=== PATIENT | male | born 1940 | race Caucasian/White ===

== ENCOUNTER → 2018-04-07 08:19 | Outpatient (CLI) | payer MEDICARE, SELFPAY ==
[2018-04-07 09:30] LABS: Add Manual Diff / Slide Review NO; Basophils Percent Auto 0.3 % (0-2); Eosinophils Percent Auto 1.3 % (2-4); Hemoglobin 16.1 g/dL (13.5-17.5); Lymphocytes Percent Auto 21.2 % (25-40); Mean Corpuscular HGB Conc 34.3 % (30-36); Mean Corpuscular Hemoglobin 30.5 PG (26-34); Mean Corpuscular Volume 88.9 fL (80-100); Monocytes Percent Auto 7.9 % (3-14); Neutrophils Absolute Auto 4800 /uL (3000-5900); Neutrophils Percent Auto 69.3 % (50-75); Platelet Count 178 X10^3/uL (150-400); Red Blood Cell Count 5.29 X10^6/uL (4.5-5.9); Red Cell Distribution Width 16.7 % (11.6-14.8)
[2018-04-07 09:53] LABS: Alanine Aminotransferase 38 IU/L (21-72); Albumin 4.1 g/dL (3.5-5.0); Albumin Globulin Ratio 1.6 (1.0-2.8); Alkaline Phosphatase 88 U/L (38-126); Aspartate Aminotransferase 29 IU/L (17-59); BUN Creatinine Ratio 18.3 (6-22); Bilirubin Total 1.6 mg/dL (0.2-1.3); Bilirubin Unconjugated 1.3 mg/dL (0.0-1.1); Blood Urea Nitrogen 22 mg/dL (9-20); Calcium 9.2 mg/dL (8.4-10.2); Carbon Dioxide 26 mmol/L (22-32); Chloride 103 mmol/L (98-107); Cholesterol 197 mg/dL (140-199); Estimated Glomerular Filt Rate 58.9 mL/min (>60); Globulin 2.5 g/dL (1.7-4.1); Glucose 95 mg/dL (80-110); HDL Cholesterol 46 mg/dL (40-60); HEMOLYSIS < 15 (0-50); LDL Cholesterol Calculated 135 mg/dL (<100); Potassium 4.3 mmol/L (3.4-5.1); Sodium 141 mmol/L (137-145); Total Protein 6.6 g/dL (6.3-8.2); Triglycerides 81 mg/dL (35-150)
[2018-04-07 10:15] LABS: Thyroid Stimulating Hormone 1.67 uIU/mL (0.47-4.68)
== END ==
PROVIDERS: PCP Family Medicine; Visit Provider Family Medicine
DX: E78.5 Hyperlipidemia, unspecified (principal); I48.91 Unspecified atrial fibrillation
CPT/HCPCS: 36415; 80053; 80061; 80076; 84443; 85025

== ENCOUNTER 2018-06-04 19:24 | Inpatient (IN) | payer MEDICARE, SELFPAY ==
--- NOTE | 2018-06-04 19:44 | ED_ITS ---
HPI - Abdominal Pain <GEORGIE Pace - Last Filed: 06/04/18 22:56> General Chief Complaint: Abdominal Pain Stated Complaint: SEVERE ABD PAIN,SHAKES Time Seen by Provider: 06/04/18 19:43 History of Present Illness HPI narrative: 78-year-old male here for complaint of epigastric/right upper quadrant pain that started this afternoon. He states that he ate lunch in the pain started right afterwards. He denies any fevers or chills. He denies any trauma to the abdomen. Last bowel movement was earlier today he states was soft however was not abnormal. No urinary symptoms. He he denies any other concerns or complaints. Heart rate was elevated today. He states that he has a normally have a high heart rate around low 100s which is normal for him. 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 He is currently taking Eliquis for the AFib and diltiazem MD complaint: abdominal pain Related Data Home Medications Medication Instructions Recorded Confirmed apixaban [Eliquis] 1 tab PO QPM 06/04/18 06/05/18 apixaban [Eliquis] 2 tab PO QAM 06/04/18 06/05/18 atorvastatin 1 tab PO DAILY 06/04/18 06/05/18 diltiazem HCl [Cartia XT] 1 cap PO BID 06/04/18 06/04/18 tamsulosin 1 tab PO DAILY 06/04/18 06/04/18 Allergies Allergy/AdvReac Type Severity Reaction Status Date / Time Sulfa (Sulfonamide Allergy Verified 06/04/18 19:54 Antibiotics) Review of Systems <GEORGIE Pace - Last Filed: 06/04/18 22:56> Constitutional Denies chills, Denies fever(s), Denies lethargy and Denies weakness Eyes Denies change in vision, Denies eye discharge, Denies irritation and Denies loss of vision ENT Ears, Nose, Mouth, and Throat: Denies change in voice, Denies neck pain and Denies sore throat Cardiovascular Denies chest pain, Denies irregular heart rhythm, Denies lightheadedness, Denies palpitations, Denies dyspnea, Denies dyspnea on exertion and Denies orthopnea Respiratory Denies cough, Denies dyspnea, Denies dyspnea on exertion and Denies wheezing Gastrointestinal Gastrointestinal: Reports abdominal pain Genitourinary Denies hematuria, Denies flank pain, Denies urinary incontinence and Denies urinary urgency Musculoskeletal Denies neck pain Integumentary/Breasts Denies pruritus, Denies erythema, Denies rash and Denies wounds Neurologic Denies confusion, Denies loss of vision and Denies weakness Psychiatric Denies anxiety, Denies confusion, Denies depression, Denies homicidal ideation and Denies suicidal ideation Endocrine Denies palpitations Hematologic/Lymphatic Denies easy bruising Allergic/Immunologic Denies wheezing Exam <GEORGIE Pace - Last Filed: 06/04/18 22:56> Initial Vital Signs Initial Vital Signs: Vital Signs Temperature 98.4 F 06/04/18 19:45 Pulse Rate 129 H 06/04/18 19:45 Respiratory Rate 20 06/04/18 19:45 Blood Pressure 187/115 H 06/04/18 19:45 Pulse Oximetry 97 06/04/18 19:45 Const General: cooperative and well developed Nutritional Appearance: well nourished Orientation: alert, awake, oriented x3 and not confused HENMT Mouth: oral mucosae normal and moist mucous membranes Eyes General: appearance normal, both eyes and all related structures Eyelids: eyelids normal Conjunctivae: conjunctivae normal Sclera: sclerae normal Pupils: PERRL EOM: EOM intact bilaterally Resp Effort & Inspection: normal respiratory effort, able to speak in complete sentences, no respiratory distress and no use of accessory muscles Auscultation: clear to auscultation bilaterally, no rales, no rhonchi and no wheezes Cardio Rate: regular rate Rhythm: regular rhythm Heart Sounds: no click, no gallops, no murmurs and no rubs Pulses: normal peripheral pulses GI Inspection: non-distended Palpation: soft, no hepatosplenomegaly, No guarding, No pulsatile mass and tender (Tender to epigastric and right abdomen. ) Auscultation: normal bowel sounds General: No CVA tenderness Skin General: no rashes or lesions noted, No jaundice and No petechiae Neuro General: alert, oriented x3, gait normal and no focal motor deficits Speech: speech normal Extrem General: full ROM, no clubbing, cyanosis or edema, no pedal edema and no calf tenderness <Trina Potter DO - Last Filed: 06/05/18 03:39> Initial Vital Signs Initial Vital Signs: Vital Signs Temperature 98.4 F 06/04/18 19:45 Pulse Rate 129 H 06/04/18 19:45 Respiratory Rate 20 06/04/18 19:45 Blood Pressure 187/115 H 06/04/18 19:45 Pulse Oximetry 97 06/04/18 19:45 Course <GEORGIE Pace - Last Filed: 06/04/18 22:56> Orders Ordered: ED Orders 06/04/18 19:55 EKG-12 Lead Stat 06/04/18 20:00 Complete Blood Count AUTO DIFF Stat Comprehensive Metabolic Panel Stat Lipase Stat 06/04/18 20:19 CT abdomen pelvis w con Stat 06/04/18 22:34 Consult to Physician Routine 06/05/18 07:00 Complete Blood Count AUTO DIFF DAILY Hydromorphone HCl (Dilaudid) 1 mg IV Q4H PRN PRN Reason: Pain, Severe (7-10) Last Admin: 06/05/18 01:59 Dose: 1 mg Piperacillin/Tazobactam/Dextrose (Zosyn) 3.375 gm in 50 mls @ 100 mls/hr IV Q6H [facility] Last Admin: 06/05/18 01:54 Dose: 100 mls/hr Sodium Chloride (Normal Saline 0.9%) 1,000 mls @ 125 mls/hr IV CONT [facility] Last Infusion: 06/05/18 01:06 Dose: 125 mls/hr Infusion: 06/05/18 00:56 Dose: 0 mls/hr Admin: 06/04/18 23:47 Dose: 125 mls/hr Metronidazole (Flagyl) 500 mg in 100 mls @ 100 mls/hr IV Q6H [facility] Last Infusion: 06/05/18 00:57 Dose: 0 mls/hr Admin: 06/04/18 23:47 Dose: 100 mls/hr Ondansetron HCl (Zofran) 4 mg IV Q6HR PRN PRN Reason: Nausea And Vomiting Discontinued Medications Ciprofloxacin (Cipro) 500 mg PO NOW ONE Stop: 06/04/18 22:05 Hydromorphone HCl (Dilaudid) 0.5 mg IV NOW ONE Stop: 06/04/18 20:51 Last Admin: 06/04/18 21:34 Dose: 0.5 mg Sodium Chloride (Normal Saline 0.9%) 500 mls @ 1,000 mls/hr IV BOLUS ONE Stop: 06/04/18 20:24 Last Infusion: 06/04/18 21:35 Dose: 0 mls/hr Admin: 06/04/18 20:43 Dose: 1,000 mls/hr Metronidazole (Metronidazole) 500 mg PO NOW ONE Stop: 06/04/18 22:05 Ondansetron HCl (Zofran) 4 mg IV NOW ONE Stop: 06/04/18 20:51 Last Admin: 06/04/18 22:40 Dose: Not Given Vital Signs - 8 hr 06/04/18 19:45 06/04/18 21:30 06/05/18 00:29 Temperature 98.4 F Pulse Rate 129 H 128 H 123 H Respiratory Rate 20 18 16 Blood Pressure 187/115 H 135/83 H Blood Pressure [Left Arm] 147/91 H Pulse Oximetry 97 95 98 06/05/18 01:08 Temperature 97.9 F Pulse Rate 125 H Respiratory Rate 18 Blood Pressure 143/95 H Blood Pressure [Left Arm] Pulse Oximetry 94 <Trina Potter, DO - Last Filed: 06/05/18 03:39> Orders Ordered: ED Orders 06/04/18 19:55 EKG-12 Lead Stat 06/04/18 20:00 Complete Blood Count AUTO DIFF Stat Comprehensive Metabolic Panel Stat Lipase Stat 06/04/18 20:19 CT abdomen pelvis w con Stat 06/04/18 22:34 Consult to Physician Routine 06/05/18 07:00 Complete Blood Count AUTO DIFF DAILY Hydromorphone HCl (Dilaudid) 1 mg IV Q4H PRN PRN Reason: Pain, Severe (7-10) Last Admin: 06/05/18 01:59 Dose: 1 mg Piperacillin/Tazobactam/Dextrose (Zosyn) 3.375 gm in 50 mls @ 100 mls/hr IV Q6H [facility] Last Admin: 06/05/18 01:54 Dose: 100 mls/hr Sodium Chloride (Normal Saline 0.9%) 1,000 mls @ 125 mls/hr IV CONT [facility] Last Infusion: 06/05/18 01:06 Dose: 125 mls/hr Infusion: 06/05/18 00:56 Dose: 0 mls/hr Admin: 06/04/18 23:47 Dose: 125 mls/hr Metronidazole (Flagyl) 500 mg in 100 mls @ 100 mls/hr IV Q6H [facility] Last Infusion: 06/05/18 00:57 Dose: 0 mls/hr Admin: 06/04/18 23:47 Dose: 100 mls/hr Ondansetron HCl (Zofran) 4 mg IV Q6HR PRN PRN Reason: Nausea And Vomiting Discontinued Medications Ciprofloxacin (Cipro) 500 mg PO NOW ONE Stop: 06/04/18 22:05 Hydromorphone HCl (Dilaudid) 0.5 mg IV NOW ONE Stop: 06/04/18 20:51 Last Admin: 06/04/18 21:34 Dose: 0.5 mg Sodium Chloride (Normal Saline 0.9%) 500 mls @ 1,000 mls/hr IV BOLUS ONE Stop: 06/04/18 20:24 Last Infusion: 06/04/18 21:35 Dose: 0 mls/hr Admin: 06/04/18 20:43 Dose: 1,000 mls/hr Metronidazole (Metronidazole) 500 mg PO NOW ONE Stop: 06/04/18 22:05 Ondansetron HCl (Zofran) 4 mg IV NOW ONE Stop: 06/04/18 20:51 Last Admin: 06/04/18 22:40 Dose: Not Given Vital Signs - 8 hr 06/04/18 19:45 06/04/18 21:30 06/05/18 00:29 Temperature 98.4 F Pulse Rate 129 H 128 H 123 H Respiratory Rate 20 18 16 Blood Pressure 187/115 H 135/83 H Blood Pressure [Left Arm] 147/91 H Pulse Oximetry 97 95 98 06/05/18 01:08 Temperature 97.9 F Pulse Rate 125 H Respiratory Rate 18 Blood Pressure 143/95 H Blood Pressure [Left Arm] Pulse Oximetry 94 MDM - Abdominal Pain <GEORGIE Pace - Last Filed: 06/04/18 22:56> Lab Data Result diagrams: 06/04/18 20:00 06/04/18 20:00 Lab Results 06/04/18 06/04/18 Range/Units 20:00 20:00 WBC 11.4 H (4.5-11.0) X10^3/uL RBC 5.78 (4.5-5.9) X10^6/uL Hgb 17.9 H (13.5-17.5) g/dL Hct 52.1 (41-53) % MCV 90.2 (80-100) fL MCH 31.0 (26-34) PG MCHC 34.4 (30-36) % RDW 14.3 (11.6-14.8) % Plt Count 226 (150-400) X10^3/uL Neut % (Auto) 85.6 H (50-75) % Lymph % (Auto) 11.6 L (25-40) % [place] % (Auto) 2.0 L (3-14) % Eos % (Auto) 0.3 L (2-4) % Baso % (Auto) 0.5 (0-2) % Neut # (Auto) 9700 H (1041-8407) /uL Sodium 144 (137-145) mmol/L Potassium 4.3 (3.4-5.1) mmol/L Chloride 99 (98-107) mmol/L Carbon Dioxide 31 (22-32) mmol/L BUN 39 H (9-20) mg/dL Creatinine 1.60 H (0.66-1.25) mg/dL Estimated GFR 42.1 L (>60) mL/min BUN/Creatinine Ratio 24.4 H (6-22) Glucose 106 (80-110) mg/dL Calcium 9.5 (8.4-10.2) mg/dL Total Bilirubin 0.9 (0.2-1.3) mg/dL AST 53 (17-59) IU/L ALT 58 (21-72) IU/L Alkaline Phosphatase 105 (38-126) U/L Total Protein 7.8 (6.3-8.2) g/dL Albumin 4.7 (3.5-5.0) g/dL Globulin 3.1 (1.7-4.1) g/dL Albumin/Globulin Ratio 1.5 (1.0-2.8) Lipase 150 (23-300) U/L Point of care testing: Urine Dip Bedside Urine Glucose Negative Bedside Urine Bilirubin - Negative Bedside Urine Ketone - Negative Urine Specific [place] 1.015 Bedside Urine Occult Blood - Negative Bedside Urine pH 6.5 Bedside Urine Protein +/- 15 Bedside Urine Urobilinogen - Negative Bedside Urine Nitrite - Negative Bedside Urine Leukocytes - Negative Esterase Imaging Data CT scan - abdomen: Radiologist's impression: PROCEDURE: CT ABDOMEN PELVIS W CON INDICATIONS: Right-sided abdominal pain TECHNIQUE: After the administration of intravenous contrast, 5 mm thick sections acquired from the diaphragm to the symphysis. 5 mm coronal and sagittal reformats were acquired. For radiation dose reduction, the following was used: automated exposure control, adjustment of mA and/or kV according to patient size. COMPARISON: [facility], , ABDOMEN COMPLETE, 02/07/2015, 9:15. FINDINGS: Image quality: Excellent. ABDOMEN: Lung bases: Lung bases are clear. Heart size is normal. Atherosclerotic calcifications noted in the visualized coronary vascular. Solid organs: Liver is normal in size and enhancement. Gallbladder is within normal limits. Biliary system is non dilated. Pancreas enhances normally. Spleen is normal in size and enhancement. No adrenal nodules. Kidneys demonstrate normal size and enhancement, without hydronephrosis. Peritoneum and bowel: Bowel loops demonstrate normal wall thickness and caliber. Numerous colonic diverticuli are noted. Mild inflammatory changes noted adjacent to several diverticuli in the mid sigmoid colon. There is a small locule of free air in the mesocolon adjacent to the sigmoid and colon. Small locules of free air noted anterior to the stomach in the upper omentum. The appendix is normal. Nodes and vessels: No retroperitoneal or mesenteric adenopathy by size criteria. Aorta and inferior vena cava are normal in size. Scattered atherosclerotic calcifications are noted in the abdominal and pelvic vasculature. Miscellaneous: No ventral hernias. PELVIS: Genitourinary: Bladder wall thickness is normal. Prostate is enlarged. Miscellaneous: No inguinal hernias or adenopathy. Bones: No suspicious bony lesions. No vertebral body compression fractures. Spine degenerative disease and facet arthropathy noted. IMPRESSION: 1. Sigmoid colon diverticulitis. 2. Small free air locules adjacent to the sigmoid colon within the region of inflammatory changes, in the omentum and anterior to the stomach possibly related to ruptured sigmoid colon diverticulum. 3. The appendix is normal. 4. Atherosclerosis including the visualized coronary vasculature. Dictated by: Rochelle Almazan MD, PhD on 06/04/2018 at 21:11 Approved by: Rochelle Almazan MD, PhD on 06/04/2018 at 21:18 MDM Narrative Medical decision making narrative: CBC shows slightly elevated white count at 11.4. Chem panel was unremarkable. Urinalysis was negative for urinary tract infection. CT of the abdomen shows sigmoid diverticulitis with possible small areas of air adjacent to the sigmoid colon indicating possible rupture. Discussed case with Dr. Cordova who recommends admitting patient for with Zosyn and Flagyl IV antibiotics. Discussed case with Dr. Llamas hospitalist who accepted patient. Patient is admitted for further evaluation and treatment. Patient took his p.o. medications tonight for diltiazem. Patient's heart rate remained elevated during his stay in the emergency room however patient states that this is normal for him. Patient admitted for inpatient services <Trina Potter, DO - Last Filed: 06/05/18 03:39> Lab Data Lab Results 06/04/18 06/04/18 Range/Units 20:00 20:00 WBC 11.4 H (4.5-11.0) X10^3/uL RBC 5.78 (4.5-5.9) X10^6/uL Hgb 17.9 H (13.5-17.5) g/dL Hct 52.1 (41-53) % MCV 90.2 (80-100) fL MCH 31.0 (26-34) PG MCHC 34.4 (30-36) % RDW 14.3 (11.6-14.8) % Plt Count 226 (150-400) X10^3/uL Neut % (Auto) 85.6 H (50-75) % Lymph % (Auto) 11.6 L (25-40) % [place] % (Auto) 2.0 L (3-14) % Eos % (Auto) 0.3 L (2-4) % Baso % (Auto) 0.5 (0-2) % Neut # (Auto) 9700 H (4880-2642) /uL Sodium 144 (137-145) mmol/L Potassium 4.3 (3.4-5.1) mmol/L Chloride 99 (98-107) mmol/L Carbon Dioxide 31 (22-32) mmol/L BUN 39 H (9-20) mg/dL Creatinine 1.60 H (0.66-1.25) mg/dL Estimated GFR 42.1 L (>60) mL/min BUN/Creatinine Ratio 24.4 H (6-22) Glucose 106 (80-110) mg/dL Calcium 9.5 (8.4-10.2) mg/dL Total Bilirubin 0.9 (0.2-1.3) mg/dL AST 53 (17-59) IU/L ALT 58 (21-72) IU/L Alkaline Phosphatase 105 (38-126) U/L Total Protein 7.8 (6.3-8.2) g/dL Albumin 4.7 (3.5-5.0) g/dL Globulin 3.1 (1.7-4.1) g/dL Albumin/Globulin Ratio 1.5 (1.0-2.8) Lipase 150 (23-300) U/L Point of care testing: Urine Dip Bedside Urine Glucose Negative Bedside Urine Bilirubin - Negative Bedside Urine Ketone - Negative Urine Specific [place] 1.015 Bedside Urine Occult Blood - Negative Bedside Urine pH 6.5 Bedside Urine Protein +/- 15 Bedside Urine Urobilinogen - Negative Bedside Urine Nitrite - Negative Bedside Urine Leukocytes - Negative Esterase Discharge Plan Departure Patient Disposition: Admitted As Inpatient Clinical Impression: Diverticulitis Discharge Date/Time: 06/05/18 00:30 Interventions: ED Discharge Assessment Last Done: 06/05/18 00:29 Admit Date/Time: 06/05/18 00:16 Admit Provider: Ignacio Llamas <Trina Potter DO - Last Filed: 06/05/18 03:39> Cosign ED Attending Jam Attestation: I was immediately available in the department for consultation. Documentation has been reviewed. I agree with assessment and plan.
[2018-06-04 19:45] VITALS: BP 187/115; PULSE 129; RESP 20; TEMP 36.9; O2SAT 97; BMI 25.7
[2018-06-04 20:10] LABS: Add Manual Diff / Slide Review NO; Basophils Percent Auto 0.5 % (0-2); Eosinophils Percent Auto 0.3 % (2-4); Hematocrit 52.1 % (41-53); Hemoglobin 17.9 g/dL (13.5-17.5); Lymphocytes Percent Auto 11.6 % (25-40); Mean Corpuscular HGB Conc 34.4 % (30-36); Mean Corpuscular Volume 90.2 fL (80-100); Neutrophils Absolute Auto 9700 /uL (3000-5900); Neutrophils Percent Auto 85.6 % (50-75); Platelet Count 226 X10^3/uL (150-400); Red Blood Cell Count 5.78 X10^6/uL (4.5-5.9); Red Cell Distribution Width 14.3 % (11.6-14.8); White Blood Cell Count 11.4 X10^3/uL (4.5-11.0)
--- NOTE | 2018-06-04 20:19 | DI.CT.S_ITS ---
PROCEDURE: CT ABDOMEN PELVIS W CON INDICATIONS: Right-sided abdominal pain TECHNIQUE: After the administration of intravenous contrast, 5 mm thick sections acquired from the diaphragm to the symphysis. 5 mm coronal and sagittal reformats were acquired. For radiation dose reduction, the following was used: automated exposure control, adjustment of mA and/or kV according to patient size. COMPARISON: [facility], , ABDOMEN COMPLETE, 02/07/2015, 9:15. FINDINGS: Image quality: Excellent. ABDOMEN: Lung bases: Lung bases are clear. Heart size is normal. Atherosclerotic calcifications noted in the visualized coronary vascular. Solid organs: Liver is normal in size and enhancement. Gallbladder is within normal limits. Biliary system is non dilated. Pancreas enhances normally. Spleen is normal in size and enhancement. No adrenal nodules. Kidneys demonstrate normal size and enhancement, without hydronephrosis. Peritoneum and bowel: Bowel loops demonstrate normal wall thickness and caliber. Numerous colonic diverticuli are noted. Mild inflammatory changes noted adjacent to several diverticuli in the mid sigmoid colon. There is a small locule of free air in the mesocolon adjacent to the sigmoid and colon. Small locules of free air noted anterior to the stomach in the upper omentum. The appendix is normal. Nodes and vessels: No retroperitoneal or mesenteric adenopathy by size criteria. Aorta and inferior vena cava are normal in size. Scattered atherosclerotic calcifications are noted in the abdominal and pelvic vasculature. Miscellaneous: No ventral hernias. PELVIS: Genitourinary: Bladder wall thickness is normal. Prostate is enlarged. Miscellaneous: No inguinal hernias or adenopathy. Bones: No suspicious bony lesions. No vertebral body compression fractures. Spine degenerative disease and facet arthropathy noted. IMPRESSION: 1. Sigmoid colon diverticulitis. 2. Small free air locules adjacent to the sigmoid colon within the region of inflammatory changes, in the omentum and anterior to the stomach possibly related to ruptured sigmoid colon diverticulum. 3. The appendix is normal. 4. Atherosclerosis including the visualized coronary vasculature. Dictated by: Rochelle Almazan MD, PhD on 06/04/2018 at 21:11 Approved by: Rochelle Almazan MD, PhD on 06/04/2018 at 21:18
[2018-06-04 20:22] LABS: Alanine Aminotransferase 58 IU/L (21-72); Albumin 4.7 g/dL (3.5-5.0); Albumin Globulin Ratio 1.5 (1.0-2.8); Alkaline Phosphatase 105 U/L (38-126); Aspartate Aminotransferase 53 IU/L (17-59); BUN Creatinine Ratio 24.4 (6-22); Bilirubin Total 0.9 mg/dL (0.2-1.3); Blood Urea Nitrogen 39 mg/dL (9-20); Calcium 9.5 mg/dL (8.4-10.2); Carbon Dioxide 31 mmol/L (22-32); Chloride 99 mmol/L (98-107); Estimated Glomerular Filt Rate 42.1 mL/min (>60); Globulin 3.1 g/dL (1.7-4.1); Glucose 106 mg/dL (80-110); HEMOLYSIS 48 (0-50); Lipase 150 U/L (23-300); Potassium 4.3 mmol/L (3.4-5.1); Sodium 144 mmol/L (137-145); Total Protein 7.8 g/dL (6.3-8.2)
[2018-06-04] MEDS: SODIUM CHLORIDE 0.9% 500 ML 1000 ML IV (20:43)
[2018-06-04 21:30] VITALS: BP 147/91; PULSE 128; RESP 18; O2SAT 95
[2018-06-04] MEDS: HYDROMORPHONE 1 MG INJ 0.5 MG IV (21:34)
[2018-06-04] MEDS: metroNIDAZOLE 500 MG/100 ML PIGGYBACK 100 MG IV (23:47)
[2018-06-04] MEDS: SODIUM CHLORIDE 0.9% 1,000 ML 125 ML IV (23:47)
[2018-06-05] VITALS (10 sets, daily range): BP systolic 114–143; BP diastolic 64–95; PULSE 80–125; RESP 16–18; TEMP 36.2–36.8; O2SAT 92–98; BMI 25.7
[2018-06-05] MEDS: PIPERACILLIN-TAZO 3.375 GM/50 ML FROZ.PIGGY IV ×4 (01:54→20:20)
[2018-06-05] MEDS: HYDROMORPHONE 0.5 MG INJ 1 MG IV ×2 (01:59→20:18)
[2018-06-05] MEDS: metroNIDAZOLE 500 MG/100 ML PIGGYBACK 100 MG IV ×4 (04:30→21:47)
[2018-06-05 08:43] LABS: Add Manual Diff / Slide Review NO; Basophils Percent Auto 0.2 % (0-2); Hematocrit 45.8 % (41-53); Hemoglobin 15.5 g/dL (13.5-17.5); Lymphocytes Percent Auto 6.3 % (25-40); Mean Corpuscular HGB Conc 33.9 % (30-36); Mean Corpuscular Hemoglobin 30.8 PG (26-34); Mean Corpuscular Volume 90.8 fL (80-100); Monocytes Percent Auto 4.5 % (3-14); Neutrophils Absolute Auto 18400 /uL (3000-5900); Platelet Count 200 X10^3/uL (150-400); Red Blood Cell Count 5.04 X10^6/uL (4.5-5.9); Red Cell Distribution Width 14.6 % (11.6-14.8); White Blood Cell Count 20.7 X10^3/uL (4.5-11.0)
[2018-06-05 09:36] LABS: BUN Creatinine Ratio 23.1 (6-22); Blood Urea Nitrogen 30 mg/dL (9-20); Calcium 8.6 mg/dL (8.4-10.2); Carbon Dioxide 29 mmol/L (22-32); Chloride 104 mmol/L (98-107); Estimated Glomerular Filt Rate 53.5 mL/min (>60); Glucose 104 mg/dL (80-110); HEMOLYSIS < 15 (0-50); Potassium 4.3 mmol/L (3.4-5.1); Sodium 140 mmol/L (137-145)
--- NOTE | 2018-06-05 09:40 | PM.HP.1 ---
History of Present Illness Date Patient Seen: 06/05/18 Time Patient Seen: 09:41 Chief complaint: SEVERE ABD PAIN,SHAKES Narrative: Patient is a 78-year-old male well known to me who presents with abdominal pain. Patient apparently was his usual state of health until yesterday at 12 o'clock. After lunch she began having some mild upper abdominal pain. Had a bowel movement which was pretty large but loose and no blood. [place] like maybe that would help but did not. Progressively increasing pain. He describes the pain as quite severe sometimes 8/10 mostly burning or aching pain no radiation. Nothing seemed to make it better nothing seemed to make it work. Had no appetite but no vomiting. No fevers or chills. No other changes. Was brought to the emergency room. Heart rate is normally elevated into the 1 40s to 150s. Has been stable over the last few hours. No chest pain. No other changes. Patient has a history of diverticulitis. Last treated in October of last year. No other changes. We have been in the process of trying to adjust his medicines because he did not feel well on previous beta emy. Hypertension. Past surgical history. Not significant. Social history. Patient occasional drinker. No smoker. Lives with . Retired. Good support system. Family history. Noncontributory to current medical condition. Review of systems. Otherwise negative for 12 systems. Nothing definitive.. Patient History Medical History A-fib (Acute) Blepharophimosis unspecified eye, unspecified lid (Acute) Family & Social History Family History: Reviewed 06/05/18 by Ignacio Llamas MD Social History: household members spouse Safety & Behavioral: Feels Safe in Current No Environment Been Physically Hurt or No Threatened By a Person Suicidal Ideation Description None Suicide Plan Description No Plan Tobacco & Substance use: Smoking Status Never smoker Substance Use Type does not use Meds Home Medications Medication Instructions Recorded Confirmed Type apixaban [Eliquis] 1 tab PO QPM 06/04/18 06/05/18 History apixaban [Eliquis] 2 tab PO QAM 06/04/18 06/05/18 History atorvastatin 1 tab PO DAILY 06/04/18 06/05/18 History diltiazem HCl [Cartia XT] 1 cap PO BID 06/04/18 06/04/18 History tamsulosin 1 tab PO DAILY 06/04/18 06/04/18 History Allergies Allergy/AdvReac Type Severity Reaction Status Date / Time Sulfa (Sulfonamide Allergy Verified 06/04/18 19:54 Antibiotics) Review of Systems Review of Systems All systems reviewed & are unremarkable except as noted in HPI and below Exam Vital Signs (past 8 hours): - 06/05/18 05:42 Temperature 97.1 F L Pulse Rate 80 Respiratory Rate 16 Blood Pressure 127/64 H Pulse Oximetry 95 Oxygen Delivery Method Room Air Narrative Exam Narrative: Alert elderly male lying in bed in mild distress. Eyes are normal. Mucous membranes moist. Neck is supple without adenopathy JVD or bruits. No adenopathy. No supraclavicular adenopathy. Lungs are clear. Heart irregular rhythm with rate around 100. Abdomen is soft decreased bowel sounds. Moderate tenderness with guarding on the left side up to left upper worse than lower left lower. No rebound. Negative heel strike. Extremities without cyanosis clubbing edema. Neurologic exam is completely unremarkable. Normal reflexes normal motor. Alert and oriented x3. Skin is with no rash. Psychologically is mildly tired but otherwise appropriate Objective Labs Result Diagrams: 06/05/18 08:20 06/05/18 08:20 Labs: Laboratory Results - last 24 hr 06/04/18 06/04/18 06/05/18 20:00 20:00 08:20 WBC 11.4 H 20.7 H D RBC 5.78 5.04 Hgb 17.9 H 15.5 Hct 52.1 45.8 MCV 90.2 90.8 MCH 31.0 30.8 MCHC 34.4 33.9 RDW 14.3 14.6 Plt Count 226 200 Neut % (Auto) 85.6 H 89.0 H Lymph % (Auto) 11.6 L 6.3 L [place] % (Auto) 2.0 L 4.5 Eos % (Auto) 0.3 L 0.0 L Baso % (Auto) 0.5 0.2 Neut # (Auto) 9700 H 06398 H Sodium 144 Potassium 4.3 Chloride 99 Carbon Dioxide 31 BUN 39 H Creatinine 1.60 H Estimated GFR 42.1 L BUN/Creatinine Ratio 24.4 H Glucose 106 Calcium 9.5 Total Bilirubin 0.9 AST 53 ALT 58 Alkaline Phosphatase 105 Total Protein 7.8 Albumin 4.7 Globulin 3.1 Albumin/Globulin Ratio 1.5 Lipase 150 06/05/18 08:20 WBC RBC Hgb Hct MCV MCH MCHC RDW Plt Count Neut % (Auto) Lymph % (Auto) [place] % (Auto) Eos % (Auto) Baso % (Auto) Neut # (Auto) Sodium 140 Potassium 4.3 Chloride 104 Carbon Dioxide 29 BUN 30 H Creatinine 1.30 H Estimated GFR 53.5 L BUN/Creatinine Ratio 23.1 H Glucose 104 Calcium 8.6 Total Bilirubin AST ALT Alkaline Phosphatase Total Protein Albumin Globulin Albumin/Globulin Ratio Lipase Assessment & Plan Plan: Assessment/Plan Narrative: Abdominal pain. Diverticulitis. White count actually is increased today. Exam is pretty significantly tender but not surgical at this time. Will need to see how he responds to antibiotics. On good coverage. Surgeon has been consulted. Hopefully will see today. I will continue NPO for now. Medicines only biceps. Follow from there. Atrial fibrillation. Poorly controlled at this time. Will add Coreg since he did not tolerate metoprolol in the past. Continue Cardizem. Will hold his Eliquis for now with the possibility the may potentially need surgery and re-evaluate a.m.. Hypertension. We will follow numbers. Continue his Cardizem and possible Coreg will help. DVT prophylaxis. Lovenox. GI prophylaxis. Will place on pantoprazole. Disposition. Clearly will be here more than 2 days. Awaiting surgical consult. Time Spent With Patient Time with patient: Greater than 35 minutes Quality VTE Deep Vein Thrombosis/Pulmonary Embolism Present on Admission: Yes
[2018-06-05] MEDS: dilTIAZem CD 120 MG CAP PO ×2 (10:36→21:48)
[2018-06-05] MEDS: TAMSULOSIN 0.4 MG CAPSULE PO (10:36)
[2018-06-05] MEDS: CARVEDILOL 6.25 MG TABLET PO ×2 (10:36→21:47)
[2018-06-05] MEDS: SODIUM CHLORIDE 0.9% 1,000 ML 125 ML IV ×3 (10:37→21:51)
--- NOTE | 2018-06-05 14:33 | PC.NURSE ---
pt alert and oriented, verbalizes that abdominal pain is of annoyance but not requesting PRN analgesics at this time, vss with exception of stable a fib with rvr. Pt asymptomatic, denies cardiac distress. Pt ok to take sips with meds and ice chip sparingly. Also educated on need for ambulation. Continue course, if any sudden changes (increased pain, fever) probable surgery at that point.
--- NOTE | 2018-06-05 16:15 | CM.DANOTE ---
UR Initial: Needs assessment. Per chart admit w/ Diverticulitis and a-fib. Clearly will be here more than 2 days. Awaiting surgical consult. Kyle Rueda RN
[2018-06-05 20:09] LABS: Add Manual Diff / Slide Review NO; Basophils Percent Auto 0.3 % (0-2); Eosinophils Percent Auto 0.3 % (2-4); Hematocrit 45.1 % (41-53); Hemoglobin 15.2 g/dL (13.5-17.5); Lymphocytes Percent Auto 9.7 % (25-40); Mean Corpuscular HGB Conc 33.7 % (30-36); Mean Corpuscular Hemoglobin 30.8 PG (26-34); Mean Corpuscular Volume 91.1 fL (80-100); Monocytes Percent Auto 3.2 % (3-14); Neutrophils Absolute Auto 14100 /uL (3000-5900); Neutrophils Percent Auto 86.5 % (50-75); Platelet Count 188 X10^3/uL (150-400); Red Blood Cell Count 4.95 X10^6/uL (4.5-5.9); Red Cell Distribution Width 14.4 % (11.6-14.8); White Blood Cell Count 16.3 X10^3/uL (4.5-11.0)
[2018-06-05 20:20] LABS: BUN Creatinine Ratio 20.7 (6-22); Blood Urea Nitrogen 29 mg/dL (9-20); Calcium 8.7 mg/dL (8.4-10.2); Carbon Dioxide 28 mmol/L (22-32); Chloride 105 mmol/L (98-107); Estimated Glomerular Filt Rate 49.1 mL/min (>60); Glucose 92 mg/dL (80-110); HEMOLYSIS < 15 (0-50); Potassium 4.1 mmol/L (3.4-5.1); Sodium 141 mmol/L (137-145)
--- NOTE | 2018-06-05 22:07 | PC.NURSE ---
SHIFT NOTE A&Ox3, pleasant and cooperative with care. [place]. bowel sounds hypoactive, pt reports + flatus. SBA with ambulation. pt ambulated in hallway x1 this shift. states abdominal pain with activity or palpation rated 5-7/10. denies any nausea or vomiting. PRN dilaudid administered with good effects. call light within reach.
[2018-06-06] VITALS (8 sets, daily range): BP systolic 127–159; BP diastolic 74–87; PULSE 79–106; RESP 16–18; TEMP 36.1–38.2; O2SAT 93–98
[2018-06-06] MEDS: PIPERACILLIN-TAZO 3.375 GM/50 ML FROZ.PIGGY IV ×4 (02:53→20:05)
[2018-06-06] MEDS: metroNIDAZOLE 500 MG/100 ML PIGGYBACK 100 MG IV ×4 (04:38→22:04)
[2018-06-06] MEDS: HYDROMORPHONE 0.5 MG INJ 1 MG IV (05:02)
[2018-06-06 08:58] LABS: Add Manual Diff / Slide Review NO; Basophils Percent Auto 0.6 % (0-2); Eosinophils Percent Auto 0.5 % (2-4); Hematocrit 43.8 % (41-53); Hemoglobin 14.9 g/dL (13.5-17.5); Lymphocytes Percent Auto 8.9 % (25-40); Mean Corpuscular HGB Conc 34.1 % (30-36); Mean Corpuscular Hemoglobin 31.2 PG (26-34); Mean Corpuscular Volume 91.4 fL (80-100); Monocytes Percent Auto 4.4 % (3-14); Neutrophils Absolute Auto 12500 /uL (3000-5900); Neutrophils Percent Auto 85.6 % (50-75); Platelet Count 184 X10^3/uL (150-400); Red Blood Cell Count 4.79 X10^6/uL (4.5-5.9); Red Cell Distribution Width 14.4 % (11.6-14.8); White Blood Cell Count 14.6 X10^3/uL (4.5-11.0)
--- NOTE | 2018-06-06 09:05 | PN_ITS ---
DATE OF SERVICE: 06/06/2018 SUBJECTIVE: The patient was admitted yesterday with acute diverticulitis with micro-perforation in the sigmoid colon with some air in the mesocolon and a scant amount of free air in the omentum, a few bubbles. I have examined the CT scan. There is no abscess. Today, subjectively, he feels much better than yesterday. Less abdominal pain. No nausea or vomiting. No shaking chills or fever. OBJECTIVE: On exam, he is afebrile. Temperature is 97.6. Abdomen is much less tender than it was yesterday. There is no sign of right-sided tenderness. There is really only localized left lower quadrant tenderness at this time. The patient's vital signs are stable. He does have atrial fibrillation. He is on Eliquis, which I am still holding because of the possibility, although that has diminished, that he may need a laparotomy. He has SCDs for DVT prophylaxis, and I am withholding anticoagulant therapy at this time because of the potential for needing open abdominal surgery. He is protected against DVT; however, we are holding the Eliquis. He does have atrial fibrillation. LABORATORY DATA: His white count dropped last evening from 20,000 to 16,000. The lab did not draw his blood this morning, so we're ordering a stat CBC to see what the white count is doing. The patient appears to be improving on conservative, nonsurgical therapy at this time. We will continue IV Zosyn and Flagyl. We will continue his monitor his abdominal exam, white count, etc. Dustin Mendez - /wilner/ga doc#: [id number]/job#: [id number] dd: 06/06/2018 08:27:00 dt: 06/06/2018 08:55:00 DICTATING MD/COPIES TO: Justin Cordova MD COPIES MNE: LEVON
[2018-06-06] MEDS: PANTOPRAZOLE 40 MG VIAL 20 MG IV (09:07)
[2018-06-06] MEDS: TAMSULOSIN 0.4 MG CAPSULE PO (09:07)
[2018-06-06] MEDS: dilTIAZem CD 120 MG CAP PO ×2 (09:07→20:07)
[2018-06-06] MEDS: CARVEDILOL 6.25 MG TABLET PO ×2 (09:07→20:07)
[2018-06-06 09:10] LABS: BUN Creatinine Ratio 17.7 (6-22); Blood Urea Nitrogen 23 mg/dL (9-20); Calcium 8.5 mg/dL (8.4-10.2); Carbon Dioxide 25 mmol/L (22-32); Chloride 107 mmol/L (98-107); Estimated Glomerular Filt Rate 53.5 mL/min (>60); Glucose 87 mg/dL (80-110); HEMOLYSIS < 15 (0-50); Potassium 4.1 mmol/L (3.4-5.1); Sodium 142 mmol/L (137-145)
--- NOTE | 2018-06-06 09:14 | CM.DANOTE ---
DCP: Case received, EMR reviewed and met with patient. Introduced self and role. DCP template completed with information currently available. Patient is a 78 year old male who admitted yesterday in the early am to the care of the hospitalist team. PCP: Dr. Llamas. Payer: confirmed [facility]. Patient came in with severe abdominal pain and tremors. Carries diagnosis of Diverticulitis. Lives independently at home with . P: To return home, but DCP will continue to plan and assess. Radha Fairbanks RN/Banking Assistant
[2018-06-06] MEDS: SODIUM CHLORIDE 0.9% 1,000 ML 125 ML IV ×2 (10:31→20:07)
--- NOTE | 2018-06-06 10:37 | P.PN_ITS ---
Subjective Date Patient Seen: 06/06/18 Time Patient Seen: 10:34 Interval history: Patient overall feeling better. Less pain. No fevers. No other changes. No chest pain. Feels like heart rate is better. Blood pressure is controlled. No other changes. Exam Vital Signs (past 8 hours): - 06/06/18 05:24 06/06/18 08:21 Temperature 97.3 F L 97.0 F L Pulse Rate 105 H 87 Respiratory Rate 16 18 Blood Pressure 131/80 H 137/87 H Pulse Oximetry 95 96 Oxygen Delivery Method Room Air Narrative Exam Narrative: Alert elderly male smiling in no acute distress. Lungs are clear. Heart irregular rate and rhythm but well controlled in the 80s. Abdomen is decreased bowel sounds but still with left lower quadrant tenderness moderate guarding but no rebound. No masses. Extremities are normal. Skin is unremarkable. Objective Labs Result Diagrams: 06/06/18 08:35 06/06/18 08:35 Labs: Laboratory Results - last 24 hr 06/05/18 06/05/18 06/06/18 20:00 20:00 08:35 WBC 16.3 H RBC 4.95 Hgb 15.2 Hct 45.1 MCV 91.1 MCH 30.8 MCHC 33.7 RDW 14.4 Plt Count 188 Neut % (Auto) 86.5 H Lymph % (Auto) 9.7 L [place] % (Auto) 3.2 Eos % (Auto) 0.3 L Baso % (Auto) 0.3 Neut # (Auto) 55001 H Sodium 141 142 Potassium 4.1 4.1 Chloride 105 107 Carbon Dioxide 28 25 BUN 29 H 23 H Creatinine 1.40 H 1.30 H Estimated GFR 49.1 L 53.5 L BUN/Creatinine Ratio 20.7 17.7 Glucose 92 87 Calcium 8.7 8.5 06/06/18 08:35 WBC 14.6 H RBC 4.79 Hgb 14.9 Hct 43.8 MCV 91.4 MCH 31.2 MCHC 34.1 RDW 14.4 Plt Count 184 Neut % (Auto) 85.6 H Lymph % (Auto) 8.9 L [place] % (Auto) 4.4 Eos % (Auto) 0.5 L Baso % (Auto) 0.6 Neut # (Auto) 76987 H Sodium Potassium Chloride Carbon Dioxide BUN Creatinine Estimated GFR BUN/Creatinine Ratio Glucose Calcium Assessment & Plan Plan: Assessment/Plan Narrative: Abdominal pain diverticulitis. White count actually is improved down to 14. Pain is improved. Fever curve is good. Increasing diet today. Continue antibiotics today. If doing well may be able to switch to p.o. tomorrow. We will see what surgeons recommend. Atrial fibrillation. Actually much improved with Coreg. Will continue. Probably go home on that. Hypertension stable numbers look better. Will follow. DVT prophylaxis on Lovenox. GI prophylaxis on pantoprazole. Disposition. Clearly Thursday will be that release to gets to go home. We will see how tomorrow goes. Otherwise seems to be doing well. Quality VTE Deep Vein Thrombosis/Pulmonary Embolism Present on Admission: Yes
--- NOTE | 2018-06-06 12:31 | CM.DPC ---
DCP Cont: Patient will continue with hospitalization secondary to his diagnosis, as well as a-fib. May go home Thursday if stable, but will be re-evaluated tomorrow. P: Reassess tomorrow, Thursday. Plan is for patient to go home. Radha Fairbanks RN/Supervisor Shop
--- NOTE | 2018-06-06 14:46 | PC.NURSE ---
1445 Pt up ad maryjane in the room, denies pain, cont w/IVF & anti bx, diamond well. Started on a clear liq diet, denies nausea or any complication. Pleasant & cooperative w/care needs.
[2018-06-07] VITALS (9 sets, daily range): BP systolic 140–154; BP diastolic 84–95; PULSE 82–97; RESP 16–20; TEMP 36.3–37.2; O2SAT 95–100
[2018-06-07] MEDS: PIPERACILLIN-TAZO 3.375 GM/50 ML FROZ.PIGGY IV ×4 (02:40→20:40)
[2018-06-07] MEDS: metroNIDAZOLE 500 MG/100 ML PIGGYBACK 100 MG IV ×4 (03:58→22:41)
--- NOTE | 2018-06-07 08:23 | P.PN_ITS ---
Subjective Date Patient Seen: 06/07/18 Time Patient Seen: 08:20 Interval history: Patient overall feeling better today. Pain down to 2/10.. Had a bowel movement yesterday. No nausea or vomiting. Tolerating clear liquids. No chest pain. No shortness of breath no other change. Exam Vital Signs (past 8 hours): - 06/07/18 00:55 06/07/18 05:18 Temperature 99 F 98.2 F Pulse Rate 91 H Respiratory Rate 16 Blood Pressure 147/92 H Pulse Oximetry 95 Oxygen Delivery Method Room Air Oxygen Flow Rate 0 Narrative Exam Narrative: Alert male elderly lying in bed no acute distress. HEENT exam mucous membranes moist. Neck is supple without adenopathy. Lungs are clear. Heart's irregular rhythm and controlled rate. No other changes. Abdomen is soft positive bowel sounds still with moderate left lower quadrant pain no guarding today. No rebound. Objective Labs Result Diagrams: 06/06/18 08:35 06/06/18 08:35 Labs: Laboratory Results - last 24 hr 06/06/18 06/06/18 08:35 08:35 WBC 14.6 H RBC 4.79 Hgb 14.9 Hct 43.8 MCV 91.4 MCH 31.2 MCHC 34.1 RDW 14.4 Plt Count 184 Neut % (Auto) 85.6 H Lymph % (Auto) 8.9 L [place] % (Auto) 4.4 Eos % (Auto) 0.5 L Baso % (Auto) 0.6 Neut # (Auto) 96910 H Sodium 142 Potassium 4.1 Chloride 107 Carbon Dioxide 25 BUN 23 H Creatinine 1.30 H Estimated GFR 53.5 L BUN/Creatinine Ratio 17.7 Glucose 87 Calcium 8.5 Assessment & Plan Plan: Assessment/Plan Narrative: Abdominal pain. Diverticulitis. With microperforations. Seems to be improved. White count pending. No other changes. Continue antibiotics IV. Still not really out of the schwarz yet. Increase diet. Re-evaluate in a.m.. Follow up white count. Hypertension. Numbers overall look good. Feeling well. Will continue current Cardizem and Coreg. AFib. Control is better than on admission.. Not sure if we will be able to not have to increase his Coreg a little bit. But he seems to be tolerating it well. Did not feel well on metoprolol in the past. Will continue at this time. Will see maybe odor restart Eliquis tomorrow. DVT prophylaxis. On SCDs. Will hold anticoagulants until we know we are not going to need surgery. Disposition. I suspect he will be here at least 48 more hours will see how things go. Maybe switch to orals tomorrow. Quality VTE Deep Vein Thrombosis/Pulmonary Embolism Present on Admission: Yes
[2018-06-07] MEDS: TAMSULOSIN 0.4 MG CAPSULE PO (08:54)
[2018-06-07] MEDS: dilTIAZem CD 120 MG CAP PO ×2 (08:54→20:41)
[2018-06-07] MEDS: CARVEDILOL 6.25 MG TABLET PO ×2 (08:55→20:41)
[2018-06-07] MEDS: PANTOPRAZOLE 40 MG VIAL 20 MG IV (08:57)
--- NOTE | 2018-06-07 11:01 | CM.DPC ---
DCP Cont: Per MD, pt is making improvements and still on IV-Abx with possible switch to oral meds tomorrow () and likely still here another couple days. Plan: SW to follow closely for likely d/c home in a couple days if medically stable. SW to follow for any further identified discharge planning needs. MAYCOL Donis
[2018-06-07 11:40] LABS: Add Manual Diff / Slide Review NO; Basophils Percent Auto 0.6 % (0-2); Eosinophils Percent Auto 0.8 % (2-4); Hematocrit 43.1 % (41-53); Mean Corpuscular HGB Conc 34.8 % (30-36); Mean Corpuscular Hemoglobin 31.3 PG (26-34); Mean Corpuscular Volume 89.8 fL (80-100); Monocytes Percent Auto 6.1 % (3-14); Neutrophils Absolute Auto 8500 /uL (3000-5900); Neutrophils Percent Auto 82.5 % (50-75); Platelet Count 183 X10^3/uL (150-400); Red Cell Distribution Width 14.5 % (11.6-14.8); White Blood Cell Count 10.3 X10^3/uL (4.5-11.0)
[2018-06-07 11:55] LABS: Blood Urea Nitrogen 13 mg/dL (9-20); Calcium 8.4 mg/dL (8.4-10.2); Carbon Dioxide 23 mmol/L (22-32); Chloride 108 mmol/L (98-107); Estimated Glomerular Filt Rate > 60.0 mL/min (>60); Glucose 99 mg/dL (80-110); HEMOLYSIS < 15 (0-50); Potassium 3.3 mmol/L (3.4-5.1); Sodium 140 mmol/L (137-145)
[2018-06-07] MEDS: POTASSIUM CHLORIDE 20 MEQ TAB 40 MEQ PO (13:08)
--- NOTE | 2018-06-07 16:06 | P.PN_ITS ---
Subjective Date Patient Seen: 06/07/18 Time Patient Seen: 12:04 Interval history: Dustin is feeling better today. He says his pain is down to a 1 or 2. He is definitely passing flatus. He is looking forward to going home and he would like to know when that might occur. Exam Vital Signs (past 8 hours): - 06/07/18 08:20 06/07/18 11:51 06/07/18 15:52 Temperature 97.3 F L 97.7 F 97.5 F L Pulse Rate 97 H 83 82 Respiratory Rate 18 18 20 Blood Pressure 151/95 H 140/84 H 141/86 H Pulse Oximetry 95 96 97 Oxygen Delivery Method Room Air Oxygen Flow Rate 0 Narrative Exam Narrative: Abdomen is soft with very very minimal tenderness to palpation. No rebound or voluntary guarding. No heel tap or Rovsing sign. Objective Labs Result Diagrams: 06/07/18 11:30 06/07/18 11:30 Labs: Laboratory Results - last 24 hr 06/07/18 06/07/18 11:30 11:30 WBC 10.3 RBC 4.80 Hgb 15.0 Hct 43.1 MCV 89.8 MCH 31.3 MCHC 34.8 RDW 14.5 Plt Count 183 Neut % (Auto) 82.5 H Lymph % (Auto) 10.0 L [place] % (Auto) 6.1 Eos % (Auto) 0.8 L Baso % (Auto) 0.6 Neut # (Auto) 8500 H Sodium 140 Potassium 3.3 L Chloride 108 H Carbon Dioxide 23 BUN 13 Creatinine 1.00 Estimated GFR > 60.0 BUN/Creatinine Ratio 13.0 Glucose 99 Calcium 8.4 Assessment & Plan Plan: Assessment/Plan Narrative: White count is back to normal today. I agree with Dr. Llamas that the patient will benefit from another 24 hr of IV antibiotic therapy. We can consider switching to orals tomorrow if he continues to do well. Quality VTE Deep Vein Thrombosis/Pulmonary Embolism Present on Admission: Yes
--- NOTE | 2018-06-07 17:41 | PC.NURSE ---
PATIENT IS AMBULATING IN HALLS INDEP WITH .VERY STEADY ON FEET.
[2018-06-08] VITALS (7 sets, daily range): BP systolic 117–157; BP diastolic 59–100; PULSE 88–110; RESP 15–18; TEMP 36.3–37.2; O2SAT 95–100
[2018-06-08] MEDS: PIPERACILLIN-TAZO 3.375 GM/50 ML FROZ.PIGGY IV (01:54)
[2018-06-08] MEDS: metroNIDAZOLE 500 MG/100 ML PIGGYBACK 100 MG IV (03:40)
--- NOTE | 2018-06-08 08:11 | PM.PN.1 ---
Subjective Date Patient Seen: 06/08/18 Time Patient Seen: 08:11 Interval history: Overall patient feeling better. Still having some pain. No nausea or vomiting. No blood per rectum. Did have a bowel movement. Passing gas. Exam Vital Signs (past 8 hours): - 06/08/18 00:46 06/08/18 03:35 Temperature 99.0 F Pulse Rate 88 Respiratory Rate 18 Blood Pressure 157/87 H Pulse Oximetry 100 95 Oxygen Delivery Method Room Air Oxygen Flow Rate 0 Narrative Exam Narrative: Alert male lying in bed smiling in no acute distress. Lungs are clear. Heart's irregular but controlled rate. Abdomen positive bowel sounds. Still with left lower quadrant pain. Much improved. No rebound guarding. No masses. Extremities without cyanosis clubbing edema. Skin is without rash. Psychologically smiling interactive appropriate. Objective Labs Result Diagrams: 06/07/18 11:30 06/07/18 11:30 Labs: Laboratory Results - last 24 hr 06/07/18 06/07/18 11:30 11:30 WBC 10.3 RBC 4.80 Hgb 15.0 Hct 43.1 MCV 89.8 MCH 31.3 MCHC 34.8 RDW 14.5 Plt Count 183 Neut % (Auto) 82.5 H Lymph % (Auto) 10.0 L [place] % (Auto) 6.1 Eos % (Auto) 0.8 L Baso % (Auto) 0.6 Neut # (Auto) 8500 H Sodium 140 Potassium 3.3 L Chloride 108 H Carbon Dioxide 23 BUN 13 Creatinine 1.00 Estimated GFR > 60.0 BUN/Creatinine Ratio 13.0 Glucose 99 Calcium 8.4 Assessment & Plan Plan: Assessment/Plan Narrative: Abdominal pain. Diverticulitis with micro perforations. Much improved. I really would like to watch him 24 hr on orals to make sure stable. He still got moderate pain but certainly improved. Waiting white count. Will switch to oral. Increase diet to soft. See how he does. Hope to discharge tomorrow if were doing really well this afternoon might discharge then. Hypokalemia. Recheck today. Started on oral medicines yesterday. Atrial fibrillation. Seems to be doing better. Numbers look good. Will go home on Coreg. May increase that a little bit of time goes but will follow from there. DVT prophylaxis. Stable. Disposition. May discharge this afternoon but probably tomorrow morning. Quality VTE Deep Vein Thrombosis/Pulmonary Embolism Present on Admission: Yes
[2018-06-08] MEDS: dilTIAZem CD 120 MG CAP PO (08:42)
[2018-06-08] MEDS: CARVEDILOL 6.25 MG TABLET PO (08:42)
[2018-06-08] MEDS: PANTOPRAZOLE 40 MG VIAL 20 MG IV (08:42)
[2018-06-08] MEDS: POTASSIUM CHLORIDE 20 MEQ TAB 40 MEQ PO (08:42)
[2018-06-08] MEDS: TAMSULOSIN 0.4 MG CAPSULE PO (08:43)
[2018-06-08] MEDS: metroNIDAZOLE 500 MG TABLET PO ×3 (08:50→18:36)
[2018-06-08] MEDS: CIPROFLOXACIN 250 MG TABLET 750 MG PO ×2 (08:52→18:36)
[2018-06-08] MEDS: SODIUM CHLORIDE 0.9% FLUSH 10 ML IV (08:53)
[2018-06-08 08:56] LABS: Add Manual Diff / Slide Review NO; Basophils Percent Auto 0.5 % (0-2); Eosinophils Percent Auto 1.8 % (2-4); Hematocrit 47.6 % (41-53); Hemoglobin 16.7 g/dL (13.5-17.5); Lymphocytes Percent Auto 14.5 % (25-40); Mean Corpuscular HGB Conc 35.1 % (30-36); Mean Corpuscular Hemoglobin 31.5 PG (26-34); Mean Corpuscular Volume 89.7 fL (80-100); Monocytes Percent Auto 8.5 % (3-14); Neutrophils Absolute Auto 7600 /uL (3000-5900); Neutrophils Percent Auto 74.7 % (50-75); Platelet Count 229 X10^3/uL (150-400); Red Blood Cell Count 5.31 X10^6/uL (4.5-5.9); Red Cell Distribution Width 14.1 % (11.6-14.8); White Blood Cell Count 10.2 X10^3/uL (4.5-11.0)
[2018-06-08 10:18] LABS: Blood Urea Nitrogen 11 mg/dL (9-20); Calcium 9.2 mg/dL (8.4-10.2); Carbon Dioxide 25 mmol/L (22-32); Chloride 105 mmol/L (98-107); Estimated Glomerular Filt Rate > 60.0 mL/min (>60); Glucose 86 mg/dL (80-110); HEMOLYSIS < 15 (0-50); Potassium 3.4 mmol/L (3.4-5.1); Sodium 140 mmol/L (137-145)
--- NOTE | 2018-06-08 11:03 | PM.PN.1 ---
Subjective Date Patient Seen: 06/08/18 Time Patient Seen: 08:03 Interval history: Good spirits today. Reports he did not have any pain until Dr. Llamas pushed on his stomach and now he realizes he still sort of sore. Passing flatus and tolerating his low residue diet. Anxious for discharge. Exam Vital Signs (past 8 hours): - 06/08/18 03:35 06/08/18 09:09 Temperature 99.0 F 97.9 F Pulse Rate 88 110 H Respiratory Rate 18 15 Blood Pressure 157/87 H 151/100 H Pulse Oximetry 95 95 Oxygen Delivery Method Room Air Oxygen Flow Rate 0 Narrative Exam Narrative: Abdomen is soft and mildly tender to palpation in the left lower quadrant. He does have some voluntary guarding. Bowel sounds are active. Objective Labs Result Diagrams: 06/08/18 08:25 06/08/18 08:18 Labs: Laboratory Results - last 24 hr 06/07/18 06/07/18 06/08/18 11:30 11:30 08:18 WBC 10.3 RBC 4.80 Hgb 15.0 Hct 43.1 MCV 89.8 MCH 31.3 MCHC 34.8 RDW 14.5 Plt Count 183 Neut % (Auto) 82.5 H Lymph % (Auto) 10.[address] [place] % (Auto) 6.1 Eos % (Auto) 0.8 L Baso % (Auto) 0.6 Neut # (Auto) 8500 H Sodium 140 140 Potassium 3.3 L 3.4 Chloride 108 H 105 Carbon Dioxide 23 25 BUN 13 11 Creatinine 1.00 1.10 Estimated GFR > 60.0 > 60.0 BUN/Creatinine Ratio 13.0 10.0 Glucose 99 86 Calcium 8.4 9.2 06/08/18 08:25 WBC 10.2 RBC 5.31 Hgb 16.7 Hct 47.6 MCV 89.7 MCH 31.5 MCHC 35.1 RDW 14.1 Plt Count 229 Neut % (Auto) 74.7 Lymph % (Auto) 14.[address] [place] % (Auto) 8.5 Eos % (Auto) 1.8 L Baso % (Auto) 0.5 Neut # (Auto) 7600 H Sodium Potassium Chloride Carbon Dioxide BUN Creatinine Estimated GFR BUN/Creatinine Ratio Glucose Calcium Assessment & Plan Plan: Assessment/Plan Narrative: Responding well to antibiotics. Switch to oral antibiotics and discharge plans all at Dr. Llamas discretion. I would like to see Mr. Nieves in 2 weeks in order to schedule a colonoscopy approximately 8 weeks from now. He can follow up either with myself or with Dr. Mandujano who has done his endoscopy previously. Quality VTE Deep Vein Thrombosis/Pulmonary Embolism Present on Admission: Yes
--- NOTE | 2018-06-08 12:36 | PC.NURSE ---
Dr. Bolden notifed patient's afib low 100's at rest, up to 128 w/ ambulation. He states he will adjust patient's meds.
[2018-06-08] MEDS: CARVEDILOL 12.5 MG TABLET PO (13:53)
--- NOTE | 2018-06-08 14:54 | PC.NURSE ---
patient taken to OR by bed w/ OR staff.
--- NOTE | 2018-06-08 18:13 | P.DS_ITS ---
History of Present Illness Date Patient Seen: 06/08/18 Time Patient Seen: 18:08 Chief complaint: SEVERE ABD PAIN,SHAKES Narrative: Patient is a 78-year-old male well known to me who presents with abdominal pain. Patient apparently was his usual state of health until yesterday at 12 o'clock. After lunch she began having some mild upper abdominal pain. Had a bowel movement which was pretty large but loose and no blood. [place] like maybe that would help but did not. Progressively increasing pain. He describes the pain as quite severe sometimes 8/10 mostly burning or aching pain no radiation. Nothing seemed to make it better nothing seemed to make it work. Had no appetite but no vomiting. No fevers or chills. No other changes. Was brought to the emergency room. Heart rate is normally elevated into the 1 40s to 150s. Has been stable over the last few hours. No chest pain. No other changes. Patient has a history of diverticulitis. Last treated in October of last year. No other changes. We have been in the process of trying to adjust his medicines because he did not feel well on previous beta emy. Hypertension. Past surgical history. Not significant. Social history. Patient occasional drinker. No smoker. Lives with . Retired. Good support system. Family history. Noncontributory to current medical condition. Review of systems. Otherwise negative for 12 systems. Nothing definitive.. Discharge Providers Date of admission: 06/05/18 00:16 Primary care physician: Ignacio Llamas MD Consults: 06/05/18 09:39 Consult to Physician Routine Comment: Consulting Provider: Justin Cordova Reason for consultation: diverticulitis Has provider been notified: Yes Discharge provider: Ignacio Llamas MD Summary Discharge Diagnosis: Diverticulitis with microperforation Atrial fibrillation with poor rate control Hypertension Hypokalemia. Hospital Course: Diverticulitis with microperforation. Patient was admitted to the hospital. Placed on IV antibiotics broad spectrum. Consult with surgeon. Patient was made NPO. NG tube was not placed. White count initially nemo to 20 but gradually improved over the next 48 hr. His pain slowly improved to the point where he was feeling quite well. His diet was advanced prior to him getting off his antibiotics. His white count was stable. He is feeling well. He was switched to p.o. antibiotics and watch for 12 hr. He was doing quite well. Will be discharged home. Atrial fibrillation with poor rate control. Patient has been in the process of coming off a beta-emy and has been with poor rate control for some time. He had been put recently on an increased dose of Cardizem. Clearly this was not adequate during his admission. Coreg was added. He started at 6.25. B.i.d.. He was followed. On day of discharge he was increased to 12.5 b.i.d.. Slightly better control. Will need to be followed as outpatient. Hypokalemia. Patient was noted on date 2 to be mildly hypokalemic. Oral replacement was ordered and he had done well. Will be followed as an outpatient. Patient will follow up with Dr. tejeda in 2 weeks and me on Thursday or Thursday of next week. He will watch for increasing pain or other changes. He will be on a soft diet until I see him back. Status at Discharge Cognitive/behavioral status at discharge: Stable Functional status at discharge: independent ambulation Overall status at discharge: patient is progressing back to baseline Time Spent with Patient Greater than 30 minutes Exam Vital Signs (past 8 hours): - 06/08/18 12:53 06/08/18 16:00 06/08/18 16:30 Temperature 98.8 F 97.4 F L Pulse Rate 99 H 95 H Respiratory Rate 15 18 Blood Pressure 120/59 L 117/69 Pulse Oximetry 96 98 97 Oxygen Delivery Method Room Air Oxygen Flow Rate 0 Objective Labs Result Diagrams: 06/08/18 08:25 06/08/18 08:18 Labs: Laboratory Results - last 24 hr 06/08/18 06/08/18 08:18 08:25 WBC 10.2 RBC 5.31 Hgb 16.7 Hct 47.6 MCV 89.7 MCH 31.5 MCHC 35.1 RDW 14.1 Plt Count 229 Neut % (Auto) 74.7 Lymph % (Auto) 14.5 L [place] % (Auto) 8.5 Eos % (Auto) 1.8 L Baso % (Auto) 0.5 Neut # (Auto) 7600 H Sodium 140 Potassium 3.4 Chloride 105 Carbon Dioxide 25 BUN 11 Creatinine 1.10 Estimated GFR > 60.0 BUN/Creatinine Ratio 10.0 Glucose 86 Calcium 9.2 Discharge Plan Discharge Plan Patient Disposition: Home, Self-Care Discharge comment: please give patient antibiotics before discharge Provider Discharge Instructions Diet: Diet as Tolerated Diet comment: Stay with soft diet Activity: As tolerated Wound Care Report to your healthcare provider any signs of infection, such as:: chills, fever and increased pain Discharge Data Primary Care Provider: Ignacio Llamas Attending Provider: Ignacio Llamas Admit Date/Time: 06/05/18 00:16 Quality VTE Deep Vein Thrombosis/Pulmonary Embolism Present on Admission: Yes
== END 2018-06-08 18:40 | disposition home or self-care (01) | DRG 392 ==
LOC: ED 22:42 → AC 06-05 00:16
PROVIDERS: Surgery; Admitting Provider Family Medicine; Emergency Provider Nurse Practitioner Family; PCP Family Medicine; Visit Provider Family Medicine
DX: K57.32 Diverticulitis of large intestine without perforation or abscess without bleeding (principal); I48.91 Unspecified atrial fibrillation; Z79.01 Long term (current) use of anticoagulants; I10 Essential (primary) hypertension; E87.6 Hypokalemia
CPT/HCPCS: 36415; 36591; 74177; 80048; 80053; 81003; 83690; 85025; 93005; 94762; 96361; 96374; 99283; 99285; C9113; J1170; J2405; J2543; Q9967

== ENCOUNTER → 2018-07-26 07:58 | Outpatient (CLI) | payer MEDICARE, SELFPAY ==
[2018-06-05 01:13] VITALS: BMI 25.7
[2018-07-26 09:19] LABS: Alanine Aminotransferase 31 IU/L (21-72); Albumin 4.5 g/dL (3.5-5.0); Albumin Globulin Ratio 1.7 (1.0-2.8); Alkaline Phosphatase 91 U/L (38-126); Aspartate Aminotransferase 27 IU/L (17-59); BUN Creatinine Ratio 17.9 (6-22); Bilirubin Total 1.1 mg/dL (0.2-1.3); Blood Urea Nitrogen 25 mg/dL (9-20); Calcium 9.3 mg/dL (8.4-10.2); Carbon Dioxide 31 mmol/L (22-32); Chloride 105 mmol/L (98-107); Estimated Glomerular Filt Rate 49.1 mL/min (>60); Globulin 2.6 g/dL (1.7-4.1); Glucose 106 mg/dL (80-110); HEMOLYSIS < 15 (0-50); Magnesium 2.2 mg/dL (1.6-2.3); Potassium 4.4 mmol/L (3.4-5.1); Sodium 146 mmol/L (137-145); Total Protein 7.1 g/dL (6.3-8.2)
[2018-08-02 09:27] LABS: Lipoprofile NMR SEE SEPERATE REPORT
== END ==
PROVIDERS: PCP Family Medicine; Visit Provider Specialist
DX: E78.2 Mixed hyperlipidemia (principal); I48.1 Persistent atrial fibrillation; I10 Essential (primary) hypertension
CPT/HCPCS: 36415; 80053; 83704; 83735

== ENCOUNTER 2018-08-26 06:47 | Day surgery (SDC) | payer MEDICARE, SELFPAY ==
[2018-06-05 01:13] VITALS: BMI 25.7
[2018-08-26 07:11] VITALS: BMI 25.7
[2018-08-26 07:29] VITALS: BP 143/97; PULSE 125; RESP 16; TEMP 36.2; O2SAT 99
[2018-08-26] MEDS: SODIUM CHLORIDE 0.9% 1,000 ML 200 ML IV (07:30)
[2018-08-26 08:55] VITALS: BP 138/98; PULSE 102; RESP 12; TEMP 36.4; O2SAT 95
[2018-08-26 09:00] VITALS: BP 138/91; PULSE 116; RESP 11; TEMP 36.9; O2SAT 96
[2018-08-26 09:04] VITALS: BP 127/89; PULSE 115; RESP 13; TEMP 36.9; O2SAT 94
--- NOTE | 2018-08-26 09:24 | PM.HP.1 ---
History of Present Illness Date Patient Seen: 08/26/18 Time Patient Seen: 09:24 Chief complaint: colonoscopy [id number] Narrative: Very pleasant gentleman well known to me from prior visits. He was recently admitted with diverticulitis. He presents today to undergo a colonoscopy. He has not had any more pain or bleeding or fever since I saw him last approximately 5 weeks ago. Generally, he has felt well. Patient History Medical History A-fib (Acute) Blepharophimosis unspecified eye, unspecified lid (Acute) Family & Social History Family History: Reviewed 08/26/18 by Valarie Thibodeaux MD Social History: household members spouse Tobacco & Substance use: Smoking Status Never smoker Substance Use Type does not use Meds Home Medications Medication Instructions Recorded Confirmed Type atorvastatin 1 tab PO DAILY 06/04/18 08/26/18 History diltiazem HCl See Label Instructions .ROUTE 06/04/18 08/26/18 History .COMPLEX tamsulosin 1 tab PO DAILY 06/04/18 08/26/18 History carvedilol [Coreg] 12.5 mg PO BID #60 tab 06/08/18 08/26/18 Rx indomethacin 25 mg capsule 25 mg PO TID PRN 06/21/18 08/26/18 History apixaban [Eliquis] 5 mg PO BID 08/26/18 08/26/18 History fluticasone 1 spray INTRANASAL DAILY 08/26/18 08/26/18 History Allergies Allergy/AdvReac Type Severity Reaction Status Date / Time Sulfa (Sulfonamide Allergy Unknown red spots Verified 08/26/18 07:03 Antibiotics) Review of Systems Review of Systems All systems reviewed & are unremarkable except as noted in HPI and below Exam Vital Signs (past 8 hours): - 08/26/18 07:29 08/26/18 08:55 08/26/18 09:00 Temperature 97.1 F L 97.5 F L 98.4 F Pulse Rate 125 H 102 H 116 H Respiratory Rate 16 12 11 L Blood Pressure 143/97 H 138/98 H 138/91 H Pulse Oximetry 99 95 96 08/26/18 09:04 Temperature 98.4 F Pulse Rate 115 H Respiratory Rate 13 Blood Pressure 127/89 Pulse Oximetry 94 Oxygen Delivery Method Room Air Narrative Exam Narrative: Well-nourished well-developed gentleman in no distress HEENT: Normocephalic and atraumatic, pupils round reactive to light accommodation with anicteric sclera Lungs: Clear to auscultation bilaterally Heart: Irregularly irregular heart rate with mild tachycardia. No audible murmur. Abdomen: Soft, nontender, active bowel sounds Extremities: Warm and well perfused and without edema Assessment & Plan Plan: Assessment/Plan Narrative: Very pleasant gentleman with a recent episode of acute diverticulitis. We discussed the risks and benefits of the procedure. His last colonoscopy was about 5 years ago and was done with Dr. Mandujano. He has no personal history of polyps.
[2018-08-26] MEDS: MIDAZOLAM 5 MG/5 ML VIAL IV (09:31)
[2018-08-26] MEDS: fentaNYL 250 MCG/5 ML INJ IV (09:31)
--- NOTE | 2018-08-26 10:28 | PM.OP.1 ---
Operative Date/Time/Diagnoses Date of procedure: 08/26/18 Time of procedure: 10:28 Pre-op diagnosis: Diverticulosis and diverticulitis Post-op diagnosis: same Procedure & Clinicians Procedure: Colonoscopy to the cecum Same procedure as scheduled: Yes Indications: Recent episode of diverticulitis requiring admission and IV antibiotics Surgeon: Valarie Thibodeaux Click Yes if Unassisted: Yes Anesthesia Type: Sedation (Versed 3 mg; fentanyl 100 mcg) Operative Notes Findings: 1. Excellent prep 2. No polyps or mass lesions 3. No AV malformations 4. Significant diverticulosis from the rectosigmoid junction to approximately 60 cm from the anal verge. Multiple large and small polyps and false passages. No evidence of current inflammation or hemorrhage. 5. Otherwise normal mucosa throughout 6. Grade 1 internal hemorrhoids Closure Type: not applicable Specimen(s): none sent Estimated Blood Loss (mL): 0 Procedure in detail: After obtaining informed consent, the patient was brought to the GI suite and placed in the left lateral decubitus position on the examination table. After placement of appropriate monitors, the patient was given incremental doses of Versed and Fentanyl until an appropriate level of sedation was achieved. A time out was held per SCOAP protocol. A digital rectal examination was performed and did not reveal any masses or obstructing lesions. The colonoscope was gently passed into the patient's anus and the entire colon navigated to the level of the cecum with minimal difficulty. Once in the cecum, the scope was withdrawn being sure to go before and beyond all mucosal folds and prominences and get an excellent examination. The findings are noted above. At the level of the rectal vault, the scope was retroflexed and the internal anal canal was examined. The scope was straightened and air aspirated from the colon. The instrument was removed from the patient's body and the procedure was concluded. The patient was allowed to awaken from sedation without difficulty and taken to the post-anesthesia care unit in good condition. Total sedation time was 16 min Total withdrawal time was 9 min Complications: none Condition: stable Disposition: PACU Plan for aftercare: 1. Discharge to home 2. I do not recommend additional screening studies. A review of the history of polyps in 2011 reveals that it was only a hyperplastic polyp with no malignant potential.
== END 2018-08-26 09:20 | disposition home or self-care (01) ==
PROVIDERS: PCP Family Medicine; Visit Provider Surgery
PROC: 0DJD8ZZ Inspection of Lower Intestinal Tract, Via Natural or Artificial Opening Endoscopic (ICD-10-PCS; CPT 45378; principal; 2018-08-26 07:45)
DX: K57.30 Diverticulosis of large intestine without perforation or abscess without bleeding (principal); I48.91 Unspecified atrial fibrillation; K64.0 First degree hemorrhoids
CPT/HCPCS: 45378; 99152; J2250; J3010

== ENCOUNTER → 2019-04-19 08:23 | Outpatient (CLI) | payer MEDICARE, SELFPAY ==
[2018-06-05 01:13] VITALS: BMI 25.7
[2019-04-19 09:06] LABS: Add Manual Diff / Slide Review NO; Basophils Absolute Auto 100 /uL (0-100); Basophils Percent Auto 0.8 % (0-2); Eosinophils Absolute Auto 200 /uL (0-450); Eosinophils Percent Auto 2.8 % (2-4); Hematocrit 47.1 % (41-53); Hemoglobin 16.3 g/dL (13.5-17.5); Lymphocytes Absolute Auto 2000 /uL (1100-4500); Lymphocytes Percent Auto 27.7 % (25-40); Mean Corpuscular HGB Conc 34.5 % (30-36); Mean Corpuscular Hemoglobin 30.9 PG (26-34); Mean Corpuscular Volume 89.4 fL (80-100); Monocytes Absolute Auto 700 /uL (0-900); Monocytes Percent Auto 9.1 % (3-14); Neutrophils Absolute Auto 4300 /uL (1500-7000); Neutrophils Percent Auto 59.6 % (50-75); Platelet Count 285 X10^3/uL (150-400); Red Blood Cell Count 5.27 X10^6/uL (4.5-5.9); Red Cell Distribution Width 13.6 % (11.6-14.8); White Blood Cell Count 7.3 X10^3/uL (4.5-11.0)
[2019-04-19 09:21] LABS: Alanine Aminotransferase 43 IU/L (21-72); Albumin 4.1 g/dL (3.5-5.0); Albumin Globulin Ratio 1.4 (1.0-2.8); Alkaline Phosphatase 112 U/L (38-126); Aspartate Aminotransferase 32 IU/L (17-59); BUN Creatinine Ratio 19.2 (6-22); Bilirubin Total 1.1 mg/dL (0.2-1.3); Blood Urea Nitrogen 23 mg/dL (9-20); Calcium 9.1 mg/dL (8.4-10.2); Carbon Dioxide 29 mmol/L (22-32); Chloride 103 mmol/L (98-107); Cholesterol 127 mg/dL (140-199); Estimated Glomerular Filt Rate 58.7 mL/min (>60); Globulin 2.9 g/dL (1.7-4.1); Glucose 101 mg/dL (80-110); HDL Cholesterol 37 mg/dL (40-60); HEMOLYSIS < 15 (0-50); LDL Cholesterol Calculated 70 mg/dL (<100); Potassium 3.9 mmol/L (3.4-5.1); Sodium 140 mmol/L (137-145); Triglycerides 102 mg/dL (35-150)
[2019-04-19 10:25] LABS: Thyroid Stimulating Hormone 1.55 uIU/mL (0.47-4.68)
== END ==
PROVIDERS: PCP Family Medicine; Visit Provider Family Medicine
DX: I10 Essential (primary) hypertension (principal); Z00.00 Encounter for general adult medical examination without abnormal findings; E78.5 Hyperlipidemia, unspecified
CPT/HCPCS: 36415; 80053; 80061; 84443; 85025

== ENCOUNTER → 2019-05-30 10:55 | Outpatient (CLI) | payer MEDICARE, SELFPAY ==
[2018-06-05 01:13] VITALS: BMI 25.7
[2019-05-17 10:51] VITALS: BMI 25.7
--- NOTE | 2019-05-30 | DI.MRI.S_ITS ---
PROCEDURE: MR STROKE Pre- and post-contrast brain MRI, non-contrast brain MR angiogram, pre- and postcontrast neck MR angiogram INDICATIONS: Syncope and collapse TECHNIQUE: Brain: Noncontrast axial T1 spin echo, axial T2 fast spin echo, sagittal and axial FLAIR, coronal T2 fast spin echo, axial gradient echo, axial diffusion and ADC through the brain. After the administration of contrast, axial 3D VIBE of the cranial vasculature and brain. Brain MRA: Non-contrast 3-D time of flight MR angiogram, with multiple itogmvu-xabxviyfo-avafitqoxc (MIP) reformats performed. Neck MRA: Axial and sagittal TruFISP through the neck. Coronal dynamic MR angiogram during administration of contrast in the arterial and venous phases, with 3-dimenstional acfpqon-phoqpelbl-lcwkvpmihd (MIP) reformats constructed from subtraction images. COMPARISON: None. FINDINGS: Image quality: Excellent. BRAIN: CSF spaces: Ventricles are normal in size and shape. Basal cisterns are patent. No extra-axial fluid collections. Brain: No intracranial bleeds or mass effects. Bell-white matter interface is normal. Diffusion weighted images show no acute ischemic insults. Brainstem appears normal. Normal intravascular flow voids are present. No abnormal intracranial enhancement. There is moderate microvascular atherosclerotic change in the deep white matter of each hemisphere Skull and face: Calvarial marrow signal is normal. Orbits appear normal. Sinuses: Sinuses and mastoids are clear. BRAIN MR ANGIOGRAM: Anterior circulation: Intracranial internal carotid arteries are normal in size and enhancement. The flow within the paired anterior cerebral arteries is normal and symmetric. The flow within the middle cerebral arteries is normal and symmetric. The anterior communicating artery is seen. No stenoses, occlusions, or aneurysms. Posterior circulation: The visualized portions of the vertebral arteries demonstrate normal caliber, and join to form a normal appearing basilar artery. The flow within the posterior cerebral arteries is normal and symmetric. No stenoses, occlusions, or aneurysms. NECK MR ANGIOGRAM: Carotids: Great vessels demonstrate a conventional anatomy as they arise from the aortic arch. The origins of the common carotid arteries appear patent. The calibers and courses of both common carotid arteries are normal. The bifurcation regions appear normal bilaterally. The internal carotid arteries demonstrate normal course and caliber. Posterior circulation: The origins of the vertebral arteries appear patent. More superior portions of both vertebral arteries demonstrate normal course and caliber, and join to form a normal appearing basilar artery. Miscellaneous: Subclavian arteries appear patent. Pre-contrast images through the neck show no soft tissue abnormalities. IMPRESSION: BRAIN MRI: Moderate microvascular atherosclerotic change in the deep white matter of each hemisphere, but no acute or subacute stroke or evidence of prior infarction is found. BRAIN MR ANGIOGRAM: Normal intracranial MR angiogram. NECK MR ANGIOGRAM: Normal cervical MR angiogram. Dictated by: Moustapha Gallardo M.D. on 05/30/2019 at 12:53 Approved by: Moustapha Gallardo M.D. on 05/30/2019 at 13:01
== END ==
PROVIDERS: PCP Family Medicine; Visit Provider Family Medicine
DX: R55 Syncope and collapse (principal); I67.2 Cerebral atherosclerosis
CPT/HCPCS: 70548; 70553

== ENCOUNTER 2019-06-14 06:33 | Day surgery (SDC) | payer MEDICARE, SELFPAY ==
[2019-05-17 10:51] VITALS: BMI 25.7
[2019-06-14] VITALS (8 sets, daily range): BP systolic 109–153; BP diastolic 74–86; PULSE 73–88; RESP 8–15; TEMP 36–36.4; O2SAT 93–98; BMI 27.1
--- NOTE | 2019-06-14 | PATH_ITS ---
[facility] Accession Number: [id number] . 01 Material submitted: . colon - SIGMOID AND RECTAL BIOPSY . 01 Clinical history: . CONSIDER C. DIFFICILE . 02 Diagnosis: Sigmoid Colon, Rectum, Biopsies: Moderately active colitis. Please see comment. Negative for granulomas, dysplasia or malignancy. [facility]/06/15/2019 . 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 No obvious viral cytopathic effects or parasitic organisms are identified. The overall architecture is preserved with straight, well oriented crypts without branching. The characteristic ulcerations of C. difficile colitis are not identified in the sections examined. The differential diagnosis includes infection, medication-related mucosal injury, diverticular disease-associated colitis, and idiopathic inflammatory bowel disease. . 02 Electronically signed: . Farida Ortez MD, Pathologist NPI- [id number] . 01 Gross description: . SIGMOID AND RECTAL BIOPSY: Received in formalin are multiple fragment(s) of seymour, soft tissue measuring 0.1 x 0.1 x 0.1 cm to 0.4 x 0.3 x 0.2 cm which is entirely submitted and submitted entirely in 1 cassette(s) /DMC /DMC . 02 Pathologist provided ICD-10: R10.9 . 02 CPT . 170518 Performed at: 01 [facility] [address] [facility], [place], [place] [id number] MD Jono Bullock MD Phone: [phone] Performed at: [address] [facility] [address] [place], [place] [id number] MD Farida Ortez MD Phone: [phone]
[2019-06-14] MEDS: SODIUM CHLORIDE 0.9% 1,000 ML 200 ML IV (07:05)
--- NOTE | 2019-06-14 07:53 | PM.PREOP ---
Pre-operative Note Interval Note History & Physical reviewed/Exam performed by Physician: Yes Changes to H&P: No ASA Class (for procedural sedation): II
[2019-06-14] MEDS: MIDAZOLAM 5 MG/5 ML VIAL IV (08:09)
[2019-06-14] MEDS: fentaNYL 250 MCG/5 ML INJ IV (08:09)
--- NOTE | 2019-06-14 08:14 | PM.OP.ENDO ---
Operative Date/Time/Diagnoses Date of procedure: 06/14/19 Time of procedure: 08:14 Pre-op diagnosis: Rectal bleeding Post-op diagnosis: same (Colitis) Procedure & Clinicians Study performed: Flexible sigmoidoscopy with biopsy Same procedure as scheduled: Yes Indications: Rectal bleeding. Recent colonoscopy failed to show significant lesion. Known diverticulosis. Surgeon: Alexandr Mandujano Procedure Notes SCOAP/Timeout: Performed Procedure in detail: The patient was placed in left lateral decubitus position underwent IV sedation directed by the surgeon consisting of fentanyl and Versed. Digital exam was unremarkable. I could not feel is prostate. The scope was inserted advanced through the rectum where I encountered bloody mucoid material adherent to the wall is rectum. Continued on an about 20 cm that material cleared and there were then patch is of what appeared to be hemosiderin laden material in the wall of the colon along with red patches. I stopped at about 40 cm from the anal verge. I Biopsied some of these red lesions and then brought the scope out. I continued biopsying as I slowly brought the scope out and the also included rectal biopsies with the material. In the rectum it almost seemed that there were pseudomembranes. The rectum was clearly the most affected area and inflammation decreased as I went. Due to the amount of inflammation the rectum I chose not to stress the colon by continuing any further then I went. The scope was slowly removed through the anus. There was no evidence of ulcerated or bleeding hemorrhoids. Scope withdrawal time: Not applicable Sedation minutes: 11 Findings: colitis (Proctitis) Specimen(s): other (Biopsies of the sigmoid and rectum) Complications: none Recommendations: Other recommendation (Await biopsy results) Follow up: weeks (1) Disposition: PACU
--- NOTE | 2019-06-14 08:35 | SUR.PHASEI ---
Weaning off O2, resp even and regular, snoring.
--- NOTE | 2019-06-14 09:04 | SUR.PHASEI ---
0850 awake, drowsy, asking appropriate questions. HOB elevated, water given. Report given.
== END 2019-06-14 09:10 | disposition home or self-care (01) ==
PROVIDERS: PCP Family Medicine; Visit Provider Specialist
PROC: 0DJD8ZZ Inspection of Lower Intestinal Tract, Via Natural or Artificial Opening Endoscopic (ICD-10-PCS; CPT 45378; principal; 2019-06-14 07:45)
DX: K52.9 Noninfective gastroenteritis and colitis, unspecified (principal); I48.91 Unspecified atrial fibrillation
CPT/HCPCS: 45331; 99152; J2250; J3010

== ENCOUNTER → 2019-06-30 09:31 | Outpatient (CLI) | payer MEDICARE, SELFPAY ==
[2019-05-17 10:51] VITALS: BMI 25.7
[2019-06-30 11:54] LABS: Clostridium Difficile Tox PCR Negative for C. diff
== END ==
PROVIDERS: PCP Family Medicine; Visit Provider Specialist
DX: R19.7 Diarrhea, unspecified (principal)
CPT/HCPCS: 87045; 87177; 87493; 87899

== ENCOUNTER 2019-08-20 19:38 | Inpatient (IN) | payer MEDICARE, SELFPAY ==
[2019-05-17 10:51] VITALS: BMI 25.7
[2019-08-20] VITALS (10 sets, daily range): BP systolic 108–148; BP diastolic 65–104; PULSE 112–145; RESP 10–30; TEMP 36.9–39.4; O2SAT 92–98; BMI 28.5
--- NOTE | 2019-08-20 20:01 | ED.FEVER ---
HPI - Fever General Chief Complaint: Fever Stated Complaint: shivering,couldnt get out bed,weakness Time Seen by Provider: 08/20/19 19:50 Source: patient and family Mode of arrival: Ambulatory Limitations: no limitations History of Present Illness HPI Narrative: Patient is a 79-year-old male with history of atrial fibrillation who presents with shivering and weakness. He got his flu vaccine few days ago he was feeling quite well the day before that but felt okay the day of. The following day he was doing okay and then today this afternoon he started just feeling weak and could not get warm. He has been shivering cold he does have a slight nonproductive cough. He is noted to be in atrial fibrillation with RVR. He denies any chest pain or heart fluttering. He has been having issues of diverticulitis off and on since April. He was taken off his anticoagulation due to some GI bleeding. He denies any bloody stool or abdominal pain MD complaint: fever, malaise and weakness Exacerbating factors: nothing Related Data Home Medications Medication Instructions Recorded Confirmed atorvastatin 1 tab PO DAILY 06/04/18 07/13/19 diltiazem HCl See Rx Instructions .ROUTE .COMPLEX 06/04/18 07/13/19 tamsulosin 1 tab PO DAILY 06/04/18 07/13/19 indomethacin 25 mg capsule 25 mg PO TID PRN 06/21/18 07/13/19 apixaban [Eliquis] 5 mg PO BID 08/26/18 07/13/19 fluticasone propionate 1 spray INTRANASAL DAILY 08/26/18 07/13/19 Previous Rx's Medication Instructions Recorded carvedilol [Coreg] 12.5 mg PO BID #60 tab 06/08/18 hydrocortisone 100 mg MO DAILY #420 ml 06/25/19 prednisone 10 mg tablet 40 mg PO DAILY #200 tab 07/13/19 Allergies Allergy/AdvReac Type Severity Reaction Status Date / Time Sulfa (Sulfonamide Allergy Unknown red spots Verified 08/20/19 20:03 Antibiotics) Review of Systems Review of Systems ROS Unobtainable: All systems reviewed & are unremarkable except as noted in HPI and below Constitutional Constitutional: Reports body ache(s), Reports chills and Reports malaise Eyes Eyes: Denies change in vision, Denies eye discharge, Denies irritation and Denies loss of vision ENT Ears, Nose, Mouth, and Throat: Denies change in voice, Denies neck pain and Denies sore throat Cardiovascular Cardiovascular: Reports as per HPI, Reports irregular heart rhythm, Denies dyspnea and Denies dyspnea on exertion Respiratory Respiratory: Denies cough, Denies dyspnea, Denies dyspnea on exertion and Denies wheezing Gastrointestinal Gastrointestinal: Denies abdominal pain, Denies change in bowel habits, Denies diarrhea, Denies nausea and Denies vomiting Genitourinary Genitourinary: Denies hematuria, Denies flank pain, Denies urinary incontinence and Denies urinary urgency Musculoskeletal Musculoskeletal: Denies neck pain Integumentary/Breasts Skin/Breast: Denies pruritus, Denies erythema, Denies rash and Denies wounds Neurologic Neurologic: Denies loss of vision Allergic/Immunologic Allergic/Immunologic: Denies wheezing Patient History Medical/Surgical History Medical History A-fib (Acute) Blepharophimosis unspecified eye, unspecified lid (Acute) Social History household members: spouse Smoking Status: Former smoker Family/Social History Social History household members: spouse Smoking Status: Former smoker alcohol intake: current Substance Use Type: does not use Exam Initial Vital Signs Initial Vital Signs: Vital Signs Temperature 99.9 F H 08/20/19 19:40 Pulse Rate 145 H 08/20/19 19:40 Respiratory Rate 30 H 08/20/19 19:40 Blood Pressure 138/81 08/20/19 19:40 Pulse Oximetry 98 08/20/19 19:40 GENERAL: Alert pleasant elderly male HEENT: Head atraumatic,EOMI, pupils reactive, face symmetric, CARDIOVASCULAR: A tachycardic irregularly irregular no murmur RESPIRATORY: Breath sounds equal bilaterally, no wheezes rales or rhonchi. ABDOMEN: Soft, mild left lower quadrant tenderness no guarding or rebound. EXTREMITIES: Normal range of motion, no clubbing or edema. Neurovascularly intact NEUROLOGICAL: Alert and oriented x4.Normal gait and speech. Cranial nerves II through XII grossly intact. SKIN: Warm, dry, no laceration, no petechiae, no rashes or lesions. Course Orders Ordered: ED Orders 08/20/19 20:03 XR chest 1V Stat 08/20/19 20:16 B Type Natriuretic Peptide Stat Complete Blood Count AUTO DIFF Stat Comprehensive Metabolic Panel Stat Influenza A and B by PCR Rapid Stat Lactate (Lactic Acid) Stat Partial Thromboplastin Time Stat Procalcitonin Stat Prothrombin Time INR Stat Troponin & CK Cardiac Panel Stat 08/20/19 20:40 Blood Culture Stat 08/20/19 20:50 Urinalysis and Microscopic Stat 08/20/19 21:08 CT abdomen pelvis w con Stat 08/20/19 22:43 Respiratory Panel (Film Array) Stat 08/21/19 04:00 Basic Metabolic Panel Stat Troponin I Stat 08/21/19 04:23 Complete Blood Count AUTO DIFF Stat Acetaminophen (Tylenol) 650 mg PO Q6HR PRN PRN Reason: As Needed for Fever/Mild Pain DILTIAZEM (Diltiazem 125 Mg/125 [id number]) 125 mg in 125 mls @ 5 mls/hr IV TITRATE JASMINA; Protocol Last Titration: 08/21/19 01:32 Dose: 10 mg/hr, 10 mls/hr Documented by: Titration: 08/21/19 00:26 Dose: 5 mg/hr, 5 mls/hr Documented by: Admin: 08/20/19 22:32 Dose: 5 mg/hr, 5 mls/hr Documented by: DORA Metronidazole (Flagyl) 250 mg in 50 mls @ 100 mls/hr IV Q8H JASMINA Levofloxacin (Levaquin) 750 mg in 150 mls @ 100 mls/hr IV Q24H JASMINA Sodium Chloride (Normal Saline 0.9%) 1,000 mls @ 150 mls/hr IV CONT JASMINA Ondansetron HCl (Zofran) 4 mg IV Q4HR PRN PRN Reason: Nausea And Vomiting Discontinued Medications Acetaminophen (Tylenol) 975 mg PO NOW ONE Stop: 08/20/19 20:44 Last Admin: 08/20/19 20:54 Dose: 975 mg Documented by: MACI Aspirin (Aspirin Chew) 324 mg PO NOW ONE Stop: 08/20/19 21:24 Last Admin: 08/20/19 22:32 Dose: 324 mg Documented by: DORA Diltiazem HCl (Cardizem) 10 mg IV NOW ONE Stop: 08/20/19 20:44 Last Admin: 08/20/19 20:54 Dose: 10 mg Documented by: MACI Sodium Chloride (Normal Saline 0.9%) 1,000 mls @ 1,000 mls/hr IV CONT JASMINA Last Infusion: 08/20/19 20:50 Dose: 0 mls/hr Documented by: Admin: 08/20/19 20:09 Dose: 1,000 mls/hr Documented by: MACI Sodium Chloride (Normal Saline 0.9%) 1,000 mls @ 1,000 mls/hr IV BOLUS ONE Stop: 08/20/19 21:43 Last Infusion: 08/21/19 00:26 Dose: 200 mls/hr Documented by: Infusion: 08/20/19 21:17 Dose: 200 mls/hr Documented by: Admin: 08/20/19 20:50 Dose: 1,000 mls/hr Documented by: MACI Levofloxacin (Levaquin) 750 mg in 150 mls @ 100 mls/hr IV NOW ONE Stop: 08/20/19 23:24 Last Infusion: 08/21/19 00:26 Dose: 100 mls/hr Documented by: Admin: 08/20/19 23:55 Dose: 100 mls/hr Documented by: DORA Metronidazole (Flagyl) 500 mg in 100 mls @ 100 mls/hr IV NOW ONE Stop: 08/20/19 22:54 Last Infusion: 08/20/19 23:52 Dose: 0 mls/hr Documented by: Admin: 08/20/19 22:33 Dose: 100 mls/hr Documented by: DORA Consultations Consultation #1: Dr. Fontanez updated on patient's symptoms and test results. Agrees with ICU admission diltiazem drip. For troponin at this time likely secondary. Will recheck labs. Time: 22:27 Vital Signs Vital signs: Vital Signs - 8 hr 08/20/19 19:40 08/20/19 20:03 08/20/19 20:44 Temperature 99.9 F H 102.0 F H Pulse Rate 145 H 124 H Respiratory Rate 30 H 28 H Blood Pressure 138/81 Blood Pressure [Left Arm] 142/104 H Pulse Oximetry 98 98 08/20/19 20:53 08/20/19 20:54 08/20/19 22:02 Temperature 103.0 F H Pulse Rate 132 H 132 H 129 H Respiratory Rate 26 H 25 H Blood Pressure 148/80 H Blood Pressure [Left Arm] 148/80 H 116/74 Pulse Oximetry 98 94 08/20/19 22:44 Temperature 100.8 F H Pulse Rate 112 H Respiratory Rate 17 Blood Pressure Blood Pressure [Left Arm] 117/72 Pulse Oximetry 92 MDM - Fever Lab Data Attestation: I reviewed the patient's lab results. Result diagrams: 08/20/19 20:16 08/20/19 20:16 Labs: Lab Results 08/20/19 08/20/19 08/20/19 Range/Units 20:16 20:16 20:16 WBC 9.0 (4.5-11.0) X10^3/uL RBC 5.04 (4.5-5.9) X10^6/uL Hgb 16.2 (13.5-17.5) g/dL Hct 46.6 (41-53) % MCV 92.6 (80-100) fL MCH 32.1 (26-34) PG MCHC 34.7 (30-36) % RDW 14.8 (11.6-14.8) % Plt Count 130 L (150-400) X10^3/uL Neut % (Auto) 91.4 H (50-75) % Lymph % (Auto) 3.6 L (25-40) % [facility] % (Auto) 4.4 (3-14) % Eos % (Auto) 0.2 L (2-4) % Baso % (Auto) 0.4 (0-2) % Neut # (Auto) 8200 H (6762-4716) /uL Lymph # (Auto) 300 L (0456-8725) /uL [facility] # (Auto) 400 (0-900) /uL Eos # (Auto) 0 (0-450) /uL Baso # (Auto) 0 (0-100) /uL PT 12.9 H (10.1-12.7) SECONDS INR 1.1 (0.9-1.3) APTT 26 L (26.4-36.2) SECONDS Sodium 135 L (137-145) mmol/L Potassium 4.0 (3.4-5.1) mmol/L Chloride 100 (98-107) mmol/L Carbon Dioxide 23 (22-32) mmol/L BUN 31 H (9-20) mg/dL Creatinine 1.20 (0.66-1.25) mg/dL Estimated GFR 58.6 L (>60) mL/min BUN/Creatinine Ratio 25.8 H (6-22) Glucose 137 H (80-110) mg/dL Lactate (0.7-2.1) mmol/L Calcium 9.0 (8.4-10.2) mg/dL Total Bilirubin 1.2 (0.2-1.3) mg/dL AST 38 (17-59) IU/L ALT 39 (21-72) IU/L Alkaline Phosphatase 81 (38-126) U/L Total Creatine Kinase 61 (55-170) U/L CK-MB (CK-2) TNP CK-MB (CK-2) Rel Index TNP Troponin I 0.152 H* (0.01-0.034) ng/mL B-Natriuretic Peptide 418 H (<100) Total Protein 6.5 (6.3-8.2) g/dL Albumin 3.7 (3.5-5.0) g/dL Globulin 2.8 (1.7-4.1) g/dL Albumin/Globulin Ratio 1.3 (1.0-2.8) Procalcitonin (<0.5) ng/mL Urine Color Urine Appearance Urine pH (4.5-8.0) Ur Specific [place] (1.000-1.035) Urine Protein (Negative) Urine Glucose (UA) (Negative) g/dL Urine Ketones (NEGATIVE) Urine Occult Blood (Negative) Urine Nitrate (Negative) Urine Bilirubin (NEGATIVE) Urine Urobilinogen (0.2) E.U./dL Ur Leukocyte Esterase (NEGATIVE) Urine RBC (0-5/HPF) Urine WBC (0-5/HPF) Urine Bacteria (None) Hyaline Casts (None) Ur Culture Indicated? Chlamy pneumoniae PCR (Not Detect) Adenovirus (PCR) (Not Detect) B.parapertussis DNA PCR (Not Detect) Coronavirus OC43 (PCR) (Not Detect) Coronavirus HKU1 (PCR) (Not Detect) Coronavirus 229E (PCR) (Not Detect) Coronavirus NL63 (PCR) (Not Detect) Human Metapneumovir PCR (Not Detect) Influenza Type A (PCR) (Not Detect) Influenza Type B (PCR) (Not Detect) Influenza A & B (PCR) (Negative) M. pneumoniae (PCR) (Not Detect) Parainfluenza 1 (PCR) (Not Detect) Parainfluenza 2 (PCR) (Not Detect) Parainfluenza 3 (PCR) (Not Detect) Parainfluenza 4 (PCR) (Not Detect) RSV (PCR) (Not Detect) Entero/Rhino (PCR) (Not Detect) 08/20/19 08/20/19 08/20/19 Range/Units 20:16 20:16 20:16 WBC (4.5-11.0) X10^3/uL RBC (4.5-5.9) X10^6/uL Hgb (13.5-17.5) g/dL Hct (41-53) % MCV (80-100) fL MCH (26-34) PG MCHC (30-36) % RDW (11.6-14.8) % Plt Count (150-400) X10^3/uL Neut % (Auto) (50-75) % Lymph % (Auto) (25-40) % [facility] % (Auto) (3-14) % Eos % (Auto) (2-4) % Baso % (Auto) (0-2) % Neut # (Auto) (3224-5994) /uL Lymph # (Auto) (8877-0417) /uL [facility] # (Auto) (0-900) /uL Eos # (Auto) (0-450) /uL Baso # (Auto) (0-100) /uL PT (10.1-12.7) SECONDS INR (0.9-1.3) APTT (26.4-36.2) SECONDS Sodium (137-145) mmol/L Potassium (3.4-5.1) mmol/L Chloride (98-107) mmol/L Carbon Dioxide (22-32) mmol/L BUN (9-20) mg/dL Creatinine (0.66-1.25) mg/dL Estimated GFR (>60) mL/min BUN/Creatinine Ratio (6-22) Glucose (80-110) mg/dL Lactate 3.0 H (0.7-2.1) mmol/L Calcium (8.4-10.2) mg/dL Total Bilirubin (0.2-1.3) mg/dL AST (17-59) IU/L ALT (21-72) IU/L Alkaline Phosphatase (38-126) U/L Total Creatine Kinase (55-170) U/L CK-MB (CK-2) CK-MB (CK-2) Rel Index Troponin I (0.01-0.034) ng/mL B-Natriuretic Peptide (<100) Total Protein (6.3-8.2) g/dL Albumin (3.5-5.0) g/dL Globulin (1.7-4.1) g/dL Albumin/Globulin Ratio (1.0-2.8) Procalcitonin 0.05 (<0.5) ng/mL Urine Color Urine Appearance Urine pH (4.5-8.0) Ur Specific Mary [place] (1.000-1.035) Urine Protein (Negative) Urine Glucose (UA) (Negative) g/dL Urine Ketones (NEGATIVE) Urine Occult Blood (Negative) Urine Nitrate (Negative) Urine Bilirubin (NEGATIVE) Urine Urobilinogen (0.2) E.U./dL Ur Leukocyte Esterase (NEGATIVE) Urine RBC (0-5/HPF) Urine WBC (0-5/HPF) Urine Bacteria (None) Hyaline Casts (None) Ur Culture Indicated? Chlamy pneumoniae PCR (Not Detect) Adenovirus (PCR) (Not Detect) B.parapertussis DNA PCR (Not Detect) Coronavirus OC43 (PCR) (Not Detect) Coronavirus HKU1 (PCR) (Not Detect) Coronavirus 229E (PCR) (Not Detect) Coronavirus NL63 (PCR) (Not Detect) Human Metapneumovir PCR (Not Detect) Influenza Type A (PCR) (Not Detect) Influenza Type B (PCR) (Not Detect) Influenza A & B (PCR) Negative (Negative) M. pneumoniae (PCR) (Not Detect) Parainfluenza 1 (PCR) (Not Detect) Parainfluenza 2 (PCR) (Not Detect) Parainfluenza 3 (PCR) (Not Detect) Parainfluenza 4 (PCR) (Not Detect) RSV (PCR) (Not Detect) Entero/Rhino (PCR) (Not Detect) 08/20/19 08/20/19 08/20/19 Range/Units 20:50 22:25 22:43 WBC (4.5-11.0) X10^3/uL RBC (4.5-5.9) X10^6/uL Hgb (13.5-17.5) g/dL Hct (41-53) % MCV (80-100) fL MCH (26-34) PG MCHC (30-36) % RDW (11.6-14.8) % Plt Count (150-400) X10^3/uL Neut % (Auto) (50-75) % Lymph % (Auto) (25-40) % [facility] % (Auto) (3-14) % Eos % (Auto) (2-4) % Baso % (Auto) (0-2) % Neut # (Auto) (9360-0154) /uL Lymph # (Auto) (9982-9160) /uL [facility] # (Auto) (0-900) /uL Eos # (Auto) (0-450) /uL Baso # (Auto) (0-100) /uL PT (10.1-12.7) SECONDS INR (0.9-1.3) APTT (26.4-36.2) SECONDS Sodium (137-145) mmol/L Potassium (3.4-5.1) mmol/L Chloride (98-107) mmol/L Carbon Dioxide (22-32) mmol/L BUN (9-20) mg/dL Creatinine (0.66-1.25) mg/dL Estimated GFR (>60) mL/min BUN/Creatinine Ratio (6-22) Glucose (80-110) mg/dL Lactate 0.9 (0.7-2.1) mmol/L Calcium (8.4-10.2) mg/dL Total Bilirubin (0.2-1.3) mg/dL AST (17-59) IU/L ALT (21-72) IU/L Alkaline Phosphatase (38-126) U/L Total Creatine Kinase (55-170) U/L CK-MB (CK-2) CK-MB (CK-2) Rel Index Troponin I (0.01-0.034) ng/mL B-Natriuretic Peptide (<100) Total Protein (6.3-8.2) g/dL Albumin (3.5-5.0) g/dL Globulin (1.7-4.1) g/dL Albumin/Globulin Ratio (1.0-2.8) Procalcitonin (<0.5) ng/mL Urine Color Yellow Urine Appearance Clear Urine pH 5.5 (4.5-8.0) Ur Specific [facility] [place] 1.015 (1.000-1.035) Urine Protein 1+ H (Negative) Urine Glucose (UA) Trace H (Negative) g/dL Urine Ketones Negative (NEGATIVE) Urine Occult Blood Negative (Negative) Urine Nitrate Negative (Negative) Urine Bilirubin Negative (NEGATIVE) Urine Urobilinogen 0.2 (0.2) E.U./dL Ur Leukocyte Esterase Negative (NEGATIVE) Urine RBC None seen (0-5/HPF) Urine WBC 0-1/hpf (0-5/HPF) Urine Bacteria None seen (None) Hyaline Casts 0-1/lpf (None) Ur Culture Indicated? Cult not indicated Chlamy pneumoniae PCR Not detected (Not Detect) Adenovirus (PCR) Not detected (Not Detect) B.parapertussis DNA PCR Not detected (Not Detect) Coronavirus OC43 (PCR) Not detected (Not Detect) Coronavirus HKU1 (PCR) Not detected (Not Detect) Coronavirus 229E (PCR) Not detected (Not Detect) Coronavirus NL63 (PCR) Not detected (Not Detect) Human Metapneumovir PCR Not detected (Not Detect) Influenza Type A (PCR) Not detected (Not Detect) Influenza Type B (PCR) Not detected (Not Detect) Influenza A & B (PCR) (Negative) M. pneumoniae (PCR) Not detected (Not Detect) Parainfluenza 1 (PCR) Not detected (Not Detect) Parainfluenza 2 (PCR) Not detected (Not Detect) Parainfluenza 3 (PCR) Not detected (Not Detect) Parainfluenza 4 (PCR) Not detected (Not Detect) RSV (PCR) Not detected (Not Detect) Entero/Rhino (PCR) Not detected (Not Detect) Imaging Data CT scan - abdomen: Radiologist's impression: PROCEDURE: CT ABDOMEN PELVIS W CON INDICATIONS: llq pain hx diverticulitis TECHNIQUE: After the administration of intravenous contrast, 5 mm thick sections acquired from the diaphragm to the symphysis. 5 mm coronal and sagittal reformats were acquired. For radiation dose reduction, the following was used: automated exposure control, adjustment of mA and/or kV according to patient size. COMPARISON: [facility], CT, CT ABDOMEN PELVIS W CON, 06/04/2018, 20:46. FINDINGS: Image quality: Excellent. ABDOMEN: Lung bases: Lung bases are clear. Heart size is normal. Solid organs: Liver is mildly enlarged for steatosis. Gallbladder is unremarkable. Biliary system is non dilated. Pancreas enhances normally. Spleen is normal in size and enhancement. No adrenal nodules. Kidneys demonstrate normal size and enhancement, without hydronephrosis. Peritoneum and bowel: Bowel loops are nonobstructive. No free fluid or air. Colonic diverticula are present. There is a very minimal appearance of thickening with trace pericolonic stranding in the sigmoid colon. Nodes and vessels: No retroperitoneal or mesenteric adenopathy by size criteria. Aorta and inferior vena cava are normal in size. Miscellaneous: No ventral hernias. PELVIS: Genitourinary: Bladder is incompletely distended with a diffusely thickened wall. Prostate gland is enlarged. Miscellaneous: No inguinal hernias or adenopathy. Bones: No suspicious bony lesions. No vertebral body compression fractures. IMPRESSION: 1. Scattered diverticula with focal loop of thickened sigmoid colon and minimal surrounding inflammatory change. Overall appearance is suggestive of colitis secondary to diverticulitis. Recommend interval followup as clinically indicated to document resolution and exclude presence of underlying mass lesion. 2. Diffusely thickened bladder wall. This could be secondary to incomplete distention. However, other etiologies such as cystitis should be considered if appropriate. Dictated by: Yesika Banda M.D. on 08/20/2019 at 21:4 Chest x-ray: Radiologist's impression: PROCEDURE: XR CHEST 1V INDICATIONS: cough sob TECHNIQUE: One view of the chest was acquired. COMPARISON: None. FINDINGS: Surgical changes and devices: None. Lungs and pleura: Mild increased pulmonary vascularity is present. Mediastinum: Mediastinal contours appear normal. Heart size is normal. Bones and chest wall: No suspicious bony lesions. Overlying soft tissues appear unremarkable. IMPRESSION: Mild increased vascularity suggestive of edema. Dictated by: Yesika Banda M.D. on 08/20/2019 at 20:24 ECG Data Attestation: I personally reviewed and interpreted this ECG as follows: Prior ECG tracings: available for review Interpretation: Atrial fibrillation with RVR rate [address] changes MDM Narrative Medical decision making narrative: Patient did spike a fever of 103 while in the emergency department. He is noticed to be in atrial fibrillation with RVR. Minimally tenderness left lower quadrant with history of diverticulitis. Which may be possible source of infection. His urine and chest x-ray do not show any acute infection. Procalcitonin is negative however lactic acid is 3.0. He is given 1 L fluid. BNP slightly elevated at and chest x-ray does show increased vascularity. Possible beginnings of CHF with AFib with RVR. Will hydrate cautiously. He started on broad-spectrum antibiotics Levaquin and Flagyl to help with CT findings of colitis. Troponin is also noted to be positive this is likely secondary from infection an AFib with RVR. I he is given aspirin discussed further treatment with admitting physician madelaine Regalado for anticoagulation at this time. The patient's heart rate is improving on Cardizem drip and IV fluids. He will be going to ICU. No signs of septic shock at this time Discharge Plan Departure Patient Disposition: Admitted As Inpatient Clinical Impression: Atrial fibrillation with RVR, Non-ST elevation (NSTEMI) myocardial infarction Sepsis Qualifiers: Sepsis type: sepsis due to unspecified organism Sepsis acute organ dysfunction status: without acute organ dysfunction Qualified Code(s): A41.9 - Sepsis, unspecified organism Discharge Date/Time: 08/21/19 00:28 Admit Date/Time: 08/20/19 22:47 Admit Provider: Lauro Fontanez
[2019-08-20] MEDS: SODIUM CHLORIDE 0.9% 1,000 ML 1000 ML IV ×2 (20:09→20:50)
[2019-08-20 20:21] LABS: Add Manual Diff / Slide Review NO; Basophils Absolute Auto 0 /uL (0-100); Basophils Percent Auto 0.4 % (0-2); Eosinophils Absolute Auto 0 /uL (0-450); Eosinophils Percent Auto 0.2 % (2-4); Hematocrit 46.6 % (41-53); Hemoglobin 16.2 g/dL (13.5-17.5); Lymphocytes Absolute Auto 300 /uL (1100-4500); Lymphocytes Percent Auto 3.6 % (25-40); Mean Corpuscular HGB Conc 34.7 % (30-36); Mean Corpuscular Hemoglobin 32.1 PG (26-34); Mean Corpuscular Volume 92.6 fL (80-100); Monocytes Absolute Auto 400 /uL (0-900); Monocytes Percent Auto 4.4 % (3-14); Neutrophils Absolute Auto 8200 /uL (1500-7000); Neutrophils Percent Auto 91.4 % (50-75); Platelet Count 130 X10^3/uL (150-400); Red Blood Cell Count 5.04 X10^6/uL (4.5-5.9); Red Cell Distribution Width 14.8 % (11.6-14.8)
[2019-08-20 20:22] LABS: INR 1.1 (0.9-1.3); Prothrombin Time 12.9 SECONDS (10.1-12.7)
[2019-08-20 20:24] LABS: PTT Partial Thromboplastin Tim 26 SECONDS (26.4-36.2)
[2019-08-20 20:34] LABS: Alanine Aminotransferase 39 IU/L (21-72); Albumin 3.7 g/dL (3.5-5.0); Albumin Globulin Ratio 1.3 (1.0-2.8); Alkaline Phosphatase 81 U/L (38-126); Aspartate Aminotransferase 38 IU/L (17-59); BUN Creatinine Ratio 25.8 (6-22); Bilirubin Total 1.2 mg/dL (0.2-1.3); Blood Urea Nitrogen 31 mg/dL (9-20); Carbon Dioxide 23 mmol/L (22-32); Chloride 100 mmol/L (98-107); Creatine Kinase 61 U/L (55-170); Estimated Glomerular Filt Rate 58.6 mL/min (>60); Globulin 2.8 g/dL (1.7-4.1); Glucose 137 mg/dL (80-110); HEMOLYSIS 47 (0-50); Sodium 135 mmol/L (137-145); Total Protein 6.5 g/dL (6.3-8.2)
[2019-08-20 20:38] LABS: Influenza A and B by PCR Rapid Negative (Negative)
[2019-08-20] MEDS: dilTIAZem 5 MG/ML SDV 10 MG IV (20:54)
[2019-08-20] MEDS: ACETAMINOPHEN 325 MG TABLET 975 MG PO (20:54)
[2019-08-20 20:55] LABS: Bacteria Urine None Seen; RBC Urine None Seen (0-5/HPF)
[2019-08-20 20:56] LABS: Appearance Urine UA CLEAR; Bilirubin Urine UA NEGATIVE (NEGATIVE); Color Urine UA YELLOW; Glucose Urine UA TRACE g/dL (Negative); Ketones Urine UA NEGATIVE (NEGATIVE); Leukocyte Esterase Urine UA NEGATIVE (NEGATIVE); Nitrite Urine UA NEGATIVE (Negative); Occult Blood Urine UA NEGATIVE (Negative); Protein Urine UA 1+ (Negative); Specific Gravity Urine UA 1.015 (1.000-1.035); Urobilinogen Urine UA 0.2 E.U./dL (0.2); pH Urine UA 5.5 (4.5-8.0)
[2019-08-20 20:59] LABS: B Type Natriuretic Peptide 418 (<100)
[2019-08-20 21:03] LABS: Procalcitonin 0.05 ng/mL (<0.5)
[2019-08-20 21:08] LABS: Culture Indicated Urine Cult Not Indicated; Hyaline Casts Urine 0-1/LPF; WBC Urine 0-1/HPF (0-5/HPF)
--- NOTE | 2019-08-20 21:08 | DI.CT.S_ITS ---
PROCEDURE: CT ABDOMEN PELVIS W CON INDICATIONS: llq pain hx diverticulitis TECHNIQUE: After the administration of intravenous contrast, 5 mm thick sections acquired from the diaphragm to the symphysis. 5 mm coronal and sagittal reformats were acquired. For radiation dose reduction, the following was used: automated exposure control, adjustment of mA and/or kV according to patient size. COMPARISON: Located [facility], CT, CT ABDOMEN PELVIS W CON, 06/04/2018, 20:46. FINDINGS: Image quality: Excellent. ABDOMEN: Lung bases: Lung bases are clear. Heart size is normal. Solid organs: Liver is mildly enlarged for steatosis. Gallbladder is unremarkable. Biliary system is non dilated. Pancreas enhances normally. Spleen is normal in size and enhancement. No adrenal nodules. Kidneys demonstrate normal size and enhancement, without hydronephrosis. Peritoneum and bowel: Bowel loops are nonobstructive. No free fluid or air. Colonic diverticula are present. There is a very minimal appearance of thickening with trace pericolonic stranding in the sigmoid colon. Nodes and vessels: No retroperitoneal or mesenteric adenopathy by size criteria. Aorta and inferior vena cava are normal in size. Miscellaneous: No ventral hernias. PELVIS: Genitourinary: Bladder is incompletely distended with a diffusely thickened wall. Prostate gland is enlarged. Miscellaneous: No inguinal hernias or adenopathy. Bones: No suspicious bony lesions. No vertebral body compression fractures. IMPRESSION: 1. Scattered diverticula with focal loop of thickened sigmoid colon and minimal surrounding inflammatory change. Overall appearance is suggestive of colitis secondary to diverticulitis. Recommend interval followup as clinically indicated to document resolution and exclude presence of underlying mass lesion. 2. Diffusely thickened bladder wall. This could be secondary to incomplete distention. However, other etiologies such as cystitis should be considered if appropriate. Dictated by: Yesika Banda M.D. on 08/20/2019 at 21:43 Approved by: Yesika Banda M.D. on 08/20/2019 at 21:46
[2019-08-20 21:17] LABS: Troponin I 0.152 ng/mL (0.01-0.034)
[2019-08-20 22:16] LABS: Reflexed Lactate in 2 Hours Y
[2019-08-20] MEDS: DILTIAZEM 125 MG/125 ML PIGGYBACK IV (22:32)
[2019-08-20] MEDS: ASPIRIN 81 MG CHEW TAB 324 MG PO (22:32)
[2019-08-20] MEDS: metroNIDAZOLE 500 MG/100 ML PIGGYBACK 100 MG IV (22:33)
[2019-08-20 22:42] LABS: Lactate 2HR (Lactic Acid Rflx) 0.9 mmol/L (0.7-2.1)
[2019-08-20] MEDS: levoFLOXacin 750 MG/150 ML PIGGYBACK 100 MG IV (23:55)
[2019-08-21] VITALS (19 sets, daily range): BP systolic 101–143; BP diastolic 56–82; PULSE 85–124; RESP 8–27; TEMP 36.6–37.2; O2SAT 88–95; BMI 27.7
[2019-08-21 00:02] LABS: Adenovirus Not Detected (Not Detect); Bordetella pertussis Not Detected (Not Detect); Chlamydophila pneumoniae Not Detected (Not Detect); Coronavirus 229E Not Detected (Not Detect); Coronavirus HKU1 Not Detected (Not Detect); Coronavirus NL 63 Not Detected (Not Detect); Coronavirus OC43 Not Detected (Not Detect); Human Metapneumovirus Not Detected (Not Detect); Human Rhinovirus/Enterovirus Not Detected (Not Detect); Influenza A Not Detected (Not Detect); Influenza B Not Detected (Not Detect); Mycoplasma pneumoniae Not Detected (Not Detect); Parainfluenza Virus 1 Not Detected (Not Detect); Parainfluenza Virus 2 Not Detected (Not Detect); Parainfluenza Virus 3 Not Detected (Not Detect); Parainfluenza Virus 4 Not Detected (Not Detect); Respiratory Syncytial Virus Not Detected (Not Detect)
[2019-08-21] MEDS: SODIUM CHLORIDE 0.9% 1,000 ML 150 ML IV (03:00)
[2019-08-21 04:28] LABS: Add Manual Diff / Slide Review NO; Basophils Absolute Auto 0 /uL (0-100); Basophils Percent Auto 0.1 % (0-2); Eosinophils Absolute Auto 0 /uL (0-450); Eosinophils Percent Auto 0.5 % (2-4); Hematocrit 42.5 % (41-53); Hemoglobin 14.8 g/dL (13.5-17.5); Lymphocytes Absolute Auto 500 /uL (1100-4500); Lymphocytes Percent Auto 6.1 % (25-40); Mean Corpuscular HGB Conc 34.9 % (30-36); Mean Corpuscular Volume 91.8 fL (80-100); Monocytes Absolute Auto 200 /uL (0-900); Monocytes Percent Auto 2.8 % (3-14); Neutrophils Absolute Auto 7800 /uL (1500-7000); Neutrophils Percent Auto 90.5 % (50-75); Platelet Count 101 X10^3/uL (150-400); Red Blood Cell Count 4.63 X10^6/uL (4.5-5.9); Red Cell Distribution Width 14.8 % (11.6-14.8); White Blood Cell Count 8.6 X10^3/uL (4.5-11.0)
[2019-08-21 04:36] LABS: Blood Urea Nitrogen 24 mg/dL (9-20); Calcium 7.9 mg/dL (8.4-10.2); Carbon Dioxide 22 mmol/L (22-32); Chloride 106 mmol/L (98-107); Estimated Glomerular Filt Rate > 60.0 mL/min (>60); Glucose 108 mg/dL (80-110); HEMOLYSIS 19 (0-50); Potassium 3.2 mmol/L (3.4-5.1); Sodium 134 mmol/L (137-145)
[2019-08-21 04:59] LABS: Troponin I 0.265 ng/mL (0.01-0.034)
--- NOTE | 2019-08-21 05:10 | PC.NURSE ---
Recieved critical labs results, phoned results to Dr. Fontanez, troponin went up to 0.265. Dr Fontanez stated that he will be in this morning to see the patient.
--- NOTE | 2019-08-21 05:25 | PC.NURSE ---
Addendum entered by Bella Robertson R.N. 08/21/19 05:31: 0530 Increased Troponin value notified to Dr. Fontanez per Martha Escalante RN while primary RN on break. NonSTEMI diagnosis was not communicated by RN from ED during report or at bedside report. MD notes not signed off until [address] Fontanez aware of diagnosis when called. No orders received. Pt remains stable, denies pain, discomfort. Diltiazem gtt continues 10mg/hr. VSS. Original Note: NOC Admit Note: Pt admitted from ED w/fever, chills, Afib RVR and nonSTEMI per ED MD notes. Pt AOx3, denies pain, SOB. Says he just hasn't been feeling well. Per over the phone with med list states pt hasn't been taking his Diltiazem off and on and needs constant reminding to take med. When asked pt states he doesn't know. VSS, Afib RVR on tele, HR 120's. Stable sats on room air. Diltiazem gtt at 5mg/hr from ED, increased to 10mg/hr. Continue to monitor. IVF's for possible sepsis. Afebrile. ICU admit.
[2019-08-21] MEDS: metroNIDAZOLE 250 MG/50 ML PIGGYBACK 100 MG IV ×3 (08:14→21:25)
--- NOTE | 2019-08-21 08:50 | CM.DANOTE ---
DCP: Case received, EMR reviewed and met with patient. Introduced self and role. Was able to speak to patient and retrieve some information regarding baseline activity and health. DCP assessment/template completed with information currently available. Patient is a 79 year old male who admitted yesterday evening to the care of the hospitalist team. PCP: Dr. Llamas. Payer: confirmed: [facility]. Patient came to the hospital via private vehicle secondary to weakness and a fever. He was noted to be in a-fib with RVR, and is currently in the ICU since he is on a Diltiazem drip. He is also noted to have colitis secondary to diverticulitis, as well as CHF. Met with patient in his room. Alert and oriented, sitting up in his chair at bedside having breakfast. Patient resides here in [place] with his , Sharyn. He is independent, drives. P: DCP will continue to follow, and be available for any resources. Anticipate that patient will be here for a few days. Radha Fairbanks RN/[place] [facility]
[2019-08-21] MEDS: DILTIAZEM 125 MG/125 ML PIGGYBACK 15 MG IV (09:26)
--- NOTE | 2019-08-21 10:14 | P.HP_ITS ---
History of Present Illness History of Present Illness Date Patient Seen: 08/21/19 Time Patient Seen: 09:31 Chief complaint: shivering,couldnt get out bed,weakness Narrative: Patient is a 71-year-old male presenting through the emergency room with acute weakness , shivering and increased heart rate. Patient received flu shot a few days earlier his influenza evaluation in the emergency room was negative broad-spectrum infection screening also negative. Cultures pending patient patient had low level elevation of troponin and serially followed in the night a higher elevation but denied any chest pain or increasing shortness of breath as result of that. EKG showed no changes and CK was negative. Wonder about this just being reflection of his severe weakness and perhaps acute infectious issue. Patient has history of ulcerative colitis and diverticulitis and has some discomfort in that left lower quadrant. CT scan showed inflammation weakening of got in that area. Patient has history of BPH Patient with history of chronic atrial fibrillation not on anticoagulation because of recent GI bleeding Patient has history of ASCVD with elevated lipids and medications and heart rate control for his atrial fibrillation. By the time I see him the next day he is feels slight increased shortness of breath with and 2nd increased troponin will have a 3rd and CKs monitored and in short order. Will give him some low-dose furosemide and stop IV fluids at this point. On AFib with rapid ventricular rate is in good control ranging around 100 on some IV diltiazem. Will restart oral medications for rate control. Patient History Medical History A-fib (Acute) Blepharophimosis unspecified eye, unspecified lid (Acute) Social History household members: spouse Smoking Status: Former smoker Family & Social History Social History: household members spouse Prior Living Arrangements House Safety & Behavioral: Feels Safe in Current Yes Environment Been Physically Hurt or No Threatened By a Person Suicidal Ideation Description None Tobacco & Substance use: Smoking Status Former smoker alcohol intake current alcohol intake frequency 0-2 drinks per day Substance Use Type does not use Meds Home Medications and Allergies Home Medications Medication Instructions Recorded Confirmed Type atorvastatin 1 tab PO QAM 06/04/18 08/21/19 History diltiazem HCl 120 mg PO BID 06/04/18 08/21/19 History tamsulosin 1 tab PO DAILY 06/04/18 08/21/19 History carvedilol [Coreg] 12.5 mg PO BID #60 tab 06/08/18 08/21/19 Rx Allergies Allergy/AdvReac Type Severity Reaction Status Date / Time Sulfa (Sulfonamide Allergy Unknown red spots Verified 08/20/19 20:03 Antibiotics) Review of Systems Review of Systems Narrative: Patient sitting comfortably speaking clearly and answering questions very appropriately in bed. Reported that he was very weak unable to sit up or walk with some shaking. Slight cough but no real productive of purulent phlegm. Slight shortness of breath as of this morning following some fluids. Heart rate is irregularly irregular rapid running around 1 100 sometimes down into the 90 sometimes into the 110s no significant worsening of edema and absolutely no chest pain. Abdomen with left lower quadrant discomfort not rigidity no nausea or vomiting has had some rectal bleeding but this been going on since about April without any focal changes Skin without any significant lesions or rashes. Exam Vital Signs (past 8 hours): - 08/21/19 03:00 08/21/19 04:00 08/21/19 05:00 Temperature 98.5 F Pulse Rate 113 H 112 H 113 H Respiratory Rate 21 18 22 Blood Pressure 117/65 117/66 117/79 Pulse Oximetry 92 91 93 08/21/19 05:33 08/21/19 06:00 08/21/19 06:33 Temperature Pulse Rate 114 H Respiratory Rate 18 Blood Pressure 124/75 Pulse Oximetry 88 L 92 93 08/21/19 07:00 08/21/19 08:37 08/21/19 09:01 Temperature 98.9 F Pulse Rate 109 H 109 H 94 H Respiratory Rate 24 14 16 Blood Pressure 133/82 133/82 118/70 Pulse Oximetry 94 94 94 08/21/19 10:00 Temperature Pulse Rate 102 H Respiratory Rate 16 Blood Pressure Pulse Oximetry Oxygen Delivery Method Room Air Oxygen Flow Rate 0 Narrative Exam Narrative: Alert oriented speaking clearly sitting come comfortably in bedside chair slight shortness of breath PERRLA EOMs intact speech clear Neck without mass or significant lesions Lungs slight crackles at bases. Bilateral Heart rate irregularly irregular no murmur no dependent edema Abdomen nontender except in left lower quadrant no rebound or guarding bowel sounds are present Neuro is intact symmetrical and nonfocal to sensory and motor speech is clear cognition is intact Back without any significant lesions or tenderness to percussion Appears to be in good mood cognitively functioning well not disoriented. Objective Labs Result Diagrams: 08/21/19 04:10 08/21/19 04:10 Labs: Laboratory Results - last 24 hr 08/20/19 08/20/19 08/20/19 20:16 20:16 20:16 WBC 9.0 RBC 5.04 Hgb 16.2 Hct 46.6 MCV 92.6 MCH 32.1 MCHC 34.7 RDW 14.8 Plt Count 130 L Neut % (Auto) 91.4 H Lymph % (Auto) 3.6 L [place] % (Auto) 4.4 Eos % (Auto) 0.2 L Baso % (Auto) 0.4 Neut # (Auto) 8200 H Lymph # (Auto) 300 L [place] # (Auto) 400 Eos # (Auto) 0 Baso # (Auto) 0 PT 12.9 H INR 1.1 APTT 26 L Sodium 135 L Potassium 4.0 Chloride 100 Carbon Dioxide 23 BUN 31 H Creatinine 1.20 Estimated GFR 58.6 L BUN/Creatinine Ratio 25.8 H Glucose 137 H Lactate Calcium 9.0 Total Bilirubin 1.2 AST 38 ALT 39 Alkaline Phosphatase 81 Total Creatine Kinase 61 CK-MB (CK-2) TNP CK-MB (CK-2) Rel Index TNP Troponin I 0.152 H* B-Natriuretic Peptide 418 H Total Protein 6.5 Albumin 3.7 Globulin 2.8 Albumin/Globulin Ratio 1.3 Procalcitonin Urine Color Urine Appearance Urine pH Ur Specific [place] Urine Protein Urine Glucose (UA) Urine Ketones Urine Occult Blood Urine Nitrate Urine Bilirubin Urine Urobilinogen Ur Leukocyte Esterase Urine RBC Urine WBC Urine Bacteria Hyaline Casts Ur Culture Indicated? Nasal Screen MRSA (PCR) Chlamy pneumoniae PCR Adenovirus (PCR) B.parapertussis DNA PCR Coronavirus OC43 (PCR) Coronavirus HKU1 (PCR) Coronavirus 229E (PCR) Coronavirus NL63 (PCR) Human Metapneumovir PCR Influenza Type A (PCR) Influenza Type B (PCR) Influenza A & B (PCR) M. pneumoniae (PCR) Parainfluenza 1 (PCR) Parainfluenza 2 (PCR) Parainfluenza 3 (PCR) Parainfluenza 4 (PCR) RSV (PCR) Entero/Rhino (PCR) 08/20/19 08/20/19 08/20/19 20:16 20:16 20:16 WBC RBC Hgb Hct MCV MCH MCHC RDW Plt Count Neut % (Auto) Lymph % (Auto) [place] % (Auto) Eos % (Auto) Baso % (Auto) Neut # (Auto) Lymph # (Auto) [place] # (Auto) Eos # (Auto) Baso # (Auto) PT INR APTT Sodium Potassium Chloride Carbon Dioxide BUN Creatinine Estimated GFR BUN/Creatinine Ratio Glucose Lactate 3.0 H Calcium Total Bilirubin AST ALT Alkaline Phosphatase Total Creatine Kinase CK-MB (CK-2) CK-MB (CK-2) Rel Index Troponin I B-Natriuretic Peptide Total Protein Albumin Globulin Albumin/Globulin Ratio Procalcitonin 0.05 Urine Color Urine Appearance Urine pH Ur Specific [place] Urine Protein Urine Glucose (UA) Urine Ketones Urine Occult Blood Urine Nitrate Urine Bilirubin Urine Urobilinogen Ur Leukocyte Esterase Urine RBC Urine WBC Urine Bacteria Hyaline Casts Ur Culture Indicated? Nasal Screen MRSA (PCR) Chlamy pneumoniae PCR Adenovirus (PCR) B.parapertussis DNA PCR Coronavirus OC43 (PCR) Coronavirus HKU1 (PCR) Coronavirus 229E (PCR) Coronavirus NL63 (PCR) Human Metapneumovir PCR Influenza Type A (PCR) Influenza Type B (PCR) Influenza A & B (PCR) Negative M. pneumoniae (PCR) Parainfluenza 1 (PCR) Parainfluenza 2 (PCR) Parainfluenza 3 (PCR) Parainfluenza 4 (PCR) RSV (PCR) Entero/Rhino (PCR) 08/20/19 08/20/19 08/20/19 20:50 22:25 22:43 WBC RBC Hgb Hct MCV MCH MCHC RDW Plt Count Neut % (Auto) Lymph % (Auto) [place] % (Auto) Eos % (Auto) Baso % (Auto) Neut # (Auto) Lymph # (Auto) [place] # (Auto) Eos # (Auto) Baso # (Auto) PT INR APTT Sodium Potassium Chloride Carbon Dioxide BUN Creatinine Estimated GFR BUN/Creatinine Ratio Glucose Lactate 0.9 Calcium Total Bilirubin AST ALT Alkaline Phosphatase Total Creatine Kinase CK-MB (CK-2) CK-MB (CK-2) Rel Index Troponin I B-Natriuretic Peptide Total Protein Albumin Globulin Albumin/Globulin Ratio Procalcitonin Urine Color Yellow Urine Appearance Clear Urine pH 5.5 Ur Specific [place] 1.015 Urine Protein 1+ H Urine Glucose (UA) Trace H Urine Ketones Negative Urine Occult Blood Negative Urine Nitrate Negative Urine Bilirubin Negative Urine Urobilinogen 0.2 Ur Leukocyte Esterase Negative Urine RBC None seen Urine WBC 0-1/hpf Urine Bacteria None seen Hyaline Casts 0-1/lpf Ur Culture Indicated? Cult not indicated Nasal Screen MRSA (PCR) Chlamy pneumoniae PCR Not detected Adenovirus (PCR) Not detected B.parapertussis DNA PCR Not detected Coronavirus OC43 (PCR) Not detected Coronavirus HKU1 (PCR) Not detected Coronavirus 229E (PCR) Not detected Coronavirus NL63 (PCR) Not detected Human Metapneumovir PCR Not detected Influenza Type A (PCR) Not detected Influenza Type B (PCR) Not detected Influenza A & B (PCR) M. pneumoniae (PCR) Not detected Parainfluenza 1 (PCR) Not detected Parainfluenza 2 (PCR) Not detected Parainfluenza 3 (PCR) Not detected Parainfluenza 4 (PCR) Not detected RSV (PCR) Not detected Entero/Rhino (PCR) Not detected 08/21/19 08/21/19 08/21/19 00:45 04:10 04:10 WBC 8.6 RBC 4.63 Hgb 14.8 Hct 42.5 MCV 91.8 MCH 32.0 MCHC 34.9 RDW 14.8 Plt Count 101 L Neut % (Auto) 90.5 H Lymph % (Auto) 6.1 L [place] % (Auto) 2.8 L Eos % (Auto) 0.5 L Baso % (Auto) 0.1 Neut # (Auto) 7800 H Lymph # (Auto) 500 L [place] # (Auto) 200 Eos # (Auto) 0 Baso # (Auto) 0 PT INR APTT Sodium 134 L Potassium 3.2 L Chloride 106 Carbon Dioxide 22 BUN 24 H Creatinine 1.00 Estimated GFR > 60.0 BUN/Creatinine Ratio 24.0 H Glucose 108 Lactate Calcium 7.9 L Total Bilirubin AST ALT Alkaline Phosphatase Total Creatine Kinase CK-MB (CK-2) CK-MB (CK-2) Rel Index Troponin I 0.265 H* B-Natriuretic Peptide Total Protein Albumin Globulin Albumin/Globulin Ratio Procalcitonin Urine Color Urine Appearance Urine pH Ur Specific [place] Urine Protein Urine Glucose (UA) Urine Ketones Urine Occult Blood Urine Nitrate Urine Bilirubin Urine Urobilinogen Ur Leukocyte Esterase Urine RBC Urine WBC Urine Bacteria Hyaline Casts Ur Culture Indicated? Nasal Screen MRSA (PCR) Negative for mrsa Chlamy pneumoniae PCR Adenovirus (PCR) B.parapertussis DNA PCR Coronavirus OC43 (PCR) Coronavirus HKU1 (PCR) Coronavirus 229E (PCR) Coronavirus NL63 (PCR) Human Metapneumovir PCR Influenza Type A (PCR) Influenza Type B (PCR) Influenza A & B (PCR) M. pneumoniae (PCR) Parainfluenza 1 (PCR) Parainfluenza 2 (PCR) Parainfluenza 3 (PCR) Parainfluenza 4 (PCR) RSV (PCR) Entero/Rhino (PCR) Assessment & Plan Assessment & Plan narrative: Assessment 1. Severe weakness. [place] to perhaps be multifactorial patient has increased heart rate from his atrial fibrillation which she is as symptoms with. Denies any significant chest pain pressure or at the time this began any shortness of breath. Has complained during this timeframe of left lower quadrant abdominal pain way with recent diagnosis of colitis and diverticulitis and rectal bleeding. His been in workup for that and currently on some medications to treat underlying colitis but that has not flared dramatically during this time frame. Patient also had a influenza shot couple of days before this started but influenza testing was negative as was broad-spectrum immunologic testing for infection. Patient could also have a component of coronary ischemia of the type 2 nature he. He has not had any pain at all but does feel slightly short of breath and does have a positive troponin my sense is that this is just demand secondary to his presenting low blood pressure increased heart rate weakness. Will check sequentially and restart beta-blockers. Will not put patient on anticoagulation but will try to address electrolyte abnormalities. Assessment 2 chronic atrial fibrillation heart rate running around 200 in on Cardizem drip will continue that to patient stabilizes. Will restart his oral medications try and manage that back to his baseline Assessment 3. Diverticulitis/colitis apparently has both and has had some bleeding. ER CT scan did not show obstruction of free fluid or other changes than the diverticulitis and thickening of the bowel will continue on antibiotics appropriate for that with Levaquin and metronidazole Assessment 4. Hypokalemia will give patient some oral potassium at this point recheck morning labs. Assessment 5 history of coronary artery disease on atorvastatin beta-blockers we and will continue those at this point along with meds for heart rate control. If he has no other increase in his troponin will get Cardiology consult. Assessment 6 shortness of breath this morning following fluid administration may be wonder if he has got small amount of systolic congestive failure superimposed. Did have a BNP in the 400 range. Will hold fluid supplement at this point given his phone okay blood pressure and give him 1 dose of Lasix to see if that helps his sense of breathing. Time Spent With Patient Time with patient: Greater than 35 minutes
[2019-08-21] MEDS: FUROSEMIDE 20 MG/2 ML VIAL IV (10:43)
[2019-08-21] MEDS: BUDESONIDE 3 MG CAP 9 MG PO (10:43)
[2019-08-21] MEDS: dilTIAZem CD 120 MG CAP PO ×2 (12:22→19:43)
[2019-08-21] MEDS: POTASSIUM CHLORIDE 10 MEQ TAB PO ×2 (12:22→16:33)
[2019-08-21] MEDS: TAMSULOSIN 0.4 MG CAPSULE PO (12:22)
[2019-08-21] MEDS: CARVEDILOL 12.5 MG TABLET PO ×2 (12:22→19:43)
[2019-08-21 12:23] LABS: Creatine Kinase 69 U/L (55-170)
[2019-08-21 12:47] LABS: Troponin I 0.515 ng/mL (0.01-0.034)
[2019-08-21] MEDS: SODIUM CHLORIDE 0.9% 250 ML 21 ML IV (13:51)
--- NOTE | 2019-08-21 14:16 | PC.NURSE ---
pt reports no chest pain or n/v asociated with elevated troponin levels- will repeat in am per md orders as well as ekg completed. he reports breathing a bit easier this am following asministration of iv lasix and brisk diuresis- afib continues at rates in 80-90's and is presently infusing at 10mg/h - also initiated this am was his po rx-
[2019-08-21] MEDS: ATORVASTATIN 20 MG TABLET PO (19:42)
[2019-08-21] MEDS: levoFLOXacin 750 MG/150 ML PIGGYBACK 100 MG IV (22:03)
[2019-08-22] VITALS (11 sets, daily range): BP systolic 116–154; BP diastolic 47–84; PULSE 82–102; RESP 18–24; TEMP 36.3–38.7; O2SAT 91–95
[2019-08-22] MEDS: ACETAMINOPHEN 325 MG TABLET 650 MG PO (03:38)
[2019-08-22] MEDS: SODIUM CHLORIDE 0.9% 250 ML 21 ML IV (04:46)
[2019-08-22 05:04] LABS: Add Manual Diff / Slide Review NO; Basophils Absolute Auto 0 /uL (0-100); Basophils Percent Auto 0.2 % (0-2); Eosinophils Absolute Auto 0 /uL (0-450); Eosinophils Percent Auto 0.5 % (2-4); Hematocrit 39.5 % (41-53); Hemoglobin 13.9 g/dL (13.5-17.5); Lymphocytes Absolute Auto 800 /uL (1100-4500); Lymphocytes Percent Auto 10.7 % (25-40); Mean Corpuscular HGB Conc 35.1 % (30-36); Mean Corpuscular Hemoglobin 32.3 PG (26-34); Mean Corpuscular Volume 92.1 fL (80-100); Monocytes Absolute Auto 300 /uL (0-900); Monocytes Percent Auto 3.6 % (3-14); Neutrophils Absolute Auto 6300 /uL (1500-7000); Platelet Count 115 X10^3/uL (150-400); Red Blood Cell Count 4.29 X10^6/uL (4.5-5.9); Red Cell Distribution Width 14.8 % (11.6-14.8); White Blood Cell Count 7.4 X10^3/uL (4.5-11.0)
[2019-08-22 05:17] LABS: Alanine Aminotransferase 35 IU/L (21-72); Albumin 2.8 g/dL (3.5-5.0); Albumin Globulin Ratio 1.1 (1.0-2.8); Alkaline Phosphatase 53 U/L (38-126); Aspartate Aminotransferase 27 IU/L (17-59); BUN Creatinine Ratio 18.3 (6-22); Bilirubin Total 1.4 mg/dL (0.2-1.3); Blood Urea Nitrogen 22 mg/dL (9-20); Calcium 8.2 mg/dL (8.4-10.2); Carbon Dioxide 22 mmol/L (22-32); Chloride 104 mmol/L (98-107); Estimated Glomerular Filt Rate 58.6 mL/min (>60); Globulin 2.6 g/dL (1.7-4.1); Glucose 143 mg/dL (80-110); HEMOLYSIS 16 (0-50); Potassium 3.5 mmol/L (3.4-5.1); Sodium 136 mmol/L (137-145); Total Protein 5.4 g/dL (6.3-8.2)
[2019-08-22 05:31] LABS: Troponin I 0.243 ng/mL (0.01-0.034)
[2019-08-22 05:35] LABS: B Type Natriuretic Peptide 225 (<100)
[2019-08-22] MEDS: metroNIDAZOLE 250 MG/50 ML PIGGYBACK 100 MG IV (05:56)
[2019-08-22] MEDS: PANTOPRAZOLE 20 MG TABLET PO (05:56)
[2019-08-22 06:12] LABS: Thyroid Stimulating Hormone 0.73 uIU/mL (0.47-4.68)
--- NOTE | 2019-08-22 06:49 | PC.NURSE ---
NOC shift: Pt states feeling better tonight. VSS, Afib CVR on tele. Intermittent RVR w/activity. Diltiazem gtt off on eves shift, restarted on po medication. Continues to have intermittent coughing, BS clear sats low 90's on room air. Pt denies SOB and chest pain throughout shift. Low grade temp around O400 w/generalized aches, headache Tylenol given. Troponin this AM elevated with downward trend expected by MD per note. Remains ICU care possible discharge home today.
--- NOTE | 2019-08-22 07:49 | P.PN_ITS ---
Subjective Subjective Date Patient Seen: 08/22/19 Time Patient Seen: 07:49 Interval history: Patient overall feeling better. Strength is better. No other changes. No chest pain. No shortness of breath. Abdominal pain is improved but not completely resolved. Still having blood per rectum. Has been for some time. Exam Vital Signs (past 8 hours): - 08/22/19 00:00 08/22/19 03:33 08/22/19 03:38 Temperature 98.9 F 98.9 F Pulse Rate 90 Respiratory Rate 20 Blood Pressure 124/79 Pulse Oximetry 93 93 Oxygen Delivery Method Room Air Oxygen Flow Rate 0 Narrative Exam Narrative: Alert smiling fatigued male in no acute distress. Skin is without rash. Normal turgor. HEENT exam mucous membranes are moist. Neck is supple without adenopathy. Heart is irregular rhythm rate around 100 this morning. Lungs are clear. Abdomen is soft positive bowel sounds nontend er. Extremities without cyanosis clubbing edema. Neurologic exam is normal. Psychologically stable. Objective Labs Result Diagrams: 08/22/19 04:30 08/22/19 04:30 Labs: Laboratory Results - last 24 hr 08/21/19 08/22/19 08/22/19 12:07 04:30 04:30 WBC 7.4 RBC 4.29 L Hgb 13.9 Hct 39.5 L MCV 92.1 MCH 32.3 MCHC 35.1 RDW 14.8 Plt Count 115 L Neut % (Auto) 85.0 H Lymph % (Auto) 10.7 L [place] % (Auto) 3.6 Eos % (Auto) 0.5 L Baso % (Auto) 0.2 Neut # (Auto) 6300 Lymph # (Auto) 800 L [place] # (Auto) 300 Eos # (Auto) 0 Baso # (Auto) 0 Sodium 136 L Potassium 3.5 Chloride 104 Carbon Dioxide 22 BUN 22 H Creatinine 1.20 Estimated GFR 58.6 L BUN/Creatinine Ratio 18.3 Glucose 143 H Calcium 8.2 L Total Bilirubin 1.4 H AST 27 ALT 35 Alkaline Phosphatase 53 Total Creatine Kinase 69 CK-MB (CK-2) TNP CK-MB (CK-2) Rel Index TNP Troponin I 0.515 H* B-Natriuretic Peptide 225 H Total Protein 5.4 L Albumin 2.8 L Globulin 2.6 Albumin/Globulin Ratio 1.1 TSH 08/22/19 08/22/19 04:30 04:30 WBC RBC Hgb Hct MCV MCH MCHC RDW Plt Count Neut % (Auto) Lymph % (Auto) [place] % (Auto) Eos % (Auto) Baso % (Auto) Neut # (Auto) Lymph # (Auto) [place] # (Auto) Eos # (Auto) Baso # (Auto) Sodium Potassium Chloride Carbon Dioxide BUN Creatinine Estimated GFR BUN/Creatinine Ratio Glucose Calcium Total Bilirubin AST ALT Alkaline Phosphatase Total Creatine Kinase CK-MB (CK-2) CK-MB (CK-2) Rel Index Troponin I 0.243 H* B-Natriuretic Peptide Total Protein Albumin Globulin Albumin/Globulin Ratio TSH 0.73 Assessment & Plan Assessment & Plan narrative: Sepsis. Seems to be resolving. Patient had increased heart rate and elevated lab work although white count stable. Seems to be doing well on oral antibiotics. CT scan showed swelling in the left colon which is been something that has been we have been dealing with for some time. At this point will switch to oral antibiotics consider discharge in the next 24 hours. Elevated troponin. Possible category to demand ischemia. Due to history. Will consult cake batter mixer. May need further evaluations been at least 2 years since he has had last treadmill. We will see what they recommend. Atrial fibrillation. Controlled rate at this time. Will switch to 360 of Cardizem. Have been on this in the past which has caused problems with his rate control. In blood pressure. But at this point will need to consider increased medication until he gets stable and then can go down to his usual dose and see how he does. Patient otherwise stable. Will check magnesium today. Not on Coumadin secondary to GI bleeding and ulcerative colitis. Gastrointestinal consult recommends not being on until bleeding stops. Hypokalemia. Appears to be resolved.. No other change. Ulcerative colitis. Patient is not sure what medications he is on. Will review chart and figure out what he is on restart usual medicine. DVT prophylaxis. Patient should be at low risk will change to floor care and ambulate today. Will follow. Disposition. Unsure whether we can possibly lung go tomorrow I would think that would be probably best patient is wanting to go will see what cake batter mixer thinks and re-evaluate.
[2019-08-22] MEDS: metroNIDAZOLE 500 MG TABLET PO ×3 (08:25→22:03)
[2019-08-22] MEDS: dilTIAZem CD 180 MG CAP 360 MG PO (08:26)
[2019-08-22] MEDS: TAMSULOSIN 0.4 MG CAPSULE PO (08:26)
[2019-08-22] MEDS: POTASSIUM CHLORIDE 10 MEQ TAB PO ×2 (08:26→16:57)
[2019-08-22] MEDS: levoFLOXacin 250 MG TABLET 750 MG PO (08:27)
[2019-08-22] MEDS: CARVEDILOL 12.5 MG TABLET PO ×2 (08:31→22:01)
[2019-08-22 08:36] LABS: Magnesium 1.8 mg/dL (1.6-2.3)
[2019-08-22] MEDS: FUROSEMIDE 20 MG/2 ML VIAL 10 MG IV (13:33)
[2019-08-22] MEDS: SODIUM CHLORIDE 0.9% FLUSH 10 ML IV ×2 (13:33→22:03)
--- NOTE | 2019-08-22 13:41 | PC.NURSE ---
Addendum entered by Maggy Rogers R.N. 08/22/19 14:50: pt noted to have RR in the 30's and spo2 88% while lying in bed on right side- placed 2l nc with increased spo2 92% resp rate NOW IN THE 20'S ANXIOUS AT BEDSIDE Original Note: pt doing well this am with increased dose of po diltiazem - felt somewhat tires and reports not sleeping well last pm- later in shift he c/o no appetite and unable to catch my breath- lungs dim with few fine crackles bilat bases- spo2 95% on room air and pt able to lie flat in bed- update to dr dangelo and orders received for 10mg iv lasix which has been administered
--- NOTE | 2019-08-22 14:23 | CM.DPC ---
DCP: continued: case received, EMR reviewed and see that pt's PCP Dr. Llamas did see him today. Cardiology consult is planned. Dr. Llamas notes pt's eagerness for a d/c and his note indicates this is likely tomorrow if pt is medically stable for same. Will check in and follow prn. See that pt is functionally independent in community at baseline. PT is not ordered and would not appear indicated at this time. Discussed case in Team Rounds.
--- NOTE | 2019-08-22 17:37 | DI.RAD.S_ITS ---
PROCEDURE: XR CHEST 2V INDICATIONS: dyspnea TECHNIQUE: 2 views of the chest were acquired. COMPARISON: [facility], CT, CT ABDOMEN PELVIS W CON, 08/20/2019, 21:23. [facility], CR, XR CHEST 1V, 08/20/2019, 20:16. FINDINGS: Surgical changes and devices: None. Lungs and pleura: Lungs are clear. No pleural effusions or pneumothorax. The lungs are hyperexpanded, with flattening of the hemidiaphragms seen. Mediastinum: The cardiac contours are within normal limits. The aorta demonstrates calcification and tortuosity. Bones and chest wall: Age-appropriate bony degenerative changes are seen. No suspicious bony abnormalities. Soft tissues appear unremarkable. IMPRESSION: Hyperexpanded lungs, without an acute cardiopulmonary process identified. Dictated by: Shane Long M.D. on 08/22/2019 at 17:05 Approved by: Shane Long M.D. on 08/22/2019 at 17:06
--- NOTE | 2019-08-22 17:45 | P.PN_ITS ---
Subjective Subjective Date Patient Seen: 08/22/19 Time Patient Seen: 17:45 Interval history: Patient feeling worse this afternoon. Had some shortness of breath. Patient has had trouble with this in the past when he got on medication such as Cardizem. No other changes. Otherwise has had no chest pain. No other changes. Exam Vital Signs (past 8 hours): - 08/22/19 12:41 08/22/19 14:59 08/22/19 15:24 Temperature 100.5 F H 101.6 F H 101.4 F H Pulse Rate 92 H 82 Respiratory Rate 20 19 Blood Pressure 144/82 H 132/64 Pulse Oximetry 95 Oxygen Delivery Method Room Air Oxygen Flow Rate 0 Narrative Exam Narrative: Alert male in no acute distress fatigued in appearance. Lungs are clear this today with occasional wheeze on the right side. Heart irregular with rate control 1. 0s. No other changes. Abdomen is nontender. Positive bowel sounds. Objective Labs Result Diagrams: 08/22/19 04:30 08/22/19 04:30 Labs: Laboratory Results - last 24 hr 08/22/19 08/22/19 08/22/19 04:30 04:30 04:30 WBC 7.4 RBC 4.29 L Hgb 13.9 Hct 39.5 L MCV 92.1 MCH 32.3 MCHC 35.1 RDW 14.8 Plt Count 115 L Neut % (Auto) 85.0 H Lymph % (Auto) 10.7 L [place] % (Auto) 3.6 Eos % (Auto) 0.5 L Baso % (Auto) 0.2 Neut # (Auto) 6300 Lymph # (Auto) 800 L [place] # (Auto) 300 Eos # (Auto) 0 Baso # (Auto) 0 Sodium 136 L Potassium 3.5 Chloride 104 Carbon Dioxide 22 BUN 22 H Creatinine 1.20 Estimated GFR 58.6 L BUN/Creatinine Ratio 18.3 Glucose 143 H Calcium 8.2 L Magnesium Total Bilirubin 1.4 H AST 27 ALT 35 Alkaline Phosphatase 53 Troponin I B-Natriuretic Peptide 225 H Total Protein 5.4 L Albumin 2.8 L Globulin 2.6 Albumin/Globulin Ratio 1.1 TSH 0.73 08/22/19 08/22/19 04:30 04:30 WBC RBC Hgb Hct MCV MCH MCHC RDW Plt Count Neut % (Auto) Lymph % (Auto) [place] % (Auto) Eos % (Auto) Baso % (Auto) Neut # (Auto) Lymph # (Auto) [place] # (Auto) Eos # (Auto) Baso # (Auto) Sodium Potassium Chloride Carbon Dioxide BUN Creatinine Estimated GFR BUN/Creatinine Ratio Glucose Calcium Magnesium 1.8 Total Bilirubin AST ALT Alkaline Phosphatase Troponin I 0.243 H* B-Natriuretic Peptide Total Protein Albumin Globulin Albumin/Globulin Ratio TSH Assessment & Plan Assessment & Plan narrative: Sepsis. Appears to be resolved although he is not feeling well and he continues to have fevers. White count has been stable. I am going to continue oral antibiotics will see what his fever does. Recheck white count in the morning. Will check chest x-ray Atrial fibrillation. May need to consider digoxin. He is not tolerating other medicines going to discontinue his Cardizem put back on 11/28 b.i.d. will increase his beta-emy and re-evaluate. May be reason he is feeling better although I still think is possibly his infection. Blood pressures been stable. Elevated troponins. Discussed with cargo vessel stewardess. Feels like it is a class 2 mi. Does not feel as if further workup needs to be done acutely but as outpatient. Unless he has other what symptoms or changes. [place] to be resolving. Patient having no chest pain or other changes. Ulcerative colitis. Will restart his mesalamine DVT prophylaxis patient is not a mobilized as much as I thought. Will add low- dose Lovenox despite the fact that his bleeding is going on. He understands because of change
[2019-08-22] MEDS: ATORVASTATIN 20 MG TABLET PO (22:01)
[2019-08-22] MEDS: MESALAMINE 400 MG CAP.DRTAB. 1200 MG PO (22:03)
[2019-08-23] VITALS: O2SAT 93
[2019-08-23 04:40] VITALS: BP 136/90; PULSE 93; RESP 14; TEMP 36.7; O2SAT 95
[2019-08-23 04:54] LABS: Add Manual Diff / Slide Review NO; Basophils Absolute Auto 200 /uL (0-100); Eosinophils Absolute Auto 100 /uL (0-450); Eosinophils Percent Auto 0.8 % (2-4); Hematocrit 39.3 % (41-53); Hemoglobin 13.8 g/dL (13.5-17.5); Lymphocytes Absolute Auto 600 /uL (1100-4500); Lymphocytes Percent Auto 7.3 % (25-40); Mean Corpuscular HGB Conc 35.1 % (30-36); Mean Corpuscular Hemoglobin 32.2 PG (26-34); Mean Corpuscular Volume 91.6 fL (80-100); Monocytes Absolute Auto 300 /uL (0-900); Monocytes Percent Auto 3.8 % (3-14); Neutrophils Absolute Auto 6800 /uL (1500-7000); Neutrophils Percent Auto 85.1 % (50-75); Platelet Count 127 X10^3/uL (150-400); Red Blood Cell Count 4.29 X10^6/uL (4.5-5.9); Red Cell Distribution Width 14.7 % (11.6-14.8)
[2019-08-23 04:59] LABS: BUN Creatinine Ratio 19.1 (6-22); Blood Urea Nitrogen 21 mg/dL (9-20); Calcium 8.2 mg/dL (8.4-10.2); Carbon Dioxide 24 mmol/L (22-32); Chloride 106 mmol/L (98-107); Estimated Glomerular Filt Rate > 60.0 mL/min (>60); Glucose 90 mg/dL (80-110); HEMOLYSIS < 15 (0-50); Potassium 3.4 mmol/L (3.4-5.1); Sodium 136 mmol/L (137-145)
[2019-08-23] MEDS: PANTOPRAZOLE 20 MG TABLET PO (06:20)
--- NOTE | 2019-08-23 06:25 | PC.NURSE ---
Patient remains in A-fib CVR rate 80s-90s, VSS, afebrile, SpO2 90-95% on 2L NC, mild shortness of breath with exertion, crackles bibasilar. Denies pain. Smear brown stool, passing much flatus.
[2019-08-23 07:25] VITALS: BP 148/103; PULSE 94; RESP 18; TEMP 36.6; O2SAT 97
[2019-08-23 08:02] VITALS: O2SAT 94
[2019-08-23] MEDS: ENOXAPARIN 30 MG/0.3 ML SYRINGE SUBCUT (08:40)
[2019-08-23] MEDS: dilTIAZem CD 120 MG CAP PO (08:40)
[2019-08-23] MEDS: POTASSIUM CHLORIDE 10 MEQ TAB PO (08:40)
[2019-08-23] MEDS: CARVEDILOL 25 MG TABLET PO (08:40)
[2019-08-23] MEDS: levoFLOXacin 250 MG TABLET 750 MG PO (08:41)
[2019-08-23] MEDS: metroNIDAZOLE 500 MG TABLET PO ×2 (08:42→14:05)
[2019-08-23] MEDS: TAMSULOSIN 0.4 MG CAPSULE PO (08:42)
[2019-08-23] MEDS: MESALAMINE 400 MG CAP.DRTAB. 1200 MG PO (08:42)
[2019-08-23] MEDS: SODIUM CHLORIDE 0.9% FLUSH 10 ML IV (08:42)
[2019-08-23 11:00] VITALS: BP 128/77; PULSE 93; RESP 18; TEMP 36.4; O2SAT 94
--- NOTE | 2019-08-23 17:32 | P.DS_ITS ---
History of Present Illness History of Present Illness Date Patient Seen: 08/23/19 Time Patient Seen: 17:32 Chief complaint: shivering,couldnt get out bed,weakness Narrative: See history and physical dictated by Dr. Fontanez Discharge Providers Provider Date of admission: 08/20/19 22:47 Discharge Date: 08/23/19 Primary care physician: Ignacio Llamas MD Discharge provider: Ignacio Llamas MD Summary Hospital Course Discharge Diagnosis: Diverticulitis Atrial fibrillation Elevated troponins category 2 mi Ulcerative colitis Hospital Course: Diverticulitis with early sepsis. Patient was admitted after having been basically unable to get out of bed with shaking chills. Was found to have an elevated heart rate. But not hypotensive. No evidence of white count. But findings on CT scan. He was started on Levaquin and metronidazole and slowly improved. By day 2 he was still having low-grade fevers he was switched to oral antibiotics. White count continued to stay normal. No other significant symptoms abdominal pain continued to improve appetite slowly improved. Last 24 hours he was without fever and was discharged home. To continue on antibiotics until seen on Thursday of next week. Atrial fibrillation. Patient was found to be in atrial fibrillation with rapid ventricular rate. He was started on Cardizem. By day with 1 he was switched to oral Cardizem. He continued to have some increase in heart rate and Cardizem was started at 360 mg which made him feel quite uncomfortable. He has had history of problems with Cardizem so it was moved back to his usual dose and his beta-emy was then increased 25 in a.m. and 12.5 mg at night. This was Coreg. He had pretty good control was feeling significantly better and was discharged home on these medications. Category 2 myocardial infarction Patient had elevated troponins but was completely asymptomatic. He did not have any definitive findings on his EKG. CPKs remained normal but had no other symptoms. It had returned and peaked at 0.5 and then went down to 0.2 and seemed to be passed its peak. He was continui ng to have no symptoms. He had echo 1 month ago which showed normal function. It was discussed with Cardiology who felt this was secondary to demand ischemia. Did not feel as if he needed continued or acute workup for ischemia but did feel like it would be needed as an outpatient. We will set that up on Thursday. Patient had ulcerative colitis longstanding. He has been in the process of having that workup. Due to that he has been off his anticoagulant for his atrial fibrillation. That was not restarted today. He did not have anticoagulation for his DVT secondary to the bleeding that he had. At least not medication. Patient has otherwise been doing well he was restarted on his usual med as a mesalamine and will be followed. Status at Discharge Cognitive/behavioral status at discharge: oriented and at baseline, oriented Functional status at discharge: independent ambulation Overall status at discharge: patient is progressing back to baseline Time Spent with Patient Time spent: Greater than 30 minutes Exam Vital Signs (past 8 hours): - 08/23/19 11:00 Temperature 97.6 F Pulse Rate 93 H Respiratory Rate 18 Blood Pressure 128/77 Pulse Oximetry 94 Oxygen Delivery Method Room Air Oxygen Flow Rate 0 Objective Labs Result Diagrams: 08/23/19 04:30 08/23/19 04:30 Labs: Laboratory Results - last 24 hr 08/23/19 08/23/19 04:30 04:30 WBC 8.0 RBC 4.29 L Hgb 13.8 Hct 39.3 L MCV 91.6 MCH 32.2 MCHC 35.1 RDW 14.7 Plt Count 127 L Neut % (Auto) 85.1 H Lymph % (Auto) 7.3 L [place] % (Auto) 3.8 Eos % (Auto) 0.8 L Baso % (Auto) 3.0 H Neut # (Auto) 6800 Lymph # (Auto) 600 L [place] # (Auto) 300 Eos # (Auto) 100 Baso # (Auto) 200 H Sodium 136 L Potassium 3.4 Chloride 106 Carbon Dioxide 24 BUN 21 H Creatinine 1.10 Estimated GFR > 60.0 BUN/Creatinine Ratio 19.1 Glucose 90 Calcium 8.2 L Discharge Plan Discharge Plan Patient Disposition: Home Discharge Med Rec/Prescriptions Prescriptions: New carvedilol [Coreg] 12.5 mg Tablet 12.5 mg PO BEDTIME Qty: 90 RF: 1 carvedilol [Coreg] 25 mg Tablet 25 mg PO DAILY Qty: 90 RF: 1 levofloxacin 250 mg Tablet 750 mg PO DAILY Qty: 30 RF: 0 mesalamine [Delzicol] 400 mg Capsule (With Del Rel Tablets) 1,200 mg PO BID Qty: 30 RF: 0 metronidazole 500 mg Tablet 500 mg PO TID Qty: 30 RF: 0 Continued atorvastatin 20 mg tablet 1 tab PO QAM RF: 0 tamsulosin 0.4 mg capsule,extended release 24hr 1 tab PO DAILY RF: 0 diltiazem HCl 120 mg capsule,extended release 24hr 120 mg PO BID RF: 0 Discontinued carvedilol [Coreg] 12.5 mg Tablet 12.5 mg PO BID Qty: 60 RF: 1 Follow up/Referrals: Ignacio Llamas MD [Primary Care Provider] - 08/29/19 (please call for appointment) Provider Discharge Instructions Diet: Diet as Tolerated and Low-cholesterol Activity: as tolerated. slow increase in activity Skin/Wound/Dressing Care Report to your healthcare provider any signs of infection, such as:: chills, fever, night sweats and increased pain Visit Report/Discharge Packet Instructions: DI for Atrial Fibrillation, Diltiazem, Levofloxacin, Carvedilol, DI for Colitis Discharge Data Primary Care Provider: Ignacio Llamas Discharges patient from system. Discharge Date/Time: 08/23/19 14:49
== END 2019-08-23 14:49 | disposition home or self-care (01) | DRG 871 ==
LOC: ED 22:27 → AC 22:47 → ICU 08-21 08:11
PROVIDERS: Admitting Provider Family Medicine; Emergency Provider Emergency Medicine; PCP Family Medicine; Visit Provider Family Medicine
DX: A41.9 Sepsis, unspecified organism (principal); I21.A1 Myocardial infarction type 2; I50.21 Acute systolic (congestive) heart failure; I48.20 Chronic atrial fibrillation, unspecified; K51.90 Ulcerative colitis, unspecified, without complications; K57.32 Diverticulitis of large intestine without perforation or abscess without bleeding; R65.20 Severe sepsis without septic shock; E87.6 Hypokalemia; I25.10 Atherosclerotic heart disease of native coronary artery without angina pectoris
CPT/HCPCS: 36415; 71045; 71046; 74177; 80048; 80053; 81001; 82550; 83605; 83735; 83880; 84145; 84443; 84484; 85025; 85610; 85730; 87040; 87400; 87502; 87633; 87797; 93005; 96365; 96366; 96376; 99285; J1650; J1940; J1956; Q9967

== ENCOUNTER 2019-09-18 10:41 | Emergency (ER) | payer MEDICARE, SELFPAY ==
[2019-08-21 00:44] VITALS: BMI 27.7
--- NOTE | 2019-09-18 10:49 | ED_ITS ---
HPI - Syncope General Chief Complaint: Syncope Stated Complaint: Near syncope, hypotension, afib Time Seen by Provider: 09/18/19 10:49 Source: patient and EMS Mode of arrival: EMS Limitations: no limitations History of Present Illness HPI narrative: Patient is 79-year-old male who with history of atrial fibrillation, colitis, with recent admission to the hospital for AFib with RVR and sepsis in August. Presents today with near syncopal episode while in adventism. Who states he was standing felt very dizzy lightheaded he needed to sit down he did not pass out. He has no chest pain or heart palpitations no shor tness of breath mode overall feeling much better. His is a unwitnessed event. She is convinced that he has not been in atrial fibrillation for some time. He is currently not taking any anticoagulation due to recent GI bleed MD complaint: felt faint and almost passed out Related Data Home Medications Medication Instructions Recorded Confirmed atorvastatin 1 tab PO QAM 06/04/18 08/21/19 diltiazem HCl 120 mg PO BID 06/04/18 08/21/19 tamsulosin 1 tab PO DAILY 06/04/18 08/21/19 Previous Rx's Medication Instructions Recorded carvedilol [Coreg] 12.5 mg PO BEDTIME #90 tab 08/23/19 carvedilol [Coreg] 25 mg PO DAILY #90 tab 08/23/19 levofloxacin 750 mg PO DAILY #30 tab 08/23/19 mesalamine [Delzicol] 1,200 mg PO BID #30 ea 08/23/19 metronidazole 500 mg PO TID #30 tab 08/23/19 Allergies Allergy/AdvReac Type Severity Reaction Status Date / Time Sulfa (Sulfonamide Allergy Unknown red spots Verified 08/20/19 20:03 Antibiotics) Review of Systems Review of Systems ROS Unobtainable: All systems reviewed & are unremarkable except as noted in HPI and below Constitutional Constitutional: Denies chills, Denies fever(s), Denies lethargy and Denies weakness Eyes Eyes: Denies change in vision, Denies eye discharge, Denies irritation and Denies loss of vision ENT Ears, Nose, Mouth, and Throat: Denies change in voice, Denies neck pain and Denies sore throat Cardiovascular Cardiovascular: Denies chest pain, Reports irregular heart rhythm, Reports lightheadedness, Denies dyspnea, Denies dyspnea on exertion and Denies orthopnea Respiratory Respiratory: Denies cough, Denies dyspnea, Denies dyspnea on exertion and Denies wheezing Gastrointestinal Gastrointestinal: Denies abdominal pain, Denies change in bowel habits, Denies diarrhea, Denies nausea and Denies vomiting Musculoskeletal Musculoskeletal: Denies neck pain Integumentary/Breasts Skin/Breast: Denies pruritus, Denies erythema, Denies rash and Denies wounds Neurologic Neurologic: Denies loss of vision and Denies weakness Allergic/Immunologic Allergic/Immunologic: Denies wheezing Patient History Medical History A-fib (Acute) Blepharophimosis unspecified eye, unspecified lid (Acute) Colitis (Acute) Social History household members: spouse Smoking Status: Former smoker alcohol intake: current alcohol intake frequency: 0-2 drinks per day Substance Use Type: does not use Exam Initial Vital Signs Initial Vital Signs: Vital Signs Temperature 97.4 F L 09/18/19 10:51 Pulse Rate 79 09/18/19 10:51 Respiratory Rate 16 09/18/19 10:51 Blood Pressure 115/66 09/18/19 10:51 Pulse Oximetry 98 09/18/19 10:51 GENERAL: Alert well-appearing male no acute distress HEENT: Head atraumatic,EOMI, pupils reactive, face symmetric, moist mucous membranes CARDIOVASCULAR: Irregularly irregular RESPIRATORY: Breath sounds equal bilaterally, no wheezes rales or rhonchi. ABDOMEN: Soft, nontender. Normoactive bowel sounds all 4 quadrants. No guarding or rebound. EXTREMITIES: Normal range of motion, no clubbing or edema. Neurovascularly intact NEUROLOGICAL: Alert and oriented x4.Normal gait and speech. Cranial nerves II through XII grossly intact. SKIN: Warm, dry, no laceration, no petechiae, no rashes or lesions. Course Orders Ordered: ED Orders 09/18/19 10:55 XR chest 1V Stat 09/18/19 11:32 B Type Natriuretic Peptide Stat Complete Blood Count AUTO DIFF Stat Comprehensive Metabolic Panel Stat Magnesium Stat Prothrombin Time INR Stat Troponin & CK Cardiac Panel Stat 09/18/19 13:38 Troponin I Stat Discontinued Medications Sodium Chloride (Normal Saline 0.9%) 1,000 mls @ 150 mls/hr IV CONT JASMINA Last Admin: 09/18/19 13:46 Dose: Not Given Documented by: XIMENA Vital Signs Vital signs: Vital Signs - 8 hr 09/18/19 10:51 09/18/19 11:56 09/18/19 13:40 Temperature 97.4 F L Pulse Rate 79 67 Pulse Rate [Orthostatic Lying] 68 Pulse Rate [Orthostatic Sitting] 72 Pulse Rate [Orthostatic Standing] 85 Respiratory Rate 16 19 Blood Pressure 115/66 Blood Pressure [Left Arm] 120/75 Blood Pressure [Orthostatic Lying] 108/66 Blood Pressure [Orthostatic Sitting] 115/62 Blood Pressure [Orthostatic Standing] 99/55 L Pulse Oximetry 98 98 09/18/19 14:32 Temperature Pulse Rate 70 Pulse Rate [Orthostatic Lying] Pulse Rate [Orthostatic Sitting] Pulse Rate [Orthostatic Standing] Respiratory Rate Blood Pressure Blood Pressure [Left Arm] 114/66 Blood Pressure [Orthostatic Lying] Blood Pressure [Orthostatic Sitting] Blood Pressure [Orthostatic Standing] Pulse Oximetry 98 MDM - Syncope Lab Data Attestation: I reviewed the patient's lab results. Result diagrams: 09/18/19 11:32 09/18/19 11:32 Labs: Lab Results 09/18/19 09/18/19 09/18/19 Range/Units 11:32 11:32 11:32 WBC (4.5-11.0) X10^3/uL RBC (4.5-5.9) X10^6/uL Hgb (13.5-17.5) g/dL Hct (41-53) % MCV (80-100) fL MCH (26-34) PG MCHC (30-36) % RDW (11.6-14.8) % Plt Count (150-400) X10^3/uL Neut % (Auto) (50-75) % Lymph % (Auto) (25-40) % [place] % (Auto) (3-14) % Eos % (Auto) (2-4) % Baso % (Auto) (0-2) % Neut # (Auto) (3346-6307) /uL Lymph # (Auto) (2851-8979) /uL [place] # (Auto) (0-900) /uL Eos # (Auto) (0-450) /uL Baso # (Auto) (0-100) /uL PT 13.7 H (10.1-12.7) SECONDS INR 1.2 (0.9-1.3) Sodium (137-145) mmol/L Potassium (3.4-5.1) mmol/L Chloride (98-107) mmol/L Carbon Dioxide (22-32) mmol/L BUN (9-20) mg/dL Creatinine (0.66-1.25) mg/dL Estimated GFR (>60) mL/min BUN/Creatinine Ratio (6-22) Glucose (80-110) mg/dL Calcium (8.4-10.2) mg/dL Magnesium 2.0 (1.6-2.3) mg/dL Total Bilirubin (0.2-1.3) mg/dL AST (17-59) IU/L ALT (<50) IU/L Alkaline Phosphatase (38-126) U/L Total Creatine Kinase (55-170) U/L CK-MB (CK-2) CK-MB (CK-2) Rel Index Troponin I (0.01-0.034) ng/mL B-Natriuretic Peptide 182 H (<100) Total Protein (6.3-8.2) g/dL Albumin (3.5-5.0) g/dL Globulin (1.7-4.1) g/dL Albumin/Globulin Ratio (1.0-2.8) 09/18/19 09/18/19 09/18/19 Range/Units 11:32 11:32 13:38 WBC 9.4 (4.5-11.0) X10^3/uL RBC 4.15 L (4.5-5.9) X10^6/uL Hgb 12.8 L (13.5-17.5) g/dL Hct 38.1 L (41-53) % MCV 91.7 (80-100) fL MCH 30.9 (26-34) PG MCHC 33.7 (30-36) % RDW 14.2 (11.6-14.8) % Plt Count 271 (150-400) X10^3/uL Neut % (Auto) 79.0 H (50-75) % Lymph % (Auto) 12.4 L (25-40) % [place] % (Auto) 7.7 (3-14) % Eos % (Auto) 0.4 L (2-4) % Baso % (Auto) 0.5 (0-2) % Neut # (Auto) 7400 H (0809-6643) /uL Lymph # (Auto) 1200 (7319-6054) /uL [place] # (Auto) 700 (0-900) /uL Eos # (Auto) 0 (0-450) /uL Baso # (Auto) 100 (0-100) /uL PT (10.1-12.7) SECONDS INR (0.9-1.3) Sodium 140 (137-145) mmol/L Potassium 4.2 (3.4-5.1) mmol/L Chloride 108 H (98-107) mmol/L Carbon Dioxide 27 (22-32) mmol/L BUN 21 H (9-20) mg/dL Creatinine 1.30 H (0.66-1.25) mg/dL Estimated GFR 53.4 L (>60) mL/min BUN/Creatinine Ratio 16.2 (6-22) Glucose 117 H (80-110) mg/dL Calcium 8.6 (8.4-10.2) mg/dL Magnesium (1.6-2.3) mg/dL Total Bilirubin 0.7 (0.2-1.3) mg/dL AST 25 (17-59) IU/L ALT 30 (<50) IU/L Alkaline Phosphatase 103 (38-126) U/L Total Creatine Kinase 36 L (55-170) U/L CK-MB (CK-2) TNP CK-MB (CK-2) Rel Index TNP Troponin I 0.028 0.028 (0.01-0.034) ng/mL B-Natriuretic Peptide (<100) Total Protein 5.9 L (6.3-8.2) g/dL Albumin 3.2 L (3.5-5.0) g/dL Globulin 2.7 (1.7-4.1) g/dL Albumin/Globulin Ratio 1.2 (1.0-2.8) Point of Care Testing Glucose POC 132 Urine Dip Bedside Urine Glucose Negative Bedside Urine Bilirubin - Negative Bedside Urine Ketone - Negative Urine Specific [place] 1.015 Bedside Urine Occult Blood - Negative Bedside Urine pH 6.0 Bedside Urine Protein +/- 15 Bedside Urine Urobilinogen - Negative Bedside Urine Nitrite - Negative Bedside Urine Leukocytes - Negative Esterase Imaging Data Chest x-ray: Radiologist's impression: PROCEDURE: XR CHEST 1V INDICATIONS: syncope TECHNIQUE: One view of the chest was acquired. COMPARISON: [facility], CR, XR CHEST 2V, 08/22/2019, 17:38. FINDINGS: Surgical changes and devices: None. Lungs and pleura: Redemonstration of hyperaeration and flattening of the hemidiaphragms. Lungs remain clear. No pleural effusions or pneumothorax. Mediastinum: Mediastinal contours appear normal. Heart size is normal. Bones and chest wall: No suspicious bony lesions. Overlying soft tissues appear unremarkable. IMPRESSION: Stable examination of the chest without acute cardiopulmonary abnormalities or focal airspace disease. Dictated by: Troy Tyler M.D. on 09/18/2019 at 11:09 Approved by: Troy Tyler M.D. on 09/18/2019 at 11:10 ECG Data Attestation: I personally reviewed and interpreted this ECG as follows: Prior ECG tracings: available for review Interpretation: Atrial fibrillation rate [address] changes no T-wave inversions MDM Narrative Medical decision making narrative: The patient is monitored in the ED the heart rate remains stable and rate controlled. Creatinine 1.3 slightly elevated from previous of 1.1 possible dehydration. The patient overall is feeling better he has been monitored in the ED without any difficulties ambulatory without any symptoms. At the time 2-troponins rate controlled AFib can be discharged home. Discharge Plan Departure Patient Disposition: Home Clinical Impression: Near syncope Atrial fibrillation Qualifiers: Atrial fibrillation type: longstanding persistent Qualified Code(s): I48.11 - Longstanding persistent atrial fibrillation Discharge Date/Time: 09/18/19 15:01 Activity Restrictions/Additional Instructions: *You have been diagnosed with near syncope, atrial fibrillation *What to do: Likely you are slightly dehydrated today which contributed to some of her problems. You are in atrial fibrillation. Your rate is controlled at this time *Continue to take medications as directed *Follow up with your primary care provider in 2-3 days *Return to ER if you should have dizziness lightheadedness heart palpitations chest pain shortness of or any new, worsening or concerning symptoms Prescriptions: No Action atorvastatin 20 mg tablet 1 tab PO QAM RF: 0 tamsulosin 0.4 mg capsule,extended release 24hr 1 tab PO DAILY RF: 0 diltiazem HCl 120 mg capsule,extended release 24hr 120 mg PO BID RF: 0 carvedilol [Coreg] 12.5 mg Tablet 12.5 mg PO BEDTIME Qty: 90 RF: 1 carvedilol [Coreg] 25 mg Tablet 25 mg PO DAILY Qty: 90 RF: 1 levofloxacin 250 mg Tablet 750 mg PO DAILY Qty: 30 RF: 0 mesalamine [Delzicol] 400 mg Capsule (With Del Rel Tablets) 1,200 mg PO BID Qty: 30 RF: 0 metronidazole 500 mg Tablet 500 mg PO TID Qty: 30 RF: 0 Referrals: Ignacio Llamas MD [Primary Care Provider] -
[2019-09-18 10:51] VITALS: BP 115/66; PULSE 79; RESP 16; TEMP 36.3; O2SAT 98; BMI 27.1
--- NOTE | 2019-09-18 10:55 | DI.RAD.S_ITS ---
PROCEDURE: XR CHEST 1V INDICATIONS: syncope TECHNIQUE: One view of the chest was acquired. COMPARISON: [facility], CR, XR CHEST 2V, 08/22/2019, 17:38. FINDINGS: Surgical changes and devices: None. Lungs and pleura: Redemonstration of hyperaeration and flattening of the hemidiaphragms. Lungs remain clear. No pleural effusions or pneumothorax. Mediastinum: Mediastinal contours appear normal. Heart size is normal. Bones and chest wall: No suspicious bony lesions. Overlying soft tissues appear unremarkable. IMPRESSION: Stable examination of the chest without acute cardiopulmonary abnormalities or focal airspace disease. Dictated by: Troy Tyler M.D. on 09/18/2019 at 11:09 Approved by: Troy Tyler M.D. on 09/18/2019 at 11:10
[2019-09-18 11:46] LABS: Add Manual Diff / Slide Review NO; Basophils Absolute Auto 100 /uL (0-100); Basophils Percent Auto 0.5 % (0-2); Eosinophils Absolute Auto 0 /uL (0-450); Eosinophils Percent Auto 0.4 % (2-4); Hematocrit 38.1 % (41-53); Hemoglobin 12.8 g/dL (13.5-17.5); Lymphocytes Absolute Auto 1200 /uL (1100-4500); Lymphocytes Percent Auto 12.4 % (25-40); Mean Corpuscular HGB Conc 33.7 % (30-36); Mean Corpuscular Hemoglobin 30.9 PG (26-34); Mean Corpuscular Volume 91.7 fL (80-100); Monocytes Absolute Auto 700 /uL (0-900); Monocytes Percent Auto 7.7 % (3-14); Neutrophils Absolute Auto 7400 /uL (1500-7000); Platelet Count 271 X10^3/uL (150-400); Red Blood Cell Count 4.15 X10^6/uL (4.5-5.9); Red Cell Distribution Width 14.2 % (11.6-14.8); White Blood Cell Count 9.4 X10^3/uL (4.5-11.0)
[2019-09-18 11:50] LABS: INR 1.2 (0.9-1.3); Prothrombin Time 13.7 SECONDS (10.1-12.7)
[2019-09-18 11:56] VITALS: BP 108/66; BP 115/62; BP 99/55; PULSE 68; PULSE 72; PULSE 85
[2019-09-18 11:57] LABS: Alanine Aminotransferase 30 IU/L (<50); Albumin 3.2 g/dL (3.5-5.0); Albumin Globulin Ratio 1.2 (1.0-2.8); Alkaline Phosphatase 103 U/L (38-126); Aspartate Aminotransferase 25 IU/L (17-59); BUN Creatinine Ratio 16.2 (6-22); Bilirubin Total 0.7 mg/dL (0.2-1.3); Blood Urea Nitrogen 21 mg/dL (9-20); Calcium 8.6 mg/dL (8.4-10.2); Carbon Dioxide 27 mmol/L (22-32); Chloride 108 mmol/L (98-107); Creatine Kinase 36 U/L (55-170); Estimated Glomerular Filt Rate 53.4 mL/min (>60); Globulin 2.7 g/dL (1.7-4.1); Glucose 117 mg/dL (80-110); HEMOLYSIS < 15 (0-50); Potassium 4.2 mmol/L (3.4-5.1); Sodium 140 mmol/L (137-145); Total Protein 5.9 g/dL (6.3-8.2)
[2019-09-18 12:01] LABS: B Type Natriuretic Peptide 182 (<100)
[2019-09-18 12:08] LABS: Troponin I 0.028 ng/mL (0.01-0.034)
[2019-09-18 13:40] VITALS: BP 120/75; PULSE 67; RESP 19; O2SAT 98
[2019-09-18 14:09] LABS: Troponin I 0.028 ng/mL (0.01-0.034)
[2019-09-18 14:32] VITALS: BP 114/66; PULSE 70; O2SAT 98
== END 2019-09-18 15:01 | disposition home or self-care (01) ==
PROVIDERS: Emergency Provider Emergency Medicine; PCP Family Medicine
DX: R55 Syncope and collapse (principal); I48.11 Longstanding persistent atrial fibrillation; R79.89 Other specified abnormal findings of blood chemistry
CPT/HCPCS: 36415; 71045; 80053; 81003; 82550; 82962; 83735; 83880; 84484; 85025; 85610; 93005; 99283; 99285

== ENCOUNTER → 2020-04-19 15:38 | Outpatient (CLI) | payer MEDICARE, SELFPAY ==
[2020-04-05 11:41] VITALS: BMI 27.7
[2020-04-20 09:17] LABS: COVID19 Sendout NOT DETECTED (Not Detect)
== END ==
PROVIDERS: PCP Family Medicine; Visit Provider Registered Nurse
DX: Z01.818 Encounter for other preprocedural examination (principal)
CPT/HCPCS: 87635

== ENCOUNTER → 2020-08-20 09:56 | Outpatient (CLI) | payer MEDICARE, SELFPAY ==
[2020-04-05 11:41] VITALS: BMI 27.7
[2020-08-20 10:37] LABS: Add Manual Diff / Slide Review NO; Basophils Absolute Auto 0 /uL (0-100); Basophils Percent Auto 0.5 % (0-2); Eosinophils Absolute Auto 100 /uL (0-450); Eosinophils Percent Auto 1.9 % (2-4); Hematocrit 50.9 % (41-53); Hemoglobin 17.5 g/dL (13.5-17.5); Lymphocytes Absolute Auto 1700 /uL (1100-4500); Lymphocytes Percent Auto 22.3 % (25-40); Mean Corpuscular HGB Conc 34.4 % (30-36); Mean Corpuscular Hemoglobin 32.4 PG (26-34); Mean Corpuscular Volume 94.2 fL (80-100); Monocytes Absolute Auto 600 /uL (0-900); Neutrophils Absolute Auto 5200 /uL (1500-7000); Neutrophils Percent Auto 67.3 % (50-75); Platelet Count 212 X10^3/uL (150-400); Red Blood Cell Count 5.41 X10^6/uL (4.5-5.9); White Blood Cell Count 7.7 X10^3/uL (4.5-11.0)
[2020-08-20 10:58] LABS: Alanine Aminotransferase 33 IU/L (<50); Albumin 4.5 g/dL (3.5-5.0); Albumin Globulin Ratio 1.3 (1.0-2.8); Alkaline Phosphatase 102 U/L (38-126); Aspartate Aminotransferase 32 IU/L (17-59); BUN Creatinine Ratio 15.4 (6-22); Bilirubin Total 1.1 mg/dL (0.2-1.3); Blood Urea Nitrogen 18 mg/dL (9-20); Calcium 9.6 mg/dL (8.4-10.2); Carbon Dioxide 32 mmol/L (22-32); Chloride 102 mmol/L (98-107); Cholesterol 234 mg/dL (140-199); Estimated Glomerular Filt Rate > 60.0 mL/min (>60); Globulin 3.5 g/dL (1.7-4.1); Glucose 105 mg/dL (80-110); HDL Cholesterol 46 mg/dL (40-60); HEMOLYSIS < 15 (0-50); LDL Cholesterol Calculated 155 mg/dL (<100); Potassium 4.5 mmol/L (3.4-5.1); Sodium 141 mmol/L (137-145); Triglycerides 164 mg/dL (35-150)
[2020-08-20 11:57] LABS: Thyroid Stimulating Hormone 2.27 uIU/mL (0.47-4.68)
== END ==
PROVIDERS: PCP Family Medicine; Referring Provider Family Medicine; Visit Provider Family Medicine
DX: I10 Essential (primary) hypertension (principal); E78.5 Hyperlipidemia, unspecified
CPT/HCPCS: 36415; 80053; 80061; 84443; 85025

== ENCOUNTER → 2020-12-07 13:21 | Outpatient (CLI) | payer MEDICARE, SELFPAY ==
[2020-04-05 11:41] VITALS: BMI 27.7
[2020-12-07] MEDS: COVID-19 VACC #1, MRNA(MOD) 100 MCG/0.5 ML VIAL IM (13:32)
== END ==
PROVIDERS: PCP Family Medicine; Visit Provider Internal Medicine
DX: Z23 Encounter for immunization (principal)
CPT/HCPCS: 0011A; 91301

== ENCOUNTER → 2021-01-04 15:37 | Outpatient (CLI) | payer MEDICARE, SELFPAY ==
[2020-04-05 11:41] VITALS: BMI 27.7
[2021-01-04] MEDS: COVID-19 VACC #2, MRNA(MOD) 100 MCG/0.5 ML VIAL IM (15:42)
== END ==
PROVIDERS: PCP Family Medicine; Visit Provider Internal Medicine
DX: Z23 Encounter for immunization (principal)
CPT/HCPCS: 0012A; 91301

== ENCOUNTER → 2021-04-12 08:32 | Outpatient (CLI) | payer MEDICARE, SELFPAY ==
[2020-04-05 11:41] VITALS: BMI 27.7
--- NOTE | 2021-04-12 | DI.RAD.S_ITS ---
PROCEDURE: FL UPPER GI SERIES INDICATIONS: Early satiety COMPARISON: [facility], , UPPER GI AIR CONTRAST WITH KUB, 02/07/2015, 8:54. FINDINGS: KUB: Preprocedural skein tier film demonstrates a normal bowel gas pattern. No suspicious abdominal calcifications. Visualized solid organ contours appear normal. Bony structures appear unremarkable. Esophagus: Esophageal mucosa is normal on air-contrast views. On single-contrast views, there is normal esophageal peristalsis. There is a small sliding hiatal hernia with a benign-appearing stricture at the GE junction, preventing free passage of a barium tablet into the stomach. There are no extrinsic mass effects, or diverticula. No hiatal hernia or elicited gastroesophageal reflux. Stomach: The stomach is normally distensible, with normal rugal fold thickness. No mucosal masses or ulcers. Pylorus and duodenal bulb appear normal in morphology. Duodenal folds are normal in thickness as well. IMPRESSION: 1. Small, sliding hiatal hernia. 2. 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 3. No reflux elicited during the study. Comment: Unfortunately, due to technical difficulties, no images were successfully save during this examination. At the time of the study, no abnormality was identified other than the small sliding hiatal hernia and the mild stricture prevented passage of a barium tablet. Comment: Findings were discussed with the referring provider. If documentation with imaging is desired, the patient can return at a later date for a charge additional study. However, based on discussion with the referring provider, due to the presence of a stricture, the patient may undergo endoscopic evaluation instead. Dictated by: Paddy Strange M.D. on 04/12/2021 at 12:20 Approved by: Paddy Strange M.D. on 04/12/2021 at 12:24
== END ==
PROVIDERS: PCP Family Medicine; Referring Provider Family Medicine; Visit Provider Family Medicine
DX: R68.81 Early satiety (principal)
CPT/HCPCS: 74240

== ENCOUNTER → 2021-06-18 14:01 | Outpatient (CLI) | payer MEDICARE, SELFPAY ==
[2020-04-05 11:41] VITALS: BMI 27.7
[2021-06-19 16:28] LABS: Calprotectin, Stool 146 ug/g (0-120)
== END ==
PROVIDERS: PCP Family Medicine; Referring Provider Physician Assistant; Visit Provider Physician Assistant
DX: R19.7 Diarrhea, unspecified (principal)
CPT/HCPCS: 83993; 87493

== ENCOUNTER → 2021-08-19 14:01 | Outpatient (CLI) | payer MEDICARE, SELFPAY ==
[2020-04-05 11:41] VITALS: BMI 27.7
[2021-08-19 16:55] LABS: COVID19 -Nasal RAPID Negative (Negative)
== END ==
PROVIDERS: PCP Family Medicine; Visit Provider Nurse Practitioner Family
DX: Z20.822 Contact with and (suspected) exposure to COVID-19 (principal); Z01.812 Encounter for preprocedural laboratory examination
CPT/HCPCS: 87635; C9803

== ENCOUNTER 2021-08-21 08:26 | Day surgery (SDC) | payer MEDICARE, SELFPAY ==
[2020-04-05 11:41] VITALS: BMI 27.7
--- NOTE | 2021-08-20 18:38 | PM.PREOP ---
Pre-operative Note COVID-19 COVID-19 status: Negative Interval Note History & Physical reviewed/Exam performed by Physician: Yes Changes to H&P: No
--- NOTE | 2021-08-20 18:39 | P.OP_ITS ---
Operative Date/Time/Diagnoses Date of procedure: 08/21/21 Time of procedure: 09:45 Procedure & Clinicians Procedure: Preoperative diagnoses: 1. Left complex surgery with use of capsular dye. 2. Mature or advanced nuclear sclerotic and cortical cataract with poor v isibility of the anterior capsule increasing surgical risks of complications. 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 4. Heart disease 5. Hypertension Postoperative diagnoses: 1. Left complex surgery with use of capsular dye, 2. Placement of a posterior chamber intraocular lens implant. Surgeon: Lala Packer MD Complications: none Specimen: None Implant: [id number]+18.0 Blood loss: None Anesthesia: Retrobulbar with monitored standby. Description of procedure: Dictated by: Lala Packer MD Copy to: [facility] Post operative diagnoses: 1. Left complex cataract removed with use of capsular dye with placement of a posterior chamber intraocular lens. Procedure: Left complex Phacoemulsification with posterior chamber intraocular lens implant Surgeon: Lala Packer MD Blood loss: None Anesthesia: Retrobulbar with monitored standby Description of procedure: Patient has presented with decreased vision due to cataract which is affecting activities of daily living for driving The patient wants surgery to improve vision. He has risk of floppy iris syndrome use due to use of prostate medications and will need capsular dye. He understands the extra risk of surgery during the COVID-19 epidemic and wishes to proceed. He has tested negative for active virus within 72 hours of the procedure. The patient was taken to the operating room and given IV sedation. A retrobulbar block consisting of 6 cc of 2% xylocaine without epinephrine mixed half and half with 0.5% Marcaine with 1 cc of hyaluronidase added is placed between the medial and lateral 1/3 of the inferior orbital rim. The eye is manually massaged for 30 sec, prepped using Betadine solution, and draped in the usual sterile fashion. Temporal approach was made, a 1 mm side-port incision was performed 90 degrees from the planned corneal wound. Phenylephrine 1.5% mixed with 1% xylocaine 0.2 cc was placed into the anterior chamber. An air bubble was placed and Vision bluedye was placed to improve visibility of the anterior capsule. The dye was irrigated out to reduce bubbles. Endocoat followed by Healon was then placed. A 2.6 mm clear incision with a 2.6 mm blade was placed. A 360 degree capsulorrhexis style capsulotomy was then performed with a [facility] The zonules were slightly loose and the capsulorrhexis extended slightl y at the 10 o'clock position so it was completed with Utrata forceps. It did not extend into the zonules. Hydrodelineation and hydrodissection were performed. The phacoemulsification unit is introduced, and sculpting used to groove the central lens. It is then removed in chopping mode. Epi nucleus is removed with epinuclear mode and irrigation aspiration was used to remove the peripheral cortex. The posterior capsule is polished. The intraocular lens is selected, inspected, power confirmed, and placed in the posterior chamber. The pupil was constricted with Miostat. The wound was stromally hydrated and tested for leaks, there was none and was left sutureless. Vigamox 0.1 cc was placed into the anterior chamber. Kenalog 0.2 cc was placed in the superior subconjunctival space. A drop of antibiotic and was placed and the eye was patched and shielded. The patient was stable and returned to the recovery room in excellent condition. Dictated by: Lala Packer MD Copy to: [facility] Same procedure as scheduled: Yes
[2021-08-21] MEDS: PROPARACAINE 0.5% OPHTH SOL 2 DROPS EYE-OP (08:50)
[2021-08-21] MEDS: CATARACT EYE COMPOUND (10 DROPS/SYRINGE) 3 DROPS EYE-OP (08:57)
[2021-08-21 08:59] VITALS: BMI 27.8
[2021-08-21 09:17] VITALS: BP 141/76; PULSE 78; RESP 18; TEMP 36.1; O2SAT 98
--- NOTE | 2021-08-21 09:26 | SUR.OPER ---
Supine on eye stretcher, head on extension cradle secured with tape. Arms tucked at sides with blanket. Pillow under knees.
--- NOTE | 2021-08-21 10:23 | SUR.OPER ---
LEFT EAR HEARING AID REMOVED IN PREOP TO LABELED CONTAINER.
[2021-08-21] MEDS: TRIAMCINOLONE 50 MG/5 ML VIAL INJ (10:42)
[2021-08-21] MEDS: BALANCED SALT IRRIG SOLN NO.2 500 ML, EPINEPHrine 1 MG IRR (10:42)
[2021-08-21] MEDS: ERYTHROMYCIN OPHTH 1 GM OINT 1 APPLIC EYE-LEFT (10:42)
[2021-08-21] MEDS: MOXIFLOXACIN INJ 4 MG/0.8 ML VIAL 0.5 MG EYE-OP (10:43)
[2021-08-21] MEDS: PHENYLEPHRINE/LIDOCAINE VIAL (OR) 0.2 ML EYE-OP (10:43)
[2021-08-21] MEDS: LIDOCAINE 2% 4 ML, BUPIVACAINE 0.5% (PF) 4 ML, HYALURONIDASE 150 UNIT INJ (10:44)
[2021-08-21] MEDS: HYALURONATE SODIUM 30 MG-10 MG/ML SYRINGES 1 BOX INTRAOCULA (10:44)
[2021-08-21] MEDS: TRYPAN BLUE 0.5 ML SYRINGE INJ (10:45)
[2021-08-21] MEDS: CARBACHOL 1.5 ML VIAL INJ (11:07)
[2021-08-21 11:25] VITALS: BP 146/91; PULSE 77; RESP 16; TEMP 36.6; O2SAT 96
== END 2021-08-21 11:39 | disposition home or self-care (01) ==
LOC: OR 08:29
PROVIDERS: PCP Family Medicine; Referring Provider Ophthalmology; Visit Provider Ophthalmology
PROC: (CPT 66984; principal; 2021-08-21 09:45)
DX: H25.812 Combined forms of age-related cataract, left eye (principal); H21.81 Floppy iris syndrome; I11.0 Hypertensive heart disease with heart failure
CPT/HCPCS: 66984; J0171; J2704; J3301; J3470

== ENCOUNTER → 2021-09-02 08:40 | Outpatient (CLI) | payer MEDICARE, SELFPAY ==
[2020-04-05 11:41] VITALS: BMI 27.7
[2021-09-02 10:35] LABS: BUN Creatinine Ratio 15.6 (6-22); Blood Urea Nitrogen 17 mg/dL (9-20); Calcium 9.6 mg/dL (8.4-10.2); Carbon Dioxide 30 mmol/L (22-32); Chloride 103 mmol/L (98-107); Estimated Glomerular Filt Rate > 60.0 mL/min (>60); Glucose 97 mg/dL (80-110); HEMOLYSIS < 15 (0-50); Potassium 4.3 mmol/L (3.4-5.1); Sodium 141 mmol/L (137-145)
[2021-09-02 13:50] LABS: COVID19 -Nasal RAPID Negative (Negative)
== END ==
PROVIDERS: Nurse Practitioner Family; PCP Family Medicine; Referring Provider Physician Assistant; Visit Provider Physician Assistant
DX: K51.90 Ulcerative colitis, unspecified, without complications (principal); Z01.812 Encounter for preprocedural laboratory examination; Z20.822 Contact with and (suspected) exposure to COVID-19
CPT/HCPCS: 36415; 80048; 87635

== ENCOUNTER 2021-09-04 07:11 | Day surgery (SDC) | payer MEDICARE, SELFPAY ==
[2020-04-05 11:41] VITALS: BMI 27.7
--- NOTE | 2021-09-04 07:20 | PM.PREOP ---
Pre-operative Note COVID-19 COVID-19 status: Negative Interval Note History & Physical reviewed/Exam performed by Physician: Yes Changes to H&P: No
--- NOTE | 2021-09-04 07:21 | PM.OP.1 ---
Operative Date/Time/Diagnoses Date of procedure: 08/28/21 Time of procedure: 08:45 Procedure & Clinicians Procedure: Preoperative diagnoses: 1. Right complex surgery with use of capsular dye. 2. Mature or advanced nuclear sclerotic and cortical cataract with poor visibility of the anterior capsule increasing surgical risks of complications. 3. 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 4. Hypertension 5. History of prostatic hypertrophy. 6. Sleep apnea 7. Restless leg 8. Status post ptosis repair Postoperative diagnoses: 1. Right complex surgery with use of capsular dye, 2. Placement of a posterior chamber intraocular lens implant. Surgeon: Lala Packer MD Complications: none Specimen: None Implant: [id number]+18.5 Blood loss: None Anesthesia: Retrobulbar with monitored standby. Description of procedure: Dictated by: Lala Packer MD Copy to: [facility] Post operative diagnoses: 1. Left complex cataract removed with use of capsular dye with placement of a posterior chamber intraocular lens. Procedure: Phacoemulsification with posterior chamber intraocular lens implant Surgeon: Lala Packer MD Blood loss: None Anesthesia: Retrobulbar with monitored standby Description of procedure: Patient has presented with decreased vision due to cataract which is affecting activities of daily living. He has decreased driving and reading vision. 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 He also has poor red reflex. The patient wants surgery to improve vision. He understands the extra risk of surgery during the COVID-19 epidemic and wishes to proceed. He is tested active COVID 19 virus negative within 72 hours of the procedure. The patient was taken to the operating room and given IV sedation. A retrobulbar block consisting of 6 cc of 2% xylocaine without epinephrine mixed half and half with 0.5% Marcaine with 1 cc of hyaluronidase added is placed between the medial and lateral 1/3 of the inferior orbital rim. The eye is manually massaged for 30 sec, prepped using Betadine solution, and draped in the usual sterile fashion. Temporal approach was made, a 1 mm side-port incision was performed 90 degrees from the planned corneal wound. Phenylephrine 1.5% mixed with 1% xylocaine 0.2 cc was placed into the anterior chamber. [An air bubble was placed and vision blue dye was placed to improve visibility of the anterior capsule. The dye was irrigated out to reduce bubbles.] Endocoat followed by [place] was then placed. A 2.6 mm clear incision with a 2.6 mm blade was placed. A 360 degree capsulorrhexis style capsulotomy was then performed with a cystitome needle on a [place]alon. Hydrodelineation and hydrodissection were performed. The phacoemulsification unit is introduced, and sculpting used to groove the central lens. It is then removed in chopping mode. Epi nucleus is removed with epinuclear mode and irrigation aspiration was used to remove the peripheral cortex. The posterior capsule is polished. The intraocular lens is selected, inspected, power confirmed, and placed in the posterior chamber. The pupil was constricted with Miostat. The wound was stromally hydrated and tested for leaks, there was none and was left sutureless. Vigamox 0.1 cc was placed into the anterior chamber. Kenalog 0.2 cc was placed in the superior subconjunctival space. A drop of antibiotic and was placed and the eye was patched and shielded. The patient was stable and returned to the recovery room in excellent condition. Dictated by: Lala Packer MD Copy to: [facility] Same procedure as scheduled: Yes
[2021-09-04] MEDS: PROPARACAINE 0.5% OPHTH SOL 2 DROPS EYE-OP (08:08)
[2021-09-04] MEDS: CATARACT EYE COMPOUND (10 DROPS/SYRINGE) 3 DROPS EYE-OP (08:15)
[2021-09-04] MEDS: LIDOCAINE 2% 4 ML, BUPIVACAINE 0.5% (PF) 4 ML, HYALURONIDASE 150 UNIT INJ (09:02)
--- NOTE | 2021-09-04 09:14 | SUR.OPER ---
Addendum entered by Brandi Callahan R.N. 09/04/21 09:37: Patient left his Left hearing aid in his ear, his right hearing aid was placed in his belongings bag by Tanika Carvajal Rn. Original Note: Supine on eye stretcher, head on extension cradle and foam donut then secured with tape. Arms tucked at sides with blanket. Pillow under knees.
[2021-09-04] MEDS: HYALURONATE SODIUM 30 MG-10 MG/ML SYRINGES 1 BOX INTRAOCULA (09:16)
[2021-09-04] MEDS: TRYPAN BLUE 0.5 ML SYRINGE INJ (09:16)
[2021-09-04] MEDS: ERYTHROMYCIN OPHTH 1 GM OINT 1 APPLIC EYE-RIGHT (09:16)
[2021-09-04] MEDS: BALANCED SALT IRRIG SOLN NO.2 500 ML, EPINEPHrine 1 MG IRR (09:17)
[2021-09-04] MEDS: MOXIFLOXACIN INJ 4 MG/0.8 ML VIAL 0.5 MG EYE-OP (09:17)
[2021-09-04] MEDS: PHENYLEPHRINE/LIDOCAINE VIAL (OR) 0.2 ML EYE-OP (09:17)
[2021-09-04] MEDS: TRIAMCINOLONE 50 MG/5 ML VIAL INJ (09:17)
[2021-09-04 09:50] VITALS: BP 148/86; PULSE 88; RESP 16; TEMP 36.7; O2SAT 97
--- NOTE | 2021-09-04 10:15 | SUR.PHASEII ---
Pt ready to go, called at 1000, at 's appt, awaiting her return call. Pt eating cookies and drinking coffee.
--- NOTE | 2021-09-04 10:19 | SUR.PHASEII ---
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
== END 2021-09-04 10:15 | disposition home or self-care (01) ==
PROVIDERS: PCP Family Medicine; Referring Provider Ophthalmology; Visit Provider Ophthalmology
PROC: (CPT 66984; principal; 2021-09-04 08:45)
DX: H25.811 Combined forms of age-related cataract, right eye (principal); I10 Essential (primary) hypertension; G47.30 Sleep apnea, unspecified; G25.81 Restless legs syndrome
CPT/HCPCS: 66984; 36415; J0171; J2704; J3301; J3470

== ENCOUNTER → 2021-10-21 09:36 | Outpatient (CLI) | payer MEDICARE, SELFPAY ==
[2020-04-05 11:41] VITALS: BMI 27.7
[2021-10-21 14:19] LABS: Add Manual Diff / Slide Review NO; Basophils Absolute Auto 0 /uL (0-100); Basophils Percent Auto 0.4 % (0-2); Eosinophils Absolute Auto 200 /uL (0-450); Eosinophils Percent Auto 2.2 % (2-4); Hematocrit 46.5 % (41-53); Hemoglobin 15.8 g/dL (13.5-17.5); Lymphocytes Absolute Auto 1500 /uL (1100-4500); Lymphocytes Percent Auto 20.6 % (25-40); Mean Corpuscular Hemoglobin 31.5 PG (26-34); Mean Corpuscular Volume 92.7 fL (80-100); Monocytes Absolute Auto 900 /uL (0-900); Monocytes Percent Auto 11.9 % (3-14); Neutrophils Absolute Auto 4900 /uL (1500-7000); Neutrophils Percent Auto 64.9 % (50-75); Platelet Count 215 X10^3/uL (150-400); Red Blood Cell Count 5.02 X10^6/uL (4.5-5.9); Red Cell Distribution Width 15.1 % (11.6-14.8); White Blood Cell Count 7.5 X10^3/uL (4.5-11.0)
[2021-10-21 14:35] LABS: Thyroid Stimulating Hormone 1.46 uIU/mL (0.47-4.68)
[2021-10-21 14:57] LABS: Alanine Aminotransferase 28 IU/L (<50); Albumin 4.3 g/dL (3.5-5.0); Albumin Globulin Ratio 1.5 (1.0-2.8); Alkaline Phosphatase 100 U/L (38-126); Aspartate Aminotransferase 29 IU/L (17-59); BUN Creatinine Ratio 16.1 (6-22); Bilirubin Total 0.9 mg/dL (0.2-1.3); Blood Urea Nitrogen 22 mg/dL (9-20); Calcium 9.8 mg/dL (8.4-10.2); Carbon Dioxide 29 mmol/L (22-32); Chloride 105 mmol/L (98-107); Cholesterol 177 mg/dL (140-199); Globulin 2.8 g/dL (1.7-4.1); Glucose 93 mg/dL (80-110); HDL Cholesterol 46 mg/dL (40-60); HEMOLYSIS < 15 (0-50); LDL Cholesterol Calculated 104 mg/dL (<100); Potassium 5.2 mmol/L (3.4-5.1); Sodium 141 mmol/L (137-145); Total Protein 7.1 g/dL (6.3-8.2); Triglycerides 136 mg/dL (35-150)
== END ==
PROVIDERS: PCP Family Medicine; Referring Provider Family Medicine; Visit Provider Family Medicine
DX: Z00.00 Encounter for general adult medical examination without abnormal findings (principal)
CPT/HCPCS: 36415; 80053; 80061; 84443; 85025

== ENCOUNTER 2024-04-18 10:17 | Emergency (ER) | payer MEDICARE, SELFPAY ==
[2020-04-05 11:41] VITALS: BMI 27.7
[2024-04-18 10:33] VITALS: BP 154/72; PULSE 88; RESP 16; TEMP 36.8; O2SAT 97; BMI 28.2
[2024-04-18 11:41] LABS: Add Manual Diff / Slide Review NO; Basophils Absolute Auto 100 /uL (0-100); Basophils Percent Auto 0.9 % (0-2); Eosinophils Absolute Auto 200 /uL (0-450); Hematocrit 41.9 % (41-53); Hemoglobin 14.4 g/dL (13.5-17.5); Lymphocytes Absolute Auto 1500 /uL (1100-4500); Mean Corpuscular HGB Conc 34.4 % (30-36); Mean Corpuscular Hemoglobin 32.4 PG (26-34); Mean Corpuscular Volume 94.2 fL (80-100); Monocytes Absolute Auto 1000 /uL (0-900); Monocytes Percent Auto 10.4 % (3-14); Neutrophils Absolute Auto 6600 /uL (1500-7000); Neutrophils Percent Auto 70.7 % (50-75); Platelet Count 280 X10^3/uL (150-400); Red Blood Cell Count 4.45 X10^6/uL (4.5-5.9); White Blood Cell Count 9.3 X10^3/uL (4.5-11.0)
[2024-04-18 11:45] LABS: Alanine Aminotransferase 34 IU/L (<50); Albumin 4.1 g/dL (3.5-5.0); Albumin Globulin Ratio 1.2 (1.0-2.8); Alkaline Phosphatase 72 U/L (38-126); Aspartate Aminotransferase 49 IU/L (17-59); BUN Creatinine Ratio 18.6 (6-22); Bilirubin Total 1.2 mg/dL (0.2-1.3); Blood Urea Nitrogen 26 mg/dL (9-20); Calcium 8.7 mg/dL (8.4-10.2); Carbon Dioxide 24 mmol/L (22-32); Chloride 108 mmol/L (98-107); Estimated Glomerular Filt Rate 50 mL/min (>60); Globulin 3.3 g/dL (1.7-4.1); Glucose 100 mg/dL (80-110); Lipase 163 U/L (23-300); Potassium 4.8 mmol/L (3.4-5.1); Sodium 137 mmol/L (137-145); Total Protein 7.4 g/dL (6.3-8.2)
[2024-04-18 11:46] LABS: HEMOLYSIS 158 (0-50)
--- NOTE | 2024-04-18 12:28 | ED_ITS ---
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 He states it is worse when he coughs or moves. If he is lying flat or in a chair feels fine. If he has a bowel movement or urinates he feels fine. Denies any fevers or chills, no nausea or vomiting. Denies any back or flank pain. States he has had normal stools no black or bloody stools no difficulty with bowel movements or constipation. Denies diarrhea. Denies any dysuria urgency or frequency. Did have a gout flare recently has been taking uric acid for that. Patient does have a history of colitis is on mesalamine went from 2 tablets to 3 tablets lately. He is also on carvedilol, diltiazem, indomethacin and uric acid for the short term for his gout flare. Denies any prior surgeries. Does note that he had a perforation with colonoscopy about 4 years ago did not require surgical intervention. Has allergy to sulfa and develops rash. No tobacco, occasional alcohol, no recreational drugs. Dr. Lawson is his primary care physician. Related Data Home Medications Medication Instructions Recorded Confirmed carvedilol 12.5 mg tablet (Coreg) 12.5 mg PO DAILY 08/21/21 02/29/24 carvedilol 25 mg tablet (Coreg) 25 mg PO BEDTIME 08/21/21 02/29/24 Aspir-Low 81 mg PO DAILY 09/04/21 02/29/24 diltiazem HCl 180 mg capsule,24 180 mg PO BID 11/19/23 02/29/24 hr,extended release Previous Rx's Medication Instructions Recorded mesalamine 400 mg capsule (with 1,200 mg (3 x 400 mg) PO BID #30 ea 08/23/19 delayed release tablets inside) (Delzicol) amoxicillin 875 mg-potassium 1 tab PO BID #20 tabs 04/18/24 clavulanate 125 mg tablet indomethacin 25 mg capsule 25 mg PO TID #10 caps 04/18/24 Allergies Allergy/AdvReac Type Severity Reaction Status Date / Time Sulfa (Sulfonamide Allergy Intermediate red spots Verified 02/29/24 10:51 Antibiotics) Review of Systems Review of Systems ROS Unobtainable: All systems reviewed & are unremarkable except as noted in HPI and below Patient History Medical History BPH (benign prostatic hyperplasia) Gout Snoring Periodic limb movement disorder (PLMD) Obstructive sleep apnea, adult (~04/22/20) 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) 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 medical condition Excessive daytime sleepiness (~2019) Hyperlipidemia Essential hypertension (Unknown) Sepsis Colitis (~2018) Blepharophimosis unspecified eye, unspecified lid A-fib Family History Father Loud snoring Hypertension Mother Hypertension Social History marital status: (to Sharyn) details: lives in [place] household members: spouse lives independently: Yes caregiver/support person: No housing: house Smoking Status: Former smoker alcohol intake: current Smoking Status: Former smoker alcohol intake frequency: 0-2 drinks per day Substance Use Type: does not use Exam Narrative Exam Narrative: GENERAL: Alert and oriented x three, elderly male in mild distress. HEENT: Head normocephalic, atraumatic, EOMI, pupils reactive, face symmetric, moist mucous membranes NECK: Supple, full range of motion CARDIOVASCULAR: Regular rate and rhythm without murmurs, rubs or gallops. RESPIRATORY: Breath sounds equal bilaterally, no wheezes rales or rhonchi. ABDOMEN: Soft, very mild suprapubic tenderness, patient has some mild tenderness over the left inguinal region. I am unable to palpate any obvious mass or hernia even with cough. Normoactive bowel sounds all 4 quadrants. No guarding or rebound, rigidity, no mass : No CVA tenderness EXTREMITIES: Normal range of motion, no clubbing or edema. Neurovascularly intact NEUROLOGICAL: Cranial nerves II through XII grossly intact. Moving all extremities SKIN: Warm, dry, no petechiae, no rashes or lesions. Initial Vital Signs Initial Vital Signs: Vital Signs Temperature 98.2 F 04/18/24 10:33 Pulse Rate 88 04/18/24 10:33 Respiratory Rate 16 04/18/24 10:33 Blood Pressure 154/72 H 04/18/24 10:33 Pulse Oximetry 97 04/18/24 10:33 Oxygen Delivery Method Room Air 04/18/24 10:33 Course Orders Ordered: Discontinued Medications Ondansetron HCl (Ondansetron 4 Mg/2 Ml Inj) 4 mg IV NOW PRN PRN Reason: Nausea And Vomiting Ondansetron HCl (Ondansetron 4 Mg Odt) 4 mg PO NOW PRN PRN Reason: Nausea And Vomiting Vital Signs Vital signs: Vital Signs - 8 hr 04/18/24 10:33 04/18/24 13:30 Temperature 98.2 F Pulse Rate 88 90 Respiratory Rate 16 20 Blood Pressure 154/72 H 170/87 H Pulse Oximetry 97 98 Oxygen Delivery Method Room Air Room Air MDM - Abdominal Pain Lab Data 04/18/24 11:37 04/18/24 11:37 Labs: Lab Results 04/18/24 Range/Units 11:37 WBC 9.3 (4.5-11.0) X10^3/uL RBC 4.45 L (4.5-5.9) X10^6/uL Hgb 14.4 (13.5-17.5) g/dL Hct 41.9 (41-53) % MCV 94.2 (80-100) fL MCH 32.4 (26-34) PG MCHC 34.4 (30-36) % RDW 14.0 (11.6-14.8) % Plt Count 280 (150-400) X10^3/uL Neut % (Auto) 70.7 (50-75) % Lymph % (Auto) 16.0 L (25-40) % [place] % (Auto) 10.4 (3-14) % Eos % (Auto) 2.0 (2-4) % Baso % (Auto) 0.9 (0-2) % Neut # (Auto) 6600 (6111-0255) /uL Lymph # (Auto) 1500 (3121-4098) /uL [place] # (Auto) 1000 H (0-900) /uL Eos # (Auto) 200 (0-450) /uL Baso # (Auto) 100 (0-100) /uL Sodium 137 (137-145) mmol/L Potassium 4.8 (3.4-5.1) mmol/L Chloride 108 H (98-107) mmol/L Carbon Dioxide 24 (22-32) mmol/L BUN 26 H (9-20) mg/dL Creatinine 1.40 H (0.66-1.25) mg/dL Estimated GFR 50 L (>60) mL/min BUN/Creatinine Ratio 18.6 (6-22) Glucose 100 (80-110) mg/dL Calcium 8.7 (8.4-10.2) mg/dL Total Bilirubin 1.2 (0.2-1.3) mg/dL AST 49 (17-59) IU/L ALT 34 (<50) IU/L Alkaline Phosphatase 72 (38-126) U/L Total Protein 7.4 (6.3-8.2) g/dL Albumin 4.1 (3.5-5.0) g/dL Globulin 3.3 (1.7-4.1) g/dL Albumin/Globulin Ratio 1.2 (1.0-2.8) Lipase 163 (23-300) U/L Point of care testing: Urine Dip Bedside Urine Glucose Negative Bedside Urine Bilirubin - Negative Bedside Urine Ketone - Negative Urine Specific [place] 1.015 Bedside Urine Occult Blood - Negative Bedside Urine pH 6.0 Bedside Urine Protein - Negative Bedside Urine Urobilinogen - Negative Bedside Urine Nitrite - Negative Bedside Urine Leukocytes - Negative Esterase ECG Data Attestation: I personally reviewed and interpreted this ECG as follows: Prior ECG tracings: available for review Interpretation: AFib rate 82, QRS of 122 [address]TC 481. No acute ST changes appreciated right bundle- branch block. Patient has a prior from 09/18/2019 which showed AFib with a slow response and left axis deviation. MDM Narrative Medical decision making narrative: Labs show white count of 9.3 hemoglobin of 14 platelets of 280.? Sodium is 137 potassium 4.8 chloride 108, CO2 is 24 with a creatinine 1.4, appears consistent with prior from October of 2021 which was 1.37.? BUN 26 today.? LFTs are negative, lipase is normal 163. Point of care urine is negative. CT abdomen pelvis was obtained to evaluate for sigmoid colitis versus inguinal hernia.? Imaging shows diverticulitis. Moderate to severe prostatomegaly mild fat containing left inguinal hernia. Patient is started on oral antibiotics. Discussed return precautions. All questions answered. Discharge Plan Departure Patient Disposition: Home Clinical Impression: Diverticulitis Instructions: DI for Diverticulitis Activity Restrictions/Additional Instructions: Follow up with your physician for recheck in the next week if you are not significantly better. Your imaging shows diverticulitis of the descending colon and sigmoid colon. Does show some moderate to severe prostatomegaly and a mild fat containing left inguinal hernia. Take oral antibiotics until completed. Prescription sent to [facility] in [place]. Please return for fevers, new or worsening abdominal back or flank pain, persistent vomiting, black or bloody stools or other new or concerning changes. Prescriptions: New amoxicillin-pot clavulanate 875-125 mg tablet 1 tab PO BID Qty: 20 0RF indomethacin 25 mg capsule 25 mg PO TID Qty: 10 0RF Rx Instructions: administer with food or milk No Action diltiazem HCl 180 mg capsule,extended release 24 hr 180 mg PO BID carvedilol [Coreg] 25 mg tablet 25 mg PO BEDTIME carvedilol [Coreg] 12.5 mg tablet 12.5 mg PO DAILY Aspir-Low 81 mg PO DAILY mesalamine [Delzicol] 400 mg Capsule (With Del Rel Tablets) 1,200 mg PO BID Qty: 30 0RF Referrals: Elda Lawson DO [Primary Care Provider] - Stand Alone Forms: Patient Portal/API
[2024-04-18 13:30] VITALS: BP 170/87; PULSE 90; RESP 20; O2SAT 98
--- NOTE | 2024-04-18 13:34 | DI.CT.S_ITS ---
PROCEDURE: CT ABDOMEN PELVIS W CON INDICATIONS: abd pain, suprapubic, L inguinal. Hernia vs colitis/diverti TECHNIQUE: After the administration of intravenous contrast, axial sections acquired from the lung bases to the pubic symphysis. Coronal and sagittal reformats were performed. For radiation dose reduction, the following was used: automated exposure control, adjustment of mA and/or kV according to patient size. COMPARISON: [facility], CT, CT ABDOMEN PELVIS W CON, 08/20/2019, 21:23. FINDINGS: Image quality: Diagnostic. Lower Chest: No significant findings. ABDOMEN: Liver: No solid mass. Gallbladder: No radiopaque gallstones or wall thickening. Biliary ducts: No biliary dilation. Pancreas: No ductal dilation. Spleen: Size is within normal limits. Adrenal Glands: No adrenal nodules. Kidneys and Ureters: No hydronephrosis. No solid mass. No complex renal cystic lesion which requires follow up. Stomach and Bowel: Diffuse colonic diverticulosis. Acute non complicated diverticulitis at the level of the junction between the descending colon and proximal sigmoid colon. Inflammatory change in the adjacent fat. No free air or abscess cavity. Peritoneum: No abnormal intraperitoneal fluid. No free air. Ventral Wall: No significant ventral hernia. Abdominal Nodes: No retroperitoneal or mesenteric adenopathy by size criteria. Vessels: Aorta and inferior vena cava are normal in size. PELVIS: Pelvic Organs: Moderate to severe prostatomegaly.. Bladder: No bladder wall thickening, accounting for underdistention. Pelvic Nodes: No enlarged lymph nodes. Miscellaneous: Mild fat containing left inguinal hernia. Bones: No aggressive osseous abnormality. IMPRESSION: 1. Acute uncomplicated diverticulitis at the junction between the descending colon and the sigmoid. 2. Moderate to severe prostatomegaly. 3. Mild fat containing left inguinal hernia. Dictated by: Paddy Strange M.D. on 04/18/2024 at 14:55 Approved by: Paddy Strange M.D. on 04/18/2024 at 14:57
[2024-04-18 15:23] VITALS: BP 163/76; PULSE 89; RESP 18; O2SAT 99
== END 2024-04-18 15:23 | disposition home or self-care (01) ==
PROVIDERS: Emergency Provider Emergency Medicine; PCP Family Medicine
DX: K57.32 Diverticulitis of large intestine without perforation or abscess without bleeding (principal)
CPT/HCPCS: 36415; 74177; 80053; 81003; 83690; 85025; 93005; 93010; 99284; Q9967

== ENCOUNTER 2024-07-08 08:46 | Inpatient (IN) | payer MEDICARE, SELFPAY ==
[2024-07-07 12:11] VITALS: BMI 27.7
[2024-07-08] VITALS (34 sets, daily range): BP systolic 102–168; BP diastolic 60–85; PULSE 48–113; RESP 15–33; TEMP 36.6–36.7; O2SAT 82–97; BMI 28.0
--- NOTE | 2024-07-08 09:02 | ED_ITS ---
HPI - Abdominal Pain General Chief Complaint: Abdominal Pain Stated Complaint: diverticulitis Time Seen by Provider: 07/08/24 08:59 Source: patient and family Mode of arrival: Ambulatory History of Present Illness HPI narrative: Patient here with . Sees Dr. Lawson primary Care, treated for diverticulitis about 10 days ago with monotherapy Augmentin. Was not improving. Yesterday was given Cipro and Flagyl. Pain has never improved. No fever chills. No black or bloody stools. Has had colonoscopy in the past 5 years. Has been treated for diverticulitis in the past. Prescription was provided over the phone. No office visit. Patient in no distress. Related Data Home Medications Medication Instructions Recorded Confirmed carvedilol 12.5 mg tablet (Coreg) 12.5 mg PO DAILY 08/21/21 07/08/24 carvedilol 25 mg tablet (Coreg) 25 mg PO BEDTIME 08/21/21 07/08/24 Aspir-Low 81 mg PO DAILY 09/04/21 07/08/24 mesalamine 1.2 gram tablet,delayed 3.6 g PO DAILY 07/08/24 07/08/24 release ciprofloxacin HCl 500 mg tablet 500 mg PO BID 07/11/24 07/11/24 metronidazole 500 mg tablet 500 mg PO 3XD 07/11/24 07/11/24 Previous Rx's Medication Instructions Recorded indomethacin 25 mg capsule 25 mg PO TID #10 caps 04/18/24 diltiazem HCl 180 mg capsule,24 180 mg PO BID #180 caps 06/10/24 hr,extended release prednisone 20 mg tablet 60 mg (3 x 20 mg) PO DAILY 14 days 07/11/24 #42 tabs Allergies Allergy/AdvReac Type Severity Reaction Status Date / Time Sulfa (Sulfonamide Allergy Intermediate red spots Verified 07/08/24 09:01 Antibiotics) Review of Systems Review of Systems Narrative: GENERAL: negative chills, fatigue, malaise, fever, sweats. 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) 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 medical condition Excessive daytime sleepiness (~2019) Hyperlipidemia Essential hypertension (Unknown) Sepsis Colitis (~2018) Blepharophimosis unspecified eye, unspecified lid A-fib Family History Father Loud snoring Hypertension Mother Hypertension Social History marital status: details: lives in [place] household members: spouse lives independently: Yes caregiver/support person: No housing: house Smoking Status: Former smoker alcohol intake: current Smoking Status: Former smoker alcohol intake frequency: 0-2 drinks per day Substance Use Type: does not use Exam Narrative Exam Narrative: GENERAL: in no distress, not toxic not dyspneic HEAD: Normocephalic. EYES: Pupils equal round ENT: Mucous membranes moist. NECK: Trachea midline. CARDIOVASCULAR: Regular rate and rhythm RESPIRATORY: Clear to auscultation. Breath sounds equal bilaterally. No wheezes, rales, or rhonchi. GASTROINTESTINAL: Abdomen soft, bilateral lower abdominal tenderness. No peritoneal signs no guarding no rebound no pain out of portion exam. Bowel sounds are present. EXTREMITIES: No gross deformities. BACK: No flank tenderness. NEURO: AOx4. SKIN: Warm and dry PSYCH: Not anxious, is cooperative Initial Vital Signs Initial Vital Signs: Vital Signs Pulse Rate 111 H 07/08/24 08:55 Blood Pressure 168/81 H 07/08/24 08:55 Pulse Oximetry 97 07/08/24 08:55 Course Orders Ordered: Discontinued Medications Acetaminophen (Acetaminophen 325 Mg Tablet) 650 mg PO Q6H PRN PRN Reason: Fever/Mild Pain (1-3) Carvedilol (Carvedilol 12.5 Mg Tablet) 12.5 mg PO NOW ONE Stop: 07/08/24 09:50 Last Admin: 07/08/24 10:15 Dose: 12.5 mg Documented By: RB Carvedilol (Carvedilol 12.5 Mg Tablet) 25 mg PO BEDTIME JASMINA Last Admin: 07/09/24 20:43 Dose: 25 mg Documented By: Admin: 07/08/24 15:10 Dose: Not Given Documented By: Carvedilol (Carvedilol 12.5 Mg Tablet) 12.5 mg PO DAILY [facility] Last Admin: 07/09/24 09:14 Dose: 12.5 mg Documented By: MAYI Carvedilol (Carvedilol 12.5 Mg Tablet) 25 mg PO BID [facility] Last Admin: 07/11/24 09:26 Dose: 25 mg Documented By: Admin: 07/10/24 20:10 Dose: 25 mg Documented By: MS(2) Admin: 07/10/24 08:18 Dose: 25 mg Documented By: COLLEEN Carvedilol (Carvedilol 12.5 Mg Tablet) 12.5 mg PO NOW ONE Stop: 07/10/24 01:04 Last Admin: 07/10/24 01:42 Dose: 12.5 mg Documented By: SEBASTIAN Carvedilol (Carvedilol 3.125 Mg Tablet) 6.25 mg PO BID [facility] Last Admin: 07/11/24 09:45 Dose: Not Given Documented By: Admin: 07/10/24 20:11 Dose: Not Given Documented By: MS(2) Ciprofloxacin (Ciprofloxacin 250 Mg Tablet) 500 mg PO 1100,2300 [facility] Diltiazem HCl (Diltiazem 30 Mg Tablet) 180 mg PO NOW ONE Stop: 07/08/24 09:50 Last Admin: 07/08/24 10:15 Dose: 180 mg Documented By: HEIDI Diltiazem HCl (Diltiazem Cd 180 Mg Cap) 180 mg PO BID [facility] Last Admin: 07/11/24 09:26 Dose: 180 mg Documented By: Admin: 07/10/24 20:11 Dose: 180 mg Documented By: MS(2) Enoxaparin Sodium (Enoxaparin 40 Mg/0.4 Ml Syringe) 40 mg SUBCUT DAILY [facility] Last Admin: 07/11/24 09:27 Dose: Not Given Documented By: Admin: 07/10/24 08:18 Dose: 40 mg Documented By: Admin: 07/09/24 09:14 Dose: 40 mg Documented By: MAYI Hydralazine HCl (Hydralazine 20 Mg/Ml Vial) 5 mg IV Q6HR PRN PRN Reason: SBP>180 Hydromorphone HCl (Hydromorphone 0.5 Mg Inj) 0.5 mg IV Q2H PRN PRN Reason: Pain, Severe (7-10) Metronidazole (Flagyl) 500 mg in 100 mls @ 100 mls/hr IV NOW ONE Stop: 07/08/24 10:19 Last Infusion: 07/08/24 10:57 Dose: Infused Documented By: Infusion: 07/08/24 09:56 Dose: 100 mls/hr Documented By: Infusion: 07/08/24 09:35 Dose: 0 mls/hr Documented By: Admin: 07/08/24 09:34 Dose: 100 mls/hr Documented By: RB Ciprofloxacin (Cipro) 400 mg in 200 mls @ 200 mls/hr IV NOW ONE Stop: 07/08/24 10:19 Last Infusion: 07/08/24 12:20 Dose: Infused Documented By: Admin: 07/08/24 11:00 Dose: 200 mls/hr Documented By: RB Sodium Chloride (Normal Saline 0.9%) 1,000 mls @ 1,000 mls/hr IV BOLUS ONE Stop: 07/08/24 13:37 Last Infusion: 07/08/24 19:00 Dose: Infused Documented By: Admin: 07/08/24 12:43 Dose: 1,000 mls/hr Documented By: RB Sodium Chloride (Normal Saline 0.9%) 1,000 mls @ 100 mls/hr IV CONT JASMINA Last Admin: 07/10/24 16:49 Dose: 100 mls/hr Documented By: Infusion: 07/10/24 08:12 Dose: Infused Documented By: Admin: 07/09/24 22:12 Dose: 100 mls/hr Documented By: Infusion: 07/09/24 20:46 Dose: Infused Documented By: Admin: 07/09/24 10:46 Dose: 100 mls/hr Documented By: Infusion: 07/09/24 10:28 Dose: Infused Documented By: Admin: 07/09/24 00:28 Dose: 100 mls/hr Documented By: Infusion: 07/09/24 00:28 Dose: Infused Documented By: Admin: 07/08/24 14:30 Dose: 100 mls/hr Documented By: MS Ciprofloxacin (Cipro) 400 mg in 200 mls @ 200 mls/hr IV Q12H [facility] Last Admin: 07/10/24 22:14 Dose: 200 mls/hr Documented By: MS(2) Infusion: 07/10/24 17:53 Dose: Infused Documented By: Admin: 07/10/24 13:08 Dose: 200 mls/hr Documented By: Infusion: 07/10/24 00:10 Dose: Infused Documented By: Admin: 07/09/24 23:06 Dose: 200 mls/hr Documented By: Infusion: 07/09/24 11:46 Dose: Infused Documented By: Admin: 07/09/24 10:46 Dose: 200 mls/hr Documented By: Infusion: 07/09/24 00:28 Dose: Infused Documented By: Admin: 07/08/24 23:15 Dose: 200 mls/hr Documented By: FM Metronidazole (Flagyl) 500 mg in 100 mls @ 100 mls/hr IV Q8H [facility] Last Admin: 07/11/24 09:26 Dose: 100 mls/hr Documented By: Infusion: 07/11/24 01:57 Dose: Infused Documented By: Admin: 07/11/24 00:57 Dose: 100 mls/hr Documented By: MS(2) Infusion: 07/10/24 19:22 Dose: Infused Documented By: Admin: 07/10/24 17:50 Dose: 100 mls/hr Documented By: Infusion: 07/10/24 13:09 Dose: Infused Documented By: Admin: 07/10/24 08:33 Dose: 100 mls/hr Documented By: Infusion: 07/10/24 02:45 Dose: Infused Documented By: Admin: 07/10/24 01:45 Dose: 100 mls/hr Documented By: Infusion: 07/09/24 18:16 Dose: Infused Documented By: Admin: 07/09/24 17:16 Dose: 100 mls/hr Documented By: Infusion: 07/09/24 10:46 Dose: Infused Documented By: Admin: 07/09/24 09:13 Dose: 100 mls/hr Documented By: Admin: 07/09/24 09:13 Dose: Not Given Documented By: Infusion: 07/08/24 18:53 Dose: Infused Documented By: Admin: 07/08/24 17:53 Dose: 100 mls/hr Documented By: Morphine Sulfate (Morphine 4 Mg/Ml Inj) 4 mg IV NOW ONE Stop: 07/08/24 09:00 Last Admin: 07/08/24 09:35 Dose: 4 mg Documented By: RB Naloxone HCl (Naloxone 0.4 Mg/Ml Vial) 0.2 mg IV Q2MIN PRN PRN Reason: Opiate Reversal Mesalamine 1.2 Gram (Tablet) 3 each PO DAILY [facility] Last Admin: 07/11/24 09:26 Dose: Not Given Documented By: Admin: 07/10/24 08:17 Dose: 3 each Documented By: Admin: 07/09/24 09:14 Dose: 3 each Documented By: Admin: 07/08/24 10:19 Dose: 3 each Documented By: HEIDI Ondansetron HCl (Ondansetron 4 Mg/2 Ml Inj) 4 mg IV NOW ONE Stop: 07/08/24 09:00 Last Admin: 07/08/24 09:34 Dose: 4 mg Documented By: RB Ondansetron HCl (Ondansetron 4 Mg/2 Ml Inj) 4 mg IV Q4HR PRN PRN Reason: nausea and vomiting Oxycodone HCl (Oxycodone Ir 5 Mg Tablet) 5 mg PO Q3H PRN PRN Reason: Pain, Moderate (4-6) Prednisone (Prednisone 20 Mg Tablet) 60 mg PO DAILY [facility] Last Admin: 07/11/24 09:26 Dose: 60 mg Documented By: Admin: 07/10/24 08:18 Dose: 60 mg Documented By: Admin: 07/09/24 09:14 Dose: 60 mg Documented By: Admin: 07/08/24 14:58 Dose: 60 mg Documented By: Sodium Chloride (Sodium Chloride 0.9% Flush) 10 ml IV BID [facility] Last Admin: 07/11/24 09:26 Dose: 10 ml Documented By: Admin: 07/10/24 20:13 Dose: Not Given Documented By: (2) Admin: 07/10/24 08:18 Dose: 10 ml Documented By: Admin: 07/09/24 20:43 Dose: Not Given Documented By: Admin: 07/09/24 09:15 Dose: 10 ml Documented By: Admin: 07/08/24 21:28 Dose: 10 ml Documented By: DIEGO Vital Signs Vital signs: Vital Signs - 8 hr 07/08/24 08:55 07/08/24 08:55 07/08/24 08:58 Temperature 98.1 F Pulse Rate 111 H 113 H Respiratory Rate 18 Blood Pressure 168/81 H 168/81 H Pulse Oximetry 97 97 Oxygen Delivery Method Room Air 07/08/24 09:00 07/08/24 09:00 07/08/24 09:30 Temperature Pulse Rate 106 H 94 H Respiratory Rate 15 Blood Pressure 162/78 H Pulse Oximetry 97 97 Oxygen Delivery Method 07/08/24 09:51 07/08/24 09:51 07/08/24 10:00 Temperature Pulse Rate 101 H Respiratory Rate 20 Blood Pressure 162/85 H 154/72 H Pulse Oximetry 97 Oxygen Delivery Method 07/08/24 10:00 07/08/24 10:15 07/08/24 10:15 Temperature Pulse Rate 94 H 93 H 93 H Respiratory Rate 18 Blood Pressure 154/72 H 154/72 H Pulse Oximetry 95 Oxygen Delivery Method 07/08/24 10:30 07/08/24 10:30 07/08/24 11:00 Temperature Pulse Rate 96 H 92 H Respiratory Rate 17 16 Blood Pressure 154/78 H Pulse Oximetry 95 95 Oxygen Delivery Method 07/08/24 11:00 07/08/24 11:30 07/08/24 11:30 Temperature Pulse Rate 83 Respiratory Rate 21 Blood Pressure 139/69 165/74 H Pulse Oximetry 96 Oxygen Delivery Method 07/08/24 12:00 07/08/24 12:01 07/08/24 12:01 Temperature Pulse Rate 72 77 Respiratory Rate 21 23 Blood Pressure 124/62 Pulse Oximetry 96 97 Oxygen Delivery Method MDM - Abdominal Pain Lab Data 07/11/24 04:10 07/11/24 04:10 Labs: Lab Results 07/08/24 07/08/24 Range/Units 09:05 11:20 WBC 14.2 H (4.5-11.0) X10^3/uL RBC 4.85 (4.5-5.9) X10^6/uL Hgb 15.5 (13.5-17.5) g/dL Hct 45.6 (41-53) % MCV 94.1 (80-100) fL MCH 31.9 (26-34) PG MCHC 34.0 (30-36) % RDW 14.5 (11.6-14.8) % Plt Count 311 (150-400) X10^3/uL Neut % (Auto) 79.1 H (50-75) % Lymph % (Auto) 9.7 L (25-40) % [place] % (Auto) 9.9 (3-14) % Eos % (Auto) 0.6 L (2-4) % Baso % (Auto) 0.7 (0-2) % Neut # (Auto) 06502 H (8361-3835) /uL Lymph # (Auto) 1400 (2848-6157) /uL [place] # (Auto) 1400 H (0-900) /uL Eos # (Auto) 100 (0-450) /uL Baso # (Auto) 100 (0-100) /uL Sodium 138 (137-145) mmol/L Potassium 3.6 (3.4-5.1) mmol/L Chloride 104 (98-107) mmol/L Carbon Dioxide 25 (22-32) mmol/L BUN 25 H (9-20) mg/dL Creatinine 1.33 H (0.66-1.25) mg/dL Estimated GFR 53 L (>60) mL/min BUN/Creatinine Ratio 18.8 (6-22) Glucose 113 H (80-110) mg/dL Calcium 8.9 (8.4-10.2) mg/dL Total Bilirubin 1.7 H (0.2-1.3) mg/dL AST 24 (17-59) IU/L ALT 28 (<50) IU/L Alkaline Phosphatase 91 (38-126) U/L Total Protein 7.2 (6.3-8.2) g/dL Albumin 4.1 (3.5-5.0) g/dL Globulin 3.1 (1.7-4.1) g/dL Albumin/Globulin Ratio 1.3 (1.0-2.8) Urine Color Yellow Urine Appearance Clear Urine pH 6.5 (4.5-8.0) Ur Specific [place] <=1.005 (1.000-1.035) Urine Protein Negative (Negative) Urine Glucose (UA) Negative (Negative) g/dL Urine Ketones Negative (NEGATIVE) Urine Occult Blood Negative (Negative) Urine Nitrate Negative (Negative) Urine Bilirubin Negative (NEGATIVE) Urine Urobilinogen 0.2 (0.2) E.U./dL Ur Leukocyte Esterase Negative (NEGATIVE) Urine RBC None seen (0-5/HPF) Urine WBC None seen (0-5/HPF) Ur Squamous Epith Cells None seen (0-5/HPF) Urine Bacteria None seen (None) Ur Culture Indicated? Cult not indicated Vol Urine Centrifuged 10ml (spun) Imaging Data CT scan - abdomen/pelvis: Radiologist's Impression: [address] [address] [address] Scan Report Signed Patient: Dustin Mendez MR#: [id number] : 1940 Acct:[id number] Age/Sex: 84 / M Date of Service: 07/08/24 Loc: ED Accession Number: [id number] Procedure: CT abdomen pelvis w con Ordering Provider: Cristian Sherman MD PROCEDURE: CT ABDOMEN PELVIS W CON INDICATIONS: IV contrast only/lower abdominal pain/diverticulitis TECHNIQUE: After the administration of intravenous contrast, axial sections acquired from the lung bases to the pubic symphysis. Coronal and sagittal reformats were performed. For radiation dose reduction, the following was used: automated exposure control, adjustment of mA and/or kV according to patient size. COMPARISON: [facility], CT, CT ABDOMEN PELVIS W CON, 04/18/2024, 14:02. FINDINGS: Image quality: Diagnostic. Lower Chest: No significant findings. ABDOMEN: Liver: No solid mass. Gallbladder: No radiopaque gallstones or wall thickening. Biliary ducts: No biliary dilation. Pancreas: No ductal dilation. Spleen: Size is within normal limits. Adrenal Glands: No adrenal nodules. Kidneys and Ureters: No hydronephrosis. No solid mass. No complex renal cystic lesion which requires follow up. Stomach and Bowel: Moderately advanced sigmoid diverticulosis with acute diverticulitis present. Findings include inflammatory change in the adjacent fat and diffuse wall edema. There is a suggestion of a very small abdominal wall abscess measuring approximately 10 mm in maximum diameter on image 68/2. Peritoneum: No abnormal intraperitoneal fluid. No free air. No other abscess cavity. Ventral Wall: No significant ventral hernia. Abdominal Nodes: No retroperitoneal or mesenteric adenopathy by size criteria. Vessels: Aorta and inferior vena cava are normal in size. PELVIS: Pelvic Organs: Prostatomegaly Bladder: Mild diffuse bladder wall thickening and mild inflammatory change in the adjacent fat. Pelvic Nodes: No enlarged lymph nodes. Miscellaneous: No inguinal hernias are seen. Bones: No aggressive osseous abnormality. Lumbar degenerative change with severe canal stenosis at L4-L5. IMPRESSION: 1. Moderately advanced sigmoid diverticulosis with acute diverticulitis. Findings include a possible small abdominal wall abscess. There is no free air or free fluid. 2. Prostatomegaly. 3. Mild bladder wall thickening with mild inflammatory change in the adjacent fat since, suggesting cystitis of uncertain chronicity. Recommend correlation with urine studies. 4. Lumbar degenerative change with severe canal stenosis at L4-L5. Dictated by: Paddy Strange M.D. on 07/08/2024 at 10:27 Approved by: Paddy Strange M.D. on 07/08/2024 at 10:[address] [facility] Narrative Medical decision making narrative: Patient here with . Sees Dr. Lawson primary Care, treated for diverticulitis about 10 days ago with monotherapy Augmentin. Was not improving. Yesterday was given Cipro and Flagyl. Pain has never improved. No fever chills. No black or bloody stools. Has had colonoscopy in the past 5 years. Has been treated for diverticulitis in the past. Prescription was provided over the phone. Patient seen by primary care yesterday. Prescription for change.. Patient in no distress. After history and exam CBC CMP CT abdomen pelvis morphine Zofran normal saline [facility] Medical records reviewed: Office visit yesterday Differential considered: Includes but not limited to diverticulitis abscess colitis Lab Test results independently reviewed as above. Pertinent findings: WBC 14 Imaging studies independently reviewed: CT abdomen pelvis shows diverticulitis with possible abdominal wall abscess Consultations: 11:[address] Malhotra, general surgery, she will follow in consult 12:[address] Mary, he saw patient and will admit Treatments: Cipro Flagyl morphine Zofran normal saline Re-evaluations: 11:15 a.m.. Updated patient. Pain is controlled. Does agree for admission and understands needs for admission Discussion: Appropriate for admission for failed outpatient therapy diverticulitis. General surgery will follow in consult. Primary care will admit. Diagnosis: Diverticulitis Patient had brief likely vagal episode when nurse got patient for bed into chair to transfer upstairs for admission. I did speak with Dr. Mary, would like normal saline 1 L before going upstairs, he states patient has history slow atrial fibrillation. EKG was ordered. Likely vagal episode. EKG atrial fibrillation with slow ventricular response. Rate 57 Discharge Plan Departure Patient Disposition: Admitted As Inpatient Clinical Impression: Diverticulitis Admit Date/Time: 07/08/24 12:18 Admit Provider: Gwyn Mary
[2024-07-08 09:16] LABS: Add Manual Diff / Slide Review NO; Basophils Absolute Auto 100 /uL (0-100); Basophils Percent Auto 0.7 % (0-2); Eosinophils Absolute Auto 100 /uL (0-450); Eosinophils Percent Auto 0.6 % (2-4); Hematocrit 45.6 % (41-53); Hemoglobin 15.5 g/dL (13.5-17.5); Lymphocytes Absolute Auto 1400 /uL (1100-4500); Lymphocytes Percent Auto 9.7 % (25-40); Mean Corpuscular Hemoglobin 31.9 PG (26-34); Mean Corpuscular Volume 94.1 fL (80-100); Monocytes Absolute Auto 1400 /uL (0-900); Monocytes Percent Auto 9.9 % (3-14); Neutrophils Absolute Auto 11300 /uL (1500-7000); Neutrophils Percent Auto 79.1 % (50-75); Platelet Count 311 X10^3/uL (150-400); Red Blood Cell Count 4.85 X10^6/uL (4.5-5.9); Red Cell Distribution Width 14.5 % (11.6-14.8); White Blood Cell Count 14.2 X10^3/uL (4.5-11.0)
[2024-07-08 09:28] LABS: Alanine Aminotransferase 28 IU/L (<50); Albumin 4.1 g/dL (3.5-5.0); Albumin Globulin Ratio 1.3 (1.0-2.8); Alkaline Phosphatase 91 U/L (38-126); Aspartate Aminotransferase 24 IU/L (17-59); BUN Creatinine Ratio 18.8 (6-22); Bilirubin Total 1.7 mg/dL (0.2-1.3); Blood Urea Nitrogen 25 mg/dL (9-20); Calcium 8.9 mg/dL (8.4-10.2); Carbon Dioxide 25 mmol/L (22-32); Chloride 104 mmol/L (98-107); Estimated Glomerular Filt Rate 53 mL/min (>60); Globulin 3.1 g/dL (1.7-4.1); Glucose 113 mg/dL (80-110); HEMOLYSIS < 15 (0-50); Potassium 3.6 mmol/L (3.4-5.1); Sodium 138 mmol/L (137-145); Total Protein 7.2 g/dL (6.3-8.2)
[2024-07-08] MEDS: metroNIDAZOLE 500 MG/100 ML PIGGYBACK 100 MG IV ×2 (09:34→17:53)
[2024-07-08] MEDS: ONDANSETRON 4 MG/2 ML INJ IV (09:34)
[2024-07-08] MEDS: MORPHINE 4 MG/ML INJ IV (09:35)
--- NOTE | 2024-07-08 09:40 | PC.NURSE ---
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
[2024-07-08] MEDS: carvediloL 12.5 MG TABLET PO (10:15)
[2024-07-08] MEDS: dilTIAZem 30 MG TABLET 180 MG PO (10:15)
[2024-07-08] MEDS: CIPROFLOXACIN 400 MG/200 ML PIGGYBACK 200 MG IV ×2 (11:00→23:15)
[2024-07-08 11:30] LABS: Appearance Urine UA CLEAR; Bilirubin Urine UA NEGATIVE (NEGATIVE); Color Urine UA YELLOW; Glucose Urine UA NEGATIVE (Negative); Ketones Urine UA NEGATIVE (NEGATIVE); Leukocyte Esterase Urine UA NEGATIVE (NEGATIVE); Nitrite Urine UA NEGATIVE (Negative); Occult Blood Urine UA NEGATIVE (Negative); Protein Urine UA NEGATIVE (Negative); Specific Gravity Urine UA <=1.005 (1.000-1.035); Urobilinogen Urine UA 0.2 E.U./dL (0.2); pH Urine UA 6.5 (4.5-8.0)
[2024-07-08 11:43] LABS: Urine Volume 10mL (spun)
[2024-07-08 11:44] LABS: Bacteria Urine None Seen; Culture Indicated Urine Cult Not Indicated; RBC Urine None Seen (0-5/HPF); Squamous Epithelial Cell Urine None Seen (0-5/HPF); WBC Urine None Seen (0-5/HPF)
--- NOTE | 2024-07-08 12:38 | PC.NURSE ---
Patient has been able to get up and transfer to wheelchair throughout patient stay. This RN assisted patient into sitting position and patient became suddenly diaphoretic and stated I feel like I'm going to faint. Patient buttock still on bed and torso began falling backwards. This RN caught patient behind left shoulder and was holding him up and yelled for help. Another RN came to the room and assisted this RN to lay this patient back into bed. This other RN went and found ED provider who ordered 1L of normal saline and get an EKG. This RN called respiratory therapy who performed the EKG. ED provider talked to hospitalist. This RN called hospitalist and he confirmed that this RN can bring this patient up when EKG complete on Normal Saline.
--- NOTE | 2024-07-08 12:39 | EKG_ITS ---
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
--- NOTE | 2024-07-08 12:39 | P.HP_ITS ---
History of Present Illness History of Present Illness Date Patient Seen: 07/08/24 Time Patient Seen: 12:10 Chief complaint: diverticulitis Narrative: 84 M with PMH of paroxysmal afib, BPH, SAY, HTN, HLD, ulcerative colitis on chronic mesalamine and diverticulitis in the past. He has had a recurrence of lower abdominal pain for the past two days but has had symptoms on and off for months. Recently finished antibiotics by PCP, he was subsequently given 1 day of cipro/flagyl but had continued pain and last night he was dizzy and falling. He has been trying to stay on a liquid diet per the recommendation of his provider care team recently. Denied diarrhea, BRBPR or melena. No fever, chills, cough, dyspnea, LE edema, rash. Denies weight loss. In the ER, patient was being moved upstairs and had a syncopal episode with moving to the bed. EKG unremarkable and received 1L bolus. WBC elevated at 14.2. CT showing evidence of progressive diverticulitis with small abscess. Cr elevated at 1.33, along with bilirubin at 1.7. SOFA score 2. Admitted for further management and evaluation. 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) 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 medical condition Excessive daytime sleepiness (~2019) Hyperlipidemia Essential hypertension (Unknown) Sepsis Colitis (~2018) Blepharophimosis unspecified eye, unspecified lid A-fib Family History Father Loud snoring Hypertension Mother Hypertension Social History marital status: details: lives in [place] household members: spouse lives independently: Yes caregiver/support person: No housing: house Smoking Status: Former smoker alcohol intake: current Meds Home Medications and Allergies Home Medications Medication Instructions Recorded Confirmed Type carvedilol 12.5 mg tablet (Coreg) 12.5 mg PO DAILY 08/21/21 07/08/24 History carvedilol 25 mg tablet (Coreg) 25 mg PO BEDTIME 08/21/21 07/08/24 History Aspir-Low 81 mg PO DAILY 09/04/21 07/08/24 History indomethacin 25 mg capsule 25 mg PO TID #10 caps 04/18/24 07/08/24 Rx diltiazem HCl 180 mg capsule,24 180 mg PO BID #180 caps 06/10/24 07/08/24 Rx hr,extended release mesalamine 1.2 gram tablet,delayed 3.6 g PO DAILY 07/08/24 07/08/24 History release Allergies Allergy/AdvReac Type Severity Reaction Status Date / Time Sulfa (Sulfonamide Allergy Intermediate red spots Verified 07/08/24 09:01 Antibiotics) Review of Systems Review of Systems Narrative: All other systems reviewed with the patient and are negative unless otherwise stated. Exam Vital Signs (past 8 hours): - 07/08/24 08:55 07/08/24 08:55 07/08/24 08:58 Temperature 98.1 F Pulse Rate 111 H 113 H Respiratory Rate 18 Blood Pressure 168/81 H 168/81 H Pulse Oximetry 97 97 Oxygen Delivery Method Room Air 07/08/24 09:00 07/08/24 09:00 07/08/24 09:30 Temperature Pulse Rate 106 H 94 H Respiratory Rate 15 Blood Pressure 162/78 H Pulse Oximetry 97 97 Oxygen Delivery Method 07/08/24 09:51 07/08/24 09:51 07/08/24 10:00 Temperature Pulse Rate 101 H Respiratory Rate 20 Blood Pressure 162/85 H 154/72 H Pulse Oximetry 97 Oxygen Delivery Method 07/08/24 10:00 07/08/24 10:15 07/08/24 10:15 Temperature Pulse Rate 94 H 93 H 93 H Respiratory Rate 18 Blood Pressure 154/72 H 154/72 H Pulse Oximetry 95 Oxygen Delivery Method 07/08/24 10:30 07/08/24 10:30 07/08/24 11:00 Temperature Pulse Rate 96 H 92 H Respiratory Rate 17 16 Blood Pressure 154/78 H Pulse Oximetry 95 95 Oxygen Delivery Method 07/08/24 11:00 07/08/24 11:30 07/08/24 11:30 Temperature Pulse Rate 83 Respiratory Rate 21 Blood Pressure 139/69 165/74 H Pulse Oximetry 96 Oxygen Delivery Method 07/08/24 12:00 07/08/24 12:01 07/08/24 12:01 Temperature Pulse Rate 72 77 Respiratory Rate 21 23 Blood Pressure 124/62 Pulse Oximetry 96 97 Oxygen Delivery Method Oxygen Delivery Method Room Air Narrative Exam Narrative: General:? Patient is well developed and well nourished, in no distress at this time. HEENT:? Normocephalic, atraumatic, extraocular muscles intact, oral pharynx is clear and mucous membranes are moist. Neck: supple and symmetric, trachea is midline, no cervical adenopathy. Negative for JVD Chest:? Normal AP diameter and contour without kyphoscoliosis, no tachypnea, equal chest rise bilaterally. Lungs:? CTA b/l no wheezing rhonchi or rales. Cardio:?RRR no m/r/g. Abdomen: soft, non-distended, tender in the suprapubic region with guarding. Musculoskeletal:? Muscle strength and tone are equal within normal limits, no deformity. Extremities: No edema or joint effusions. No cyanosis or clubbing. Skin:? Pale,? Warm to touch,dry and intact without rashes, ulcerations or petechiae.? Neuro:? Alert and orientated x3,? sensation to touch intact in all extremities, no gross deficits noted of cranial nerves. Psych:? Patient has a well-kept appearance, appropriate affect, mental status attitude thought context and judgment are appropriate for age. Objective Labs 07/08/24 09:05 07/08/24 09:05 Labs: Laboratory Results - last 24 hr 07/08/24 07/08/24 09:05 11:20 WBC 14.2 H RBC 4.85 Hgb 15.5 Hct 45.6 MCV 94.1 MCH 31.9 MCHC 34.0 RDW 14.5 Plt Count 311 Neut % (Auto) 79.1 H Lymph % (Auto) 9.7 L [place] % (Auto) 9.9 Eos % (Auto) 0.6 L Baso % (Auto) 0.7 Neut # (Auto) 51197 H Lymph # (Auto) 1400 [place] # (Auto) 1400 H Eos # (Auto) 100 Baso # (Auto) 100 Sodium 138 Potassium 3.6 Chloride 104 Carbon Dioxide 25 BUN 25 H Creatinine 1.33 H Estimated GFR 53 L BUN/Creatinine Ratio 18.8 Glucose 113 H Calcium 8.9 Total Bilirubin 1.7 H AST 24 ALT 28 Alkaline Phosphatase 91 Total Protein 7.2 Albumin 4.1 Globulin 3.1 Albumin/Globulin Ratio 1.3 Urine Color Yellow Urine Appearance Clear Urine pH 6.5 Ur Specific [place] <=1.005 Urine Protein Negative Urine Glucose (UA) Negative Urine Ketones Negative Urine Occult Blood Negative Urine Nitrate Negative Urine Bilirubin Negative Urine Urobilinogen 0.2 Ur Leukocyte Esterase Negative Urine RBC None seen Urine WBC None seen Ur Squamous Epith Cells None seen Urine Bacteria None seen Ur Culture Indicated? Cult not indicated Vol Urine Centrifuged 10ml (spun) Assessment & Plan Assessment & Plan narrative: 1. Sepsis with Elevated bilirubin, elevated creatinine secondary to Acute colitis, possible diverticulitis and/or flare of ulcerative colitis - unclear if this is diverticulitis not responding to multiple rounds of oral antibiotics as an outpatient, or possible flare of ulcerative colitis. WBC 14 which may be reactive. - continue cipro/flagyl given CT findings with possible small abscess, no surgical interventions after discussion with front office help surgeon today by me. - start steroids with prednisone 60 mg daily for possible UC flare. Followed previously by GI provider at [facility] though patient reports no longer going there. - recommend colonoscopy as outpatient if improved, and patient re-follow up with GI - if diarrhea check C. diff - continue IV fluids for now - continue home mesalamine. - SOFA score of 2 indicating sepsis. Continue IV fluids and antibiotics. Will check a lactate, not done on admit labs. - UA negative for infection, no respiratory symptoms. 2. paroxysmal atrial fibrillation with slow ventricular response - continue IV fluids. - bradycardic to 30s on the telemetry thus far, with syncope will hold home diltiazem and coreg. - unclear why not on chronic anticoagulation, takes asa daily. Readdress as outpatient with current admission for colitis due to bleeding possibility. 3. Orthostatic hypotension / syncope - 1L IV fluid bolus given, check orthostatics qshift - likely due to #1 above, continue above treatments to correct underlying cause. - no indication for further evaluation at this time - bradycardic on monitor initially as well, will hold coreg and diltiazem - continue telemetry. 4. Elevated creatinine - unknown baseline creatinine at this time, cr 1.33 today will continue to monitor and continue IV fluids. Code: DNR, surrogate is patient's spouse DVT: Lovenox daily I have utilized all available immediate resources to obtain, update, or review the patient's current medications. Dispo: patient admitted under inpatient status. Likely discharge home vs SNF, consider PT/OT evaluations depending on mobility and continued orthostasis after above treatments. Additional history obtained via discussions with the ER provider and surgeon as noted above. These discussions contributed to the creation of the above assessment and plan. I have reviewed patient's presenting documentation, labs, and imaging personally. Time-Based Coding :: [TOTAL MINUTES] spent with patient and on the chart (including review of chart, obtaining history, exam, reviewing outside data, placing orders, documenting exam and treatment plan, and counseling patient) on [DATE].
[2024-07-08] MEDS: SODIUM CHLORIDE 0.9% 1,000 ML 1000 ML IV (12:43)
--- NOTE | 2024-07-08 13:01 | PC.NURSE ---
This RN gave verbal report to Cally Han RN. This RN transported patient in [facility] on clinical research monitor to the floor.
[2024-07-08] MEDS: SODIUM CHLORIDE 0.9% 1,000 ML 100 ML IV (14:30)
[2024-07-08] MEDS: predniSONE 20 MG TABLET 60 MG PO (14:58)
[2024-07-08 16:18] LABS: MRSA (Nasal) PCR NOT DETECTED (Not Detect)
--- NOTE | 2024-07-08 18:02 | PC.NURSE ---
Pt arrived via gurney to room 228, able to move from gurney to bed with assistance from this nurse and Gerardo RN. Pt assisted into gown and connected to all monitoring equipment, VSS, 96% on RA, Tele shows A-Fib CVR with BBB, pt has no c/o pain until LUQ is palpated, then pain is sharp, 7/10. Denies pain otherwise. Oriented to room and call light system, is at bedside. IV infusing as ordered, no further needs at this time, bed alarm engaged, will continue to monitor.
[2024-07-08 18:20] LABS: Lactate (Lactic Acid) 1.2 mmol/L (0.7-2.1)
[2024-07-08] MEDS: SODIUM CHLORIDE 0.9% FLUSH 10 ML IV (21:28)
[2024-07-09] VITALS (23 sets, daily range): BP systolic 132–180; BP diastolic 69–107; PULSE 94–122; RESP 16–31; TEMP 36.8–37; O2SAT 92–96
[2024-07-09] MEDS: SODIUM CHLORIDE 0.9% 1,000 ML 100 ML IV ×3 (00:28→22:12)
--- NOTE | 2024-07-09 08:07 | PM.PN.1 ---
Subjective Subjective Interval history: The heart rate is 105 with a blood pressure of 147/81. He says that his abdominal pain is better today. The white blood count is 14.2 The creatinine is 133 with a total bilirubin of 7 and otherwise normal liver function tests. He tells me that he was getting colonoscopies early and does not seem to know why. When I point out that he has diagnosis of ulcerative colitis he doesn't seem to be aware of that diagnosis. He blames his last colonoscopy for provoking the diverticulitis since his 1st episode occurred about a week after the colonoscopy. He has mild left lower quadrant tenderness and is in atrial fibrillation on heart exam. He talks extensively about his recent abdominal history but it is hard to follow the timeline. Exam Vital Signs (past 8 hours): - 07/09/24 01:00 07/09/24 01:00 07/09/24 05:00 Temperature 98.2 F Pulse Rate 98 H 105 H Respiratory Rate 18 16 Blood Pressure 132/69 147/81 H Pulse Oximetry 92 92 94 Oxygen Delivery Method Room Air Oxygen Flow Rate 0 0 Oxygen Delivery Method Room Air Oxygen Flow Rate 0 Narrative Exam Narrative: Alert and oriented x3. Heart is tachycardic with no murmur. Lungs are clear to auscultation bilaterally there is no ankle edema Abdomen is soft, bowel sounds are active, he has mild left lower quadrant tenderness. Objective Labs 07/09/24 09:00 07/09/24 09:00 Labs: Laboratory Results - last 24 hr 07/08/24 07/08/24 07/08/24 09:05 11:20 14:54 WBC 14.2 H RBC 4.85 Hgb 15.5 Hct 45.6 MCV 94.1 MCH 31.9 MCHC 34.0 RDW 14.5 Plt Count 311 Neut % (Auto) 79.1 H Lymph % (Auto) 9.7 L [place] % (Auto) 9.9 Eos % (Auto) 0.6 L Baso % (Auto) 0.7 Neut # (Auto) 06465 H Lymph # (Auto) 1400 [place] # (Auto) 1400 H Eos # (Auto) 100 Baso # (Auto) 100 Sodium 138 Potassium 3.6 Chloride 104 Carbon Dioxide 25 BUN 25 H Creatinine 1.33 H Estimated GFR 53 L BUN/Creatinine Ratio 18.8 Glucose 113 H Lactate Calcium 8.9 Total Bilirubin 1.7 H AST 24 ALT 28 Alkaline Phosphatase 91 Total Protein 7.2 Albumin 4.1 Globulin 3.1 Albumin/Globulin Ratio 1.3 Urine Color Yellow Urine Appearance Clear Urine pH 6.5 Ur Specific [place] <=1.005 Urine Protein Negative Urine Glucose (UA) Negative Urine Ketones Negative Urine Occult Blood Negative Urine Nitrate Negative Urine Bilirubin Negative Urine Urobilinogen 0.2 Ur Leukocyte Esterase Negative Urine RBC None seen Urine WBC None seen Ur Squamous Epith Cells None seen Urine Bacteria None seen Ur Culture Indicated? Cult not indicated Vol Urine Centrifuged 10ml (spun) Nasal Screen MRSA (PCR) Not detected 07/08/24 18:01 WBC RBC Hgb Hct MCV MCH MCHC RDW Plt Count Neut % (Auto) Lymph % (Auto) [place] % (Auto) Eos % (Auto) Baso % (Auto) Neut # (Auto) Lymph # (Auto) [place] # (Auto) Eos # (Auto) Baso # (Auto) Sodium Potassium Chloride Carbon Dioxide BUN Creatinine Estimated GFR BUN/Creatinine Ratio Glucose Lactate 1.2 Calcium Total Bilirubin AST ALT Alkaline Phosphatase Total Protein Albumin Globulin Albumin/Globulin Ratio Urine Color Urine Appearance Urine pH Ur Specific [place] Urine Protein Urine Glucose (UA) Urine Ketones Urine Occult Blood Urine Nitrate Urine Bilirubin Urine Urobilinogen Ur Leukocyte Esterase Urine RBC Urine WBC Ur Squamous Epith Cells Urine Bacteria Ur Culture Indicated? 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 Sepsis with Elevated bilirubin, elevated creatinine secondary to Acute colitis, possible diverticulitis and/or flare of ulcerative colitis - unclear if this is diverticulitis not responding to multiple rounds of oral antibiotics as an outpatient, or possible flare of ulcerative colitis. WBC 14 which may be reactive. - continue cipro/flagyl given CT findings with possible small abscess, no surgical interventions after discussion with production tester surgeon on day of admission. - prednisone 60 mg daily for possible UC flare. Followed previously by GI provider at [facility] though patient reports no longer going there. - recommend colonoscopy as outpatient if improved, and patient re-follow up with GI - if diarrhea check C. diff - continue IV fluids for now - continue home mesalamine. - SOFA score of 2 indicating sepsis. Continue IV fluids and antibiotics. - UA negative for infection, no respiratory symptoms. 2. paroxysmal atrial fibrillation with slow ventricular response - continue IV fluids. - bradycardic to 30s on the telemetry thus far, with syncope now holding home diltiazem and coreg. - unclear why not on chronic anticoagulation, takes asa daily. Readdress as outpatient with current admission for colitis due to bleeding possibility. 3. Orthostatic hypotension / syncope - 1L IV fluid bolus given, check orthostatics qshift - likely due to #1 above, continue above treatments to correct underlying cause. - no indication for further evaluation at this time - bradycardic on monitor initially as well, holding coreg and diltiazem - continue telemetry. 4. Elevated creatinine - unknown baseline creatinine at this time, cr 1.33 today will continue to monitor and continue IV fluids. Code: DNR, surrogate is patient's spouse DVT: Lovenox daily Time-Based Coding :: [TOTAL MINUTES] spent with patient and on the chart (including review of chart, obtaining history, exam, reviewing outside data, placing orders, documenting exam and treatment plan, and counseling patient) on [DATE]. Quality VTE Deep Vein Thrombosis/Pulmonary Embolism Present on Admission: No
[2024-07-09] MEDS: metroNIDAZOLE 500 MG/100 ML PIGGYBACK 100 MG IV ×2 (09:13→17:16)
[2024-07-09] MEDS: ENOXAPARIN 40 MG/0.4 ML SYRINGE SUBCUT (09:14)
[2024-07-09] MEDS: predniSONE 20 MG TABLET 60 MG PO (09:14)
[2024-07-09] MEDS: carvediloL 12.5 MG TABLET PO (09:14)
[2024-07-09] MEDS: SODIUM CHLORIDE 0.9% FLUSH 10 ML IV (09:15)
[2024-07-09 09:16] LABS: Add Manual Diff / Slide Review NO; Basophils Absolute Auto 0 /uL (0-100); Basophils Percent Auto 0.2 % (0-2); Eosinophils Absolute Auto 0 /uL (0-450); Eosinophils Percent Auto 0.1 % (2-4); Hematocrit 43.2 % (41-53); Hemoglobin 14.9 g/dL (13.5-17.5); Lymphocytes Absolute Auto 900 /uL (1100-4500); Lymphocytes Percent Auto 5.6 % (25-40); Mean Corpuscular HGB Conc 34.4 % (30-36); Mean Corpuscular Volume 93.2 fL (80-100); Monocytes Absolute Auto 500 /uL (0-900); Monocytes Percent Auto 2.8 % (3-14); Neutrophils Absolute Auto 14900 /uL (1500-7000); Neutrophils Percent Auto 91.3 % (50-75); Platelet Count 284 X10^3/uL (150-400); Red Blood Cell Count 4.64 X10^6/uL (4.5-5.9); Red Cell Distribution Width 14.5 % (11.6-14.8); White Blood Cell Count 16.3 X10^3/uL (4.5-11.0)
[2024-07-09 09:46] LABS: BUN Creatinine Ratio 18.3 (6-22); Blood Urea Nitrogen 20 mg/dL (9-20); Calcium 8.8 mg/dL (8.4-10.2); Carbon Dioxide 21 mmol/L (22-32); Chloride 108 mmol/L (98-107); Erythrocyte Sedimentation Rate 18 MM/HR (0-15); Estimated Glomerular Filt Rate > 60 mL/min (>60); Glucose 171 mg/dL (80-110); HEMOLYSIS < 15 (0-50); Magnesium 2.3 mg/dL (1.6-2.3); Potassium 3.6 mmol/L (3.4-5.1); Sodium 138 mmol/L (137-145)
[2024-07-09] MEDS: CIPROFLOXACIN 400 MG/200 ML PIGGYBACK 200 MG IV ×2 (10:46→23:06)
--- NOTE | 2024-07-09 14:07 | CM.DANOTE ---
Patient is an 84 yo male who was admitted on 07/08/24 for Diverticulitis. Pt has [facility] for insurance and his PCP is Elda Lawson at [facility]. EMR was reviewed. Per MD, pt with dx of ulcerative colitis at baseline with recent colonoscopy and admitted for sepsis and diverticulitis and not yet medically stable to discharge. SW met bedside with pt and spouse and explained role and they confirm they live in [place] and both have been quite active and independent at baseline. Pt does not use DME to ambulate but spouse states that pt has balance issues and weakness in his legs and requesting PT eval and HH PT. Pt still drives and denies any hx of HH or SNF. SW explained HH services and frequency and pt agreeable to HH PT but confirms that he tends to like to do things on his own but spouse feels strongly for the need for home assessment and PT training at discharge and to determine if pt needs the cane they have at home for balance vs strength training. SW provided the HH Choice list and preference is [facility] and they are contracted with pt's insurance. SW discussed likely would be a couple days to hear from [place] for first home visit as this is a holiday weekend and therefore likely Tues 07/12. PT ordered and pending. SW made initial [facility] referral via secure email and awaiting review and F2F completed but not sent yet. Plan: SW to follow for plan of likely discharge home tomorrow Sun via spouse POV and new [facility] referral made and to follow for PT eval later today. MAYCOL Donis Discharge Planning/Care Management CM Discharge Assessment Start: 07/09/24 14:01 Freq: Status: Active Protocol: Document 07/09/24 14:04 BF (Rec: 07/09/24 14:07 [id number]) Discharge Planning Assessment Assigned Agronomy Advisor MAYCOL Mesa DPOA/Assigned Designee Name spouse Sharyn Contact Information [phone] Advance Directives? Yes Advance Directives on File No: Sharyn will bring it in History Provided By Patient,Family Member,Medical Record Has Patient been admitted in last 30 No days? Prior Living Arrangements House Household Members spouse Type of transporation used prior to Drives own vehicle admit Independent with ADL's Yes Is patient alert and oriented? Yes Caregiver for Another No Patient/Family Preference Home with Home Health Barriers to Discharge No Discharge Plan Home with Home Health Community Services Physical Therapy Transportation Arrangement Spouse Referrals Initiated Home Health If patient plan is home with home health Yes : Has signed face to face form been completed? Medicare Choice List Provided Yes Medicare choice list reviewed on patient,family electronic tablet with SNF/HH Preference [facility] Whiteboard Updated in Patient Room with Yes name and ext. # of Agronomy Advisor Review Status In Process Please Provide Date Initial DC 07/09/24 Assessment Was Performed Next Review Type Continued Stay Review
--- NOTE | 2024-07-09 15:45 | PT.IIE ---
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) Obstructive sleep apnea, adult (~04/22/20) Periodic limb movement disorder (PLMD) Sepsis Snoring Ulcerative colitis Physical Therapy Inpatient Evaluation/Re-Eval M1 PT/OT-IP Prior Functional Status Start: 07/09/24 16:51 Freq: NEEDED Status: Active Protocol: Document 07/09/24 15:45 AB (Rec: 07/09/24 17:10 [id number]) Medical Review Prior Functional Status Medical History Reviewed Yes Communication able to make needs known; [place]- uses hearing aids Mobility and Gait pt stated that he was independent with all mobilities and ambulation without AD; per spouse: pt getting weak; pt stated that he had balance issues for ~ 1 year since he had his cataract sx Social History Household Members spouse Living Arrangements House Number of Floors (Floors) One Floor Number of Stairs To Enter/Railing? no steps to enter Home Environment Standard Height Toilet,Walk in Shower,Built-In Shower Seat Home Equipment Straight Cane,Hand Held Shower ,Grab Bars Near Toilet,Grab Bars In Shower M2 PT-IP Current Condition Start: 07/09/24 16:51 Freq: NEEDED Status: Active Protocol: Document 07/09/24 15:45 AB (Rec: 07/09/24 17:10 [id number]) Physical Therapy Current Condition Current Condition Evaluation Date 07/09/24 Treatment Diagnosis diverticulitis; difficulty in walking Onset Date 07/08/24 M3 PT-IP Subjective Start: 07/09/24 16:51 Freq: NEEDED Status: Active Protocol: Document 07/09/24 15:45 AB (Rec: 07/09/24 17:10 [id number]) Subjective Physical Therapy Visit Type Type Initial Evaluation Visit Start Time 15:45 Visit Stop Time 16:50 Number of SOUND RECORDIST Visits 0 Physical Therapy Visit Comments Patient Comments agreeable to do PT Therapy Pain Assessment Pain When Pain Assessed At Rest Location Left Lower Abdomen Scale Used pain scale not stated Pain Management Techniques Distraction,Modification of Treatment M4 PT-IP Mobility and Gait Start: 07/09/24 16:51 Freq: NEEDED Status: Active Protocol: Document 07/09/24 15:45 AB (Rec: 07/09/24 17:10 AB [id number]) PT-Bed Mobility Assessment Supine to Sit Supine to Sit Standby Assistance PT-Transfer Assessment Sit to and From Stand Sit to and from Stand Standby Assistance,1 Person Assistance,Use of Upper Extremities Equipment Transfer Assistive Device None,Gait Belt Orthotic/Prosthetic Devices or Brace: No Transfers Transfer Destination Chair Transfer Technique ambulated Transfer Ability Level of Assist Contact Guard Assistance,1 Person Assistance,Use of Upper Extremities Comments Mobility Comments pt supine in bed and agreeable to do PT. spouse in room with pt. obtained PLOF and home set up. spouse stated that pt has been getting weak and has balance issues. BP in supine: 161/91. A-fib: 104-111 1pt completed supine to sit SBA. able to sit on EOb SBA. pt can be impulsive. cued for safety. no c/o dizziness. BP: 171/90. pt stated that he did not have BP meds today. nurse aware. pt completed sit to stand SBA. ambulated ~ 125 ft without AD CGA. presents with unsteady gait with increase lateral trunk lean to the R. cued to slow down. pt tends to reach for counter/bed for support. (+) LOB x 2. pt sat on chair. informed regarding balance and safety. agreed to use SPC . pt requested to use the toilet. completed sit to stand from chair SBA. ambulated to the toilet using SPC CGA and cues to slow down. pt was able to use the toilet SBA. ambulated towards the sink SBA to CGA using SPC. pt was able to mantain standing SBA while completing handwashing. pt agreed to ambulate more. ambulated ~ 200 ft using SPC in the hallway SBA to occasional CGA during turning. cued to slow down. pt back to his room and sat on the chair. pt agreed to stay up on the chair. positioned with call light and table next to pt. informed pt and spouse regarding use of SPC at this time and agreed. also aware of outpt PT for strengthening, balance and gait training. spouse initially wanting HHPT. explained to spouse regarding HHPT vs outpt PT. pt and spouse agreed to do outpt PT. Gait Assessment Gait Gait Assistance Required: Standby Assistance,Contact Guard Assist Distance (Feet) 200 Able to Maintain Weight Bearing Status Yes During Gait Assistive Devices Assistive Device None,Gait Belt,Straight Cane Orthotic/Prosthetic Devices or Brace: No Gait Deviations General Gait Pattern Antalgic,Decreased Stride Length,Decreased Feet Clearance,Lateral Trunk Lean, Wide Based Gait Factors Limiting Gait Function Factors Limiting Gait Function Decreased Activity Tolerance, Decreased Strength,Limited Range of Motion,Pain,Poor Balance,Poor Safety Awareness PT-Balance Assessment Sitting Balance and Reactions Static Sitting Balance Ability Normal Dynamic Sitting Balance Ability Good Standing Balance and Reactions Static Standing Balance Ability Good Dynamic Standing Balance Ability Fair Device Used SPC M5 PT-IP Objective Assessments Start: 07/09/24 16:51 Freq: NEEDED Status: Active Protocol: Document 07/09/24 15:45 AB (Rec: 07/09/24 17:10 AB [id number]) Orientation Orientation/Cognition Level of Alertness Alert Orientation Name,Place,Situation Language Function Ability Hard of Hearing Safety Awareness Decreased Safety Awareness Memory Description No Deficits Noted Gross Range of Motion Lower Extremity ROM Assessment Within Functional Limits Strength Lower Extremity Strength Assessment Within Functional Limits Sensation Assessment Sensation Sensation Description Numbness Comments Sensation Comments numbness on B feet Muscle Tone Muscle Tone WNL Yes M6 PT-IP Treatment Start: 07/09/24 16:51 Freq: NEEDED Status: Active Protocol: Document 07/09/24 15:45 AB (Rec: 07/09/24 17:10 AB [id number]) Physical Therapy Treatment Education Education Provided Safety M7 PT-IP Assessment and Plan Start: 07/09/24 16:51 Freq: NEEDED Status: Active Protocol: Document 07/09/24 15:45 AB (Rec: 07/09/24 17:10 AB [id number]) PT Summary Assessment and Plan Potential Rehabilitation Potential Fair Status of Condition at Evaluation Stable Summary Impairments Pain,Strength,Balance, Coordination,Sensation,Bed Mobility,Transfers,Gait, Activity Tolerance Assessment Summary pt is an 84 y/o M who is admitted for diverticulitis. pt s/p fall with low BP. pt's BP now stable. pt requiring CGA with ambulation without AD but with unsteady gait and with (+) LOB. Assessed ambulation using SPC and pt completed with SBA to occasional CGA. pt agreed to use SPC at this time for ambulation. Pt will benefit from outpt PT for overall strengthening, increasing activity tolerance, balance and gait training. will continue to assess. Goals Bed Mobility Goal Independent Transfer Goal Independent,Cane Gait Goal Independent,Cane Gait Distance 250 Other Goals improve ambulation without AD ~ 250 ft mod I Days to Meet Goals 10 Frequency of Treatment Frequency Of Treatment Once a Day Treatment Plan Physical Therapy Treatment Plan Bed Mobility Training,Transfer Training,Gait Training, Therapeutic Exercise,Balance Retraining,Discharge Planning, Hot or Cold Pack,Neuromuscular Re-ed,Coordination Retraining ,Manual Therapy Precautions Other Precautions falls Recommendations To Nursing Amount of Assist Needed 1 Person Assist Discharge Recommendations PT Discharge Recommendations Home with Assistance, Outpatient PT Transportation Needs at Discharge Private Vehicle
[2024-07-09] MEDS: carvediloL 12.5 MG TABLET 25 MG PO (20:43)
[2024-07-10] VITALS (69 sets, daily range): BP systolic 158–188; BP diastolic 72–101; PULSE 91–117; RESP 11–33; TEMP 36.5–36.8; O2SAT 94–97
[2024-07-10] MEDS: carvediloL 12.5 MG TABLET PO (01:42)
[2024-07-10] MEDS: metroNIDAZOLE 500 MG/100 ML PIGGYBACK 100 MG IV ×3 (01:45→17:50)
[2024-07-10 04:51] LABS: Add Manual Diff / Slide Review NO; Basophils Absolute Auto 100 /uL (0-100); Basophils Percent Auto 0.7 % (0-2); Eosinophils Absolute Auto 0 /uL (0-450); Eosinophils Percent Auto 0.1 % (2-4); Hematocrit 41.5 % (41-53); Hemoglobin 14.1 g/dL (13.5-17.5); Lymphocytes Absolute Auto 1200 /uL (1100-4500); Lymphocytes Percent Auto 6.2 % (25-40); Mean Corpuscular HGB Conc 33.9 % (30-36); Mean Corpuscular Hemoglobin 31.8 PG (26-34); Mean Corpuscular Volume 93.6 fL (80-100); Monocytes Absolute Auto 1100 /uL (0-900); Monocytes Percent Auto 5.8 % (3-14); Neutrophils Absolute Auto 16300 /uL (1500-7000); Neutrophils Percent Auto 87.2 % (50-75); Platelet Count 268 X10^3/uL (150-400); Red Blood Cell Count 4.43 X10^6/uL (4.5-5.9); Red Cell Distribution Width 14.7 % (11.6-14.8); White Blood Cell Count 18.7 X10^3/uL (4.5-11.0)
[2024-07-10 05:01] LABS: BUN Creatinine Ratio 21.9 (6-22); Blood Urea Nitrogen 23 mg/dL (9-20); Calcium 8.6 mg/dL (8.4-10.2); Carbon Dioxide 19 mmol/L (22-32); Chloride 110 mmol/L (98-107); Estimated Glomerular Filt Rate > 60 mL/min (>60); Glucose 121 mg/dL (80-110); HEMOLYSIS < 15 (0-50); Magnesium 2.2 mg/dL (1.6-2.3); Potassium 3.6 mmol/L (3.4-5.1); Sodium 138 mmol/L (137-145)
[2024-07-10] MEDS: ENOXAPARIN 40 MG/0.4 ML SYRINGE SUBCUT (08:18)
[2024-07-10] MEDS: predniSONE 20 MG TABLET 60 MG PO (08:18)
[2024-07-10] MEDS: SODIUM CHLORIDE 0.9% FLUSH 10 ML IV (08:18)
[2024-07-10] MEDS: carvediloL 12.5 MG TABLET 25 MG PO ×2 (08:18→20:10)
--- NOTE | 2024-07-10 08:21 | PM.PN.1 ---
Subjective Subjective Date Patient Seen: 07/10/24 Interval history: His left lower quadrant pain has improved but his white blood count has risen to 18.7. The blood pressure is 161/96 and the heart rate is 105. His BMP is normal. He says that he feels a lot better. I reviewed his CT scan which did not look concerning. There was some concern on radiology report about a potential abdominal wall abscess. He will be staying 1 more day due to the rising white blood count. Exam Vital Signs (past 8 hours): - 07/10/24 01:42 07/10/24 04:00 07/10/24 04:03 Temperature 98.2 F Pulse Rate 95 H 99 H Respiratory Rate 20 Blood Pressure 177/94 H 166/78 H Pulse Oximetry 94 94 Oxygen Delivery Method Room Air Oxygen Flow Rate 0 07/10/24 07:40 07/10/24 08:18 Temperature 97.7 F Pulse Rate 96 H 105 H Respiratory Rate 16 Blood Pressure 161/96 H 161/96 H Pulse Oximetry Oxygen Delivery Method Oxygen Flow Rate Oxygen Delivery Method Room Air Oxygen Flow Rate 0 Narrative Exam Narrative: Energetic, alert, oriented x3. No apparent distress Heart is regular rate and rhythm without murmur Lungs are clear to auscultation bilaterally Abdomen is soft, bowel sounds positive, no organomegaly, very mild left lower abdominal tenderness. Extremities have no ankle edema Objective Labs 07/10/24 03:55 07/10/24 03:55 Labs: Laboratory Results - last 24 hr 07/09/24 07/10/24 09:00 03:55 WBC 16.3 H 18.7 H RBC 4.64 4.43 L Hgb 14.9 14.1 Hct 43.2 41.5 MCV 93.2 93.6 MCH 32.0 31.8 MCHC 34.4 33.9 RDW 14.5 14.7 Plt Count 284 268 Neut % (Auto) 91.3 H 87.2 H Lymph % (Auto) 5.6 L 6.2 L [place] % (Auto) 2.8 L 5.8 Eos % (Auto) 0.1 L 0.1 L Baso % (Auto) 0.2 0.7 Neut # (Auto) 23949 H 99837 H Lymph # (Auto) 900 L 1200 [place] # (Auto) 500 1100 H Eos # (Auto) 0 0 Baso # (Auto) 0 100 ESR 18 H Sodium 138 138 Potassium 3.6 3.6 Chloride 108 H 110 H Carbon Dioxide 21 L 19 L BUN 20 23 H Creatinine 1.09 1.05 Estimated GFR > 60 > 60 BUN/Creatinine Ratio 18.3 21.9 Glucose 171 H 121 H Calcium 8.8 8.6 Magnesium 2.3 2.2 C-Reactive Protein 12.0 H PFSH Medical History (Updated 07/08/24 @ 17:11 by Gwyn Mary DO) Ulcerative colitis BPH (benign prostatic hyperplasia) Gout Snoring Periodic limb movement disorder (PLMD) Obstructive sleep apnea, adult (~04/22/20) 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 Sepsis with Elevated bilirubin, elevated creatinine secondary to Acute colitis, possible diverticulitis and/or flare of ulcerative colitis - unclear if this is diverticulitis not responding to multiple rounds of oral antibiotics as an outpatient, or possible flare of ulcerative colitis. - continue cipro/flagyl given CT findings with possible small abscess, no surgical interventions after discussion with front office medical assistant surgeon on day of admission. - prednisone 60 mg daily for possible UC flare. Followed previously by GI provider at [facility] though patient reports no longer going there. - recommend colonoscopy as outpatient if improved, and patient re-follow up with GI - if diarrhea check C. diff - continue IV fluids for now - continue home mesalamine. - SOFA score of 2 indicating sepsis. Continue IV fluids and antibiotics. - UA negative for infection, no respiratory symptoms. - 07/10/2024 noted white blood count rising slightly. Clinically improved. Recheck WBC on 07/11 and plan discharge on oral antibiotics if white blood count trend direction reverses. 2. paroxysmal atrial fibrillation with slow ventricular response - continue IV fluids. - Resume home diltiazem and coreg. - unclear why not on chronic anticoagulation, takes asa daily. Readdress as outpatient with current admission for colitis due to bleeding possibility. 3. Orthostatic hypotension / syncope - resolving 4. Elevated creatinine - resolved Code: DNR, surrogate is patient's spouse DVT: Lovenox daily Time-Based Coding :: [TOTAL MINUTES] spent with patient and on the chart (including review of chart, obtaining history, exam, reviewing outside data, placing orders, documenting exam and treatment plan, and counseling patient) on [DATE]. Quality VTE Deep Vein Thrombosis/Pulmonary Embolism Present on Admission: No
--- NOTE | 2024-07-10 11:51 | PT.IPTN ---
Current Diagnoses Sepsis, unspecified organism (07/08/24) Physical Therapy Treatment Note M2 PT-IP Current Condition Start: 07/09/24 16:51 Freq: NEEDED Status: Active Protocol: Document 07/09/24 15:45 AB (Rec: 07/09/24 17:10 AB [id number]) Physical Therapy Current Condition Current Condition Evaluation Date 07/09/24 Treatment Diagnosis diverticulitis; difficulty in walking Onset Date 07/08/24 M3 PT-IP Subjective Start: 07/09/24 16:51 Freq: NEEDED Status: Active Protocol: Document 07/10/24 11:33 MB (Rec: 07/10/24 11:51 MB [id number]) Subjective Physical Therapy Visit Type Type Treatment Note Visit Start Time 11:33 Visit Stop Time 11:47 Number of MANAGER STRATEGY & ACCOUNT Visits 0 Physical Therapy Visit Comments Patient Comments Pt is agreeable to PT. Therapy Pain Assessment Pain When Pain Assessed At Rest Pain Present Pain Present Denied Pain M4 PT-IP Mobility and Gait Start: 07/09/24 16:51 Freq: NEEDED Status: Active Protocol: Document 07/10/24 11:33 MB (Rec: 07/10/24 11:51 MB [id number]) PT-Bed Mobility Assessment Supine to Sit Supine to Sit Standby Assistance,Head of Bed Elevated,Bedrails Scooting Scooting to Edge of Bed Standby Assistance PT-Transfer Assessment Sit to and From Stand Sit to and from Stand Standby Assistance,1 Person Assistance,Use of Upper Extremities Equipment Transfer Assistive Device Gait Belt,Straight Cane,Front Wheeled Walker Orthotic/Prosthetic Devices or Brace: No Transfers Transfer Destination Chair Transfer Technique Ambulation Transfer Ability Level of Assist Contact Guard Assistance,1 Person Assistance,Use of Upper Extremities Gait Assessment Gait Gait Assistance Required: Standby Assistance,Contact Guard Assist,1 Person Assist Distance (Feet) 100 Able to Maintain Weight Bearing Status Yes During Gait Assistive Devices Assistive Device Gait Belt,Straight Cane,Front Wheeled Walker Gait Deviations General Gait Pattern Flexed Trunk,Wide Based Gait Factors Limiting Gait Function Factors Limiting Gait Function Poor Balance,Poor Safety Awareness Comments Gait Comments Gait with RW 100' and then gait with SPC in right hand 100'. Cues for advancing SPC in right hand with opposite left foot with gait and pt has some challenges with this and does make improvements PT-Balance Assessment Sitting Balance and Reactions Static Sitting Balance Ability Good Dynamic Sitting Balance Ability Good Standing Balance and Reactions Static Standing Balance Ability Good Dynamic Standing Balance Ability Fair Device Used SPC, RW, none M5 PT-IP Objective Assessments Start: 07/09/24 16:51 Freq: NEEDED Status: Active Protocol: Document 07/09/24 15:45 AB (Rec: 07/09/24 17:10 AB [id number]) Orientation Orientation/Cognition Level of Alertness Alert Orientation Name,Place,Situation Language Function Ability Hard of Hearing Safety Awareness Decreased Safety Awareness Memory Description No Deficits Noted Gross Range of Motion Lower Extremity ROM Assessment Within Functional Limits Strength Lower Extremity Strength Assessment Within Functional Limits Sensation Assessment Sensation Sensation Description Numbness Comments Sensation Comments numbness on B feet Muscle Tone Muscle Tone WNL Yes M6 PT-IP Treatment Start: 07/09/24 16:51 Freq: NEEDED Status: Active Protocol: Document 07/10/24 11:33 MB (Rec: 07/10/24 11:51 MB [id number]) Physical Therapy Treatment Education Education Provided Safety M7 PT-IP Assessment and Plan Start: 07/09/24 16:51 Freq: NEEDED Status: Active Protocol: Document 07/10/24 11:33 MB (Rec: 07/10/24 11:51 MB [id number]) PT Summary Assessment and Plan Potential Rehabilitation Potential Fair Status of Condition at Evaluation Stable Summary Impairments Pain,Strength,Balance, Coordination,Sensation,Bed Mobility,Transfers,Gait, Activity Tolerance Progress Towards Goals Progressing Toward Goals Assessment Summary Pt is progressing with gait with cane today. He will d/c home with likely tomorrow and is agreeable to use his SPC at home if needed. Recommend with nsg superv. Goals Bed Mobility Goal Independent Transfer Goal Independent,Cane Gait Goal Independent,Cane Gait Distance 250 Other Goals improve ambulation without AD ~ 250 ft mod I Days to Meet Goals 10 Frequency of Treatment Frequency Of Treatment Once a Day Treatment Plan Physical Therapy Treatment Plan Bed Mobility Training,Transfer Training,Gait Training, Therapeutic Exercise,Balance Retraining,Discharge Planning, Hot or Cold Pack,Neuromuscular Re-ed,Coordination Retraining ,Manual Therapy Precautions Other Precautions falls Recommendations To Nursing Amount of Assist Needed 1 Person Assist Discharge Recommendations PT Discharge Recommendations Home with Assistance, Outpatient PT Transportation Needs at Discharge Private Vehicle
[2024-07-10] MEDS: CIPROFLOXACIN 400 MG/200 ML PIGGYBACK 200 MG IV ×2 (13:08→22:14)
--- NOTE | 2024-07-10 13:41 | CM.DPNOTE ---
DCP Cont Therapies recommending home w/assist with outpatient PT. Met w/patient to review discharge plan and discuss HH vs outpatient PT. Patient plans to follow up with the outpatient PT clinic down the street and feels he will not be homebound. Updated [facility] at [facility] , no need for HH at this time. SERGIO
[2024-07-10] MEDS: SODIUM CHLORIDE 0.9% 1,000 ML 100 ML IV (16:49)
[2024-07-10] MEDS: dilTIAZem CD 180 MG CAP PO (20:11)
[2024-07-11] VITALS (22 sets, daily range): BP systolic 161–179; BP diastolic 90–96; PULSE 83–105; RESP 10–31; TEMP 36.3–36.8; O2SAT 87–98
[2024-07-11] MEDS: metroNIDAZOLE 500 MG/100 ML PIGGYBACK 100 MG IV ×2 (00:57→09:26)
[2024-07-11 05:40] LABS: Add Manual Diff / Slide Review NO; Basophils Absolute Auto 100 /uL (0-100); Basophils Percent Auto 0.6 % (0-2); Eosinophils Absolute Auto 0 /uL (0-450); Eosinophils Percent Auto 0.1 % (2-4); Hematocrit 42.4 % (41-53); Hemoglobin 14.3 g/dL (13.5-17.5); Lymphocytes Absolute Auto 1500 /uL (1100-4500); Lymphocytes Percent Auto 8.5 % (25-40); Mean Corpuscular HGB Conc 33.8 % (30-36); Mean Corpuscular Hemoglobin 31.8 PG (26-34); Mean Corpuscular Volume 93.9 fL (80-100); Monocytes Absolute Auto 1200 /uL (0-900); Monocytes Percent Auto 6.9 % (3-14); Neutrophils Absolute Auto 15100 /uL (1500-7000); Neutrophils Percent Auto 83.9 % (50-75); Platelet Count 292 X10^3/uL (150-400); Red Blood Cell Count 4.51 X10^6/uL (4.5-5.9); Red Cell Distribution Width 14.9 % (11.6-14.8)
[2024-07-11 05:50] LABS: BUN Creatinine Ratio 21.9 (6-22); Blood Urea Nitrogen 23 mg/dL (9-20); Calcium 8.4 mg/dL (8.4-10.2); Carbon Dioxide 21 mmol/L (22-32); Chloride 110 mmol/L (98-107); Estimated Glomerular Filt Rate > 60 mL/min (>60); Glucose 100 mg/dL (80-110); HEMOLYSIS < 15 (0-50); Magnesium 2.1 mg/dL (1.6-2.3); Potassium 3.4 mmol/L (3.4-5.1); Sodium 138 mmol/L (137-145)
[2024-07-11] MEDS: predniSONE 20 MG TABLET 60 MG PO (09:26)
[2024-07-11] MEDS: SODIUM CHLORIDE 0.9% FLUSH 10 ML IV (09:26)
[2024-07-11] MEDS: dilTIAZem CD 180 MG CAP PO (09:26)
[2024-07-11] MEDS: carvediloL 12.5 MG TABLET 25 MG PO (09:26)
--- NOTE | 2024-07-11 09:34 | P.DS_ITS ---
History of Present Illness History of Present Illness Date Patient Seen: 07/11/24 Time Patient Seen: 09:34 Chief complaint: diverticulitis Narrative: 84 M with PMH of paroxysmal afib, BPH, SAY, HTN, HLD, ulcerative colitis on chronic mesalamine and diverticulitis in the past. He has had a recurrence of lower abdominal pain for the past two days but has had symptoms on and off for months. Recently finished antibiotics by PCP, he was subsequently given 1 day of cipro/flagyl but had continued pain and last night he was dizzy and falling. He has been trying to stay on a liquid diet per the recommendation of his provider care team recently. Denied diarrhea, BRBPR or melena. No fever, chills, cough, dyspnea, LE edema, rash. Denies weight loss. In the ER, patient was being moved upstairs and had a syncopal episode with moving to the bed. EKG unremarkable and received 1L bolus. WBC elevated at 14.2. CT showing evidence of progressive diverticulitis with small abscess. Cr elevated at 1.33, along with bilirubin at 1.7. SOFA score 2. Admitted for further management and evaluation. Discharge Providers Provider Date of admission: 07/08/24 12:18 Discharge Date: 07/11/24 Primary care physician: Elda Lawson DO Consults: 07/09/24 14:00 Consult to Physical Therapy Evaluate & Treat Comment: balance issues at baseline Physician Instructions: Evaluate and Treat 07/09/24 14:23 Consult to Home Health Routine Comment: Balance issues, sepsis, diverticulitis Reason For Exam: Set up PT for d/c to home when stable. Discharge provider: Gwyn Mary DO Summary Hospital Course Discharge Diagnosis: 1. Sepsis with Elevated bilirubin, elevated creatinine secondary to Acute colitis, possible diverticulitis and/or flare of ulcerative colitis 2. paroxysmal atrial fibrillation with slow ventricular response 3. Orthostatic hypotension / syncope 4. Elevated creatinine Hospital Course: This is an 84 year old male with PMH of ulcerative colitis, paroxysmal atrial fibrilliation who presented with recurrent lower abdominal pain. In the ER just prior to admission to the floor he had orthostatic hypotension and syncope. He was started on fluids with improvement in orthostatics. He had been recently on multiple rounds of IV antibiotics with progressive symptoms. CT scan showed a possible small abscess, with colitis. He had evidence of sepsis with elevated bilirubin and creatinine on admission. He was started on antibiotics, fluids, but also 60 mg of prednisone for possible UC flare given his history and failure of antibiotic therapy despite no diarrhea, or hematochezia or melena. Within a couple of days his abdominal pain had markedly improved. His WBC did increase initially but this was likely due to steroids as he clinically improved quickly. He was discharged on 2 weeks of oral prednisone for possible UC flare, as well as antibiotics given the possible abscess on CT. Initially his HR was a bit slow, his home dilt and beta emy were held but restarted prior to discharge. He is not on anticoagulation, recommend re-evaluation as an outpatient with primary care provider. I recommend he re-establish with GI provider as well as PCP in the next few weeks to discuss steroid taper after these 2 weeks assuming no ongoing symptoms as well as consideration for colonoscopy after resolution of this acute inflammation. Time Spent with Patient Time spent: Greater than 30 minutes Exam Vital Signs (past 8 hours): - 07/11/24 02:00 07/11/24 02:30 07/11/24 03:00 Temperature Pulse Rate 83 88 91 H Respiratory Rate 15 19 16 Blood Pressure Pulse Oximetry Oxygen Flow Rate 07/11/24 03:30 07/11/24 04:00 07/11/24 04:00 Temperature 97.3 F L Pulse Rate 86 98 H 93 H Respiratory Rate 18 18 19 Blood Pressure 170/96 H Pulse Oximetry 96 Oxygen Flow Rate 0 07/11/24 04:14 07/11/24 04:14 07/11/24 04:30 Temperature Pulse Rate 94 H 87 Respiratory Rate 27 H 18 Blood Pressure 170/96 H Pulse Oximetry 96 Oxygen Flow Rate 07/11/24 05:00 07/11/24 05:30 07/11/24 06:00 Temperature Pulse Rate 91 H 95 H 97 H Respiratory Rate 14 17 16 Blood Pressure Pulse Oximetry Oxygen Flow Rate 07/11/24 06:30 07/11/24 07:00 07/11/24 07:30 Temperature Pulse Rate 93 H 93 H 96 H Respiratory Rate 16 19 21 Blood Pressure Pulse Oximetry Oxygen Flow Rate 07/11/24 08:00 07/11/24 08:05 07/11/24 08:05 Temperature Pulse Rate 95 H 92 H Respiratory Rate 25 H 29 H Blood Pressure 178/95 H Pulse Oximetry 87 L Oxygen Flow Rate 07/11/24 08:30 07/11/24 09:00 07/11/24 09:26 Temperature Pulse Rate 96 H 105 H 95 H Respiratory Rate 16 22 Blood Pressure 179/95 H Pulse Oximetry Oxygen Flow Rate Oxygen Delivery Method Room Air Oxygen Flow Rate 0 Narrative Exam Narrative: Energetic, alert, oriented x3. No apparent distress Heart is regular rate and rhythm without murmur Lungs are clear to auscultation bilaterally Abdomen is soft, bowel sounds positive, no organomegaly, very mild left lower abdominal tenderness. Extremities have no ankle edema Objective Labs 07/11/24 04:10 07/11/24 04:10 Labs: Laboratory Results - last 24 hr 07/11/24 04:10 WBC 18.0 H RBC 4.51 Hgb 14.3 Hct 42.4 MCV 93.9 MCH 31.8 MCHC 33.8 RDW 14.9 H Plt Count 292 Neut % (Auto) 83.9 H Lymph % (Auto) 8.5 L [place] % (Auto) 6.9 Eos % (Auto) 0.1 L Baso % (Auto) 0.6 Neut # (Auto) 77074 H Lymph # (Auto) 1500 [place] # (Auto) 1200 H Eos # (Auto) 0 Baso # (Auto) 100 Sodium 138 Potassium 3.4 Chloride 110 H Carbon Dioxide 21 L BUN 23 H Creatinine 1.05 Estimated GFR > 60 BUN/Creatinine Ratio 21.9 Glucose 100 Calcium 8.4 Magnesium 2.1 PFSH Medical History (Updated 07/08/24 @ 17:11 by Gwyn Mary DO) Ulcerative colitis BPH (benign prostatic hyperplasia) Gout Snoring Periodic limb movement disorder (PLMD) Obstructive sleep apnea, adult (~04/22/20) 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) 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 medical condition Excessive daytime sleepiness (~2019) Hyperlipidemia Essential hypertension (Unknown) Sepsis Colitis (~2018) Blepharophimosis unspecified eye, unspecified lid A-fib Family History Father Loud snoring Hypertension Mother Hypertension Social History marital status: details: lives in [place] household members: spouse lives independently: Yes caregiver/support person: No housing: house Smoking Status: Former smoker alcohol intake: current Discharge Plan Discharge Plan Patient Disposition: Home Provider Discharge Comment: You were admitted to the hospital with either worsening diverticulitis or UC flare. Please finish the antibiotics already prescribed at home. Continue prednisone at this dose for another 2 weeks. You will need to see either PCP or GI provider for continued taper prior to the completion of the steroids (in 2 weeks). Discharge orders & Medications Prescriptions: New prednisone 20 mg tablet 60 mg PO DAILY 14 Days Qty: 42 0RF Continued diltiazem HCl 180 mg capsule,extended release 24 hr 180 mg PO BID Qty: 180 1RF carvedilol [Coreg] 25 mg tablet 25 mg PO BEDTIME carvedilol [Coreg] 12.5 mg tablet 12.5 mg PO DAILY Aspir-Low 81 mg PO DAILY indomethacin 25 mg capsule 25 mg PO TID Qty: 10 0RF Rx Instructions: administer with food or milk mesalamine 1.2 gram tablet,delayed release (DR/EC) 3.6 g PO DAILY metronidazole 500 mg tablet 500 mg PO 3XD ciprofloxacin HCl 500 mg tablet 500 mg PO BID Follow up/Referrals: Elda Lawson DO [Primary Care Provider] - Diet/Activity/Treatments Diet: Diet as Tolerated and Regular Activity: As tolerated, no restrictions. Visit Report/Discharge Packet Instructions: DI for Ulcerative Colitis Stand Alone Forms: Patient Portal/API, Stroke Signs & Symptoms Discharge Data Primary Care Provider: Elda Lawson Quality VTE Deep Vein Thrombosis/Pulmonary Embolism Present on Admission: No
--- NOTE | 2024-07-11 13:53 | CM.DPC ---
DCP Discharge Home Per MD, pt's symptoms seem to have resolved and likely due to a flare of his ulcerative colitis and medically stable to d/c home with no identified barriers to discharge. Per PT, continue to recommending d/c home with spouse and outpt PT, no HH needed at this time. Per RN, discharge instructions provided and spouse bedside to provide transport home and no concerns noted. Plan: Patient to discharge home today via spouse POV and outpt f/u for PT and PCP. No further SW needs at this time. MAYCOL Donis
== END 2024-07-11 12:07 | disposition home or self-care (01) | DRG 872 ==
LOC: ED 12:18 → AC 12:19 → ICU 12:24
PROVIDERS: Admitting Provider Internal Medicine; Emergency Provider Emergency Medicine; PCP Family Medicine; Referring Provider Emergency Medicine; Visit Provider Internal Medicine
DX: A41.9 Sepsis, unspecified organism (principal); K57.32 Diverticulitis of large intestine without perforation or abscess without bleeding; K51.90 Ulcerative colitis, unspecified, without complications; K52.9 Noninfective gastroenteritis and colitis, unspecified; E80.6 Other disorders of bilirubin metabolism; I48.0 Paroxysmal atrial fibrillation; I10 Essential (primary) hypertension; I95.9 Hypotension, unspecified; Z66 Do not resuscitate; Z87.891 Personal history of nicotine dependence
CPT/HCPCS: 36415; 74177; 80048; 80053; 81001; 83605; 83735; 85025; 85651; 86140; 87797; 93005; 96365; 96367; 96375; 97116; 97161; 97530; 99284; 99285; J0744; J1650; J2270; J2405; Q9967

== ENCOUNTER 2024-08-19 12:34 | Observation (INO) | payer MEDICARE, SELFPAY ==
[2024-07-12 11:53] VITALS: BMI 28.0
[2024-08-19] VITALS (81 sets, daily range): BP systolic 88–171; BP diastolic 50–115; PULSE 94–163; RESP 7–31; TEMP 36.7; O2SAT 88–98; BMI 26.4; BMI 26.9
--- NOTE | 2024-08-19 12:43 | EKG_ITS ---
[facility] [id number] [place] [address] Test Date: 2024-08-19 Pat Name: Dustin Mendez Department: [facility] Room: Gender: Male Routeman: KASEY : 1940 Requested By: Order Number: [id number] Reading MD: Mian Giordano MD Measurements Intervals [place] Rate: 117 P: AL: QRS: -24 QRSD: 120 T: 14 QT: 376 QTc: 524 Interpretive Statements Atrial fibrillation with rapid ventricular response Right bundle branch block NO SIGNIFICANT CHANGE FROM PRIOR TRACING Electronically Signed On 08-20-2024 17:36:21 PDT by Mian Giordano MD
--- NOTE | 2024-08-19 12:43 | DI.RAD.S_ITS ---
PROCEDURE: XR CHEST 1V INDICATIONS: chest pain TECHNIQUE: One view of the chest was acquired. COMPARISON: [facility], CR, XR CHEST 1V, 09/18/2019, 10:59. FINDINGS: Surgical changes and devices: None. Lungs and pleura: Lungs are clear. No pleural effusions or pneumothorax. Mediastinum: Mediastinal contours appear normal. Heart size is normal. Bones and chest wall: No suspicious bony lesions. Overlying soft tissues appear unremarkable. IMPRESSION: No acute pulmonary process. Dictated by: Yesika Banda M.D. on 08/19/2024 at 13:42 Approved by: Yesika Banda M.D. on 08/19/2024 at 13:42
--- NOTE | 2024-08-19 12:59 | ED_ITS ---
HPI - Arrhythmia/Palpitations General Chief Complaint: Arrhythmia/Palpitations Stated Complaint: Afib w/RVR Time Seen by Provider: 08/19/24 12:42 History of Present Illness HPI narrative: 84-year-old male with history of recurrent diverticulitis problems, was scheduled today for elective hemicolectomy surgery, at pre area here noted to have atrial fibrillation with rapid ventricular response, he has not seem to be symptomatic, was not aware that he was having fast heart rate, no sensation of palpitations, no shortness a breath or chest pain, no dizziness or syncope or presyncope symptoms. He had not been on a chronic blood thinner medications, not taking any morning medications including his 25 mg carvedilol dose. No fevers or chills. No recent diarrhea. No recent black or red stools. He has not had any abdominal discomfort. Related Data Home Medications Medication Instructions Recorded Confirmed carvedilol 12.5 mg tablet (Coreg) 12.5 mg PO DAILY 08/21/21 08/19/24 carvedilol 25 mg tablet (Coreg) 25 mg PO BEDTIME 08/21/21 08/19/24 mesalamine 1.2 gram tablet,delayed 3.6 g PO DAILY 07/08/24 08/19/24 release aspirin 81 mg capsule 81 mg PO DAILY 08/12/24 08/19/24 doxycycline monohydrate 100 mg 100 mg PO BID 08/12/24 08/19/24 tablet metronidazole 500 mg tablet 500 mg PO TID 08/19/24 08/19/24 Previous Rx's Medication Instructions Recorded diltiazem HCl 180 mg capsule,24 180 mg PO BID #180 caps 06/10/24 hr,extended release neomycin 500 mg tablet 1 g (2 x 500 mg) PO TID 3 doses #6 08/05/24 tabs ciprofloxacin HCl 500 mg tablet 500 mg PO BID #14 tabs 08/09/24 indomethacin 50 mg capsule 50 mg PO TID #30 caps 08/18/24 Allergies Allergy/AdvReac Type Severity Reaction Status Date / Time Sulfa (Sulfonamide Allergy Intermediate red spots Verified 08/12/24 14:01 Antibiotics) Review of Systems Review of Systems Narrative: see HPI Patient History Medical History BPH (benign prostatic hyperplasia) Gout Snoring Periodic limb movement disorder (PLMD) Obstructive sleep apnea, adult (~04/22/20) 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) 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 medical condition Excessive daytime sleepiness (~2019) Hyperlipidemia Essential hypertension (Unknown) Sepsis Colitis (~2018) Blepharophimosis unspecified eye, unspecified lid A-fib Surgical History History of tonsillectomy History of colonoscopy Family History Father Loud snoring Hypertension Mother Hypertension Social History marital status: details: lives in [place] household members: spouse lives independently: Yes caregiver/support person: No housing: house Smoking Status: Former smoker alcohol intake: former substance use type: does not use Smoking Status: Former smoker alcohol intake frequency: 0-2 drinks per day Substance Use Type: does not use Exam Narrative Exam Narrative: GENERAL: Well-developed patient, in mild distress. HEAD: Atraumatic. Normocephalic. EYES: Pupils equal round and reactive. Extraocular motions intact. No scleral icterus. No injection or drainage. ENT: Nose without bleeding, purulent drainage. Throat without erythema, tonsillar hypertrophy or exudate. Airway patent. NECK: Trachea midline. Non tender CARDIOVASCULAR: Fast rate, irregularly irregular rhythm, without murmurs, gallops, or rubs. RESPIRATORY: Clear to auscultation. Breath sounds equal bilaterally. No wheezes, rales, or rhonchi. GASTROINTESTINAL: Abdomen soft, non-tender, nondistended. EXTREMITIES: No edema or joint tenderness. BACK: Nontender without deformity or crepitance. No flank tenderness. NEURO: AOx3. Motor functions grossly nonfocal SKIN: No rash or erythema of visible areas Initial Vital Signs Initial Vital Signs: Vital Signs Pulse Rate 142 H 08/19/24 12:43 Respiratory Rate 23 08/19/24 12:43 Pulse Oximetry 97 08/19/24 12:43 Course Orders Ordered: ED Orders 08/19/24 12:43 XR chest 1V Stat EKG-12 Lead Stat 08/19/24 12:44 Complete Blood Count AUTO DIFF Stat Comprehensive Metabolic Panel Stat Lipase Stat Magnesium Stat Troponin & CK Cardiac Panel Stat 08/19/24 14:45 Troponin I Stat Acetaminophen (Acetaminophen 325 Mg Tablet) 650 mg PO Q6H PRN PRN Reason: Fever/Mild Pain (1-3) Aspirin (Aspirin 81 Mg Chew Tab) 81 mg PO DAILY JASMINA Carvedilol (Carvedilol 12.5 Mg Tablet) 25 mg PO BEDTIME JASMINA Carvedilol (Carvedilol 12.5 Mg Tablet) 12.5 mg PO DAILY JASMINA Diltiazem HCl (Diltiazem Cd 180 Mg Cap) 180 mg PO BID JASMINA Enoxaparin Sodium (Enoxaparin 40 Mg/0.4 Ml Syringe) 40 mg SUBCUT DAILY JASMINA Diltiazem HCl 125 mg/ Sodium (Chloride) 125 mls @ 5 mls/hr IV TITRATE JASMINA; Protocol Last Titration: 08/19/24 19:49 Dose: 15 mg/hr, 15 mls/hr Documented By: Titration: 08/19/24 19:32 Dose: 12.5 mg/hr, 12.5 mls/hr Documented By: Titration: 08/19/24 19:15 Dose: 10 mg/hr, 10 mls/hr Documented By: Titration: 08/19/24 18:55 Dose: 7.5 mg/hr, 7.5 mls/hr Documented By: Admin: 08/19/24 18:35 Dose: 5 mg/hr, 5 mls/hr Documented By: DYLON Naloxone HCl (Naloxone 0.4 Mg/Ml Vial) 0.2 mg IV Q2MIN PRN PRN Reason: Opiate Reversal Ondansetron HCl (Ondansetron 4 Mg/2 Ml Inj) 4 mg IV Q8HR PRN PRN Reason: Nausea And Vomiting Discontinued Medications Carvedilol (Carvedilol 12.5 Mg Tablet) 25 mg PO NOW ONE Stop: 08/19/24 13:25 Last Admin: 08/19/24 13:29 Dose: 25 mg Documented By: DYLON Sodium Chloride (Normal Saline 0.9%) 1,000 mls @ 250 mls/hr IV BOLUS ONE Stop: 08/19/24 16:42 Last Infusion: 08/19/24 15:48 Dose: Infused Documented By: Infusion: 08/19/24 15:12 Dose: 1,000 mls/hr Documented By: Admin: 08/19/24 13:15 Dose: 250 mls/hr Documented By: DYLON Sodium Chloride (Normal Saline 0.9%) 1,000 mls @ 500 mls/hr IV BOLUS ONE Stop: 08/19/24 17:35 Last Infusion: 08/19/24 17:18 Dose: Infused Documented By: Infusion: 08/19/24 16:15 Dose: 1,000 mls/hr Documented By: Admin: 08/19/24 15:49 Dose: 500 mls/hr Documented By: DYLON Sodium Chloride (Normal Saline 0.9%) 1,000 mls @ 1,000 mls/hr IV BOLUS ONE Stop: 08/19/24 16:40 Last Admin: 08/19/24 15:57 Dose: Not Given Documented By: DYLON Metoprolol Tartrate (Metoprolol Tartrate 5 Mg/5 Ml Inj) 5 mg IV NOW ONE Stop: 08/19/24 13:01 Last Admin: 08/19/24 13:10 Dose: 5 mg Documented By: DYLON Metoprolol Tartrate (Metoprolol Tartrate 5 Mg/5 Ml Inj) 5 mg IV Q5M JASMINA Stop: 08/19/24 13:31 Last Admin: 08/19/24 16:19 Dose: Not Given Documented By: Admin: 08/19/24 16:19 Dose: 5 mg Documented By: DYLON Vital Signs Vital signs: Vital Signs - 8 hr 08/19/24 13:20 08/19/24 13:20 08/19/24 13:25 Pulse Rate 115 H 116 H Respiratory Rate 23 23 Blood Pressure 152/74 H Pulse Oximetry 97 97 Oxygen Delivery Method 08/19/24 13:25 08/19/24 13:29 08/19/24 13:30 Pulse Rate 116 H Respiratory Rate Blood Pressure 157/79 H 157/79 H 161/76 H Pulse Oximetry Oxygen Delivery Method 08/19/24 13:30 08/19/24 13:45 08/19/24 13:45 Pulse Rate 123 H 120 H Respiratory Rate 24 21 Blood Pressure 156/83 H Pulse Oximetry 98 98 Oxygen Delivery Method 08/19/24 14:00 08/19/24 14:00 08/19/24 14:15 Pulse Rate 127 H 111 H Respiratory Rate 22 16 Blood Pressure 139/78 Pulse Oximetry 98 96 Oxygen Delivery Method 08/19/24 14:15 08/19/24 14:30 08/19/24 14:30 Pulse Rate 110 H Respiratory Rate 17 Blood Pressure 108/73 114/62 Pulse Oximetry 95 Oxygen Delivery Method 08/19/24 14:45 08/19/24 14:45 08/19/24 15:00 Pulse Rate 114 H Respiratory Rate 23 Blood Pressure 109/59 L 92/57 L Pulse Oximetry 97 Oxygen Delivery Method 08/19/24 15:00 08/19/24 15:11 08/19/24 15:11 Pulse Rate 127 H 118 H Respiratory Rate 19 17 Blood Pressure 88/52 L Pulse Oximetry 95 95 Oxygen Delivery Method 08/19/24 15:15 08/19/24 15:15 08/19/24 15:30 Pulse Rate 114 H 117 H Respiratory Rate 21 20 Blood Pressure 90/50 L Pulse Oximetry 95 96 Oxygen Delivery Method 08/19/24 15:30 08/19/24 15:45 08/19/24 15:52 Pulse Rate 123 H 138 H Respiratory Rate 25 H 25 H Blood Pressure 93/51 L Pulse Oximetry 96 Oxygen Delivery Method Room Air 08/19/24 15:52 08/19/24 16:00 08/19/24 16:00 Pulse Rate 124 H Respiratory Rate 24 Blood Pressure 120/69 130/58 L Pulse Oximetry 93 Oxygen Delivery Method 08/19/24 16:15 08/19/24 16:15 08/19/24 16:30 Pulse Rate 122 H 120 H Respiratory Rate 21 19 Blood Pressure 118/79 Pulse Oximetry 98 96 Oxygen Delivery Method 08/19/24 16:30 08/19/24 16:45 08/19/24 17:00 Pulse Rate 119 H 118 H Respiratory Rate 20 16 Blood Pressure 126/67 Pulse Oximetry 98 96 Oxygen Delivery Method 08/19/24 17:00 08/19/24 17:15 08/19/24 17:30 Pulse Rate 142 H Respiratory Rate 24 Blood Pressure 138/74 155/87 H Pulse Oximetry Oxygen Delivery Method 08/19/24 17:30 08/19/24 17:45 08/19/24 18:00 Pulse Rate 163 H 136 H 137 H Respiratory Rate 21 23 20 Blood Pressure Pulse Oximetry 97 96 97 Oxygen Delivery Method 08/19/24 18:01 08/19/24 18:01 08/19/24 18:15 Pulse Rate 137 H 152 H Respiratory Rate 24 22 Blood Pressure 129/60 Pulse Oximetry 96 95 Oxygen Delivery Method 08/19/24 18:30 08/19/24 18:30 08/19/24 18:35 Pulse Rate 131 H 131 H Respiratory Rate 24 Blood Pressure 135/79 129/60 Pulse Oximetry 95 Oxygen Delivery Method 08/19/24 18:35 08/19/24 18:35 08/19/24 18:45 Pulse Rate 128 H 145 H Respiratory Rate 22 22 Blood Pressure 140/79 Pulse Oximetry 94 93 Oxygen Delivery Method 08/19/24 18:45 08/19/24 18:50 08/19/24 18:55 Pulse Rate 144 H 135 H Respiratory Rate 22 22 Blood Pressure 152/77 H 139/63 Pulse Oximetry 92 95 Oxygen Delivery Method 08/19/24 18:56 08/19/24 18:56 Pulse Rate 133 H Respiratory Rate 19 Blood Pressure 139/63 Pulse Oximetry 94 Oxygen Delivery Method MDM - Arrhythmia/Palpitations Lab Data Attestation: I reviewed the patient's lab results. 08/19/24 12:44 08/19/24 12:44 Labs: Lab Results 08/19/24 08/19/24 Range/Units 12:44 14:45 WBC 14.1 H (4.5-11.0) X10^3/uL RBC 4.94 (4.5-5.9) X10^6/uL Hgb 15.6 (13.5-17.5) g/dL Hct 44.9 (41-53) % MCV 90.7 (80-100) fL MCH 31.6 (26-34) PG MCHC 34.8 (30-36) % RDW 14.6 (11.6-14.8) % Plt Count 460 H (150-400) X10^3/uL Neut % (Auto) 76.4 H (50-75) % Lymph % (Auto) 10.1 L (25-40) % [place] % (Auto) 12.2 (3-14) % Eos % (Auto) 0.4 L (2-4) % Baso % (Auto) 0.9 (0-2) % Neut # (Auto) 77623 H (2246-4190) /uL Lymph # (Auto) 1400 (6326-7179) /uL [place] # (Auto) 1700 H (0-900) /uL Eos # (Auto) 100 (0-450) /uL Baso # (Auto) 100 (0-100) /uL Sodium 133 L (137-145) mmol/L Potassium 3.4 (3.4-5.1) mmol/L Chloride 101 (98-107) mmol/L Carbon Dioxide 24 (22-32) mmol/L BUN 24 H (9-20) mg/dL Creatinine 1.95 H (0.66-1.25) mg/dL Estimated GFR 34 L (>60) mL/min BUN/Creatinine Ratio 12.3 (6-22) Glucose 87 (80-110) mg/dL Calcium 8.7 (8.4-10.2) mg/dL Magnesium 2.1 (1.6-2.3) mg/dL Total Bilirubin 1.0 (0.2-1.3) mg/dL AST 25 (17-59) IU/L ALT 25 (<50) IU/L Alkaline Phosphatase 69 (38-126) U/L Total Creatine Kinase 168 (55-170) U/L Troponin I 0.021 0.016 (0.01-0.034) ng/mL Total Protein 6.9 (6.3-8.2) g/dL Albumin 3.5 (3.5-5.0) g/dL Globulin 3.4 (1.7-4.1) g/dL Albumin/Globulin Ratio 1.0 (1.0-2.8) Lipase 67 (23-300) U/L Imaging Data Chest x-ray: Radiologist's Impresson: [address] [address] XRay Report Signed Patient: Dustin Mendez MR#: [id number] : 1940 Acct:[id number] Age/Sex: 84 / M Date of Service: 08/19/24 Loc: ED Accession Number: [id number] Procedure: XR chest 1V Ordering Provider: Davion Rivera MD PROCEDURE: XR CHEST 1V INDICATIONS: chest pain TECHNIQUE: One view of the chest was acquired. COMPARISON: [facility], , XR CHEST 1V, 09/18/2019, 10:59. FINDINGS: Surgical changes and devices: None. Lungs and pleura: Lungs are clear. No pleural effusions or pneumothorax. Mediastinum: Mediastinal contours appear normal. Heart size is normal. Bones and chest wall: No suspicious bony lesions. Overlying soft tissues appear unremarkable. IMPRESSION: No acute pulmonary process. Dictated by: Yesika Banda M.D. on 08/19/2024 at 13:42 Approved by: Yesika Banda M.D. on 08/19/2024 at 13:42 ECG Data Attestation: I personally reviewed and interpreted this ECG as follows: Interpretation: 1125, atrial fibrillation with rapid ventricular response 142 beats per minute noted, no obvious ST segment elevation depression changes, limited by right bundle branch block pattern. QRS 120, QTC 523. 1457, atrial fibrillation with ventricular response rate 117 beats per minute decreased, no obvious ST segment elevation or depression changes. Right bundle branch block again noted. QRS 120, QTC 524. MDM Narrative Medical decision making narrative: 84-year-old male with history of atrial fibrillation, not on anticoagulation, came to preop area today for elective hemicolectomy surgery due to problematic region of returned diverticulitis, no colon cancers, noted in PACU to have atrial fibrillation present with vascular ventricular response 140s, normotensive, alert, no stroke symptoms obvious, no fever. Here for rate control and further evaluation. He had not taken his morning carvedilol dose as he had been NPO for the procedure. He reiterated that he has not taking blood thinner medications. EKG and director cardiac show atrial fibrillation with rapid ventricular response 140-150 range, no obvious ischemic changes. Systolic blood pressure 160 noted. He is on carvedilol regularly. We will use beta- emy glass for now. IV metoprolol 5 mg Q 10-15 minutes up to 3 doses to attempt rate control. IV metoprolol 5 mg 1st dose given, improvement in ventricular response rate 140s to 100-120 range. We will give oral carvedilol 25 mg dose, await labs including 1st troponin. We will check interval troponin. We will monitor for rate control. Soft blood pressure, IV fluid bolus given, AFib ventricular response rate 120s, consider admission. Case discussed with hospitalist Dr. Hebert, advice further fluid and repeat IV metoprolol dosing. Blood pressure seems to be improved with IV fluids, additional IV metoprolol given, however patient unfortunately has persistent rapid ventricular response AFib, 120s. We will start IV diltiazem infusion. Consider admission. Case again discussed with hospitalist Dr. Viera, accepts patient for admission to observation Critical Care Time Critical Care Time Total Critical Care Time: 35 Attestation: The high probability of a clinically significant, sudden or life threatening deterioration of the [cardiovascular] system(s) required my full and direct attention, intervention and personal management. The aggregate critical care time was [35] minutes. This time is in addition to time spent performing reported procedures but includes the following: [x] Data Review and interpretation [x] Patient assessment and monitoring of vital signs [x] Documentation [x] Medication orders and management Discharge Plan Departure Patient Disposition: Admitted as Observation Clinical Impression: Atrial fibrillation with rapid ventricular response, History of atrial fibrillation Admit Date/Time: 08/19/24 18:57 Admit Provider: Kirk Hebert
[2024-08-19 13:04] LABS: Alanine Aminotransferase 25 IU/L (<50); Albumin 3.5 g/dL (3.5-5.0); Alkaline Phosphatase 69 U/L (38-126); Aspartate Aminotransferase 25 IU/L (17-59); BUN Creatinine Ratio 12.3 (6-22); Blood Urea Nitrogen 24 mg/dL (9-20); Calcium 8.7 mg/dL (8.4-10.2); Carbon Dioxide 24 mmol/L (22-32); Chloride 101 mmol/L (98-107); Creatine Kinase 168 U/L (55-170); Estimated Glomerular Filt Rate 34 mL/min (>60); Globulin 3.4 g/dL (1.7-4.1); Glucose 87 mg/dL (80-110); HEMOLYSIS < 15 (0-50); Lipase 67 U/L (23-300); Potassium 3.4 mmol/L (3.4-5.1); Sodium 133 mmol/L (137-145); Total Protein 6.9 g/dL (6.3-8.2)
[2024-08-19 13:06] LABS: Add Manual Diff / Slide Review NO; Basophils Absolute Auto 100 /uL (0-100); Basophils Percent Auto 0.9 % (0-2); Eosinophils Absolute Auto 100 /uL (0-450); Eosinophils Percent Auto 0.4 % (2-4); Hematocrit 44.9 % (41-53); Hemoglobin 15.6 g/dL (13.5-17.5); Lymphocytes Absolute Auto 1400 /uL (1100-4500); Lymphocytes Percent Auto 10.1 % (25-40); Mean Corpuscular HGB Conc 34.8 % (30-36); Mean Corpuscular Hemoglobin 31.6 PG (26-34); Mean Corpuscular Volume 90.7 fL (80-100); Monocytes Absolute Auto 1700 /uL (0-900); Monocytes Percent Auto 12.2 % (3-14); Neutrophils Absolute Auto 10800 /uL (1500-7000); Neutrophils Percent Auto 76.4 % (50-75); Platelet Count 460 X10^3/uL (150-400); Red Blood Cell Count 4.94 X10^6/uL (4.5-5.9); Red Cell Distribution Width 14.6 % (11.6-14.8); White Blood Cell Count 14.1 X10^3/uL (4.5-11.0)
[2024-08-19] MEDS: METOPROLOL TARTRATE 5 MG/5 ML INJ IV ×2 (13:10→16:19)
[2024-08-19] MEDS: SODIUM CHLORIDE 0.9% 1,000 ML 250 ML IV (13:15)
[2024-08-19 13:17] LABS: Troponin I 0.021 ng/mL (0.01-0.034)
[2024-08-19 13:29] LABS: Magnesium 2.1 mg/dL (1.6-2.3)
[2024-08-19] MEDS: carvediloL 12.5 MG TABLET 25 MG PO (13:29)
--- NOTE | 2024-08-19 13:32 | PC.NURSE ---
Patients A Fib improved from dose # 1 IV Metoprolol with Rate decreased and sustained to 110's to 120's with improvement in BP. See VS on Flowsheet. Oral Carvedilol given per MD orders.
--- NOTE | 2024-08-19 15:13 | PC.NURSE ---
Increased NS infusion rate to 1000ml/hr to complete 1L NS bag infusing, NIBP monitoring set to q 15 minutes. Patient is hypotensive SBP 80's-90's MD aware and verbal orders given for NS infusion at faster rate.
[2024-08-19 15:24] LABS: Troponin I 0.016 ng/mL (0.01-0.034)
[2024-08-19] MEDS: SODIUM CHLORIDE 0.9% 1,000 ML 500 ML IV (15:49)
--- NOTE | 2024-08-19 18:33 | P.HP_ITS ---
History of Present Illness History of Present Illness Date Patient Seen: 08/19/24 Time Patient Seen: 18:33 Chief complaint: Afib w/RVR Narrative: The patient was a 84-year-old male who was scheduled for an elective hemicolectomy for recurrent diverticulitis today. He presented to preop clinic and was found to be in atrial fibrillation with RVR. He believes he might have skipped his medicines for 2 days. He denies palpitations, dyspnea, or chest pain. He was chronic AFib for the last 10 years and does not take anticoagulation. He was given metoprolol IV for several doses as well as oral metoprolol but failed to improve. He was also given a L of fluid followed by a 2 L with no improvement. The patient was felt to be volume depleted. The patient failed to have good rate control she will be admitted for observation and a diltiazem drip was started just before this decision was made. He denies any abdominal ,pain nausea, vomiting. He also denies recent fevers, or chills. No URI symptoms. 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) 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 medical condition Excessive daytime sleepiness (~2019) Hyperlipidemia Essential hypertension (Unknown) Sepsis Colitis (~2018) Blepharophimosis unspecified eye, unspecified lid A-fib Surgical History History of tonsillectomy History of colonoscopy Family History Father Loud snoring Hypertension Mother Hypertension Social History marital status: details: lives in [place] household members: spouse lives independently: Yes caregiver/support person: No housing: house Smoking Status: Former smoker alcohol intake: former substance use type: does not use Meds Home Medications and Allergies Home Medications Medication Instructions Recorded Confirmed Type carvedilol 12.5 mg tablet (Coreg) 12.5 mg PO DAILY 08/21/21 08/19/24 History carvedilol 25 mg tablet (Coreg) 25 mg PO BEDTIME 08/21/21 08/19/24 History diltiazem HCl 180 mg capsule,24 180 mg PO BID #180 caps 06/10/24 08/19/24 Rx hr,extended release mesalamine 1.2 gram tablet,delayed 3.6 g PO DAILY 07/08/24 08/19/24 History release neomycin 500 mg tablet 1 g (2 x 500 mg) PO TID 3 doses #6 08/05/24 08/12/24 Rx tabs ciprofloxacin HCl 500 mg tablet 500 mg PO BID #14 tabs 08/09/24 08/12/24 Rx aspirin 81 mg capsule 81 mg PO DAILY 08/12/24 08/19/24 History doxycycline monohydrate 100 mg 100 mg PO BID 08/12/24 08/12/24 History tablet indomethacin 50 mg capsule 50 mg PO TID #30 caps 08/18/24 08/19/24 Rx metronidazole 500 mg tablet 500 mg PO TID 08/19/24 08/19/24 History Allergies Allergy/AdvReac Type Severity Reaction Status Date / Time Sulfa (Sulfonamide Allergy Intermediate red spots Verified 08/12/24 14:01 Antibiotics) Review of Systems Review of Systems Narrative: All else reviewed and otherwise unremarkable except as noted in the history and physical. Exam Vital Signs (past 8 hours): - 08/19/24 12:43 08/19/24 12:45 08/19/24 12:46 Temperature 98.1 F Pulse Rate 142 H 142 H 145 H Respiratory Rate 23 24 18 Blood Pressure 167/101 H Pulse Oximetry 97 97 98 Oxygen Delivery Method Room Air 08/19/24 12:50 08/19/24 12:55 08/19/24 13:00 Temperature Pulse Rate 137 H 136 H 140 H Respiratory Rate 22 21 20 Blood Pressure Pulse Oximetry 97 97 96 Oxygen Delivery Method 08/19/24 13:01 08/19/24 13:01 08/19/24 13:05 Temperature Pulse Rate 140 H 145 H Respiratory Rate 20 25 H Blood Pressure 167/115 H Pulse Oximetry 96 97 Oxygen Delivery Method 08/19/24 13:10 08/19/24 13:10 08/19/24 13:15 Temperature Pulse Rate 136 H Respiratory Rate 25 H Blood Pressure 151/99 H 161/72 H Pulse Oximetry 97 Oxygen Delivery Method 08/19/24 13:15 08/19/24 13:20 08/19/24 13:20 Temperature Pulse Rate 124 H 115 H Respiratory Rate 21 23 Blood Pressure 152/74 H Pulse Oximetry 98 97 Oxygen Delivery Method 08/19/24 13:25 08/19/24 13:25 08/19/24 13:29 Temperature Pulse Rate 116 H 116 H Respiratory Rate 23 Blood Pressure 157/79 H 157/79 H Pulse Oximetry 97 Oxygen Delivery Method 08/19/24 13:30 08/19/24 13:30 08/19/24 13:45 Temperature Pulse Rate 123 H 120 H Respiratory Rate 24 21 Blood Pressure 161/76 H Pulse Oximetry 98 98 Oxygen Delivery Method 08/19/24 13:45 08/19/24 14:00 08/19/24 14:00 Temperature Pulse Rate 127 H Respiratory Rate 22 Blood Pressure 156/83 H 139/78 Pulse Oximetry 98 Oxygen Delivery Method 08/19/24 14:15 08/19/24 14:15 08/19/24 14:30 Temperature Pulse Rate 111 H 110 H Respiratory Rate 16 17 Blood Pressure 108/73 Pulse Oximetry 96 95 Oxygen Delivery Method 08/19/24 14:30 08/19/24 14:45 08/19/24 14:45 Temperature Pulse Rate 114 H Respiratory Rate 23 Blood Pressure 114/62 109/59 L Pulse Oximetry 97 Oxygen Delivery Method 08/19/24 15:00 08/19/24 15:00 08/19/24 15:11 Temperature Pulse Rate 127 H 118 H Respiratory Rate 19 17 Blood Pressure 92/57 L Pulse Oximetry 95 95 Oxygen Delivery Method 08/19/24 15:11 08/19/24 15:15 08/19/24 15:15 Temperature Pulse Rate 114 H Respiratory Rate 21 Blood Pressure 88/52 L 90/50 L Pulse Oximetry 95 Oxygen Delivery Method 08/19/24 15:30 08/19/24 15:30 08/19/24 15:45 Temperature Pulse Rate 117 H 123 H Respiratory Rate 20 25 H Blood Pressure 93/51 L Pulse Oximetry 96 96 Oxygen Delivery Method Room Air 08/19/24 15:52 08/19/24 15:52 08/19/24 16:00 Temperature Pulse Rate 138 H Respiratory Rate 25 H Blood Pressure 120/69 130/58 L Pulse Oximetry Oxygen Delivery Method 08/19/24 16:00 08/19/24 16:15 08/19/24 16:15 Temperature Pulse Rate 124 H 122 H Respiratory Rate 24 21 Blood Pressure 118/79 Pulse Oximetry 93 98 Oxygen Delivery Method 08/19/24 18:28 Temperature Pulse Rate 131 H Respiratory Rate Blood Pressure 129/60 Pulse Oximetry Oxygen Delivery Method Oxygen Delivery Method Room Air Narrative Exam Narrative: NAD, alert and oriented, fluent speech, calm. Normocephalic skull, EOMI, anicteric sclera, symmetric pupils. Oropharynx unremarkable, no droop. Neck supple, midline trachea, no adenopathy. Lungs clear, normal rate and effort. Heart irregular, no murmur gallop or rub. Tachycardic Abdomen is soft, non distended and non tender. Extremities are free of edema. Skin is free of rash or lesions. Joints are not swollen or deformed. Judgment appears to be normal. Objective ECG Impression: AFib with rapid ventricular response Imaging Chest x-ray: Radiologist's impression: Unremarkable. Labs 08/19/24 12:44 08/19/24 12:44 Labs: Laboratory Results - last 24 hr 08/19/24 08/19/24 12:44 14:45 WBC 14.1 H RBC 4.94 Hgb 15.6 Hct 44.9 MCV 90.7 MCH 31.6 MCHC 34.8 RDW 14.6 Plt Count 460 H Neut % (Auto) 76.4 H Lymph % (Auto) 10.1 L [place] % (Auto) 12.2 Eos % (Auto) 0.4 L Baso % (Auto) 0.9 Neut # (Auto) 74291 H Lymph # (Auto) 1400 [place] # (Auto) 1700 H Eos # (Auto) 100 Baso # (Auto) 100 Sodium 133 L Potassium 3.4 Chloride 101 Carbon Dioxide 24 BUN 24 H Creatinine 1.95 H Estimated GFR 34 L BUN/Creatinine Ratio 12.3 Glucose 87 Calcium 8.7 Magnesium 2.1 Total Bilirubin 1.0 AST 25 ALT 25 Alkaline Phosphatase 69 Total Creatine Kinase 168 Troponin I 0.021 0.016 Total Protein 6.9 Albumin 3.5 Globulin 3.4 Albumin/Globulin Ratio 1.0 Lipase 67 Assessment & Plan Assessment & Plan narrative: 1. Atrial fibrillation with rapid ventricular response. No chronic rate control medications for 2 days before surgery. Present on admission and active. 2. Hypertension, present on admission stable. HLD, present on admission and stable. Insomnia, present on admission and stable. SAY, present on admission and stable. Gout, present on admission stable. BPH, present on admission stable. Recurrent diverticulitis, not present on admission or active. Plan: -diltiazem drip for rate control, we will restart diltiazem CD 180 b.i.d. 1st dose now. We will restart carvedilol 25 mg and increase the dose to b.i.d. from 25 mg HS and 12.5 during the day. Observation status, anticipate 1 midnight of care. Full resuscitation. BRIDGETTE is August 20. Time-Based Coding :: [TOTAL MINUTES] spent with patient and on the chart (including review of chart, obtaining history, exam, reviewing outside data, placing orders, documenting exam and treatment plan, and counseling patient) on [DATE]. Quality MIPS - Admit I confirm the patient?s Advance Care Plan is present, Code status is documented, Surrogate decision maker is in patient?s record [If Yes, STOP here]: Yes MIPS - Meds 'Current medications' to include all prescriptions, [id number] products, herbals, cannabis/cannabidiol products, and vitamin/mineral/dietary (nutritional) supplements. I have utilized all available resources to obtain, update, or review the patient?s current medications. [If Yes, STOP here]: Yes
[2024-08-19] MEDS: dilTIAZem 125 MG in SODIUM CHLORIDE 0.9% 100 ML IV (18:35)
--- NOTE | 2024-08-19 18:45 | PC.NURSE ---
Called Sharyn Mendez provided her update that patient is going to be admitted to hospital, currently in ER awaiting ICU bed. Advised we will notify her when patient gets a room upstairs in ICU and able to leave ER. Advised I mentioned to hospitalist his hydration status this am with fasting for surgery preparation and hospitalist will speak with Dr Grimm (Surgeon). gave permission for us to leave her a voicemail with room number and information if she does not answer the phone.
[2024-08-20] VITALS (121 sets, daily range): BP systolic 104–156; BP diastolic 53–76; PULSE 87–125; RESP 12–36; O2SAT 91–98
[2024-08-20] LABS: MRSA (Nasal) PCR NOT DETECTED (Not Detect)
[2024-08-20] MEDS: dilTIAZem 125 MG in SODIUM CHLORIDE 0.9% 100 ML 10 MG IV (02:44)
[2024-08-20 04:59] LABS: Add Manual Diff / Slide Review NO; Basophils Absolute Auto 100 /uL (0-100); Basophils Percent Auto 0.5 % (0-2); Eosinophils Absolute Auto 100 /uL (0-450); Eosinophils Percent Auto 0.4 % (2-4); Hematocrit 39.5 % (41-53); Hemoglobin 13.3 g/dL (13.5-17.5); Lymphocytes Absolute Auto 1500 /uL (1100-4500); Lymphocytes Percent Auto 10.8 % (25-40); Mean Corpuscular HGB Conc 33.6 % (30-36); Mean Corpuscular Hemoglobin 30.4 PG (26-34); Mean Corpuscular Volume 90.4 fL (80-100); Monocytes Absolute Auto 1600 /uL (0-900); Monocytes Percent Auto 11.7 % (3-14); Neutrophils Absolute Auto 10400 /uL (1500-7000); Neutrophils Percent Auto 76.6 % (50-75); Platelet Count 418 X10^3/uL (150-400); Red Blood Cell Count 4.37 X10^6/uL (4.5-5.9); Red Cell Distribution Width 14.6 % (11.6-14.8); White Blood Cell Count 13.6 X10^3/uL (4.5-11.0)
[2024-08-20 05:11] LABS: Alanine Aminotransferase 20 IU/L (<50); Albumin 2.9 g/dL (3.5-5.0); Alkaline Phosphatase 68 U/L (38-126); Aspartate Aminotransferase 22 IU/L (17-59); BUN Creatinine Ratio 13.5 (6-22); Bilirubin Total 0.9 mg/dL (0.2-1.3); Blood Urea Nitrogen 19 mg/dL (9-20); Calcium 8.1 mg/dL (8.4-10.2); Carbon Dioxide 23 mmol/L (22-32); Chloride 104 mmol/L (98-107); Estimated Glomerular Filt Rate 49 mL/min (>60); Globulin 2.9 g/dL (1.7-4.1); Glucose 90 mg/dL (80-110); HEMOLYSIS < 15 (0-50); Potassium 3.1 mmol/L (3.4-5.1); Sodium 133 mmol/L (137-145); Total Protein 5.8 g/dL (6.3-8.2)
[2024-08-20 05:41] LABS: Thyroid Stimulating Hormone 0.433 uIU/mL (0.47-4.68)
[2024-08-20 08:44] LABS: Free T4, Direct Thyroxine 1.82 ng/dL (0.78-2.19)
--- NOTE | 2024-08-20 09:34 | CM.DANOTE ---
Addendum entered by MAYCOL Little 08/20/24 11:52: Per hospitalist in morning rounds, likely to dc him later today. Does not think he requires PT/OT evals at this time. EARLY CHILDHOOD LEAD TEACHER updated pt in room that if he wants HH, his primary care office can order it as well when he goes for his f/u appt. pt reports understanding. Original Note: DCP Assessment Note Pt is a 84yo man from [place] here with afib with RVR. Was scheduled for a lap willian with Dr. Grimm yesterday when in his pre-op appt found to be in afib. PCP Elda Lawson [facility] EARLY CHILDHOOD LEAD TEACHER reviewed EMR. PT/OT pending. Was admitted June of this year for diverticulitis. originally a referral was made to [facility] but pt increased in his ability to mobilize throughout stay and pt did not think he was homebound anymore. EARLY CHILDHOOD LEAD TEACHER entered room and introduced self and role. Pt resting in bed. Confirms lives at home with spouse Sharyn. Sam at baseline. interested in HH if recommended. Deny other CM/DCP needs at this time. P: home with spouse and OP f/u when medically stable. EARLY CHILDHOOD LEAD TEACHER will r/o HH closer to in. CM team will notify TCM OP team at in. CM team will continue to follow closely MAYCOL Little Discharge Planning/Care Management CM Discharge Assessment Start: 08/20/24 09:32 Freq: Status: Active Protocol: Document 08/20/24 09:32 (Rec: 08/20/24 09:34 [id number]) Discharge Planning Assessment Assigned Director Industrial Relations MAYCOL Britt DPOA/Assigned Designee Name bonnie Coles Contact Information [phone] Advance Directives? Yes Advance Directives on File No History Provided By Patient,Family Member,Medical Record Prior Living Arrangements House Household Members spouse Independent with ADL's Yes Is patient alert and oriented? Yes DME Already Rented / Owned Cane Discharge Plan Home Transportation Arrangement Spouse SNF/HH Preference hx of referral with [facility] Whiteboard Updated in Patient Room with Yes name and ext. # of Director Industrial Relations Review Status In Process Please Provide Date Initial DC 08/20/24 Assessment Was Performed Next Review Type Continued Stay Review
[2024-08-20] MEDS: ASPIRIN 81 MG CHEW TAB PO (09:56)
[2024-08-20] MEDS: POTASSIUM CHLORIDE 20 MEQ TAB 40 MEQ PO (09:56)
[2024-08-20] MEDS: carvediloL 12.5 MG TABLET 25 MG PO (09:56)
[2024-08-20] MEDS: ENOXAPARIN 40 MG/0.4 ML SYRINGE SUBCUT (09:57)
[2024-08-20] MEDS: AMIODARONE 150 MG/100 ML PIGGYBACK 600 MG IV (09:57)
[2024-08-20] MEDS: dilTIAZem CD 180 MG CAP PO (09:57)
[2024-08-20 10:00] LABS: Prostate Specific Antigen 30.3 ng/mL (0.10-4.00)
--- NOTE | 2024-08-20 12:08 | PT-IP ANOTE ---
PT eval received. Reviewed EMR. checked with nurse and stated that pt is still on diltiazem drip. talked with the hospitalist and stated that pt does not have PT needs and can d/c PT eval order. nurse aware.
[2024-08-20] MEDS: MESALAMINE 400 MG CAP.DRTAB. 3600 MG PO (12:16)
[2024-08-20] MEDS: INDOMETHACIN 25 MG CAPSULE 50 MG PO (12:16)
[2024-08-20] MEDS: metroNIDAZOLE 500 MG TABLET PO (12:16)
--- NOTE | 2024-08-20 16:03 | P.DS_ITS ---
History of Present Illness History of Present Illness Chief complaint: Afib w/RVR Narrative: Per history and physical: The patient was a 84-year-old male who was scheduled for an elective hemicolectomy for recurrent diverticulitis today. He presented to preop clinic and was found to be in atrial fibrillation with RVR. He believes he might have skipped his medicines for 2 days. He denies palpitations, dyspnea, or chest pain. He was chronic AFib for the last 10 years and does not take anticoagulation. He was given metoprolol IV for several doses as well as oral metoprolol but failed to improve. He was also given a L of fluid followed by a 2 L with no improvement. The patient was felt to be volume depleted. The patient failed to have good rate control she will be admitted for observation and a diltiazem drip was started just before this decision was made. He denies any abdominal ,pain nausea, vomiting. He also denies recent fevers, or chills. No URI symptoms. Discharge Providers Provider Date of admission: 08/19/24 18:57 Discharge Date: 08/20/24 Primary care physician: Elda Lawson DO Consults: 08/19/24 19:12 Consult to Occupational Therapy Evaluate & Treat Comment: Physician Instructions: Evaluate and treat Consult to Physical Therapy Evaluate & Treat Comment: Physician Instructions: Evaluate and Treat Discharge provider: Swetha Stover MD Summary Hospital Course Discharge Diagnosis: 1. Atrial fibrillation with rapid ventricular response Echocardiogram was done on admission and revealed mildly reduced LV EF 40 to 45%. Mild to moderate aortic regurgitation was also noted. Cardiac enzymes were negative. He is on aspirin alone at baseline. [id number] score is 3, equivalent w/3.2% stroke risk per year. Anticoagulation should be considered unless otherwise contraindicated. We'll defer this to his PCP as he is slated for surgery as noted. 2. KSENIA Creatinine was 1.95 on admission, up from a baseline of around 1. He was given 2 L of IV fluids and his creatinine improved at 1.41. Suspect his KSENIA was secondary to combination of bowel prep and NPO status. 3. Hypokalemia Repleted orally on the date of discharge 4. Recurrent diverticulitis Patient was slated for elective hemicolectomy on the date of admission. This was canceled and he will be following up with General surgery to reschedule. 5. Unexplained weight loss Patient reported fairly rapid loss of approximately 15 lb over 3 weeks. TSH was slightly low. Free T4 was within normal limits. Recent CT revealed evidence of prostatomegaly so a PSA was sent. It was elevated at 30. Patient reports this was consistent with his known baseline. He is encouraged to follow-up with his PCP for further evaluation. Hospital Course: 84 year old male with permanent atrial fibrillation, hypertension, obstructive sleep apnea, BPH who presented for pre op for elective hemicolectomy for recurrent diverticulitis yesterday and was found to be in a fib with RVR. He was admitted for inability to obtain adequate rate control period he's also felt to be dehydrated. He was placed on diltiazem drip IV, as well as his usual carvedilol and diltiazem orally. He'd also been off of his medications for two days. He did not achieve adequate rate control and was subsequently given a bolus of IV amiodarone. His rate subsequently came down and the diltiazem drip was discontinued. He remained rate controlled. Subsequently discharged home oral amiodarone and recommendations for close follow-up. Status at Discharge Cognitive/behavioral status at discharge: at baseline, oriented Functional status at discharge: uses cane/walker Overall status at discharge: patient is progressing back to baseline Time Spent with Patient Time spent: Greater than 30 minutes Exam Vital Signs (past 8 hours): - 08/20/24 08:05 08/20/24 08:19 08/20/24 08:20 Pulse Rate 111 H 121 H 112 H Respiratory Rate 32 H 20 26 H Blood Pressure Pulse Oximetry 95 97 96 08/20/24 08:25 08/20/24 08:30 08/20/24 08:35 Pulse Rate 118 H 120 H 111 H Respiratory Rate 27 H 31 H 23 Blood Pressure Pulse Oximetry 96 08/20/24 08:40 08/20/24 08:45 08/20/24 08:50 Pulse Rate 111 H 120 H 115 H Respiratory Rate 24 36 H 25 H Blood Pressure Pulse Oximetry 95 95 95 08/20/24 08:55 08/20/24 09:00 08/20/24 09:00 Pulse Rate 125 H 111 H Respiratory Rate 34 H 27 H Blood Pressure 140/64 Pulse Oximetry 95 95 08/20/24 09:05 08/20/24 09:10 08/20/24 09:15 Pulse Rate 117 H 108 H 105 H Respiratory Rate 31 H 24 20 Blood Pressure Pulse Oximetry 94 94 95 08/20/24 09:20 08/20/24 09:25 08/20/24 09:30 Pulse Rate 109 H 99 H 103 H Respiratory Rate 20 20 27 H Blood Pressure Pulse Oximetry 95 96 96 08/20/24 09:56 Pulse Rate 108 H Respiratory Rate Blood Pressure 140/64 Pulse Oximetry Oxygen Delivery Method Room Air Oxygen Flow Rate 2 Narrative Exam Narrative: GEN: Pleasant elderly male, Alert and oriented x 3, NAD HEENT:NC, Face symmetric CHEST: Respiratory excursions symmetric, CTAB CV: Irregularly irregular, tachycardic on the morning of discharge, no M/R/G ABD: Soft, NT/ND, BT present in all 4 quadrants, no organomegaly or masses EXTR: warm, well perfused, no C/C/E SKIN: warm and dry, no rash NEURO: Alert and oriented x 3, nonfocal Objective Labs 08/20/24 04:10 08/20/24 04:10 Labs: Laboratory Results - last 24 hr 08/19/24 08/20/24 20:58 04:10 WBC 13.6 H RBC 4.37 L Hgb 13.3 L Hct 39.5 L MCV 90.4 MCH 30.4 MCHC 33.6 RDW 14.6 Plt Count 418 H Neut % (Auto) 76.6 H Lymph % (Auto) 10.8 L [place] % (Auto) 11.7 Eos % (Auto) 0.4 L Baso % (Auto) 0.5 Neut # (Auto) 48971 H Lymph # (Auto) 1500 [place] # (Auto) 1600 H Eos # (Auto) 100 Baso # (Auto) 100 Sodium 133 L Potassium 3.1 L Chloride 104 Carbon Dioxide 23 BUN 19 Creatinine 1.41 H Estimated GFR 49 L BUN/Creatinine Ratio 13.5 Glucose 90 Calcium 8.1 L Total Bilirubin 0.9 AST 22 ALT 20 Alkaline Phosphatase 68 Total Protein 5.8 L Albumin 2.9 L Globulin 2.9 Albumin/Globulin Ratio 1.0 Prostate Specific Ag 30.3 H TSH 0.433 L Free T4 1.82 Nasal Screen MRSA (PCR) Not detected PFSH Medical History BPH (benign prostatic hyperplasia) Gout Snoring Periodic limb movement disorder (PLMD) Obstructive 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, adult (~04/22/20) 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) 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 medical condition Excessive daytime sleepiness (~2019) Hyperlipidemia Essential hypertension (Unknown) Sepsis Colitis (~2018) Blepharophimosis unspecified eye, unspecified lid A-fib Surgical History History of tonsillectomy History of colonoscopy Family History Father Loud snoring Hypertension Mother Hypertension Social History marital status: details: lives in [place] household members: spouse lives independently: Yes caregiver/support person: No housing: house Smoking Status: Former smoker alcohol intake: former substance use type: does not use Discharge Plan Discharge Plan Patient Disposition: Home Provider Discharge Comment: 1) You developed atrial fibrillation with rapid heart rate 2) Despite increases in your carvedilol and IV diltiazem (in addition to your usual oral dose), your heart rate couldn't be controlled 3) You received a medicine called amiodarone which brought your heart rate back down to normal 4) You will continue amiodarone twice daily for 2 weeks, then once daily 5) Based on a scoring system we use, you are at about a 3% annual risk for having a stroke due to your atrial fib. Please see your PCP about whether you should be started on anticoagulation. As you are due to have surgery, we did not start anything here. 6) Please also see your PCP about your unexplained weight loss. Your thyroid was normal. We sent a PSA, which came back high at 30.3 (your prostate is enlarged on your recent CT scan). Your weight loss could be related to your recurrent diverticulitis. That said, you need to follow-up to ensure there isn't another explanation. Return to the Emergency department for: inability to hold down food/fluids, chest pain/shortness of breath, recurrent fast heart rate at rest or with activity that is prolonged (lasting more than 10-15 minutes). Discharge orders & Medications Prescriptions: New amiodarone 200 mg tablet 200 mg PO BID Qty: 60 0RF Rx Instructions: Take twice daily x 2 weeks, then once daily carvedilol 25 mg tablet 25 mg PO BID Qty: 60 0RF Rx Instructions: must administer with a meal/food Continued diltiazem HCl 180 mg capsule,extended release 24 hr 180 mg PO BID Qty: 180 1RF neomycin 500 mg tablet 1 g PO TID Qty: 6 0RF Rx Instructions: administer at 1 PM, 2 PM, and 10 PM the day prior to surgery ciprofloxacin HCl 500 mg tablet 500 mg PO BID Qty: 14 0RF indomethacin 50 mg capsule 50 mg PO TID Qty: 30 0RF Rx Instructions: administer with food or milk mesalamine 1.2 gram tablet,delayed release (DR/EC) 3.6 g PO DAILY metronidazole 500 mg Tablet 500 mg PO TID doxycycline monohydrate 100 mg Tablet 100 mg PO BID Patient Comments: for chest rash. aspirin 81 mg Capsule 81 mg PO DAILY Discontinued carvedilol [Coreg] 25 mg tablet 25 mg PO BEDTIME carvedilol [Coreg] 12.5 mg tablet 12.5 mg PO DAILY Follow up/Referrals: Elda Lawson DO [Primary Care Provider] - Diet/Activity/Treatments Diet: Diet as Tolerated and Regular Activity: As tolerated Oxygen: N/A Visit Report/Discharge Packet Instructions: DI for Atrial Fibrillation Stand Alone Forms: Patient Portal/API, Stroke Signs & Symptoms Discharge Data Primary Care Provider: Elda Lawson Attending Provider: Kirk Hebert Admit Date/Time: 08/19/24 18:57 Quality VTE Deep Vein Thrombosis/Pulmonary Embolism Present on Admission: No
== END 2024-08-20 15:54 | disposition home or self-care (01) ==
LOC: ED 18:25 → AC 18:59 → ICU 19:58
PROVIDERS: Family Medicine; Internal Medicine; Admitting Provider Hospitalist; Emergency Provider Emergency Medicine; PCP Family Medicine; Referring Provider Emergency Medicine; Visit Provider Hospitalist
DX: I48.91 Unspecified atrial fibrillation (principal); I10 Essential (primary) hypertension; N17.9 Acute kidney failure, unspecified; E87.6 Hypokalemia; K57.32 Diverticulitis of large intestine without perforation or abscess without bleeding; R63.4 Abnormal weight loss
CPT/HCPCS: 36415; 71045; 80053; 82550; 83690; 83735; 84153; 84439; 84443; 84484; 85025; 87797; 93005; 93010; 96361; 96365; 96366; 96372; 96375; 96376; 99284; G0378; J0282; J1650

== ENCOUNTER 2024-09-21 06:23 | Inpatient (IN) | payer MEDICARE, SELFPAY ==
[2024-08-19 20:46] VITALS: BMI 26.9
[2024-09-13 12:43] VITALS: BMI 27.1
--- NOTE | 2024-09-20 09:35 | PM.PREOP ---
Pre-operative Note Interval Note History & Physical reviewed/Exam performed by Physician: Yes Changes to H&P: No
[2024-09-21] VITALS (19 sets, daily range): BP systolic 113–164; BP diastolic 52–93; PULSE 61–94; RESP 7–18; TEMP 36.1–36.6; O2SAT 93–100; BMI 26.6
--- NOTE | 2024-09-21 | PATH_ITS ---
[facility] Accession Number: [id number] No. of containers..01 Tissue . 01 Material submitted: . colon - SIGMOID COLON . 01 Diagnosis: SIGMOID COLON, SEGMENTAL RESECTION: Segment of colon with diverticulosis. Five benign pericolonic lymph nodes, one with foreign body type granulomatous inflammation. Negative for dysplasia or malignancy. [facility] 09/26/2024 1344 Local . 01 Electronically signed: . Josh Herrera MD, PhD, Pathologist NPI- [id number] . 01 Gross description: . Received in formalin with two patient identifiers and sigmoid colon, is an unoriented portion of colon (12.3 cm in length by 2.5 cm in average diameter) with seymour, roughened serosa and creeping fat. One staple line is inked blue while the opposite staple line is inked black, and the mesenteric margin is inked green. The lumen contains brown, semisolid fecal material, and the mucosa is seymour and velvety with normal appearing folds and no polyps or lesions identified. The torres measure up to 0.5 cm thick with multiple diverticula up to 2.0 cm deep and filled with impacted fecal material. No perforations are grossly identified. . Palpation reveals nine seymour lymph node candidates ranging from 0.1 to 0.3 cm in greatest dimension. Manager Lvn sections are submitted as follows: . A1: Rep blue margin en face. A2: Rep black margin en face. A3-A4: Diverticula. A5: Normal full thickness sections. A6: Five intact lymph node candidates. A7: Four intact lymph node candidates. ([id number]) /MRV 09/23/2024 1358 Local . 01 Pathologist provided ICD-10: K57.30 . 01 CPT . 526566 Specimen Comment: A courtesy copy of this report has been sent to [phone] Performed at: [address] [place] [address], [place], [place] [id number] MD Jono Bullock MD Phone: [phone]
--- NOTE | 2024-09-21 07:15 | EKG_ITS ---
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
[2024-09-21] MEDS: LACTATED RINGERS 1,000 ML 42 ML IV (07:30)
[2024-09-21] MEDS: ACETAMINOPHEN IV 1,000 MG/100 ML VIAL 400 MG IV (07:30)
[2024-09-21 07:39] LABS: Hemoglobin 13.1 g/dL (13.5-17.5); Mean Corpuscular HGB Conc 33.7 % (30-36); Mean Corpuscular Hemoglobin 30.4 PG (26-34); Mean Corpuscular Volume 90.3 fL (80-100); Platelet Count 326 X10^3/uL (150-400); Red Blood Cell Count 4.32 X10^6/uL (4.5-5.9); Red Cell Distribution Width 15.1 % (11.6-14.8); White Blood Cell Count 7.1 X10^3/uL (4.5-11.0)
[2024-09-21 07:51] LABS: BUN Creatinine Ratio 13.7 (6-22); Blood Urea Nitrogen 20 mg/dL (9-20); Calcium 9.1 mg/dL (8.4-10.2); Carbon Dioxide 25 mmol/L (22-32); Chloride 106 mmol/L (98-107); Estimated Glomerular Filt Rate 47 mL/min (>60); Glucose 89 mg/dL (80-110); HEMOLYSIS 33 (0-50); Potassium 3.7 mmol/L (3.4-5.1); Sodium 140 mmol/L (137-145)
[2024-09-21] MEDS: PIPERACILLIN/TAZO 4.5 GM in SODIUM CHLORIDE 0.9% 100 ML IV (08:08)
--- NOTE | 2024-09-21 08:38 | SUR.OPER ---
Lithotomy on padded OR bed. [place] Pad Positioner under torso. Head on pillow, left arm padded and tucked at side. Right arm on padded armboard at < 90 degrees. Legs secured in padded yellow fins stirrups.
[2024-09-21] MEDS: BUPIVACAINE 0.25% (PF) VIAL 30 ML INJ (08:52)
[2024-09-21] MEDS: BUPIVACAINE LIPOSOME 266 MG/20 ML VIAL INJ (11:03)
[2024-09-21] MEDS: PIPERACILLIN/TAZO 3.375 GM in SODIUM CHLORIDE 0.9% 100 ML IV (11:13)
--- NOTE | 2024-09-21 12:00 | P.OP_ITS ---
Operative Date/Time/Diagnoses Date of procedure: 09/21/24 Time of procedure: 12:22 Pre-op diagnosis: Chronic diverticulitis Post-op diagnosis: same Procedure & Clinicians Procedure: Laparoscopic sigmoid colectomy Laparoscopic mobilization of splenic flexure Same procedure as scheduled: Yes Indications: 84-year-old man with recurrent episodes of diverticulitis over the past few years with recent episode abscess formation Surgeon: Andriy Grimm Real Estate Marketing Coordinator: Christiano Quiros Anesthesia Type: General Operative Notes Findings: Chronic diverticulitis of sigmoid colon Negative anastomotic leak test Specimen(s): other (Sigmoid colon) Estimated Blood Loss (mL): 50 Procedure in detail: Patient was brought to the operating room placed supine on the table. Bilateral lower extremity compression devices were applied. General anesthesia was induced and he was intubated with an endotracheal tube. He was received 4.5 g of Zosyn prior to skin incision. Zuniga catheter was then sterilely placed. He was prepped and draped in sterile fashion time-out was performed. Infraumbilical incision was made the abdomen was entered balloon trocar placed and pneumoperitoneum of 15 mmHg was established. Additional working ports were placed 5 mm in the suprapubic 10 mm in the right lower quadrant. Additional wo rking ports were ultimately placed in the right upper quadrant and left lower quadrant. We began by mobilizing the descending colon medially. The white line of T[place] was incised and the dissection was carried up to the level of the spleen. A formal splenic mobilization was performed. The lesser sac was opened and we followed the plane between the stomach of the transverse colon until we reached the splenic flexure. The additional splenic attachments were divided in order to release the transverse colon inferiorly. There were fairly extensive adhesions between the sigmoid colon and the left pelvic sidewall which were taken down sharply consistent with chronic diverticulitis. We positively identified the left ureter as it crosses over the iliac vessels and its presence was confirmed by its vermiculate fashion. The ureter was kept posterior out of harm's way. We continued to mobilize the lateral sigmoid attachments down to the level of the peritoneal reflection. This point we slightly extended the infraumbilical incision and placed a Niraj wound retractor within. The colon was exteriorized. We divided the colon at the junction between the descending and sigmoid where the colon soft pliable and grossly free from diverticular disease. The mesentery to the sigmoid colon was divided using the LigaSure tracking down into the pelvis. The extent of the resection encompassed the entirety of the sigmoid colon all the way down to the level of the rectosigmoid junction the convergence of the tenia were the rectum was soft and pliable. We used a contour stapler to divide the colon at both of these points after a window within the mesentery was made. The specimen was then passed off the field labeled sigmoid colon. The staple line of the proximal colon was resected. We selected a 31 mm EEA stapler. The anvil was placed inside the proximal colon and secured in place using a pursestring suture of PDS. We skeletonized the distal end of the colon such that the stapler and anvil would sit flush. The EEA stapler was placed into the rectum and advanced forward. Its point was deployed through the sidewall of the rectum. The anvil and stapler were then mated under direct visualization. After ensuring that there was no twist of the colon and that it came together without tension there were no intervening structures the anastomosis was formed. Inspection of the stapler demonstrated to entirely intact anastomotic donuts. Using the colonoscope we performed a leak test of the anastomosis after filling the pelvis with saline in the was no evidence of leak. Gown and gloves were changed. Abdomen was copiously irrigated and returned clear we checked the hemostasis. The fascia was then closed in a running manner using PDS suture. The subcutaneous tissue reapproximated using 3-0 Vicryl and the skin was closed with kesha. The sponge and instrument count was correct x2. The patient emerged from anesthesia extubated and was transferred to recovery. The assistance of Christiano Quiros MD was necessary for exposure and construction of the anastamosis. Complications: none Post-operative Condition: stable Disposition: same day surgery
[2024-09-21] MEDS: HYDROMORPHONE 0.5 MG INJ IV (12:06)
[2024-09-21] MEDS: OXYCODONE IR 5 MG TABLET PO ×3 (12:06→20:46)
[2024-09-21] MEDS: HYDROMORPHONE 1 MG INJ IV (12:13)
[2024-09-21] MEDS: ACETAMINOPHEN 325 MG TABLET 650 MG PO ×2 (13:39→20:47)
--- NOTE | 2024-09-21 14:06 | OT.IPNOTE ---
Pt not wanting to get up at this time for OT eval and just came up to the floor 1-1/2 hrs ago per pt's nurse. Able to get prior level of care, no charge.
--- NOTE | 2024-09-21 16:58 | PT-IP ANOTE ---
PT eval received and EMR reviewed. Checked with nurse and said pt is not ready for PT . will f/u.
[2024-09-21] MEDS: AMIODARONE 200 MG TABLET PO (20:47)
[2024-09-21] MEDS: dilTIAZem CD 180 MG CAP PO (20:47)
[2024-09-21] MEDS: METOPROLOL IR 50 MG TABLET PO (20:47)
[2024-09-22] VITALS (9 sets, daily range): BP systolic 103–159; BP diastolic 57–88; PULSE 59–109; RESP 16–18; TEMP 35.9–36.6; O2SAT 94–99
[2024-09-22] MEDS: ACETAMINOPHEN 325 MG TABLET 650 MG PO ×4 (03:04→20:50)
[2024-09-22] MEDS: OXYCODONE IR 5 MG TABLET PO (03:05)
[2024-09-22 05:33] LABS: Add Manual Diff / Slide Review NO; Basophils Absolute Auto 0 /uL (0-100); Basophils Percent Auto 0.2 % (0-2); Eosinophils Absolute Auto 0 /uL (0-450); Hematocrit 37.9 % (41-53); Hemoglobin 12.6 g/dL (13.5-17.5); Lymphocytes Absolute Auto 900 /uL (1100-4500); Lymphocytes Percent Auto 4.6 % (25-40); Mean Corpuscular HGB Conc 33.3 % (30-36); Mean Corpuscular Hemoglobin 29.9 PG (26-34); Mean Corpuscular Volume 89.9 fL (80-100); Monocytes Absolute Auto 1200 /uL (0-900); Monocytes Percent Auto 6.6 % (3-14); Neutrophils Absolute Auto 16500 /uL (1500-7000); Neutrophils Percent Auto 88.6 % (50-75); Platelet Count 343 X10^3/uL (150-400); Red Blood Cell Count 4.22 X10^6/uL (4.5-5.9); White Blood Cell Count 18.7 X10^3/uL (4.5-11.0)
[2024-09-22 05:53] LABS: BUN Creatinine Ratio 13.2 (6-22); Blood Urea Nitrogen 20 mg/dL (9-20); Calcium 8.6 mg/dL (8.4-10.2); Carbon Dioxide 25 mmol/L (22-32); Chloride 102 mmol/L (98-107); Estimated Glomerular Filt Rate 45 mL/min (>60); Glucose 154 mg/dL (80-110); HEMOLYSIS < 15 (0-50); Potassium 3.7 mmol/L (3.4-5.1); Sodium 134 mmol/L (137-145)
[2024-09-22] MEDS: ENOXAPARIN 40 MG/0.4 ML SYRINGE SUBCUT (08:04)
[2024-09-22] MEDS: IBUPROFEN 400 MG TABLET PO (08:05)
[2024-09-22] MEDS: AMIODARONE 200 MG TABLET PO ×2 (08:05→20:51)
[2024-09-22] MEDS: METOPROLOL IR 50 MG TABLET PO ×2 (09:36→20:51)
--- NOTE | 2024-09-22 10:34 | PT.IIE ---
Current Diagnoses Personal history of other diseases of the digestive system (09/21/24) Surgery Performed Operation Date: 09/21/24 07:45 Actual Procedures p Laparoscopic Sigmoid Colectomy(Not Applicable) - Andriy Grimm MD Surgical History (Last Reviewed 09/18/24 @ 13:32 by Andriy Grimm MD) History of colonoscopy History of tonsillectomy Medical History (Last Reviewed 09/18/24 @ 13:32 by Andriy Grimm MD) A-fib Atrial fibrillation with rapid ventricular response Blepharophimosis unspecified eye, unspecified lid BPH (benign prostatic hyperplasia) Colitis (~2018) Diverticulitis (~2018) Essential hypertension (Unknown) Excessive daytime sleepiness (~2019) Gout History of colonic diverticulitis Hyperlipidemia 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 medical condition 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 Activities of Daily Living and IADL's I, pt's assists with the bills and medications. Social History Household Members spouse Living Arrangements House Number of Floors (Floors) One Floor Number of Stairs To Enter/Railing? NO steps to enter. Home Environment Standard Height Toilet,Walk in Shower,Built-In Shower Seat Home Equipment Straight Cane,Hand Held Shower ,Grab Bars Near Toilet,Grab Bars In Shower Employment Status Retired M1 PT/OT-IP Prior Functional Status Start: 09/22/24 08:33 Freq: NEEDED Status: Active Protocol: Document 09/22/24 10:05 MB (Rec: 09/22/24 10:33 MB [id number]) Medical Review Prior Functional Status Medical History Reviewed Yes Communication Independent Mobility and Gait Occasional use of cane going to [employer], but no device use in the house. Activities of Daily Living and IADL's I, pt's assists with the bills and medications. Social History Household Members spouse Living Arrangements House Number of Floors (Floors) One Floor Number of Stairs To Enter/Railing? NO steps to enter. Home Environment Standard Height Toilet,Walk in Shower,Built-In Shower Seat Home Equipment Straight Cane,Hand Held Shower ,Grab Bars Near Toilet,Grab Bars In Shower Employment Status Retired M2 PT-IP Current Condition Start: 09/22/24 08:33 Freq: NEEDED Status: Active Protocol: Document 09/22/24 10:05 MB (Rec: 09/22/24 10:33 MB [id number]) Physical Therapy Current Condition Current Condition Evaluation Date 09/22/24 Treatment Diagnosis Sigmoid colectomy M3 PT-IP Subjective Start: 09/22/24 08:33 Freq: NEEDED Status: Active Protocol: Document 09/22/24 10:05 MB (Rec: 09/22/24 10:33 MB [id number]) Subjective Physical Therapy Visit Type Type Initial Evaluation Visit Start Time 10:05 Visit Stop Time 10:23 Number of PETROLEUM INSPECTOR SUPERVISOR Visits 0 Physical Therapy Visit Comments Patient Comments Pt reports 2/10 abdominal pain and light-headedness when up, he is agreeable to PT. Therapy Pain Assessment Pain When Pain Assessed At Rest Pain Present Pain Present Pain Reported Location Left Lower Abdomen Intensity 2 Scale Used Numeric (0 - 10) M4 PT-IP Mobility and Gait Start: 09/22/24 08:33 Freq: NEEDED Status: Active Protocol: Document 09/22/24 10:05 MB (Rec: 09/22/24 10:33 MB [id number]) PT-Bed Mobility Assessment Rolling Type of Rolling Log Rolling,Roll to Right,Roll to Left Level of Assist Standby Assistance,1 Person Assistance Supine to Sit Supine to Sit Standby Assistance,1 Person Assistance,Bedrails Sit to Supine Sit to Supine Standby Assistance,1 Person Assistance,Bedrails Scooting Scooting to Edge of Bed Standby Assistance Scooting Up and Down in Bed Standby Assistance PT-Transfer Assessment Sit to and From Stand Sit to and from Stand Contact Guard Assistance,1 Person Assistance,Use of Upper Extremities Equipment Transfer Assistive Device Gait Belt,Front Wheeled Walker Orthotic/Prosthetic Devices or Brace: No Transfers Transfer Destination Bed,Chair Transfer Technique Ambulation Transfer Ability Level of Assist Contact Guard Assistance Comments Mobility Comments Cues to let go of the walker and to reach back for chair as pt tends to keep his hands on the walker. BP LUE standin/58, 85; after gait and c/o light-headedness, re-checked in standin/58, 85. Gait Assessment Gait Gait Assistance Required: Contact Guard Assist Distance (Feet) 100 Able to Maintain Weight Bearing Status Yes During Gait Assistive Devices Assistive Device Gait Belt,Front Wheeled Walker Orthotic/Prosthetic Devices or Brace: Yes Gait Deviations General Gait Pattern Antalgic Factors Limiting Gait Function Factors Limiting Gait Function Poor Balance Comments Gait Comments Pt reports he feels steadier with the RW today and does not wish to use the SPC PT-Balance Assessment Sitting Balance and Reactions Static Sitting Balance Ability Good Dynamic Sitting Balance Ability Good Standing Balance and Reactions Static Standing Balance Ability Good Dynamic Standing Balance Ability Fair Device Used RW M5 PT-IP Objective Assessments Start: 09/22/24 08:33 Freq: NEEDED Status: Active Protocol: Document 09/22/24 10:05 MB (Rec: 09/22/24 10:33 MB [id number]) Orientation Orientation/Cognition Level of Alertness Alert Orientation Name,Age,Birthday,Month,Year, Place,Situation Language Function Ability No Deficits Noted Safety Awareness Decreased Safety Awareness Memory Description No Deficits Noted Gross Range of Motion Upper Extremity ROM Impairments Defer to OT Lower Extremity ROM Assessment Within Functional Limits Impairments B feet edematous Strength Lower Extremity Strength Assessment Within Functional Limits Coordination Assessment Gross Coordination Gross Coordination Impaired Assessment Coordination Comments Slow movement post-op, B feet edema and pt reporting some numbness Sensation Assessment Comments Sensation Comments B feet numbness Muscle Tone Muscle Tone WNL Yes M6 PT-IP Treatment Start: 09/22/24 08:33 Freq: NEEDED Status: Active Protocol: Document 09/22/24 10:05 MB (Rec: 09/22/24 10:33 MB [id number]) Physical Therapy Treatment Exercises Exercises Ankle Pumps Education Education Provided Precautions,Post-Op Packet, Safety M7 PT-IP Assessment and Plan Start: 09/22/24 08:33 Freq: NEEDED Status: Active Protocol: Document 09/22/24 10:05 MB (Rec: 09/22/24 10:33 MB [id number]) PT Summary Assessment and Plan Potential Rehabilitation Potential Good Status of Condition at Evaluation Evolving Summary Impairments Pain,Balance,Coordination, Sensation,Bed Mobility, Transfers,Gait Progress Towards Goals Progressing Toward Goals Assessment Summary Pt is an 84 y/o male post-op sigmoid colectomy. He reports light-headedness today and he states that his feet have been swelling for a couple of months and he has some numbness. BP does not drop once standing though PT did not check orthostatics from supine to stand given he was already up in chair on arrival . He feels steadier with RW today and does not wish to use cane. He reports one fall in the recent past. He may benefit from RW at d/c and he states will pear picker at [facility]. Recommend up with nsg assistance. Goals Bed Mobility Goal Independent Transfer Goal Independent,Cane,Front Wheeled Walker Gait Goal Independent,Cane,Front Wheel Walker Gait Distance 150 Days to Meet Goals 3 Frequency of Treatment Frequency Of Treatment Once a Day Treatment Plan Physical Therapy Treatment Plan Bed Mobility Training,Transfer Training,Gait Training, Therapeutic Exercise,Balance Retraining,Post Op Education, Discharge Planning,Hot or Cold Pack,Neuromuscular Re-ed, Coordination Retraining,Manual Therapy Recommendations To Nursing Amount of Assist Needed Standby Assistance Discharge Recommendations PT Discharge Recommendations Home with Assistance, Outpatient PT Other Discharge Recommendations OPPT for balance training Equipment Needed for Home Before May need RW. Pt currently Discharge states that his [facility]. Transportation Needs at Discharge Private Vehicle
--- NOTE | 2024-09-22 13:33 | OT.IP.EVAL ---
Current Diagnoses Personal history of other diseases of the digestive system (09/21/24) Surgery Performed Operation Date: 09/21/24 07:45 Actual Procedures p Laparoscopic Sigmoid Colectomy(Not Applicable) - Andriy Grimm MD Past Medical History (Last Reviewed 09/18/24 @ 13:32 by Andriy Grimm MD) A-fib Atrial fibrillation with rapid ventricular response Blepharophimosis unspecified eye, unspecified lid BPH (benign prostatic hyperplasia) Colitis (~2018) Diverticulitis (~2018) Essential hypertension (Unknown) Excessive daytime sleepiness (~2019) Gout History of colonic diverticulitis Hyperlipidemia 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 medical condition 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) Obstructive sleep apnea, adult (~04/22/20) Periodic limb movement disorder (PLMD) Sepsis Snoring Ulcerative colitis Surgical History (Last Reviewed 09/18/24 @ 13:32 by Andriy Grimm MD) History of colonoscopy History of tonsillectomy Occupational Therapy Inpatient Evaluation/Re-Eval M1 PT/OT-IP Prior Functional Status Start: 09/21/24 14:07 Freq: NEEDED Status: Active Protocol: Document 09/22/24 10:05 MB (Rec: 09/22/24 10:33 MB [id number]) Medical Review Prior Functional Status Medical History Reviewed Yes Communication Independent Mobility and Gait Occasional use of cane going to [employer], but no device use in the house. Activities of Daily Living and IADL's I, pt's assists with the bills and medications. Social History Household Members spouse Living Arrangements House Number of Floors (Floors) One Floor Number of Stairs To Enter/Railing? NO steps to enter. Home Environment Standard Height Toilet,Walk in Shower,Built-In Shower Seat Home Equipment Straight Cane,Hand Held Shower ,Grab Bars Near Toilet,Grab Bars In Shower Employment Status Retired M1 PT/OT-IP Prior Functional Status Start: 09/22/24 08:33 Freq: NEEDED Status: Active Protocol: Document 09/22/24 15:46 [facility] (Rec: 09/22/24 15:58 [facility] [id number]) Medical Review Prior Functional Status Medical History Reviewed Yes Communication Independent Mobility and Gait Occasional use of cane going to [employer], but no device use in the house. Activities of Daily Living and IADL's I, pt's assists with the bills and medications. Social History Household Members spouse Living Arrangements House Number of Floors (Floors) One Floor Number of Stairs To Enter/Railing? NO steps to enter. Home Environment Standard Height Toilet,Walk in Shower,Built-In Shower Seat Home Equipment Straight Cane,Hand Held Shower ,Grab Bars Near Toilet,Grab Bars In Shower Employment Status Retired M2 OT-IP Current Condition Start: 09/21/24 14:07 Freq: Status: Active Protocol: Document 09/22/24 15:46 [facility] (Rec: 09/22/24 15:58 [facility] [id number]) Occupational Therapy Current Condition Current Condition Evaluation Date 09/22/24 Treatment Diagnosis S/P Laparoscopy sigmoid colectomy Diagnosis Onset Date 09/21/24 Post Operative Precautions Abdominal Surgery Precautions Log Roll,Lifting Restrictions, Gait Belt above Incisional Area M3 OT- IP Subjective and Pain Start: 09/21/24 14:07 Freq: Status: Active Protocol: Document 09/22/24 15:46 [facility] (Rec: 09/22/24 15:58 [facility] [id number]) OT- Subjective Occupational Therapy Visit Type Type Initial Evaluation Visit Start Time 13:03 Visit Stop Time 13:33 Occupational Therapy Visit Comments Patient Comments Pt agreed to get up. Patient/Caregiver Goals TO go home OT Pain Assessment Pain When Pain Assessed At Rest Pain Present Pain Present Pain Reported Location Left Lower Abdomen Intensity 2 M4 OT- IP ADL's Start: 09/21/24 14:07 Freq: Status: Active Protocol: Document 09/22/24 15:46 [facility] (Rec: 09/22/24 15:58 [facility] [id number]) OT [id number] General Evaluation Self-Feeding Ability Independent OT ADL-Grooming General Evaluation Grooming Ability Standby Assistance Comments OT Grooming Comments Set-up assist. OT ADL-Oral Care General Eval Oral Care Ability Independent OT ADL-Dressing General Eval Lower Body Dressing Ability Maximum Assistance Areas Needing Assistance Socks Comments OT Dressing Comments Able to go over use of LB dressing equipment so able to follow his precautions. OT ADL-Toileting Comments OT Toileting Comments Pt states to use a urinal at night. Educated standing to wipe with wet ones may be easier. OT ADL-Bathing Comments OT Bathing Comments Suggested to get a shower chair. M5 OT- IP IADL's Start: 09/21/24 14:07 Freq: Status: Active Protocol: Document 09/22/24 15:46 [facility] (Rec: 09/22/24 15:58 [facility] [id number]) OT-Instrumental Activities of Daily Living Home Safety Awareness Awareness of Need for Assistance at Home Good Awareness Ability to Problem Solve Emergency Able to Problem Solve Situations Medication Management Medication Management Caregiver Provides Supervision Money Management Money Management Caregiver Provides Assistance Meal Preparation Meal Preparation Caregiver Provides Assist Patient Scheduling Coordinator Patient Scheduling Coordinator Caregiver Provides Assist M6 OT- IP Functional Cognition Start: 09/21/24 14:07 Freq: Status: Active Protocol: Document 09/22/24 15:46 [facility] (Rec: 09/22/24 15:58 [facility] [id number]) Cognitive Factors Limiting Selfcare Function Cognitive Ability Level of Alertness Alert Patient Orientation Name,Age,Birthday,Month,Date, Year,Day of Week,Place, Situation Attention Span Ability Capable of Focused Attention, Capable of Sustained Attention Ability to Follow Commands Able to Follow Multi-Step Commands Cognitive Comments Cognitive Assessment Comments Intact OT- Vision and Hearing OT- Hearing Assessment OT- Hearing Assessment Use of Hearing Aids OT- Vision Assessment Visual Acuity Glasses For Reading Visual Attentiveness WFL Occular Pursuits WFL M7 OT- IP Mobility and Balance Start: 09/21/24 14:07 Freq: Status: Active Protocol: Document 09/22/24 15:46 [facility] (Rec: 09/22/24 15:58 [facility] [id number]) OT-Transfer Assessment Sit to and From Stand Sit to and from Stand Standby Assistance Transfers Transfer Ability Standby Assistance Technique Transfer Destination Chair Transfer Technique Stand Step Pivot Devices Transfer Assistive Devices Gait Belt,Front Wheeled Walker ,4 Wheeled Walker Comments Mobility Comments Had pt use the FWW versus 4ww and pt states prefers use the fww and to pick one up at [facility]. OT- Balance Assessment Sitting Balance and Reactions Static Sitting Balance Ability Normal Dynamic Sitting Balance Ability Good Standing Balance and Reactions Static Standing Balance Ability Good Dynamic Standing Balance Ability Fair M8 OT- IP Objective Assessments Start: 09/21/24 14:07 Freq: Status: Active Protocol: Document 09/22/24 15:46 [facility] (Rec: 09/22/24 15:58 [facility] [id number]) OT Gross Range of Motion Upper Extremity Range of Motion ROM Impairments WFl for needs. OT Strength Comments Strength Comments WFL for needs. M9 OT- IP Assessment and Plan Start: 09/21/24 14:07 Freq: Status: Active Protocol: Document 09/22/24 15:46 [facility] (Rec: 09/22/24 15:58 [facility] [id number]) OT Summary Assessment and Plan Potential Rehabilitation Potential Good Analytic Complexity at Evaluation Low Summary OT Impairments Pain,Balance,Functional Mobility,Dressing,Toileting, Bathing,Toilet Transfers, Shower Transfers,Activity Tolerance Progress Towards Goals Progressing Toward Goals Assessment Summary Pt low complexity and main barriers are pain, and decreased dynamic balance. Pt will benefit from a FWW, shower chair and LB dressing equipment to use at home. Pt looking to buy slip on shoes. Pt to go home when medically stable. Goals Self-Feeding Goal Independent Grooming Goal Independent Dressing Goal Independent,Porcelain Enameler,Sock Aid Toileting Goal Independent Bathing Goal Standby Assistance Toilet Transfer Goal Independent Shower Transfer Goal Independent Days to Meet Goals 2 Frequency of Treatment Frequency Of Treatment Once a Day Treatment Plan OT Treatment Plan ADL Training,Functional Mobility,Patient/Family Education,Discharge Planning Discharge Recommendations OT Discharge Recommendations Home with Assistance Home Equipment Needs shower chair, LB dressing equipment, FWW Transportation Needs at Discharge Private Vehicle
--- NOTE | 2024-09-22 14:01 | PM.PNPO.1 ---
Subjective Subjective Date Patient Seen: 09/22/24 Time Patient Seen: 14:01 Interval history: No acute events. Postoperative day 1 status post laparoscopic sigmoid colectomy for recurrent diverticulitis. No nausea of, pain is well-controlled. Exam Vital Signs (past 8 hours): - 09/22/24 08:00 09/22/24 08:00 09/22/24 12:00 Temperature 97.8 F Pulse Rate 71 Respiratory Rate 18 Blood Pressure 110/60 Pulse Oximetry 96 96 95 Oxygen Delivery Method Room Air Room Air Oxygen Flow Rate 0 0 0 09/22/24 12:00 Temperature 96.7 F L Pulse Rate 59 L Respiratory Rate 16 Blood Pressure 103/62 Pulse Oximetry 95 Oxygen Delivery Method Oxygen Flow Rate Oxygen Delivery Method Room Air Oxygen Flow Rate 0 Narrative Exam Narrative: General adult man alert oriented no acute distress Abdomen soft appropriately tender to palpation. Objective Labs 09/22/24 04:30 09/22/24 04:30 Labs: Laboratory Results - last 24 hr 09/22/24 04:30 WBC 18.7 H D RBC 4.22 L Hgb 12.6 L Hct 37.9 L MCV 89.9 MCH 29.9 MCHC 33.3 RDW 15.0 H Plt Count 343 Neut % (Auto) 88.6 H Lymph % (Auto) 4.6 L Bell % (Auto) 6.6 Eos % (Auto) 0.0 L Baso % (Auto) 0.2 Neut # (Auto) 23672 H Lymph # (Auto) 900 L Bell # (Auto) 1200 H Eos # (Auto) 0 Baso # (Auto) 0 Sodium 134 L Potassium 3.7 Chloride 102 Carbon Dioxide 25 BUN 20 Creatinine 1.52 H Estimated GFR 45 L BUN/Creatinine Ratio 13.2 Glucose 154 H Calcium 8.6 PFSH Medical History Ulcerative colitis Atrial fibrillation with rapid ventricular response History of colonic diverticulitis BPH (benign prostatic hyperplasia) Gout Snoring Periodic limb movement disorder (PLMD) Obstructive sleep apnea, 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 (~04/22/20) 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) 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 medical condition Excessive daytime sleepiness (~2019) Hyperlipidemia Essential hypertension (Unknown) Sepsis Colitis (~2018) Blepharophimosis unspecified eye, unspecified lid A-fib Diverticulitis (~2018) Surgical History History of tonsillectomy History of colonoscopy Family History Father Loud snoring Hypertension Mother Hypertension Social History marital status: details: lives in [place] household members: spouse lives independently: Yes caregiver/support person: No housing: house Smoking Status: Former smoker alcohol intake: former substance use type: does not use Assessment & Plan Post-op Postoperative Procedures: Procedures Operation Date: 09/21/24 07:45 Actual Procedure Side Surgeon p Laparoscopic Sigmoid Colectomy Not Applicable Andriy Grimm MD Postoperative status: doing well Postoperative plan: routine post-op care Postoperative plan narrative: Regular diet Remove Zuniga catheter Physical therapy SCDs and prophylactic Lovenox
--- NOTE | 2024-09-22 15:39 | CM.DANOTE ---
Addendum entered by MAYCOL Wright 09/22/24 16:05: Correction: POD#1 from lap assisted colectomy. Original Note: Initial DCP Assessment Note Pt is a 84 yo male, resident of [place], now POD#1 from hernia repair by Dr Grimm. PCP: Elda Lawson Payer: [facility] MCR Reviewed chart, therapies recommending home with outpatient PT Met w/patient and sp, reviewed discharge plan. Patient lives independently with his and is confident in her ability to care for him throughout his recovery. Discussed HH RN, patient/sp do not think this will be needed although will consider. Sp plans to get patient into outpatient PT when possible. No barriers identified at this time to patient's safe discharge home w/family to assist; close outpatient f/u recommended. CM team will plan to follow clinical course closely in case any DC needs or concerns arise. 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 Yes Advance Directives on File No History Provided By Patient,Significant Other, Medical Record Prior Living Arrangements House Household Members spouse Type of transporation used prior to Drives own vehicle admit Independent with ADL's Yes Is patient alert and oriented? Yes Patient/Family Preference Home with Home Health Barriers to Discharge No Comment Patient and sp are considering home health services Discharge Plan Home Transportation Arrangement Spouse Referrals Initiated Home Health Additional Comment HH referral if patient/sp agreeable
[2024-09-22] MEDS: SIMETHICONE 80 MG TABLET PO (15:41)
[2024-09-22] MEDS: ONDANSETRON 4 MG/2 ML INJ IV (17:16)
[2024-09-22] MEDS: SODIUM CHLORIDE 0.9% 1,000 ML 125 ML IV (17:49)
[2024-09-22] MEDS: dilTIAZem CD 180 MG CAP PO (21:50)
[2024-09-23] VITALS (9 sets, daily range): BP systolic 115–156; BP diastolic 57–88; PULSE 64–86; RESP 15–18; TEMP 35.9–36.7; O2SAT 94–98
[2024-09-23] MEDS: SODIUM CHLORIDE 0.9% 1,000 ML 125 ML IV (01:40)
[2024-09-23 04:41] LABS: Add Manual Diff / Slide Review NO; Basophils Absolute Auto 100 /uL (0-100); Basophils Percent Auto 0.4 % (0-2); Eosinophils Absolute Auto 0 /uL (0-450); Eosinophils Percent Auto 0.1 % (2-4); Hematocrit 35.1 % (41-53); Hemoglobin 11.9 g/dL (13.5-17.5); Lymphocytes Absolute Auto 1200 /uL (1100-4500); Lymphocytes Percent Auto 7.1 % (25-40); Mean Corpuscular Hemoglobin 30.4 PG (26-34); Mean Corpuscular Volume 89.3 fL (80-100); Monocytes Absolute Auto 1100 /uL (0-900); Monocytes Percent Auto 6.3 % (3-14); Neutrophils Absolute Auto 15000 /uL (1500-7000); Neutrophils Percent Auto 86.1 % (50-75); Platelet Count 329 X10^3/uL (150-400); Red Blood Cell Count 3.93 X10^6/uL (4.5-5.9); Red Cell Distribution Width 15.2 % (11.6-14.8); White Blood Cell Count 17.4 X10^3/uL (4.5-11.0)
[2024-09-23 04:58] LABS: BUN Creatinine Ratio 12.3 (6-22); Blood Urea Nitrogen 21 mg/dL (9-20); Calcium 8.1 mg/dL (8.4-10.2); Carbon Dioxide 21 mmol/L (22-32); Chloride 105 mmol/L (98-107); Estimated Glomerular Filt Rate 39 mL/min (>60); Glucose 99 mg/dL (80-110); HEMOLYSIS < 15 (0-50); Potassium 3.4 mmol/L (3.4-5.1); Sodium 133 mmol/L (137-145)
[2024-09-23] MEDS: AMIODARONE 200 MG TABLET PO ×2 (08:16→20:40)
[2024-09-23] MEDS: ENOXAPARIN 40 MG/0.4 ML SYRINGE SUBCUT (08:16)
[2024-09-23] MEDS: METOPROLOL IR 50 MG TABLET PO ×2 (08:16→20:40)
[2024-09-23] MEDS: dilTIAZem CD 180 MG CAP PO ×2 (08:16→20:40)
[2024-09-23] MEDS: ACETAMINOPHEN 325 MG TABLET 650 MG PO ×2 (08:16→20:40)
--- NOTE | 2024-09-23 10:20 | P.PN_ITS ---
Subjective Subjective Date Patient Seen: 09/23/24 Time Patient Seen: 10:20 Interval history: Postoperative day 2 sigmoid colectomy Abdominal distention with nausea yesterday afternoon later on passing flatus feels markedly improved. Minimal abdominal pain no acute events. Exam Vital Signs (past 8 hours): - 09/23/24 04:00 09/23/24 04:00 09/23/24 08:00 Temperature 96.6 F L Pulse Rate 68 Respiratory Rate 16 Blood Pressure 115/65 Pulse Oximetry 94 94 95 Oxygen Delivery Method Room Air Room Air Oxygen Flow Rate 0 09/23/24 08:00 Temperature 98.1 F Pulse Rate 86 Respiratory Rate 18 Blood Pressure 149/75 H Pulse Oximetry 95 Oxygen Delivery Method Oxygen Flow Rate 0 Oxygen Delivery Method Room Air Oxygen Flow Rate 0 Narrative Exam Narrative: General adult man alert oriented no acute distress Abdomen soft appropriately tender to palpation. Objective Labs 09/23/24 04:21 09/23/24 04:21 Labs: Laboratory Results - last 24 hr 09/23/24 04:21 WBC 17.4 H RBC 3.93 L Hgb 11.9 L Hct 35.1 L MCV 89.3 MCH 30.4 MCHC 34.0 RDW 15.2 H Plt Count 329 Neut % (Auto) 86.1 H Lymph % (Auto) 7.1 L [place] % (Auto) 6.3 Eos % (Auto) 0.1 L Baso % (Auto) 0.4 Neut # (Auto) 05637 H Lymph # (Auto) 1200 [place] # (Auto) 1100 H Eos # (Auto) 0 Baso # (Auto) 100 Sodium 133 L Potassium 3.4 Chloride 105 Carbon Dioxide 21 L BUN 21 H Creatinine 1.71 H Estimated GFR 39 L BUN/Creatinine Ratio 12.3 Glucose 99 Calcium 8.1 L PFSH Medical History Ulcerative colitis Atrial fibrillation with rapid ventricular response History of colonic diverticulitis BPH (benign prostatic hyperplasia) Gout Snoring Periodic limb movement disorder (PLMD) Obstructive sleep apnea, adult (~04/22/20) 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) 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 medical condition Excessive daytime sleepiness (~2019) Hyperlipidemia Essential hypertension (Unknown) Sepsis Colitis (~2018) Blepharophimosis unspecified eye, unspecified lid A-fib Diverticulitis (~2018) Surgical History History of tonsillectomy History of colonoscopy Family History Father Loud snoring Hypertension Mother Hypertension Social History marital status: details: lives in [place] household members: spouse lives independently: Yes caregiver/support person: No housing: house Smoking Status: Former smoker alcohol intake: former substance use type: does not use Assessment & Plan Post-op Postoperative Procedures: Procedures Operation Date: 09/21/24 07:45 Actual Procedure Side Surgeon p Laparoscopic Sigmoid Colectomy Not Applicable Andriy Grimm MD Postoperative status narrative: Postoperative day 2 status post laparoscopic sigmoid colectomy for diverticular disease. Doing well postoperative ileus resolving. -advance diet from clear to full liquid -SCDs and Lovenox. -anticipate discharge within the next 1-2 days
--- NOTE | 2024-09-23 10:40 | PT.IPTN ---
Current Diagnoses Personal history of other diseases of the digestive system (09/21/24) Surgery Performed Operation Date: 09/21/24 07:45 Actual Procedures p Laparoscopic Sigmoid Colectomy(Not Applicable) - Andriy Grimm MD Physical Therapy Treatment Note M2 PT-IP Current Condition Start: 09/22/24 08:33 Freq: NEEDED Status: Active Protocol: Document 09/22/24 10:05 MB (Rec: 09/22/24 10:33 MB [id number]) Physical Therapy Current Condition Current Condition Evaluation Date 09/22/24 Treatment Diagnosis Sigmoid colectomy M3 PT-IP Subjective Start: 09/22/24 08:33 Freq: NEEDED Status: Active Protocol: Document 09/23/24 10:40 AB (Rec: 09/23/24 13:00 AB [id number]) Subjective Physical Therapy Visit Type Type Treatment Note Visit Start Time 10:40 Visit Stop Time 11:00 Number of OPTOMETRIST Visits 0 Physical Therapy Visit Comments Patient Comments agreeable to do PT Therapy Pain Assessment Pain When Pain Assessed At Rest Location Left Lower Abdomen Intensity 2 Scale Used Numeric (0 - 10) Pain Management Techniques Distraction,Modification of Treatment,Re-positioning, Timing of Activity with Medications M4 PT-IP Mobility and Gait Start: 09/22/24 08:33 Freq: NEEDED Status: Active Protocol: Document 09/23/24 10:40 AB (Rec: 09/23/24 13:00 AB [id number]) PT-Bed Mobility Assessment Rolling Type of Rolling Log Rolling Level of Assist Independent Supine to Sit Supine to Sit Independent Sit to Supine Sit to Supine Independent PT-Transfer Assessment Sit to and From Stand Sit to and from Stand Independent,Use of Upper Extremities Equipment Transfer Assistive Device None,Gait Belt Orthotic/Prosthetic Devices or Brace: No Transfers Transfer Destination Bed Transfer Technique Stand Step Pivot Transfer Ability Level of Assist Standby Assistance,1 Person Assistance,2 Person Assistance Comments Mobility Comments pt sitting on the chair and agreeable to do PT. completed sit to stand from chair SBA and ambulated in the hallway using FWW SBA ~ 250 ft. pt ambulated back to his room and sat on the chair. completed sit to stand SBA and step transfer to bed without AD SBA and demonstrated bed mobility log roll mod I. pt ambulated in room without AD SBA ~ 30 ft. pt ambulated more in the hallway using SPC SBA ~ 250 ft . pt sat back on his chair. call light and table placed within reach. informed pt that no further PT needed and pt agreed. Gait Assessment Gait Gait Assistance Required: Standby Assistance Distance (Feet) 250 Able to Maintain Weight Bearing Status Yes During Gait Assistive Devices Assistive Device None,Gait Belt,Straight Cane, Front Wheeled Walker Orthotic/Prosthetic Devices or Brace: No Factors Limiting Gait Function Factors Limiting Gait Function Decreased Activity Tolerance, Pain,Poor Balance M5 PT-IP Objective Assessments Start: 09/22/24 08:33 Freq: NEEDED Status: Active Protocol: Document 09/22/24 10:05 MB (Rec: 09/22/24 10:33 MB [id number]) Orientation Orientation/Cognition Level of Alertness Alert Orientation Name,Age,Birthday,Month,Year, Place,Situation Language Function Ability No Deficits Noted Safety Awareness Decreased Safety Awareness Memory Description No Deficits Noted Gross Range of Motion Upper Extremity ROM Impairments Defer to OT Lower Extremity ROM Assessment Within Functional Limits Impairments B feet edematous Strength Lower Extremity Strength Assessment Within Functional Limits Coordination Assessment Gross Coordination Gross Coordination Impaired Assessment Coordination Comments Slow movement post-op, B feet edema and pt reporting some numbness Sensation Assessment Comments Sensation Comments B feet numbness Muscle Tone Muscle Tone WNL Yes M6 PT-IP Treatment Start: 09/22/24 08:33 Freq: NEEDED Status: Active Protocol: Document 09/23/24 10:40 AB (Rec: 09/23/24 13:00 AB [id number]) Physical Therapy Treatment Education Education Provided Precautions,Safety M7 PT-IP Assessment and Plan Start: 09/22/24 08:33 Freq: NEEDED Status: Active Protocol: Document 09/23/24 10:40 AB (Rec: 09/23/24 13:00 AB [id number]) PT Summary Assessment and Plan Potential Rehabilitation Potential Good Summary Impairments Pain,ROM,Strength,Balance, Transfers,Gait,Activity Tolerance Progress Towards Goals Progressing Toward Goals Assessment Summary pt is progressing well with mobility. pt is modified independent with log roll bed mobility and only requires SBA for transfers and ambulation. pt able to ambulate SPC/ without AD SBA but prefers to use a FWW at this time. pt stated that he will borrow a FWW from [employer]. pt will have his spouse to assist him at home if needed. pt may go home when medically stable. no futher PT needs at this time. pt to continue moving/ ambulating with nursing staff. Goals Bed Mobility Goal Independent Transfer Goal Independent,Cane,Front Wheeled Walker Gait Goal Independent,Cane,Front Wheel Walker Gait Distance 150 Days to Meet Goals 3 Frequency of Treatment Frequency Of Treatment Discharge Treatment Plan Physical Therapy Treatment Plan Bed Mobility Training,Transfer Training,Gait Training, Therapeutic Exercise,Balance Retraining,Post Op Education, Discharge Planning,Hot or Cold Pack,Neuromuscular Re-ed, Coordination Retraining,Manual Therapy Recommendations To Nursing Amount of Assist Needed Standby Assistance Discharge Recommendations PT Discharge Recommendations Home with Assistance, Outpatient PT Transportation Needs at Discharge Private Vehicle
[2024-09-23] MEDS: POTASSIUM CHLORIDE 20 MEQ TAB 40 MEQ PO (11:09)
--- NOTE | 2024-09-23 11:11 | OT.IPNOTE ---
Pt not wanting to shower or brush his teeth this morning and states doing much better today and able to just use the SPC this morning for ambulation needs. Pt states to get LB dressing equipment as needed. NO charge. Pt to go home with his when medically stable.
[2024-09-24 03:00] VITALS: BP 138/77; PULSE 79; RESP 20; TEMP 36.8; O2SAT 99
[2024-09-24 04:00] VITALS: O2SAT 99
[2024-09-24 05:07] LABS: Add Manual Diff / Slide Review NO; Basophils Absolute Auto 100 /uL (0-100); Basophils Percent Auto 0.5 % (0-2); Eosinophils Absolute Auto 100 /uL (0-450); Hematocrit 35.8 % (41-53); Lymphocytes Absolute Auto 2000 /uL (1100-4500); Lymphocytes Percent Auto 14.2 % (25-40); Mean Corpuscular HGB Conc 33.6 % (30-36); Mean Corpuscular Volume 89.4 fL (80-100); Monocytes Absolute Auto 1100 /uL (0-900); Monocytes Percent Auto 8.1 % (3-14); Neutrophils Absolute Auto 10700 /uL (1500-7000); Neutrophils Percent Auto 76.2 % (50-75); Platelet Count 310 X10^3/uL (150-400); Red Blood Cell Count 4.01 X10^6/uL (4.5-5.9); Red Cell Distribution Width 15.5 % (11.6-14.8); White Blood Cell Count 14.1 X10^3/uL (4.5-11.0)
[2024-09-24 05:19] LABS: BUN Creatinine Ratio 11.5 (6-22); Blood Urea Nitrogen 15 mg/dL (9-20); Calcium 8.4 mg/dL (8.4-10.2); Carbon Dioxide 22 mmol/L (22-32); Chloride 110 mmol/L (98-107); Estimated Glomerular Filt Rate 54 mL/min (>60); Glucose 86 mg/dL (80-110); HEMOLYSIS < 15 (0-50); Potassium 3.3 mmol/L (3.4-5.1); Sodium 140 mmol/L (137-145)
[2024-09-24 07:00] VITALS: BP 144/74; PULSE 87; RESP 18; TEMP 36.1; O2SAT 98
[2024-09-24 08:00] VITALS: O2SAT 99
[2024-09-24] MEDS: dilTIAZem CD 180 MG CAP PO (08:10)
[2024-09-24] MEDS: METOPROLOL IR 50 MG TABLET PO (08:10)
[2024-09-24] MEDS: AMIODARONE 200 MG TABLET PO (08:10)
[2024-09-24] MEDS: ENOXAPARIN 40 MG/0.4 ML SYRINGE SUBCUT (08:10)
--- NOTE | 2024-09-24 08:38 | P.PN_ITS ---
Subjective Subjective Date Patient Seen: 09/24/24 Time Patient Seen: 08:38 Interval history: Patient is tolerating a regular diet without nausea or vomiting. He is passing gas and having bowel movements. No complaints of abdominal distention. He is ambulating without difficulty and feels confident going home. Exam Vital Signs (past 8 hours): - 09/24/24 03:00 09/24/24 04:00 Temperature 98.2 F Pulse Rate 79 Respiratory Rate 20 Blood Pressure 138/77 Pulse Oximetry 99 99 Oxygen Delivery Method CPAP Oxygen Flow Rate 0 Oxygen Delivery Method CPAP Oxygen Flow Rate 0 Const General: cooperative and comfortable Nutritional Appearance: well nourished Orientation: alert and oriented x3 HENMT Head: normal to inspection Mouth: oral mucosae normal Resp Effort & Inspection: normal respiratory effort Cardio Rate: regular rate GI Palpation: soft and No tender Other: Incisions are dressed with Band-Aid. Minimal strike through on the infraumbilical dressing. Skin General: no rashes or lesions noted and No erythema Objective Labs 09/24/24 04:19 09/24/24 04:19 Labs: Laboratory Results - last 24 hr 09/24/24 04:19 WBC 14.1 H RBC 4.01 L Hgb 12.0 L Hct 35.8 L MCV 89.4 MCH 30.0 MCHC 33.6 RDW 15.5 H Plt Count 310 Neut % (Auto) 76.2 H Lymph % (Auto) 14.2 L [place] % (Auto) 8.1 Eos % (Auto) 1.0 L Baso % (Auto) 0.5 Neut # (Auto) 70744 H Lymph # (Auto) 2000 [place] # (Auto) 1100 H Eos # (Auto) 100 Baso # (Auto) 100 Sodium 140 Potassium 3.3 L Chloride 110 H Carbon Dioxide 22 BUN 15 Creatinine 1.31 H Estimated GFR 54 L BUN/Creatinine Ratio 11.5 Glucose 86 Calcium 8.4 PFSH Medical History Ulcerative colitis Atrial fibrillation with rapid ventricular response History of colonic diverticulitis BPH (benign prostatic hyperplasia) Gout Snoring Periodic limb movement disorder (PLMD) Obstructive sleep apnea, adult (~04/22/20) 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) 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 medical condition Excessive daytime sleepiness (~2019) Hyperlipidemia Essential hypertension (Unknown) Sepsis Colitis (~2019) Blepharophimosis unspecified eye, unspecified lid A-fib Diverticulitis (~2019) Surgical History History of tonsillectomy History of colonoscopy Family History Father Loud snoring Hypertension Mother Hypertension Social History marital status: details: lives in [place] household members: spouse lives independently: Yes caregiver/support person: No housing: house Smoking Status: Former smoker alcohol intake: former substance use type: does not use Assessment & Plan Assessment & Plan narrative: Status post laparoscopic sigmoid colectomy for diverticulitis with abscess 1. Leukocytosis and creatinine are normalizing compared to yesterday 2. Patient feels well and confident going home. We will plan for discharge today, based on discussion with Dr. Grimm yesterday. Time-Based Coding :: [TOTAL MINUTES] spent with patient and on the chart (including review of chart, obtaining history, exam, reviewing outside data, placing orders, documenting exam and treatment plan, and counseling patient) on [DATE].
--- NOTE | 2024-09-24 08:43 | PM.DS.1 ---
History of Present Illness History of Present Illness Date Patient Seen: 09/24/24 Time Patient Seen: 08:43 Chief complaint: Laparoscopically Assisted Colectomy Narrative: Patient had multiple recurrent episodes of diverticulitis with abscess. Agreed to laparoscopic sigmoid colectomy. Underwent uncomplicated laparoscopic sigmoid colectomy with primary anastomosis. Postoperatively had a slight bump in leukocytosis and creatinine, both of which improved nearly to normal on the day of discharge. Discharge Providers Provider Date of admission: 09/21/24 06:23 Discharge Date: 09/24/24 Primary care physician: Elda Lawson DO Consults: 09/21/24 11:57 Consult to Discharge Planning Routine Comment: Consult to Occupational Therapy Evaluate & Treat Comment: Physician Instructions: Evaluate and treat Consult to Physical Therapy Evaluate & Treat Comment: Physician Instructions: Evaluate and Treat Discharge provider: Asim Leach MD Summary Hospital Course Discharge Diagnosis: Diverticulitis of the sigmoid colon with abscess Hospital Course: Underwent elective laparoscopic sigmoidectomy. Unremarkable postoperative course with the exception of mild leukocytosis and increased creatinine. Status at Discharge Cognitive/behavioral status at discharge: oriented Functional status at discharge: independent ambulation Overall status at discharge: patient is back to baseline Time Spent with Patient Time spent: Less than 30 minutes Exam Vital Signs (past 8 hours): - 09/24/24 03:00 09/24/24 04:00 09/24/24 07:00 Temperature 98.2 F 96.9 F L Pulse Rate 79 87 Respiratory Rate 20 18 Blood Pressure 138/77 144/74 H Pulse Oximetry 99 99 98 Oxygen Delivery Method CPAP Oxygen Flow Rate 0 0 Oxygen Delivery Method CPAP Oxygen Flow Rate 0 Const General: cooperative and comfortable Nutritional Appearance: well nourished Orientation: alert and oriented x3 HENMT Head: normal to inspection Mouth: oral mucosae normal Resp Effort & Inspection: normal respiratory effort Cardio Rate: regular rate GI Palpation: soft and No tender Other: Incisions are dressed with Band-Aid. Minimal strike through on the infraumbilical dressing. Skin General: no rashes or lesions noted and No erythema Objective Labs 09/24/24 04:19 09/24/24 04:19 Labs: Laboratory Results - last 24 hr 09/24/24 04:19 WBC 14.1 H RBC 4.01 L Hgb 12.0 L Hct 35.8 L MCV 89.4 MCH 30.0 MCHC 33.6 RDW 15.5 H Plt Count 310 Neut % (Auto) 76.2 H Lymph % (Auto) 14.2 L [place] % (Auto) 8.1 Eos % (Auto) 1.0 L Baso % (Auto) 0.5 Neut # (Auto) 47804 H Lymph # (Auto) 2000 [place] # (Auto) 1100 H Eos # (Auto) 100 Baso # (Auto) 100 Sodium 140 Potassium 3.3 L Chloride 110 H Carbon Dioxide 22 BUN 15 Creatinine 1.31 H Estimated GFR 54 L BUN/Creatinine Ratio 11.5 Glucose 86 Calcium 8.4 PFSH Medical History Ulcerative colitis Atrial fibrillation with rapid ventricular response History of colonic diverticulitis BPH (benign prostatic hyperplasia) Gout Snoring Periodic limb movement disorder (PLMD) Obstructive sleep apnea, adult (~04/22/20) 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) 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 medical condition Excessive daytime sleepiness (~2019) Hyperlipidemia Essential hypertension (Unknown) Sepsis Colitis (~2018) Blepharophimosis unspecified eye, unspecified lid A-fib Diverticulitis (~2018) Surgical History History of tonsillectomy History of colonoscopy Family History Father Loud snoring Hypertension Mother Hypertension Social History marital status: details: lives in [place] household members: spouse lives independently: Yes caregiver/support person: No housing: house Smoking Status: Former smoker alcohol intake: former substance use type: does not use Discharge Assessment & Plan Assessment and Plan Assessment: Sigmoid diverticulitis with perforation and abscess Plan of Treatment: Patient is to follow-up with Dr. Grimm as previous scheduled Discharge Plan Discharge Plan Patient Disposition: Home Discharge orders & Medications Prescriptions: Continued diltiazem HCl 180 mg capsule,extended release 24 hr 180 mg PO BID Qty: 180 1RF indomethacin 50 mg capsule 50 mg PO TID PRN (Reason: Gout) Qty: 60 0RF Rx Instructions: administer with food or milk mesalamine 1.2 gram tablet,delayed release (DR/EC) 3.6 g PO TID amiodarone 200 mg tablet 200 mg PO BID Qty: 60 0RF Rx Instructions: Take twice daily x 2 weeks, then once daily aspirin 81 mg Capsule 81 mg PO DAILY metoprolol tartrate 50 mg tablet 50 mg PO BID Follow up/Referrals: Elda Lawson DO [Primary Care Provider] - Diet/Activity/Treatments Diet: Regular Skin/Wound/Dressing Care Report to your healthcare provider any signs of infection, such as:: chills, fever, night sweats, increased pain, unusual drainage and unusual redness Visit Report/Discharge Packet Instructions: DI for Colectomy Stand Alone Forms: Patient Portal/API, Stroke Signs & Symptoms, Surgery Discharge Discharge Data Primary Care Provider: Elda Lawson
--- NOTE | 2024-09-24 09:30 | CM.DPC ---
DCP Discharge Home Per Surgeon, pt tolerating diet and ambulating and had bm and flatus and medically stable to d/c home today and no identified discharge planning needs. Per Rn, no concerns noted at this time and will provide discharge instructions prior to d/c. Plan: Patient to d/c home today via spouse POV and outpt f/u and no further SW needs at this time. MAYCOL Donis
== END 2024-09-24 10:50 | disposition home or self-care (01) | DRG 331 ==
PROVIDERS: Anesthesiology; Admitting Provider Surgery; PCP Family Medicine; Referring Provider Surgery; Visit Provider Surgery
PROC: 0DTE0ZZ Resection of Large Intestine, Open Approach (ICD-10-PCS; principal; 2024-09-21 07:45)
DX: K57.20 Diverticulitis of large intestine with perforation and abscess without bleeding (principal); I48.91 Unspecified atrial fibrillation; I10 Essential (primary) hypertension; G47.33 Obstructive sleep apnea (adult) (pediatric); Z87.891 Personal history of nicotine dependence
CPT/HCPCS: 36415; 44204; 44213; 80048; 83735; 85025; 85027; 93005; 93010; 97161; 97165; 97530; 97535; C9290; J0134; J1100; J1171; J1650; J2405; J2543; J2704; J3010; J3490

== ENCOUNTER → 2024-10-27 12:17 | Outpatient (CLI) | payer MEDICARE, SELFPAY ==
[2024-10-05 10:56] VITALS: BMI 26.6
--- NOTE | 2024-10-27 12:18 | DI.MRI.S_ITS ---
PROCEDURE: MR PELVIC PROSTATE PROTOCOL INDICATIONS: Elevated PSA TECHNIQUE: Coronal HASTE, axial T1 FSE with fat saturation, 3-plane nonbreath-hold T2 FSE. After the administration of contrast, dynamic axial, delayed axial and coronal VIBE or 2-D FLASH with fat saturation through the pelvis. Diffusion weighted imaging and ADC was performed. COMPARISON: [facility], CT, CT ABDOMEN PELVIS W CON, 07/08/2024, 9:38. FINDINGS: Image quality: Diffusion weighted and dynamic contrast enhanced images are diagnostic. Prostate: 4.8 x 5.5 x 4.9 cm. Estimated volume 67.3 cc. Estimated PSA density is 0.45 using the value from 08/20/2024, which is elevated. Transitional zone heterogenous nodules are present, either well encapsulated or mostly encapsulated, compatible with PI-RADS 1 or 2 likely BPH nodules. 1.3 x 1.2 x 1.3 cm lesion in the left apex transitional zone. T2 score 4. DWI score 3. DCE positive. PI-RADS 4. If targeted biopsies are positive, micro capsular involvement is possible. No definite extracapsular disease. Seminal vesicles are clear. Genitourinary system: Trabeculated bladder, usually due to chronic obstruction Bowel and peritoneum: Colonic diverticula. No pathologic ascites. Partially seen fluid collection in the right lower quadrant measures 9.3 x 7.9 cm, not identified on prior CT. Nodes and vessels: No definite pathologic lymph nodes by size criteria. Prostate PET-CT could further evaluate if targeted biopsies are positive. No aneurysmal vessel. Soft tissues: Small inguinal hernias containing fat Bones: No suspicious osseous enhancement. IMPRESSION: Using the value from 08/20/2024, the PSA density is elevated. Prostatomegaly and BPH are present. PI-RADS 4 lesion is seen at the left apex transitional zone. If targeted biopsies are positive, micro capsular involvement is possible. No definite extracapsular disease identified on MRI. Seminal vesicles are clear. Incidentally seen fluid collection in the right lower quadrant measures up to 9.3 x 7.9 cm, sterility indeterminate, new from prior. Consider CT abdomen/pelvis for complete visualization Dictated by: Brent Whelan M.D. on 10/28/2024 at 8:43 Approved by: Brent Whelan M.D. on 10/28/2024 at 8:52
== END ==
PROVIDERS: PCP Family Medicine; Referring Provider Urology; Visit Provider Urology
DX: N40.0 Benign prostatic hyperplasia without lower urinary tract symptoms (principal); N42.9 Disorder of prostate, unspecified; R97.20 Elevated prostate specific antigen [PSA]; N32.89 Other specified disorders of bladder; K57.90 Diverticulosis of intestine, part unspecified, without perforation or abscess without bleeding; K40.90 Unilateral inguinal hernia, without obstruction or gangrene, not specified as recurrent
CPT/HCPCS: 72197; A9579

== ENCOUNTER → 2025-02-02 09:49 | Outpatient (CLI) | payer MEDICARE, SELFPAY ==
[2024-10-05 10:56] VITALS: BMI 26.6
--- NOTE | 2025-02-02 09:51 | DI.NM.S_ITS ---
PROCEDURE: NM BONE SCAN WHOLE BODY RADIOPHARMACEUTICAL: 22 mCi Tc-99m MDP IV. INDICATIONS: New diagnosis cancer TECHNIQUE: Delayed whole-body scintigrams were obtained approximately 3-4 hours after intravenous injection of radiotracer. Anterior and posterior views were acquired from vertex to feet. Additional left and right oblique views of the pelvis were obtained. COMPARISON: [facility], CR, XR CHEST 1V, 08/19/2024, 13:02. [facility], CT, CT ABDOMEN PELVIS WO/W CON, 02/02/2025, 10:49. [facility], MR, MR PELVIC PROSTATE PROTOCOL, 10/27/2024, 12:22. FINDINGS: Physiologic uptake is noted within the kidneys and bladder. Uptake is identified within the feet, knees, wrists as well as shoulder girdles bilaterally. There is a focus of uptake at the right sternoclavicular joint. Small scattered areas of uptake are identified within the spine. IMPRESSION: Scattered areas most suggestive of degenerative change. Uptake within the spine is likely degenerative although small areas of metastatic disease can be indistinguishable in appearance. Focal area of uptake within the right sternoclavicular joint. While this could be arthritic it is markedly asymmetric. Further evaluation with x-ray or CT is recommended. Dictated by: Yesika Banda M.D. on 02/02/2025 at 17:05 Approved by: Yesika Banda M.D. on 02/02/2025 at 17:07
--- NOTE | 2025-02-02 09:51 | DI.CT.S_ITS ---
PROCEDURE: CT ABDOMEN PELVIS WO/W CON INDICATIONS: New diagnosis cancer TECHNIQUE: After the administration of oral contrast, 5 mm thick sections acquired from the diaphragms to the iliac crests. After the administration of intravenous contrast, 5 mm thick sections acquired from the diaphragms to the symphysis. 5 mm thick coronal and sagittal reformats were acquired. For radiation dose reduction, the following was used: automated exposure control, adjustment of mA and/or kV according to patient size. COMPARISON: [facility], CT, CT ABDOMEN PELVIS W CON, 07/08/2024, 9:38. [facility], MR, MR PELVIC PROSTATE PROTOCOL, 10/27/2024, 12:22. FINDINGS: Image quality: Diagnostic Lower chest: Lung bases appear unremarkable. Basal atelectasis is present. Coronary calcifications. Liver: Unremarkable Gallbladder and biliary system: Unremarkable Pancreas: No ductal dilation. Moderate parenchymal atrophy Spleen: Nonenlarged Adrenals: No discrete nodules Kidneys: No solid renal mass. Suspect small nonobstructing calculi are seen along with distal vascular calcifications. No obstructing calcified stone. No hydronephrosis. Vessels and lymph nodes: No pathologic lymphadenopathy by size criteria in the retroperitoneum or pelvis. Bowel and peritoneum: There is a moderate rectal stool ball. Sigmoid suture lines. Colonic diverticula. The No drainable ascites. Right lower quadrant walled-off collection measures 9.3 x 7.6 cm, with internal catheter material in place. Body wall: Unremarkable Pelvis: Heterogeneous prostate, better assessed on MRI. Thick wall urinary bladder is present. Bones: No aggressive appearing osseous abnormality. There are degenerative changes. IMPRESSION: 9.3 x 7.6 cm walled-off collection in the right lower quadrant with internal drain material. Prostate cancer findings are better assessed on MRI. There are no pathologic lymph nodes by size criteria in the abdomen or pelvis. Prostate PET-CT is more sensitive for micro marian metastases if clinically indicated. Bladder wall thickening, nonspecific, correlate urinalysis and possible cystoscopy. Small nonobstructing renal calculi are seen in the kidneys along with distal vascular calcifications of the renal arteries. Sigmoid suture lines are present. Colonic diverticula. Dictated by: Brent Whelan M.D. on 02/02/2025 at 15:49 Approved by: Brent Whelan M.D. on 02/02/2025 at 15:55
[2025-02-02 10:15] LABS: Estimated Glomerular Filt Rate 41 mL/min (>60)
== END ==
PROVIDERS: PCP Family Medicine; Referring Provider Urology; Visit Provider Urology
DX: C61 Malignant neoplasm of prostate (principal); R97.20 Elevated prostate specific antigen [PSA]; N20.0 Calculus of kidney; K57.90 Diverticulosis of intestine, part unspecified, without perforation or abscess without bleeding; I25.10 Atherosclerotic heart disease of native coronary artery without angina pectoris
CPT/HCPCS: 36415; 74178; 78306; 82565; A9503; Q9967

== ENCOUNTER 2025-03-03 07:45 | Inpatient (IN) | payer MEDICARE, SELFPAY ==
[2024-10-05 10:56] VITALS: BMI 26.6
[2025-02-28 10:40] VITALS: BMI 27.1
[2025-03-03] VITALS (19 sets, daily range): BP systolic 118–162; BP diastolic 63–98; PULSE 58–103; RESP 11–18; TEMP 35.2–36.8; O2SAT 94–97; BMI 27.1; BMI 26.9
--- NOTE | 2025-03-03 | PATH_ITS ---
[facility] Accession Number: [id number] No. of containers..01 Tissue . 01 Material submitted: . body - RETAINED SPONGE . 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 FAN 03/08/2025 1236 Local . 01 Electronically signed: . Analisa Katz MD, Pathologist NPI- [id number] . 01 Gross description: . Received in formalin with two identifiers and retained sponge, is a square piece of perforated brown sponge-like surgical material measuring 33.1 inches in length, 34.7 inches in width, and 0.3 cm thick. A blue and green strip of rubber like material is interwoven at one corner of the sponge measuring 10.4 cm in length by 1.3 cm in width by less than 0.1 cm in diameter, and at the same corner a loop of blue fabris is attached measuring 12.4 cm in length by 0.6 cm in diameter. Several defects in the fibers range from 0.7 to 6.5 cm in greatest dimension with rubbery seymour soft tissue inverwoven to the tibers adjacent to the disrupted areas. Sectioning the soft tissue reveals a seymour rubbery unremarkable cut surface. Minister Helper sections of the soft tissue are submitted in cassette A1. Photographs taken. ([id number]) /FAN 03/07/2025 1132 Local . 01 Pathologist provided ICD-10: Z18.9 . 01 CPT . 571438 Specimen Comment: A courtesy copy of this report has been sent to [phone] Performed at: [address] [id number] MD Jono Bullock MD Phone: [phone]
[2025-03-03] MEDS: LACTATED RINGERS 1,000 ML 42 ML IV ×2 (08:37→11:41)
[2025-03-03] MEDS: ACETAMINOPHEN IV 1,000 MG/100 ML VIAL 400 MG IV (08:38)
--- NOTE | 2025-03-03 09:06 | PM.PREOP ---
Pre-operative Note COVID-19 COVID-19 status: Not tested Interval Note History & Physical reviewed/Exam performed by Physician: Yes Changes to H&P: No ASA Class (for procedural sedation): II
[2025-03-03] MEDS: AMPICILLIN/SULBACTAM 3 GM 3 GM in SODIUM CHLORIDE 0.9% 100 ML IV ×2 (09:39→11:45)
[2025-03-03] MEDS: BUPIVACAINE 0.5% W/ EPI (PF) 30 ML VIAL INJ (10:01)
--- NOTE | 2025-03-03 10:09 | SUR.OPER ---
Supine on padded OR bed, head on pillow, arms padded and tucked at sides, legs uncrossed, safety belt at thigh, tape over blanket over lower legs .
[2025-03-03] MEDS: BUPIVACAINE LIPOSOME 266 MG/20 ML VIAL INJ (11:35)
--- NOTE | 2025-03-03 11:48 | SUR.OPER ---
Addendum entered by Roxana Packer R.N. 03/03/25 13:45: Quantity: one sponge. Original Note: Retained sponge removed at 1132.
--- NOTE | 2025-03-03 12:56 | PM.OP.1 ---
Operative Date/Time/Diagnoses Date of procedure: 03/03/25 Time of procedure: 12:56 Pre-op diagnosis: Abnormal imaging of the abdominal cavity Post-op diagnosis: same Procedure & Clinicians Procedure: Exploratory laparotomy Removal of retained foreign body Same procedure as scheduled: Yes Surgeon: Christiano Quiros Barker Operator: Gigi Betancourt Anesthesia Type: General Operative Notes Procedure in detail: The patient is an 84-year-old man who underwent sigmoid colon resection in September of 2024. He had a recent CT scan for a new diagnosis of prostate cancer which showed a fluid collection containing radiopaque material in the right lower quadrant. He was consented for a diagnostic laparoscopy and possible laparotomy for a retained foreign body. The patient received Unasyn. The patient was brought to the operating room and general endotracheal anesthesia was induced. The abdomen was prepped and draped in the usual fashion and a time-out was performed. We started with a infraumbilical midline incision. We dissected down to the anterior sheath and divided the anterior sheath with cautery. The posterior sheath was grasped between clamps and opened sharply to enter the abdomen. The Rodriguez port was placed and the abdomen was insufflated to 15 mmHg. The camera was inserted and there was no evidence of any injury from the entry. We could see that there was adhesions of small bowel and mesentery to the anterior abdominal wall in the right lower quadrant. We then placed additional 5 mm ports in the suprapubic location and the left upper quadrant. We started to carefully take down the adhesions of small bowel to the anterior abdominal wall using sharp scissors. The adhesions appeared to be quite tenacious and a decision was made to convert to a laparotomy. We removed the ports and made a midline incision from the umbilicus to the superior pubis. We placed an Niraj retractor into the wound. We started to take down the adhesions of the small bowel in the right lower quadrant. The adhesions proved to be quite tenacious. Eventually the loops of bowel were able to be dissected off of the capsule. The capsule was then opened with a scalpel and purulent appearing fluid was suctioned out. We took wound cultures from the purulent fluid for microbiology. We extended the incision through the capsule to about 4 cm and it became clear that there was a retained laparotomy sponge within the capsule from his prior surgery. The sponge was quite adherent to the internal wall of the capsule in several places. Blunt and sharp dissection were used to free the sponge from the capsule wall. The sponge was eventually exteriorized intact and opened up and placed on the back table where a photographed was taken. The sponge appeared to be intact. A decision was made to leave the capsule in place to prevent further injury to surrounding organs. We irrigated the abdomen with 2 L of warm saline. We then placed a 19 round drain into the empty capsule and brought the drain out through a left lower quadrant stab incision. The drain was secured to the skin with a 2-0 nylon stitch and connected to bulb suction. Additional local was injected into the fascia. The wound was then closed with a running 0 PDS suture. Skin was closed with kesha. The patient was brought to recovery room in stable condition EBL: 10 mL Specimen: Retained sponge from prior surgery sent to path for gross, wound cultures of the abscess cavity Gigi WITT provided assistance with exposure, retraction and closure of incisions. Post-operative Condition: stable Disposition: PACU
[2025-03-03] MEDS: IBUPROFEN 600 MG TABLET PO (13:27)
--- NOTE | 2025-03-03 13:47 | SUR.OPER ---
Patient underwent an exploratory laparotomy to remove a retained foreign body. One retained surgical sponge was removed from the patient. Surgeon was informed of recommendation for intra-operative and/or post-operative imaging. declined all imaging.
--- NOTE | 2025-03-03 13:56 | PC.NURSE ---
[id number] Patient arrived to unit. LR maintained. Patient with pain to abdomen 4/10, refusing pain medication at this time. Denies numbness and tingling. Dressing noted to midline abdomen. Call light within reach and bed in lowest position.
[2025-03-03] MEDS: LACTATED RINGERS 1,000 ML 100 ML IV (14:01)
[2025-03-03] MEDS: HYDROCODONE/ACET 5/325 TABLET 2 TAB PO ×2 (16:32→21:06)
[2025-03-03] MEDS: AMPICILLIN/SULBACTAM 1.5 GM 1.5 GM in SODIUM CHLORIDE 0.9% 100 ML IV ×2 (16:33→21:07)
[2025-03-03] MEDS: METOPROLOL ER 50 MG TABLET PO (22:14)
[2025-03-03] MEDS: dilTIAZem SR 60 MG 180 MG PO (22:14)
[2025-03-04] VITALS (9 sets, daily range): BP systolic 122–147; BP diastolic 62–80; PULSE 60–95; RESP 14–18; TEMP 35.8–36.3; O2SAT 95–96
--- NOTE | 2025-03-04 00:40 | PC.NURSE ---
Addendum entered by Radha Olivera R.N. 03/04/25 04:35: Dsg has continued to be CDI with no more complaints of pain or pressure BARNEY with minimal output, incentive spirometry taught and encouraged pt performed 10 breaths meeting gaojamal, says he has one at home and uses it regularly Original Note: On first assessment as I entered the room immediately noticed blood on the blankets around the abdominal area. When pulled back the blankets to investigate the source of the blood, I found puddled blood on abdomen. The aquacell was black and the edges were leaking blood. I reinforced the drsg with ABD pads, emptied the BARNEY of [address] Quiros was notified @ 2010 and was given instruction to change the dressings. Drsg changes performed Aquacell was filled with large clots. The drsg was removed, area cleaned with chlorhexidine and new aquacell was replaced. Within 20 minutes the drsg was again saturated and bleeding though. repeat drsg change and renotified Dr Quiros who said to change it again and if saturated place ABD pads for easier change. Within the hour, patient called stating that he was feeling moisture again. This time the bleeding was only oozing from the bottom of the drsg.> drsg was removed and pressure was held again noting that the bleeding was coming from the same area of kesha 5-9, pressure was again held and a folded abd pad was placed with another ABD over top and taped. recheck in 1 hour and the drsg was CDI, will continue to monitor every hour
[2025-03-04] MEDS: AMPICILLIN/SULBACTAM 1.5 GM 1.5 GM in SODIUM CHLORIDE 0.9% 100 ML IV ×4 (02:54→21:10)
[2025-03-04] MEDS: HYDROCODONE/ACET 5/325 TABLET 1 TAB PO (02:54)
[2025-03-04 04:39] LABS: Add Manual Diff / Slide Review NO; Basophils Absolute Auto 100 /uL (0-100); Basophils Percent Auto 0.8 % (0-2); Eosinophils Absolute Auto 0 /uL (0-450); Eosinophils Percent Auto 0.1 % (2-4); Hemoglobin 13.3 g/dL (13.5-17.5); Lymphocytes Absolute Auto 900 /uL (1100-4500); Mean Corpuscular Hemoglobin 30.3 PG (26-34); Mean Corpuscular Volume 89.2 fL (80-100); Monocytes Absolute Auto 600 /uL (0-900); Monocytes Percent Auto 3.9 % (3-14); Neutrophils Absolute Auto 13200 /uL (1500-7000); Neutrophils Percent Auto 89.2 % (50-75); Platelet Count 246 X10^3/uL (150-400); Red Blood Cell Count 4.37 X10^6/uL (4.5-5.9); Red Cell Distribution Width 15.2 % (11.6-14.8); White Blood Cell Count 14.8 X10^3/uL (4.5-11.0)
[2025-03-04] MEDS: IBUPROFEN 600 MG TABLET PO ×3 (07:48→21:11)
[2025-03-04] MEDS: LACTATED RINGERS 1,000 ML 100 ML IV (07:48)
[2025-03-04] MEDS: dilTIAZem SR 60 MG 180 MG PO ×2 (08:17→21:10)
[2025-03-04] MEDS: METOPROLOL ER 50 MG TABLET PO ×2 (08:18→21:09)
--- NOTE | 2025-03-04 10:21 | PM.PN.IH.1 ---
Subjective Subjective Date Patient Seen: 03/04/25 Time Patient Seen: 10:22 Interval history: Dustin did have a fair amount of oozing from his midline incision and dressings were changed several times overnight. He still feel some fullness in the right lower quadrant. He believes that you could be stool in his colon and he needs to have a bowel movement. Exam Vital Signs (past 8 hours): - 03/04/25 07:00 03/04/25 08:00 03/04/25 08:18 Temperature 97.3 F L Pulse Rate 95 H 94 H Respiratory Rate 14 Blood Pressure 147/80 H 147/80 H Pulse Oximetry 95 Oxygen Delivery Method Room Air Oxygen Flow Rate 0 Oxygen Delivery Method Room Air Oxygen Flow Rate 0 Narrative Exam Narrative: There is a small amount of blood in the dressing that has been in place since 2:00 a.m. There is serosanguineous fluid in the drain Objective Labs 03/04/25 04:15 Labs: Laboratory Results - last 24 hr 03/04/25 04:15 WBC 14.8 H RBC 4.37 L Hgb 13.3 L Hct 39.0 L MCV 89.2 MCH 30.3 MCHC 34.0 RDW 15.2 H Plt Count 246 Neut % (Auto) 89.2 H Lymph % (Auto) 6.0 L [place] % (Auto) 3.9 Eos % (Auto) 0.1 L Baso % (Auto) 0.8 Neut # (Auto) 31314 H Lymph # (Auto) 900 L [place] # (Auto) 600 Eos # (Auto) 0 Baso # (Auto) 100 PFSH Medical History (Updated 02/27/25 @ 16:59 by Christiano Quiros MD) Prostate cancer History of orchitis History of tobacco use Ulcerative colitis Atrial fibrillation with rapid ventricular response History of colonic diverticulitis BPH (benign prostatic hyperplasia) Gout Snoring Periodic limb movement disorder (PLMD) Obstructive sleep apnea, adult (~04/22/20) 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) 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 medical condition Excessive daytime sleepiness (~2019) Hyperlipidemia Essential hypertension (Unknown) Sepsis Colitis (~2018) Blepharophimosis unspecified eye, unspecified lid A-fib Diverticulitis (~2018) Surgical History (Updated 02/28/25 @ 10:40 by Kylie Galo RN) Hx of colectomy (09/21/24) Hx of vasectomy History of tonsillectomy History of colonoscopy Family History Father Loud snoring Hypertension Mother Hypertension Hyperlipidemia Social History marital status: details: lives in [place] number of children: 2 household members: spouse lives independently: Yes caregiver/support person: No housing: house Smoking Status: Former smoker alcohol intake: current substance use type: does not use caffeine: Yes Type(s) of exercise: regular exercise frequency: decline to answer Assessment & Plan Assessment and plan (1) Abnormal CT scan: Status: Acute Plan We will continue to change the midline dressing as needed. Continue the drain. Probably home tomorrow. Time-Based Coding :: [TOTAL MINUTES] spent with patient and on the chart (including review of chart, obtaining history, exam, reviewing outside data, placing orders, documenting exam and treatment plan, and counseling patient) on [DATE]. Quality VTE Deep Vein Thrombosis/Pulmonary Embolism Present on Admission: No PROFEE Workers' Compensation Claims Examiner Document charge(s): No
--- NOTE | 2025-03-04 13:01 | CM.DANOTE ---
B DCP Assessment Note pt is a 84yo M POD [address] Quiros. PCP Elda Lawson Payer [facility] and self pay TEAM GUIDE reviewed EMR per chart last admission was Aug 2024/June 2024. per previous CM assessment, pt lives indep with spouse in [place]. uses cane at baseline, hx of referral to [facility] and they were able to accept for services but pt declined HH day of dc. had no CM needs previous assessments. per chart review this admission, pt having fair amount of oozing from incision/needs continued drain. per provider PN, hopeful for dc tomorrow. pt ambulating halls with RN standby/walker. per RN, no anticipated DCP/CM needs P: home tomorrow with spouse support pending medical stability. no anticipated CM needs/identified barriers to safe dc home with OP f/u, will continue to follow in case any should arise MAYCOL Little Discharge Planning/Care Management CM Discharge Assessment Start: 03/04/25 12:57 Freq: Status: Active Protocol: Document 03/04/25 12:57 SL (Rec: 03/04/25 13:00 SL Desktop) Discharge Planning Assessment Assigned Global Climate Change Analyst MAYCOL Partida DPOA/Assigned Designee Name bonnie Coles Contact Information [phone] Advance Directives? Yes Advance Directives on File No History Provided By Patient,Significant Other, Medical Record Prior Living Arrangements House Household Members spouse Independent with ADL's Yes Is patient alert and oriented? Yes DME Already Rented / Owned Cane Discharge Plan Home Transportation Arrangement Spouse Referrals Initiated None needed SNF/HH Preference hx of referral to [facility] 2023, pt ended up declining services day of dc. Whiteboard Updated in Patient Room with No name and ext. # of Global Climate Change Analyst Review Status In Process Please Provide Date Initial DC 03/04/25 Assessment Was Performed Next Review Type Continued Stay Review Pre-Anesthesia Assessment Start: 02/28/25 10:40 Freq: Status: Complete Protocol: Document 02/28/25 10:40 CAB (Rec: 02/28/25 10:53 CAB [id number]) Pre-Anesthesia Assessment PAC Comment Chart review 02/28/25 Patient Information Reviewed Via Chart Review Primary Care Provider Elda Lawson Seen Specialist in Last 12 Months Yes Specialist Seen Sodium Methylate Operator,General surgeon, Urologist Primary Language French Preferred Language French Cementer Helper Required No Height 182.88 cm Weight 90.718 kg Body Mass Index (BMI) 27.1 Other Aids No Hx Anesthesia Reactions No Hx Family Anesthesia Reaction No Hx Malignant Hyperthermia No Hx Blood Transfusions No Hx Blood Transfusion Reaction No Anesthesia Review Requested No Conductor And Engineer No alcohol intake current Tobacco type cigarettes how long ago did patient quit smoking quit 1968. Patient is completely paralyzed or No completely immobile Mental Status Oriented to own ability Is patient on oxygen? No Does patient have ULLOA/SOB No Hx Sleep Apnea Yes CPAP/BIPAP use prescribed and used routinely Currently Taking a Beta Donte Yes: Metoprolol Can You Climb a Flight of Stairs Without No SOB Hx Chest Pain No Hx SOB Yes Hx Syncope or Dizziness Yes Anti-Coagulant Therapy No Has a Sodium Methylate Operator Yes: Last visit 09/05/[address] Han Cardiac Testing No Hx Pacemaker/ICD No Comment Cardiac records scanned and in surgery folder Hx Urinary Self Catheterization No Diabetes No Hx Drug Resistant Organism No Presence of External or Internal Medical No Devices Month and year received flu vaccine 2022 Received a COVID vaccine? Yes Marital Status Lives With spouse Patient Discharge Plan Description Return Home Do You Have Any Spiritual Beliefs That No May Affect Your HC Choices? Do You Have Any Cultural Practices That No May Affect Your HC Choices? Emergency Contact Name Sharyn Mendez - Emergency Contact Advance Directives? Yes Advance Directives on File No Power of Washing Machine Striper Yes Power of Washing Machine Striper Name Sharyn Mendez - ghada Power of Washing Machine Striper
[2025-03-05] MEDS: AMPICILLIN/SULBACTAM 1.5 GM 1.5 GM in SODIUM CHLORIDE 0.9% 100 ML IV ×2 (03:54→10:18)
[2025-03-05 08:07] VITALS: BP 146/84; PULSE 64
[2025-03-05] MEDS: METOPROLOL ER 50 MG TABLET PO (08:07)
[2025-03-05] MEDS: dilTIAZem SR 60 MG 180 MG PO (08:07)
[2025-03-05] MEDS: IBUPROFEN 600 MG TABLET PO (08:08)
[2025-03-05 09:11] VITALS: BP 146/84; PULSE 67; RESP 16; TEMP 36.3; O2SAT 97
--- NOTE | 2025-03-05 09:20 | PM.DS.IH.1 ---
History of Present Illness History of Present Illness Date Patient Seen: 03/05/25 Time Patient Seen: 09:21 Chief complaint: Laparoscopy, Diagnostic, GEN Discharge Providers Provider Date of admission: 03/03/25 07:45 Discharge Date: 03/05/25 Primary care physician: Elda Lawson, Discharge provider: Christiano Quiros MD Summary Hospital Course Discharge Diagnosis: Retained foreign body Hospital Course: The patient was scheduled for a diagnostic laparoscopy on 03/03/[address] scan showing a fluid collection in the abdomen with radiopaque material. He had had a prior sigmoid colon resection for diverticulitis in September of 2024. In the operating room a retained surgical sponge was found within the capsule of the fluid collection and was removed EN bloc. A drain was placed in the capsule. He recovered from surgery and on postoperative day 2 the drain had had minimal output and was removed. He was discharged home. Exam Vital Signs (past 8 hours): - 03/05/25 07:00 03/05/25 08:07 03/05/25 09:11 Temperature 97.3 F L Pulse Rate 64 67 Respiratory Rate 16 Blood Pressure 146/84 H 146/84 H Pulse Oximetry 97 Oxygen Delivery Method Room Air CPAP Oxygen Flow Rate 0 Oxygen Delivery Method Room Air,CPAP Oxygen Flow Rate 0 Narrative Exam Narrative: Abdomen is soft, nontender Drain output was serosanguineous Objective Labs 03/04/25 04:15 PFSH Medical History (Updated 02/27/25 @ 16:59 by Christiano Quiros MD) Prostate cancer History of orchitis History of tobacco use Ulcerative colitis Atrial fibrillation with rapid ventricular response History of colonic diverticulitis BPH (benign prostatic hyperplasia) Gout Snoring Periodic limb movement disorder (PLMD) Obstructive sleep apnea, adult (~04/22/20) 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) 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 medical condition Excessive daytime sleepiness (~2019) Hyperlipidemia Essential hypertension (Unknown) Sepsis Colitis (~2018) Blepharophimosis unspecified eye, unspecified lid A-fib Diverticulitis (~2018) Surgical History (Updated 02/28/25 @ 10:40 by Kylie Galo RN) Hx of colectomy (09/21/24) Hx of vasectomy History of tonsillectomy History of colonoscopy Family History Father Loud snoring Hypertension Mother Hypertension Hyperlipidemia Social History marital status: details: lives in [place] number of children: 2 household members: spouse lives independently: Yes caregiver/support person: No housing: house Smoking Status: Former smoker alcohol intake: current substance use type: does not use caffeine: Yes Type(s) of exercise: regular exercise frequency: decline to answer Discharge Plan Discharge Plan Patient Disposition: Home Provider Discharge Comment: Okay to shower. If the dressings get wet you can replace them. I we will ask my office staff if we can schedule a follow up appointment for you on the morning of March 15 rather than March 21 which was the original postop appointment. Discharge orders & Medications Prescriptions: New hydrocodone-acetaminophen 5-325 mg tablet 1 tab PO Q8H PRN (Reason: pain) Qty: 10 0RF Continued diltiazem HCl 180 mg capsule,extended release 24hr 180 mg PO BID Qty: 180 2RF aspirin 81 mg Capsule 81 mg PO DAILY metoprolol tartrate 50 mg tablet 50 mg PO BID Follow up/Referrals: Elda Lawson DO [Primary Care Provider] - Visit Report/Discharge Packet Stand Alone Forms: Patient Portal/API, Stroke Signs & Symptoms Discharge Data Primary Care Provider: Elda Lawson Quality VTE Deep Vein Thrombosis/Pulmonary Embolism Present on Admission: No IH PROFEE Charge Codes Discharge inpatient/observation: [id number]
== END 2025-03-05 11:56 | disposition home or self-care (01) | DRG 909 ==
PROVIDERS: Admitting Provider Surgery; PCP Family Medicine; Referring Provider Surgery; Visit Provider Surgery
PROC: 0WCG0ZZ Extirpation of Matter from Peritoneal Cavity, Open Approach (ICD-10-PCS; CPT 49320; principal; 2025-03-03 09:15)
DX: T81.590A Other complications of foreign body accidentally left in body following surgical operation, initial encounter (principal); Y65.8 Other specified misadventures during surgical and medical care; C61 Malignant neoplasm of prostate; Z53.31 Laparoscopic surgical procedure converted to open procedure; I48.91 Unspecified atrial fibrillation; I10 Essential (primary) hypertension; G47.33 Obstructive sleep apnea (adult) (pediatric); K66.0 Peritoneal adhesions (postprocedural) (postinfection); Z90.49 Acquired absence of other specified parts of digestive tract; Z82.49 Family history of ischemic heart disease and other diseases of the circulatory system; Z87.891 Personal history of nicotine dependence; Z88.2 Allergy status to sulfonamides; Z86.19 Personal history of other infectious and parasitic diseases
CPT/HCPCS: 36415; 49402; 85025; 87070; 87075; 87205; J0131; J0295; J0666; J1100; J2405; J2704; J3010

== ENCOUNTER 2025-03-12 10:26 | Emergency (ER) | payer MEDICARE, SELFPAY ==
[2025-03-03 13:55] VITALS: BMI 26.9
[2025-03-12 10:39] VITALS: BP 187/107; PULSE 92; RESP 16; TEMP 36.2; O2SAT 99; BMI 26.4
--- NOTE | 2025-03-12 11:00 | ED_ITS ---
HPI - Recheck/Abnormal Lab/Rx <Juana Sheffield PA-C - Last Filed: 03/12/25 11:34> General Chief Complaint: Recheck/Abnormal Lab/Rx Stated Complaint: Infected staple on stomach needs removed Time Seen by Provider: 03/12/25 11:00 History of Present Illness HPI narrative: 84-year-old male presents for chief complaint of some irritation on his postoperative incision site. He underwent an exploratory laparotomy on March 03, [address] Quiros. He currently has [address] in his midline abdomen and 1 at a laparoscopic site, his main complaint is itching and the radha 10 to catch on his clothing. He is denying any fever, abdominal pain, nausea, vomiting, he reports a little bit of bleeding drainage from the lower aspect but again his chief complaint is truly itching. He had an extensive surgery that date back to September [address] Vicente please refer to those detailed notes. He is denying any issues with bowel or bladder, no issues with his appetite, he has kept the area clean with soap and water and following all postoperative discharge instructions. He plans to call Dr. Quiros in the morning and is currently scheduled for staple removal on March 15, 2025, he has been using ibuprofen PRN 400-600 mg at most at bedtime or around 3 in the morning if he has some discomfort otherwise he might use some [id number] Tylenol. History is significant for AFib, diverticulitis, gout, prostate CA, SAY, BPH, hypertension, heart failure with reduced ejection fraction. He takes diltiazem, baby aspirin and metoprolol. All other systems reviewed and are negative. Related Data Home Medications Medication Instructions Recorded Confirmed aspirin 81 mg capsule 81 mg PO DAILY 08/12/24 03/08/25 metoprolol tartrate 50 mg tablet 50 mg PO BID 09/13/24 03/08/25 Previous Rx's Medication Instructions Recorded diltiazem HCl 180 mg capsule,24 180 mg PO BID #180 caps 01/17/25 hr,extended release hydrocodone 5 mg-acetaminophen 325 1 tab PO Q8H PRN pain #10 tabs 03/05/25 mg tablet Allergies Allergy/AdvReac Type Severity Reaction Status Date / Time Sulfa (Sulfonamide Allergy Intermediate red spots Verified 03/08/25 13:25 Antibiotics) Patient History <Juana Sheffield PA-C - Last Filed: 03/12/25 11:34> Medical History Prostate cancer History of orchitis History of tobacco use Ulcerative colitis Atrial fibrillation with rapid ventricular response History of colonic diverticulitis BPH (benign prostatic hyperplasia) Gout Snoring Periodic limb movement disorder (PLMD) Obstructive sleep apnea, adult (~04/22/20) insole and heel stiffener associated with adverse incidents (~05/2021) 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 medical condition Excessive daytime sleepiness (~2019) Hyperlipidemia Essential hypertension (Unknown) Sepsis Colitis (~2018) Blepharophimosis unspecified eye, unspecified lid A-fib Diverticulitis (~2018) Surgical History Hx of colectomy (09/21/24) Hx of vasectomy History of tonsillectomy History of colonoscopy Family History Father Loud snoring Hypertension Mother Hypertension Hyperlipidemia Social History marital status: details: lives in [place] number of children: 2 household members: spouse lives independently: Yes caregiver/support person: No housing: house alcohol intake: current substance use type: does not use caffeine: Yes Type(s) of exercise: regular exercise frequency: decline to answer alcohol intake frequency: 0-2 drinks per day Exam <Juana Sheffield PA-C - Last Filed: 03/12/25 11:34> Initial Vital Signs Initial Vital Signs: Vital Signs Temperature 97.1 F L 03/12/25 10:39 Pulse Rate 92 H 03/12/25 10:39 Respiratory Rate 16 03/12/25 10:39 Blood Pressure 187/107 H 03/12/25 10:39 Pulse Oximetry 99 03/12/25 10:39 Oxygen Delivery Method Room Air 03/12/25 10:39 Vital signs reviewed and are normal except for elevated blood pressure reading in a known hypertension patient. Const General: cooperative, healthy appearing, comfortable, well developed, well groomed and No acute distress Neck Lymphatic: No lymphadenopathy Chest Chest: normal inspection of the chest Resp Effort & Inspection: normal respiratory effort and able to speak in complete sentences Auscultation: clear to auscultation bilaterally, no rales, no rhonchi and no wheezes Cardio Rate: regular rate Rhythm: regular rhythm Heart Sounds: S1 normal and S2 normal Other: Regular rate radially equal bilaterally. GI Other: Midline incision closed with 16. Radha, 1 in the upper left quadrant noted well healed incision site. There is some yellow to purple discoloration consistent with bruising, there is no swelling. Minimal bloody drainage from the inferior aspect, there is no pus, no odor, no crusting, nontender, no fluctuance throughout the incision site. A couple of the radha are intact but loose wound edges are well approximated. Back/Spine/Pelvis Back: normal to inspection Other: No CVA tenderness, no swelling or ecchymosis. Nontender exam, no focal bony midline tenderness. Skin Other: As noted in the abdominal exam in detail. See above. Extrem Other: Ambulatory without deficits. <Trina Potter DO - Last Filed: 03/13/25 12:38> Initial Vital Signs Initial Vital Signs: Vital Signs Temperature 97.1 F L 03/12/25 10:39 Pulse Rate 92 H 03/12/25 10:39 Respiratory Rate 16 03/12/25 10:39 Blood Pressure 187/107 H 03/12/25 10:39 Pulse Oximetry 99 03/12/25 10:39 Oxygen Delivery Method Room Air 03/12/25 10:39 Procedures <Juana Sheffield PA-C - Last Filed: 03/12/25 11:34> [facility] [place] Procedure Name of Procedure: Staple removal Location: Abdomen Time out performed: Yes Technique/Description of procedure performed: 2 radha were removed with staple removal without complication or pain elicited. Alcohol prep was utilized. The solo staple in the left upper quadrant, and the superior 1. Staple in the midline incision. Minimal bleeding following this 1, 2 x 2 and paper tape applied. Patient tolerated procedure: Well and No complications Course <Juana Sheffield PA-C - Last Filed: 03/12/25 11:34> Vital Signs Vital signs: Vital Signs - 8 hr 03/12/25 10:39 Temperature 97.1 F L Pulse Rate 92 H Respiratory Rate 16 Blood Pressure 187/107 H Pulse Oximetry 99 Oxygen Delivery Method Room Air <DO Mic Sifuentes Last Filed: 03/13/25 12:38> Vital Signs Vital signs: Vital Signs - 8 hr 03/12/25 10:39 Temperature 97.1 F L Pulse Rate 92 H Respiratory Rate 16 Blood Pressure 187/107 H Pulse Oximetry 99 Oxygen Delivery Method Room Air MDM - Recheck/Abnormal Lab/Rx <Juana Sheffield PA-C - Last Filed: 03/12/25 11:34> Lab Data Labs: Urine Dip Bedside Urine Glucose Negative Bedside Urine Bilirubin - Negative Bedside Urine Ketone - Negative Urine Specific Covert 1.015 Bedside Urine Occult Blood - Negative Bedside Urine pH 6.0 Bedside Urine Protein +/- 15 Bedside Urine Urobilinogen - Negative Bedside Urine Nitrite - Negative Bedside Urine Leukocytes - Negative Esterase MDM Narrative Medical decision making narrative: He is closely followed by Dr. Quiros in General surgery, he has an appointment on March 15, 2025 for the remainder of his staple to be removed following us exploratory laparotomy performed March 03, 2025. He was mainly here for some itching and irritation from 2 of the superior radha. They were removed without difficulty. The others will remain intact, there was no evidence of any infection, he has no swelling, no signs to indicate any abscess, no fluctuance, he moves well, he has no disruption during sleep. There were no areas of redness, he has some postoperative ecchymosis which is consistent with his procedure. No other complaints. Discussed wound care at length, dispensed additional paper tape 2 x 2 and 4x4s gauze. Red flag warning signs were reviewed in great detail, if he has any pain, swelling, fever, drainage, odor, or any other issues please do not hesitate to return. Discussed gentle cleanse to remove any old skin debris. He will contact Dr. Quiros in the morning to make him aware of today's emergency department visit. Initially it was noted to have elevated blood pressure reading of 187/107, he did not take his diltiazem and metoprolol which he usually takes at 10:00 a.m., recheck of his blood pressure at discharge is 174/99. He is without acute complaint and asymptomatic. We discussed cutting down on his ibuprofen usage as this is a salt and can elevate blood pressure. Consider Tylenol instead. <Trina Potter DO - Last Filed: 03/13/25 12:38> Lab Data Labs: Urine Dip Bedside Urine Glucose Negative Bedside Urine Bilirubin - Negative Bedside Urine Ketone - Negative Urine Specific Covert 1.015 Bedside Urine Occult Blood - Negative Bedside Urine pH 6.0 Bedside Urine Protein +/- 15 Bedside Urine Urobilinogen - Negative Bedside Urine Nitrite - Negative Bedside Urine Leukocytes - Negative Esterase Discharge Plan Departure Patient Disposition: Home Clinical Impression: Encounter for wound re-check Instructions: DI for Suture Removal Activity Restrictions/Additional Instructions: I removed 2 of your radha out of 17 total you have 15 remaining. Please keep the area clean and dry, you can gentle cleanse with soap and water, or diluted hydrogen peroxide for any dried blood as this can cause itching. Call Dr. Quiros's office in the morning to advise of your visit today. Try to cut down on your ibuprofen usage as this can elevate blood pressure, make sure to take it with food, Tylenol as it good alternative. Please return immediately if you have any increased swelling, pain, fever, bleeding, drainage, odor, or any other new worrisome symptoms. Please take your blood pressure medicine today, your blood pressure was elevated but it has come down the last reading was 174/99. Prescriptions: No Action diltiazem HCl 180 mg capsule,extended release 24hr 180 mg PO BID Qty: 180 2RF hydrocodone-acetaminophen 5-325 mg tablet 1 tab PO Q8H PRN (Reason: pain) Qty: 10 0RF aspirin 81 mg Capsule 81 mg PO DAILY metoprolol tartrate 50 mg tablet 50 mg PO BID Referrals: Christiano Quiros MD [Physician] - 3-5 days (Had 2 radha removed due to itching and irritation. Has appt with you 03/15/25 for remainder.) Elda Lawson DO [Primary Care Provider] - Stand Alone Forms: Patient Portal/API/Survey ED Sign-out <Trina Potter DO - Last Filed: 03/13/25 12:38> Cosign ED Attending Cosignature Attestation: I was available for consultation.
[2025-03-12 11:38] VITALS: BP 174/99; PULSE 84; RESP 16; O2SAT 97
== END 2025-03-12 11:39 | disposition home or self-care (01) ==
PROVIDERS: Emergency Provider Physician Assistant Medical; PCP Family Medicine
DX: Z51.89 Encounter for other specified aftercare (principal); Z48.02 Encounter for removal of sutures; L29.9 Pruritus, unspecified
CPT/HCPCS: 81003; 99281; 99282

== ENCOUNTER → 2025-06-15 08:51 | Outpatient (CLI) | payer MEDICARE, SELFPAY ==
[2025-03-03 13:55] VITALS: BMI 26.9
[2025-06-15 11:08] LABS: Prostate Specific Antigen 5.64 ng/mL (0.10-4.00)
== END ==
PROVIDERS: Urology; PCP Family Medicine; Referring Provider Family Medicine; Visit Provider Family Medicine
DX: C61 Malignant neoplasm of prostate (principal)
CPT/HCPCS: 36415; 84153

== ENCOUNTER → 2025-08-25 14:05 | Outpatient (CLI) | payer MEDICARE, SELFPAY ==
[2025-03-03 13:55] VITALS: BMI 26.9
[2025-08-25 16:17] LABS: Prostate Specific Antigen 2.24 ng/mL (0.10-4.00)
== END ==
PROVIDERS: PCP Family Medicine; Referring Provider Urology; Visit Provider Urology
DX: C61 Malignant neoplasm of prostate (principal)
CPT/HCPCS: 36415; 84153

== ENCOUNTER → 2025-09-11 07:37 | Outpatient (CLI) | payer MEDICARE, SELFPAY ==
[2025-03-03 13:55] VITALS: BMI 26.9
[2025-09-11 08:41] LABS: Add Manual Diff / Slide Review NO; Hematocrit 38.6 % (41-53); Hemoglobin 13.3 g/dL (13.5-17.5); Lymphocytes Absolute Auto 2500 /uL (1100-4500); Mean Corpuscular HGB Conc 34.6 % (30-36); Mean Corpuscular Hemoglobin 31.8 PG (26-34); Mean Corpuscular Volume 91.8 fL (80-100); Platelet Count 313 X10^3/uL (150-400)
[2025-09-11 08:58] LABS: Alanine Aminotransferase 16 IU/L (<50); Albumin 4.5 g/dL (3.5-5.0); Albumin Globulin Ratio 1.6 (1.0-2.8); Alkaline Phosphatase 122 U/L (38-126); Blood Urea Nitrogen 30 mg/dL (9-20); Calcium 9.6 mg/dL (8.4-10.2); Carbon Dioxide 27 mmol/L (22-32); Chloride 102 mmol/L (98-107); Estimated Glomerular Filt Rate 55 mL/min (>60); Globulin 2.9 g/dL (1.7-4.1); Glucose 99 mg/dL (70-99); HEMOLYSIS 27 (0-50); Potassium 3.7 mmol/L (3.4-5.1); Sodium 140 mmol/L (137-145); Total Protein 7.4 g/dL (6.3-8.2)
== END ==
PROVIDERS: PCP Family Medicine; Referring Provider Family Medicine; Visit Provider Family Medicine
DX: D64.9 Anemia, unspecified (principal); I48.91 Unspecified atrial fibrillation; M10.9 Gout, unspecified; E87.6 Hypokalemia; I10 Essential (primary) hypertension
CPT/HCPCS: 36415; 80053; 85025

== ENCOUNTER → 2025-10-13 08:11 | Outpatient (CLI) | payer MEDICARE, SELFPAY ==
[2025-03-03 13:55] VITALS: BMI 26.9
[2025-10-13 09:50] LABS: Prostate Specific Antigen 1.41 ng/mL (0.10-4.00)
== END ==
PROVIDERS: PCP Family Medicine; Referring Provider Urology; Visit Provider Urology
DX: C61 Malignant neoplasm of prostate (principal)
CPT/HCPCS: 36415; 84153

== ENCOUNTER 2025-10-26 09:04 | Inpatient (IN) | payer MEDICARE, SELFPAY ==
[2025-03-03 13:55] VITALS: BMI 26.9
[2025-10-26] VITALS (23 sets, daily range): BP systolic 138–196; BP diastolic 72–131; PULSE 64–75; RESP 13–23; TEMP 36.4; O2SAT 92–99; BMI 25.7; BMI 26.3
--- OUTSIDE RECORDS SUMMARY | 2025-10-26 09:06 | XMS_ITS | Encounter Summary ---
Author Organization formerly [facility] Address [facility] [address] Care Team Providers Care Track Layer Head Name Role Phone Ignacio Llamas MD Primary Care Provider [phone] Encounter Details Date Type Department Care Team (Late st Contact Info) Description 04/05/2019 Scanned Document SCANNED ONLY Scanned, Document Social History Tobacco Use Types Packs/Day Years Used Date Smoking Tobacco: Never Assessed Sex and Gender Information Value Date Recorded Sex Assigned at Not on file Legal Sex Male 1:27 PM PDT Gender Identity Not on file Sexual Orientation Not on file documented as of this encounter Plan of Treatment Not on file documented as of this encounter Visit Diagnoses Not on filedocumented in this encounter Care Teams Track Layer Head Relationship Specialty Start Date End Date Ignacio Llamas MD [address] [place] [address] PCP - General Family Medicine 05/11/19 11/08/23 documented as of this encounter
--- NOTE | 2025-10-26 09:13 | DI.CT.S_ITS ---
PROCEDURE: CT ANGIO HEAD AND NECK INDICATIONS: left facial droop and speech slurring TECHNIQUE: After the administration of intravenous contrast, 1 mm thick sections acquired from the aortic arch through the [place]. 3-dimensional elzfvjd-wyzntriih-uaenqjdreg (MIP) and/or volume rendering reformats were acquired of the central intracranial vasculature and neck separately. For radiation dose reduction, the following was used: automated exposure control, adjustment of mA and/or kV according to patient size. COMPARISON: [facility], , MR STROKE, 05/30/2019, 11:47. FINDINGS: Image quality: Diagnostic. Cerebral CT Angiogram: Internal carotid arteries: No acute findings. Intracranial ICA are patent with no significant stenosis. No occlusion. No aneurysm. Calcified plaques at the cavernous and clinoid portions bilaterally. Anterior cerebral arteries: Unremarkable. No significant stenosis. No occlusion. No aneurysm. Middle cerebral arteries: Unremarkable. No significant stenosis. No occlusion. No aneurysm. 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 No occlusion. No aneurysm. Basilar artery: Unremarkable. No significant stenosis. No occlusion. No aneurysm. Vertebral arteries: Intradural segment of the vertebral artery is non-opacified to the confluence of the basilar artery with no retrograde flow. Thick calcified atherosclerotic plaques of the bilateral intradural vertebral arteries and the right is patent. Dural venous sinuses: Unremarkable given phase of enhancement. Other: Arterial phase appearance of the brain parenchyma is unremarkable. Neck CT Angiogram: Internal carotid arteries: Calcified no calcified atherosclerotic plaque with approximately 30% narrowing of the left internal carotid artery near the bifurcation and less than 50% narrowing on the right near the bifurcation. No dissection or occlusion. Common carotid arteries: Unremarkable. No significant stenosis. No dissection or occlusion. External carotid arteries: Unremarkable. No occlusion. Vertebral arteries: Faint contrast within the left vertebral artery to the V3 segment Aortic Arch and Mediastinum: Thick calcified and noncalcified atherosclerotic plaque of the aortic arch. Other: Arterial phase soft tissues of the neck and chest are unremarkable. 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 This is a new finding compared to 2019 but age-indeterminate. 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 Intracranial and extracranial atherosclerosis. No severe stenosis or occlusion of the anterior circulation. Any quantitative measurements of stenosis were performed using NASCET criteria. Dictated by: Roel Davison M.D. on 10/26/2025 at 9:29 Approved by: Roel Davison M.D. on 10/26/2025 at 9:42
--- NOTE | 2025-10-26 09:13 | DI.CT.S_ITS ---
PROCEDURE: CT STROKE INDICATIONS: left facial droop and speech slurring TECHNIQUE: Noncontrast 4.5 mm thick angled axial sections acquired from the foramen magnum to the vertex, with coronal reformats. For radiation dose reduction, the following was used: automated exposure control, adjustment of mA and/or kV according to patient size. COMPARISON: None. FINDINGS: Image quality: Diagnostic. CSF spaces: Basal cisterns are patent. No extra-axial fluid collections. Ventricles are normal in size and shape. Brain: No midline shift. No intracranial mass effect or hemorrhage. Bell- white matter interface is normal. Diffuse cerebral volume loss. Patchy areas of white matter hypoattenuation often associated with small vessel ischemic disease. Intracranial atherosclerotic calcification. Skull and face: Calvarium and visualized facial bones are intact, without suspicious lesions. Sinuses: Opacification of right sphenoid sinus. IMPRESSION: No acute intracranial pathology. Negative results conveyed to Dr. Potter by myself by telephone at 9:28 a.m. PST 10/26/2025 This study fulfills neurological imaging criteria for inclusion or exclusion of acute stroke therapies based on available published neurological imaging guidelines. Dictated by: Roel Davison M.D. on 10/26/2025 at 9:22 Approved by: Roel Davison M.D. on 10/26/2025 at 9:28
--- NOTE | 2025-10-26 09:13 | EKG_ITS ---
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
[2025-10-26 09:21] LABS: Add Manual Diff / Slide Review NO; Hematocrit 42.3 % (41-53); Hemoglobin 14.4 g/dL (13.5-17.5); Lymphocytes Absolute Auto 2200 /uL (1100-4500); Mean Corpuscular HGB Conc 34.0 % (30-36); Mean Corpuscular Hemoglobin 30.8 PG (26-34); Mean Corpuscular Volume 90.4 fL (80-100); Platelet Count 321 X10^3/uL (150-400)
[2025-10-26 09:28] LABS: INR 1.0 (0.9-1.3); Prothrombin Time 11.6 SECONDS (9.4-12.5)
--- NOTE | 2025-10-26 09:28 | ED.NEUROSD ---
HPI - Neuro Symptoms/Deficit General Chief Complaint: Neuro Symptoms/Deficit Stated Complaint: had a stroke per Time Seen by Provider: 10/26/25 09:08 Source: patient and family Mode of arrival: Wheelchair History of Present Illness HPI Narrative: Patient 85-year-old male history of atrial fibrillation on aspirin, hypertension hyperlipidemia, presenting today as a code stroke last known well was 830 this morning. says that he got up they had a normal conversation they had a normal morning he started doing his stretches about 30 minutes prior to arrival she noticed that he had significant left facial droop including his eye in his mouth and some slurring of speech. No obvious weakness. His slurring of speech and facial droop has improved since he got here but still has some speech abnormality. He has no weakness. On Anticoagulants: Yes (baby aspirin) Related Data Home Medications ?Medication ?Instructions ?Recorded ?Confirmed aspirin 81 mg capsule 81 mg PO DAILY 08/12/24 10/19/25 metoprolol tartrate 50 mg tablet 50 mg PO BID 09/13/24 10/19/25 acetylcysteine 600 mg capsule (NAC) 600 mg PO DAILY 07/19/25 10/19/25 activated charcoal 200 mg capsule 400 mg PO ONCE PRN 07/19/25 10/19/25 ascorbate calcium-bioflavonoid 500 2 tab PO BID 07/19/25 10/19/25 mg-200 mg tablet (Stephania-C with Bioflavonoids) cardioplegic no.15(induct 8:1) 100 ml perfusion 07/19/25 10/19/25 mEq/500 mL (potassium) perfusion cholecalciferol (vitamin D3) 125 125 mcg PO DAILY 07/19/25 10/19/25 mcg (5,000 unit) capsule coQ10 (ubiquinol) 100 mg capsule 100 mg PO BID 07/19/25 10/19/25 (Qunol Americo CoQ10) dandelion root 525 mg capsule mg PO 07/19/25 10/19/25 garlic extract 600 mg tablet 600 mg PO DAILY 07/19/25 10/19/25 ivermectin 3 mg tablet 6 mg PO 3XW 07/19/25 10/19/25 lactobacillus combination no.9 4 4,000 mmu cells PO DAILY 07/19/25 10/19/25 billion cell capsule (Adult 50 Plus Probiotic) milk thistle 150 mg capsule 150 mg PO BID 07/19/25 10/19/25 multivitamin (Daily Multi-Vitamin 1 tab PO DAILY 07/19/25 10/19/25 tablet) omega-3 fatty acids 1,000 mg 1,000 mg PO DAILY 07/19/25 10/19/25 capsule (Super [place]-3) turmeric root extract 500 mg 500 mg PO DAILY 07/19/25 10/19/25 capsule vitamin E (dl, acetate) 180 mg 180 mg PO DAILY 07/19/25 10/19/25 (400 unit) capsule vitamin K2 100 mcg capsule 100 mcg PO DAILY 07/19/25 10/19/25 Chlorella algae 410 mg capsule 410 mg PO DAILY 09/14/25 10/19/25 black seed 4.5 gram/5 mL oral oil 4.5 g PO DAILY 09/14/25 10/19/25 black walnut singletary 450 mg capsule 450 mg PO DAILY 09/14/25 10/19/25 curcumin-phosphatidylcholine 500 500 mg PO DAILY 09/14/25 10/19/25 mg capsule magnesium L-threonate 48 mg 48 mg PO DAILY 09/14/25 10/19/25 magnesium (667 mg) capsule magnesium glycinate 120 mg (as 120 mg PO DAILY 09/14/25 10/19/25 glycinate) capsule methylene blue (bulk-solid) ea miscellaneous DAILY 09/14/25 10/19/25 quercetin 500 mg capsule 500 mg PO DAILY 09/14/25 10/19/25 Previous Rx's ?Medication ?Instructions ?Recorded diltiazem HCl 180 mg capsule,24 180 mg PO BID #180 caps 09/05/25 hr,extended release Allergies Allergy/AdvReac Type Severity Reaction Status Date / Time Sulfa (Sulfonamide Allergy Intermediate red spots Verified 10/19/25 09:15 Antibiotics) Review of Systems Hematologic/Lymphatic On Anticoagulants: Yes (baby aspirin) Patient History Medical History Paroxysmal atrial fibrillation Elevated PSA, greater than or equal to 20 ng/ml Elevated PSA Atrial fibrillation with RVR (Unknown) Prostate cancer History of orchitis History of tobacco use Ulcerative colitis Atrial fibrillation with rapid ventricular response History of colonic diverticulitis BPH (benign prostatic hyperplasia) Gout Snoring Periodic limb movement disorder (PLMD) Obstructive 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, 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 (~04/22/20) 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) 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 medical condition Excessive daytime sleepiness (~2019) Hyperlipidemia Essential hypertension (Unknown) Sepsis Colitis (~2018) Blepharophimosis unspecified eye, unspecified lid A-fib Diverticulitis (~2018) Surgical History Hx of colectomy (09/21/24) Hx of vasectomy History of tonsillectomy History of colonoscopy Family History Father Loud snoring Hypertension Mother Hypertension Hyperlipidemia Social History marital status: details: lives in [place] number of children: 2 household members: spouse lives independently: Yes caregiver/support person: No housing: house Smoking Status: Former smoker alcohol intake: current substance use type: does not use caffeine: Yes Type(s) of exercise: regular exercise frequency: decline to answer Smoking Status: Former smoker alcohol intake frequency: 0-2 drinks per day Alcohol type: wine Exam Initial Vital Signs Initial Vital Signs: Vital Signs Blood Pressure 196/91 H 10/26/25 09:04 GENERAL: Alert pleasant 85-year-old male and in no acute distress. HEENT: Head atraumatic,EOMI, pupils reactive, face symmetric, moist mucous membranes CARDIOVASCULAR: Regular rate and rhythm without murmurs, rubs or gallops. RESPIRATORY: Breath sounds equal bilaterally, no wheezes rales or rhonchi. ABDOMEN: Soft, nontender. Normoactive bowel sounds all 4 quadrants. No guarding or rebound. EXTREMITIES: Normal range of motion, no clubbing or edema. Neurovascularly intact NEUROLOGICAL: Alert and oriented x4.Normal gait and speech. Cranial nerves II through XII grossly intact. Good [id number], good qqec-os-kley, strength equal bilaterally, mild slurring of speech or aphasia, sensation in tact to soft touch bilaterally, no visual changes, no facial droop SKIN: Warm, dry, no laceration, no petechiae, no rashes or lesions. Scores NIH Stroke Scale Level of Conciousness: Alert, keenly responsive Ask month/age: Answers both questions correctly. Open/close eyes, close hand: Performs both tasks correctly Best gaze horizontal: Normal Visual glaser: No visual loss Facial palsy: Normal symetrical movement Left arm drift: No drift for full 10 sec Right arm drift: No drift for full 10 sec Left leg drift: No drift for full 5 sec Right leg drift: No drift for full 5 sec Limb ataxia: Absent Sensory on face/arms/legs: Normal, no sensory loss Best language: Mild to moderate, slurs some words Dysarthria: Normal Extinction or inattention: No abnormality Total NIH Stroke scale score: 1 Course Orders Ordered: ED Orders 10/26/25 09:10 Complete Blood Count AUTO DIFF Stat Comprehensive Metabolic Panel Stat Ethanol (ETOH) Stat PTT Partial Thromboplastin Ck Stat Prothrombin Time INR Stat Troponin & CK Cardiac Panel Stat 10/26/25 09:[address] angio head and neck Stat EKG-12 Lead Stat 10/26/25 10:17 MR head/brain wo con Stat 10/26/25 10:30 Urinalysis and Microscopic Stat Diltiazem HCl (Diltiazem Sr 60 Mg) 180 mg PO BID JASMINA Metoprolol Tartrate (Metoprolol Ir 50 Mg Tablet) 50 mg PO BID JASMINA Naloxone HCl (Naloxone 0.4 Mg/Ml Vial) 0.2 mg IV Q2MIN PRN PRN Reason: Opiate Reversal Ondansetron HCl (Ondansetron 4 Mg/2 Ml Inj) 4 mg IV Q8HR PRN PRN Reason: Nausea And Vomiting Discontinued Medications Aspirin (Aspirin 81 Mg Chew Tab) 324 mg PO NOW ONE Stop: 10/26/25 09:42 Last Admin: 10/26/25 10:32 Dose: 324 mg Documented By: DEO Clopidogrel Bisulfate (Clopidogrel 75 Mg Tablet) 300 mg PO NOW ONE Stop: 10/26/25 10:18 Last Admin: 10/26/25 10:31 Dose: 300 mg Documented By: DEO Vital Signs Vital signs: Vital Signs - 8 hr 10/26/25 09:04 10/26/25 09:22 10/26/25 09:25 Pulse Rate 73 Respiratory Rate Blood Pressure 196/91 H 164/79 H Pulse Oximetry 10/26/25 09:25 10/26/25 09:30 10/26/25 09:30 Pulse Rate 69 69 Respiratory Rate 19 20 Blood Pressure 178/79 H Pulse Oximetry 97 98 10/26/25 10:00 10/26/25 10:01 10/26/25 10:01 Pulse Rate 68 65 Respiratory Rate 15 17 Blood Pressure 182/98 H Pulse Oximetry 98 98 10/26/25 10:30 10/26/25 10:31 10/26/25 10:31 Pulse Rate 75 74 Respiratory Rate 23 23 Blood Pressure 161/96 H Pulse Oximetry MDM - Neuro Symptoms/Deficit Lab Data 10/26/25 09:10 10/26/25 09:10 Labs: Lab Results 10/26/25 10/26/25 10/26/25 Range/Units 09:09 09:10 10:30 WBC 9.7 (4.5-11.0) X10^3/uL RBC 4.68 (4.5-5.9) X10^6/uL Hgb 14.4 (13.5-17.5) g/dL Hct 42.3 (41-53) % MCV 90.4 (80-100) fL MCH 30.8 (26-34) PG MCHC 34.0 (30-36) % RDW 13.7 (11.6-14.8) % Plt Count 321 (150-400) X10^3/uL Neut % (Auto) 63.8 (50-75) % Lymph % (Auto) 22.4 L (25-40) % [place] % (Auto) 8.4 (3-14) % Eos % (Auto) 4.5 H (2-4) % Baso % (Auto) 0.9 (0-2) % Neut # (Auto) 6200 (6240-1103) /uL Lymph # (Auto) 2200 (2698-4140) /uL [place] # (Auto) 800 (0-900) /uL Eos # (Auto) 400 (0-450) /uL Baso # (Auto) 100 (0-100) /uL PT 11.6 (9.4-12.5) SECONDS INR 1.0 (0.9-1.3) APTT 29 (25.1-36.5) SECONDS Sodium 143 (137-145) mmol/L Potassium 3.7 (3.4-5.1) mmol/L Chloride 105 (98-107) mmol/L Carbon Dioxide 27 (22-32) mmol/L BUN 30 H (9-20) mg/dL Creatinine 1.49 H (0.66-1.25) mg/dL Estimated GFR 46 L (>60) mL/min BUN/Creatinine Ratio 20.1 (6-22) Glucose 108 H (70-99) mg/dL POC Whole Bld Glucose 107 H (70-99) mg/dL Calcium 9.6 (8.4-10.2) mg/dL Total Bilirubin 0.5 (0.2-1.3) mg/dL AST 28 (17-59) IU/L ALT 20 (<50) IU/L Alkaline Phosphatase 109 (38-126) U/L Total Creatine Kinase 175 H (55-170) U/L Troponin I 0.015 (0.01-0.034) ng/mL Total Protein 8.1 (6.3-8.2) g/dL Albumin 4.8 (3.5-5.0) g/dL Globulin 3.3 (1.7-4.1) g/dL Albumin/Globulin Ratio 1.5 (1.0-2.8) Urine Color Yellow Urine Appearance Clear Urine pH 6.5 (4.5-8.0) Ur Specific [place] <=1.005 (1.000-1.035) Urine Protein Negative (Negative) Urine Glucose (UA) Negative (Negative) g/dL Urine Ketones Negative (NEGATIVE) Urine Occult Blood Negative (Negative) Urine Nitrate Negative (Negative) Urine Bilirubin Negative (NEGATIVE) Urine Urobilinogen 0.2 (0.2) E.U./dL Ur Leukocyte Esterase Negative (NEGATIVE) Urine RBC None seen (0-5/HPF) Urine WBC 0-1/hpf (0-5/HPF) Ur Squamous Epith Cells 0-1 /hpf (0-5/HPF) Urine Bacteria Occasional (0-1) (None) Ur Culture Indicated? Cult not indicated Vol Urine Centrifuged 10ml (spun) Ethyl Alcohol < 10 (<10) mg/dL Imaging Data CT scan - head: Radiologist's Impression: PROCEDURE: CT STROKE INDICATIONS: left facial droop and speech slurring TECHNIQUE: Noncontrast 4.5 mm thick angled axial sections acquired from the foramen magnum to the vertex, with coronal reformats. For radiation dose reduction, the following was used: automated exposure control, adjustment of mA and/or kV according to patient size. COMPARISON: None. FINDINGS: Image quality: Diagnostic. CSF spaces: Basal cisterns are patent. No extra-axial fluid collections. Ventricles are normal in size and shape. Brain: No midline shift. No intracranial mass effect or hemorrhage. Bell-white matter interface is normal. Diffuse cerebral volume loss. Patchy areas of white matter hypoattenuation often associated with small vessel ischemic disease. Intracranial atherosclerotic calcification. Skull and face: Calvarium and visualized facial bones are intact, without suspicious lesions. Sinuses: Opacification of right sphenoid sinus. IMPRESSION: No acute intracranial pathology. Negative results conveyed to Dr. Potter by myself by telephone at 9:28 a.m. PST 10/26/2025 This study fulfills neurological imaging criteria for inclusion or exclusion of acute stroke therapies based on available published neurological imaging guidelines. Dictated by: Roel Davison M.D. on 10/26/2025 at 9:22 Approved by: Roel Davison M.D. on 10/26/2025 at 9:28 ECG Data Attestation: I personally reviewed and interpreted this ECG as follows: Interpretation: Atrial fibrillation rate 69 no ischemia MDM Narrative Medical decision making narrative: MDM CC: Stroke Complicating co-morbidities: Atrial fibrillation on aspirin Data collected from: and patient Medical records reviewed: Minimal records was earlier this year for wound check previous ED evaluations were in 2023 Differential considered: TIA versus CVA versus intracranial hemorrhage Exam documented above, pertinent findings include: Patient no longer has facial droop he does still have some minor slurring of speech he has a NIHSS of Lab Test results independently reviewed as above. Pertinent findings: CBC no leukocytosis no anemia CMP within normal limits creatinine 1.49 glucose 108 Troponin negative Independently reviewed EKG as above AFib rate controlled Imaging studies independently reviewed: Head CT no intracranial hemorrhage CT angio call from Dr. 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 May transition over to Eliquis but did not do all 3 medications at once for increased risk of bleeding Dr. Corley accepts patient Treatments: Aspirin Plavix Re-evaluations: Discussion with patient and in regards to Eliquis. It sounds like Eliquis was stopped with GI bleeding and current diverticulitis. He had a colectomy and was ultimately taken off Eliquis. and patient are agreeable to go back on Eliquis but we will talk with the primary or hospital Discussion: Patient 85-year-old male presenting today left facial droop and slurring of speech. Symptoms are resolving his NIH of 1. Thrombolytics are contraindicated in this case. 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 This does not correlate with his symptoms in his likely chronic. Facial droop has improved and speech continues to improve. Concern for TIA versus CVA. Discharge Plan Departure Patient Disposition: Admitted as Observation Clinical Impression: Brain TIA Admit Date/Time: 10/26/25 10:43 Admit Provider: Jarred Corley
[2025-10-26 09:31] LABS: PTT Partial Thromboplastin Tim 29 SECONDS (25.1-36.5)
[2025-10-26 09:34] LABS: Alanine Aminotransferase 20 IU/L (<50); Albumin 4.8 g/dL (3.5-5.0); Albumin Globulin Ratio 1.5 (1.0-2.8); Alkaline Phosphatase 109 U/L (38-126); Blood Urea Nitrogen 30 mg/dL (9-20); Calcium 9.6 mg/dL (8.4-10.2); Carbon Dioxide 27 mmol/L (22-32); Chloride 105 mmol/L (98-107); Creatine Kinase 175 U/L (55-170); Estimated Glomerular Filt Rate 46 mL/min (>60); Ethanol (ETOH) < 10 mg/dL (<10); Globulin 3.3 g/dL (1.7-4.1); Glucose 108 mg/dL (70-99); HEMOLYSIS < 15 (0-50); Potassium 3.7 mmol/L (3.4-5.1); Sodium 143 mmol/L (137-145); Total Protein 8.1 g/dL (6.3-8.2)
[2025-10-26 09:45] LABS: Troponin I 0.015 ng/mL (0.01-0.034)
--- NOTE | 2025-10-26 10:17 | DI.MRI.S_ITS ---
PROCEDURE: MR HEAD/BRAIN WO CON INDICATIONS: stroke TECHNIQUE: Noncontrast axial T1 spin echo, axial T2 fast spin echo, sagittal and axial FLAIR, coronal T2 fast spin echo, axial gradient echo, axial diffusion and ADC through the brain. COMPARISON: None. FINDINGS: Image quality: Excellent. CSF Spaces: Basal cisterns are patent. No extra-axial fluid collections. Ventricles are normal in size and shape. Brain: No intracranial masses or hemorrhage. Bell/white matter interface is normal. Brainstem appears normal. Small foci of diffusion restriction along the right das radiata with faint corresponding FLAIR signal. Extensive periventricular and subcortical white matter disease. Normal intravascular flow voids are present. Diffuse cerebral volume loss. Skull and face: Calvarium has normal marrow signal. Orbits appear normal. Sinuses: Mucosal thickening of the right sphenoid sinus and trace mastoid effusion on the left. IMPRESSION: Tiny acute /subacute white matter infarcts of the right das radiata. Dictated by: Roel Davison M.D. on 10/26/2025 at 14:59 Approved by: Roel Davison M.D. on 10/26/2025 at 15:13
[2025-10-26] MEDS: CLOPIDOGREL 75 MG TABLET 300 MG PO (10:31)
[2025-10-26] MEDS: ASPIRIN 81 MG CHEW TAB 324 MG PO (10:32)
[2025-10-26 10:58] LABS: Appearance Urine UA CLEAR; Bilirubin Urine UA NEGATIVE (NEGATIVE); Color Urine UA YELLOW; Glucose Urine UA NEGATIVE (Negative); Ketones Urine UA NEGATIVE (NEGATIVE); Leukocyte Esterase Urine UA NEGATIVE (NEGATIVE); Nitrite Urine UA NEGATIVE (Negative); Occult Blood Urine UA NEGATIVE (Negative); Protein Urine UA NEGATIVE (Negative); Specific Gravity Urine UA <=1.005 (1.000-1.035); Urobilinogen Urine UA 0.2 E.U./dL (0.2); pH Urine UA 6.5 (4.5-8.0)
[2025-10-26 11:06] LABS: Culture Indicated Urine Cult Not Indicated
--- NOTE | 2025-10-26 11:16 | PM.HP.1 ---
History of Present Illness History of Present Illness Date Patient Seen: 10/26/25 Time Patient Seen: 11:16 Chief complaint: had a stroke per Narrative: This is an 85-year-old male with a history of paroxysmal atrial fibrillation, prostate cancer, BPH, gout, PLMD, SAY, hyperlipidemia and hypertension who presents with abrupt onset of left facial drooping and slurred speech at 8:30 a.m. today. By his ED evaluation within the next 2 hours his facial drooping had resolved and the speech was clear. He has a history of atrial fibrillation which he is currently on aspirin for. He used to be on Eliquis but that was stopped when he had rectal bleeding caused by diverticulosis. After colectomy it had not been resumed. CT brain is normal. Brain MRI is pending. 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 Exam: Alert and oriented x3. No apparent distress. No speech slurring or irregularity. Pupils are equally round and reactive to light and accommodation. Extraocular muscles are intact. Sclerae are pink and nonicteric. No lymph nodes are felt head, neck, supraclavicular area. There is no thyromegaly. JVD is less than 6 cm. No carotid bruits are heard. Heart is irregularly irregular without murmur. Lungs are clear to auscultation bilaterally. Abdomen is soft, bowel sounds positive, nontender, no organomegaly. Extremities have no ankle edema. Skin has no rash or jaundice. Cranial nerves 2-12 test intact. Motor function is 5/5 throughout. Babinski's are normal bilaterally. [id number] pointing is normal bilaterally. There is no tongue deviation. There is no tremor. DTRs are symmetric. Speech is fluent. Assessment plan: Transient ischemic attack, present on admission. Active. -brain MRI pending. Brain CT normal. CTA normal except for chronic left vertebral blockage. -echocardiogram pending. -resume Eliquis due to atrial fibrillation. Paroxysmal atrial fibrillation -stop aspirin and begin Eliquis. -continue diltiazem and metoprolol. History of GI bleed, not present on admission. Chronic. -per patient report Eliquis was previously stopped at time of lower GI bleed attributed to diverticulosis which was treated subsequently with colectomy. Hypertension, present on admission. Chronic. -continue metoprolol and diltiazem. Chronic kidney disease type 3 with GFR of 46. -creatinine 1.49. 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) 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 medical condition Excessive daytime sleepiness (~2019) Hyperlipidemia Essential hypertension (Unknown) Sepsis Colitis (~2018) Blepharophimosis unspecified eye, unspecified lid A-fib Diverticulitis (~2018) Surgical History Hx of colectomy (09/21/24) Hx of vasectomy History of tonsillectomy History of colonoscopy Family History Father Loud snoring Hypertension Mother Hypertension Hyperlipidemia Social History marital status: details: lives in [place] number of children: 2 household members: spouse lives independently: Yes caregiver/support person: No housing: house Smoking Status: Former smoker alcohol intake: current substance use type: does not use caffeine: Yes Type(s) of exercise: regular exercise frequency: decline to answer Meds Home Medications and Allergies Home Medications ?Medication ?Instructions ?Recorded ?Confirmed ?Type aspirin 81 mg capsule 81 mg PO DAILY 08/12/24 10/19/25 History metoprolol tartrate 50 mg tablet 50 mg PO BID 09/13/24 10/19/25 History acetylcysteine 600 mg capsule (NAC) 600 mg PO DAILY 07/19/25 10/19/25 History activated charcoal 200 mg capsule 400 mg PO ONCE PRN 07/19/25 10/19/25 History ascorbate calcium-bioflavonoid 500 2 tab PO BID 07/19/25 10/19/25 History mg-200 mg tablet (Stephania-C with Bioflavonoids) cardioplegic no.15(induct 8:1) 100 ml perfusion 07/19/25 10/19/25 History mEq/500 mL (potassium) perfusion cholecalciferol (vitamin D3) 125 125 mcg PO DAILY 07/19/25 10/19/25 History mcg (5,000 unit) capsule coQ10 (ubiquinol) 100 mg capsule 100 mg PO BID 07/19/25 10/19/25 History (Qunol Americo CoQ10) dandelion root 525 mg capsule mg PO 07/19/25 10/19/25 History garlic extract 600 mg tablet 600 mg PO DAILY 07/19/25 10/19/25 History ivermectin 3 mg tablet 6 mg PO 3XW 07/19/25 10/19/25 History lactobacillus combination no.9 4 4,000 mmu cells PO DAILY 07/19/25 10/19/25 History billion cell capsule (Adult 50 Plus Probiotic) milk thistle 150 mg capsule 150 mg PO BID 07/19/25 10/19/25 History multivitamin (Daily Multi-Vitamin 1 tab PO DAILY 07/19/25 10/19/25 History tablet) omega-3 fatty acids 1,000 mg 1,000 mg PO DAILY 07/19/25 10/19/25 History capsule (Super [place]-3) turmeric root extract 500 mg 500 mg PO DAILY 07/19/25 10/19/25 History capsule vitamin E (dl, acetate) 180 mg 180 mg PO DAILY 07/19/25 10/19/25 History (400 unit) capsule vitamin K2 100 mcg capsule 100 mcg PO DAILY 07/19/25 10/19/25 History diltiazem HCl 180 mg capsule,24 180 mg PO BID #180 caps 09/05/25 10/19/25 Rx hr,extended release Chlorella algae 410 mg capsule 410 mg PO DAILY 09/14/25 10/19/25 History black seed 4.5 gram/5 mL oral oil 4.5 g PO DAILY 09/14/25 10/19/25 History black walnut singletary 450 mg capsule 450 mg PO DAILY 09/14/25 10/19/25 History curcumin-phosphatidylcholine 500 500 mg PO DAILY 09/14/25 10/19/25 History mg capsule magnesium L-threonate 48 mg 48 mg PO DAILY 09/14/25 10/19/25 History magnesium (667 mg) capsule magnesium glycinate 120 mg (as 120 mg PO DAILY 09/14/25 10/19/25 History glycinate) capsule methylene blue (bulk-solid) ea miscellaneous DAILY 09/14/25 10/19/25 History quercetin 500 mg capsule 500 mg PO DAILY 09/14/25 10/19/25 History Allergies Allergy/AdvReac Type Severity Reaction Status Date / Time Sulfa (Sulfonamide Allergy Intermediate red spots Verified 10/19/25 09:15 Antibiotics) Review of Systems Review of Systems Narrative: Positive for speech slurring and facial drooping. Negative for fevers, chills, sweats, chest pain, nausea, vomiting, abdominal pain, coughing, rash, bleeding, joint pain, new allergies. Exam Vital Signs (past 8 hours): - 10/26/25 09:04 10/26/25 09:22 10/26/25 09:25 Pulse Rate 73 Respiratory Rate Blood Pressure 196/91 H 164/79 H Pulse Oximetry 10/26/25 09:25 10/26/25 09:30 10/26/25 09:30 Pulse Rate 69 69 Respiratory Rate 19 20 Blood Pressure 178/79 H Pulse Oximetry 97 98 10/26/25 10:00 10/26/25 10:01 10/26/25 10:01 Pulse Rate 68 65 Respiratory Rate 15 17 Blood Pressure 182/98 H Pulse Oximetry 98 98 10/26/25 10:30 10/26/25 10:31 10/26/25 10:31 Pulse Rate 75 74 Respiratory Rate 23 23 Blood Pressure 161/96 H Pulse Oximetry Objective Labs 10/26/25 09:10 10/26/25 09:10 Labs: Laboratory Results - last 24 hr 10/26/25 10/26/25 10/26/25 09:09 09:10 10:30 WBC 9.7 RBC 4.68 Hgb 14.4 Hct 42.3 MCV 90.4 MCH 30.8 MCHC 34.0 RDW 13.7 Plt Count 321 Neut % (Auto) 63.8 Lymph % (Auto) 22.4 L [place] % (Auto) 8.4 Eos % (Auto) 4.5 H Baso % (Auto) 0.9 Neut # (Auto) 6200 Lymph # (Auto) 2200 [place] # (Auto) 800 Eos # (Auto) 400 Baso # (Auto) 100 PT 11.6 INR 1.0 APTT 29 Sodium 143 Potassium 3.7 Chloride 105 Carbon Dioxide 27 BUN 30 H Creatinine 1.49 H Estimated GFR 46 L BUN/Creatinine Ratio 20.1 Glucose 108 H POC Whole Bld Glucose 107 H Calcium 9.6 Total Bilirubin 0.5 AST 28 ALT 20 Alkaline Phosphatase 109 Total Creatine Kinase 175 H Troponin I 0.015 Total Protein 8.1 Albumin 4.8 Globulin 3.3 Albumin/Globulin Ratio 1.5 Urine Color Yellow Urine Appearance Clear Urine pH 6.5 Ur Specific [place] <=1.005 Urine Protein Negative Urine Glucose (UA) Negative Urine Ketones Negative Urine Occult Blood Negative Urine Nitrate Negative Urine Bilirubin Negative Urine Urobilinogen 0.2 Ur Leukocyte Esterase Negative Urine RBC None seen Urine WBC 0-1/hpf Ur Squamous Epith Cells 0-1 /hpf Urine Bacteria Occasional (0-1) Ur Culture Indicated? Cult not indicated Vol Urine Centrifuged 10ml (spun) Ethyl Alcohol < 10 Assessment & Plan Time-Based Coding :: [TOTAL MINUTES] spent with patient and on the chart (including review of chart, obtaining history, exam, reviewing outside data, placing orders, documenting exam and treatment plan, and counseling patient) on [DATE].
--- NOTE | 2025-10-26 14:31 | ST.IPCSEOM ---
Visit Care Team Role Provider Type Elda Lawson DO Primary Care Provider Physician Specialty: Family Practice Address: [address] [place] [address], [facility] [address], [place], [address] Email: [email or web address] Trina Ptoter DO Emergency Provider Physician Referring Provider Specialty: Emergency Medicine Address: [address] [place] [address], [id number] Email: [email or web address] Corley MD Admit Provider Physician Attending Provider Specialty: Medical Address: [address] [place] [address], [id number] Email: [email or web address] Past Medical History (Last Reviewed 10/26/25 @ 09:33 by Trina Potter DO) A-fib (Medical) Atrial fibrillation with rapid ventricular response (Medical) Atrial fibrillation with RVR (Medical Unknown) Blepharophimosis unspecified eye, unspecified lid (Medical) BPH (benign prostatic hyperplasia) (Medical) Colitis (Medical ~2018) recurrent Diverticulitis (Medical ~2018) Elevated PSA (Medical) Elevated PSA, greater than or equal to 20 ng/ml (Medical) Essential hypertension (Medical Unknown) Excessive daytime sleepiness (Medical ~2019) Gout (Medical) History of colonic diverticulitis (Medical) History of orchitis (Medical) History of tobacco use (Social Hx) Hyperlipidemia (Medical) 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 medical condition (Medical) 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) CPAP recall 04/22/21 Obstructive sleep apnea, adult (Medical ~04/22/20) Paroxysmal atrial fibrillation (Medical) Periodic limb movement disorder (PLMD) (Medical) Prostate cancer (Medical) Sepsis (Medical) 2/2 diverticulitis Snoring (Medical) Ulcerative colitis (Medical) Speech-Language Pathology Swallow Evaluation [employer]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 Corley Reason for Referral Possible CVA/TIA Setting Assessment Location Acute Care Visit Type Note Type Initial evaluation Next Note Type Next Note Type Treatment Note Patient Information Identification Type Name,Wristband History Per H&P: Patient 85-year-old male history of atrial fibrillation on aspirin, hypertension hyperlipidemia, presenting today as a code stroke last known well was 830 this morning. says that he got up they had a normal conversation they had a normal morning he started doing his stretches about 30 minutes prior to arrival she noticed that he had significant left facial droop including his eye in his mouth and some slurring of speech. No obvious weakness. His slurring of speech and facial droop has improved since he got here but still has some speech abnormality. He has no weakness. 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 ST to assess swallow function in order to determine safest and most efficient least restrictive diet. Subjective Chart reviewed. RN consulted. Pt laying in bed upon ST Observations entering room. Pt awake, alert, agreeable to evaluation . Pt oriented. Pt reports slight facial droop and slurred speech compared to baseline. Pt compliant with ST positioned Pt upright in bed utilizing bed alarms for PO trials. Reported by Patient/Caregiver Current Diet NPO Baseline Feeding Independent in self-feeding Method The IDDSI Framework Protocol: IDDSI.1 Objective Assessment Mental Status Alert,Responsive,Cooperative Oral Integrity WFL Dentition Within normal limits Lip Function Within normal limits Observation of Lips Left sided weakness/Drooping at Rest Pucker Within normal limits Lip Retraction Within normal limits Alternating Pucker/ Within normal limits Lip Retraction Tongue Function Within normal limits Tongue Protrusion Within normal limits Tongue Retraction Within normal limits Observation of Jaw Within normal limits at Rest Respiratory Within normal limits Sufficiency Comment Oral motor exam revealed slight left facial droop. Pt with mild slurred speech, however 100% intelligible. Food and Liquid Trials Position During Upright (90 degrees) Assessment Liquids Trialed Thin (IDDSI 0) Solid Trials Regular (IDDSI 7) Administration Type Cup consecutive sips,Straw Oral Impairment Within functional limits Oral Phase Comments Pt presented with about 4 oz of thin water via cup/ straw and anya crackers. Pt able to feed self independently. For thin water via straw, Pt exhibited adequate suction, good oral acceptance and containment, immediate coughing reflex. For thin water via consecutive cup sips, Pt exhibited good oral acceptance and containment, no overt s/s of aspiration such as coughing or choking. For regular solid consisting of a anya cracker, Pt exhibited adequate bite size and rate, good bolus formation and control and mastication, minimal oral stasis, no overt s/s of aspiration. Pharyngeal Mildly impaired Impairment Pharyngeal Phase See oral phase comments. Comments Fatigue/Endurance Endurance WNL The IDDSI Framework Protocol: IDDSI.1 Findings Swallowing Function Pharyngeal phase dysphagia Severity of Swallow Mildly impaired Impairment Prognosis Good Recommendations Swallowing Treatment Yes Frequency 1x f/u for diet tolerance Recommended Solids Regular (IDDSI 7) Recommended Liquids Thin (IDDSI 0) Other Pt presents with suspected mild pharyngeal phase Recommendations dysphagia. ST recommends a regular diet (IDDSI Level 7) with thin liquids (IDDSI Level 0) and NO straw use. Aspiration precautions are recommended and outlined below. The speech therapist will follow up with the patient for one session to monitor diet tolerance and ensure safety with oral intake. Safety Precautions/ Remain upright (90 degrees) during all oral intake, Swallowing Upright position at least 30 minutes after meals,Small Recommendations bites and sips when eating,Slow rate; swallow between bites,No straw,Alternate liquids and solids Medication As Tolerated Recommendations Education Patient/Caregiver Described results of evaluation,Patient expressed Education understanding of evaluation,Patient expressed agreement with goals & treatment plans,Patient requires further education/training,Family/caregivers require further education/training Goals Short-term Goals STG 1: Pt will tolerate prescribed diet with <5% overt s/s of aspiration/dysphagia with use of compensatory swallowing strategies and minimal cues. Long-term Goals LTG 1: Patient will consume safest and most efficient least restrictive diet with no clinical s/s of aspiration or dysphagia 100% of the time in order to meet primary nutrition/hydration needs.
--- NOTE | 2025-10-26 14:39 | DI.ECHO.S_ITS ---
[facility]+ [facility] : : [address] : : [place] : : [id number] : : Phone: [phone] Echocardiogram Report + + :Name: GERARDOBRYON MILLER Stephanie Study Date: 10/26/2025 Height: 72 in : :[facility] ReadingLocation: Weight: 190 lb : : Gender: Male BSA: 2.1 m2 : :: 1940 Age: 85 yrs BP: 186/80 mmHg: :Reason For Study: TIA : :Ordering Physician: ALFONSO, : :CHRISTOPHER Brown Performed By: Moisés Bledsoe : :Referring: CHRISTOPHER HAMILTON : + + Interpretation Summary 1) Normal left ventricular size with low normal systolic function (EF 50-55%). There are no focal wall motion abnormalities 2) Normal right ventricular size with mildly reduced function. 3) There is mild to moderate aortic regurgitation. 4) Compared to the Echo done 08/19/2024, LVEF has improved from 40-45% to 50- 55% on this study. Procedure: A two-dimensional transthoracic echocardiogram with color flow and Doppler was performed. A contrast injection of Definity was performed to improve assessment of LV function. The study quality was technically difficult. Comparison is made with the echocardiogram of 08/19/2024. The patient was in atrial fibrillation with heart rates between 55-83 bpm during the exam. Left Ventricle: The left ventricle is normal in size. Left ventricular wall thickness is mildly increased. There is no ventricular septal defect visualized. The ejection fraction is estimated to be 50-55%. There are no focal wall motion abnormalities. Diastolic function could not be accurately assessed due to atrial fibrillation. Right Ventricle: The right ventricle is normal size. Right ventricular systolic function is mildly reduced. Atria: The left atrial size is normal. The right atrium is moderately dilated. There is no Doppler evidence for an interatrial shunt. Mitral Valve: There is mild mitral annular calcification. The mitral valve leaflets are mildly calcified. There is trace mitral regurgitation. Aortic Valve: The aortic valve is trileaflet. The aortic valve is mildly calcified. The aortic valve opens well. There is no aortic valve stenosis. There is mild to moderate aortic regurgitation. Tricuspid Valve: The tricuspid valve is not well visualized, but is grossly normal. There is a trace or physiologic amount of tricuspid regurgitation. Pulmonic Valve: The pulmonic valve is not well seen, but is grossly normal. There is no pulmonic valvular regurgitation. Great Vessels: The aortic root is normal size. The dimensions of the ascending aorta are normal. The pulmonary artery is not well visualized, but is probably normal size. The inferior vena cava was not visualized. Pericardium/ Pleura There is no pericardial effusion. MMode/2D Measurements & Calculations LVIDd: 4.7 cm LVOT diam: 2.0 cm LVIDs: 3.7 cm Ao root diam: 3.6 cm FS: 21.7 % asc Aorta Diam: 3.3 cm EPSS: 0.74 cm IVSd: 1.6 cm LVPWd: 1.1 cm LV garza. diameter/BSA (cm/m^2): 2.2 LV sys. diameter/BSA (cm/m^2): 1.8 LA A2 area: 19.3 cm2 RA long axis: 5.6 cm LA A4 area: 18.1 cm2 RA area: 22.8 cm2 LA length (vol): 5.7 cm RA vol: 78.6 ml LA vol: 52.1 ml RA : 37.7 ml/m2 LA vol index: 25.0 ml/m2 RVD1 (basal): 3.9 cm RVD2 (mid): 3.0 cm TAPSE: 2.2 cm Doppler Measurements & Calculations Ao V2 max: 109.6 cm/sec LVOT Max Tre: 79.6 cm/sec Ao V2 mean: 79.1 cm/sec LV V1 max P.5 mmHg Ao max P.8 mmHg LV V1 VTI: 19.2 cm Ao mean P.7 mmHg SINA(I,D): 2.5 cm2 Ao V2 VTI: 23.5 cm SINA(V,D): 2.2 cm2 sev ratio: 0.82 SINA indexed to BSA (cm^2/m^2): 1.2 MV E max tre: 74.1 cm/sec TR max tre: 206.7 cm/sec MV A max tre: 20.5 cm/sec TR max P.1 mmHg MV E/A: 3.6 PA V2 max: 75.3 cm/sec Med Peak E' Tre: 6.1 cm/sec PA V2 mean: 52.6 cm/sec E/E' med: 12.2 PA mean P.2 mmHg Lat Peak E' Tre: 8.3 cm/sec PA pr(Accel): 39.6 mmHg E/E' lat: 8.9 E/e' average: 10.5 MV dec time: 0.11 sec SVLVOT): 58.9 ml Reading Physician:05:41 PM
--- NOTE | 2025-10-26 16:49 | CM.DANOTE ---
DCP Assessment Note: Pt is a 85yo male, resident of [place], is admitted for TIA. Pt lives in a house with his , Sharyn. Pt's Primary Care Provider is Dr. Elda Munoz and insurance is [facility] Medicare. Reviewed chart and discussed with multidisciplinary team pt's medical status and initial discharge needs. Per Provider, MRI pending and PT/OT/ST evaluations. DCP met w/patient at bedside; introduced self and role. Present in the room is pt's . Patient was found in bed, alert and oriented, cooperative with assessment. Pt confirmed living situation and good support in , she states pt has been having balance issues and was supposed to start outpatient PT soon. Pt expressed preference in discharge home with home health, did not review MCR Choice List. Pt has no previous history of SNF Rehab or home health. Pt agreeable to working with therapies and following their recommendations. Plan: Awaiting PT/OT evaluations and recommendation for evolving discharge plans. CM team will follow closely for coordination of discharge plans. MASHA Rdoriguez Discharge Planning/Care Management CM Discharge Assessment Start: 10/26/25 11:32 Freq: Status: Active Protocol: Document 10/26/25 16:43 MW (Rec: 10/26/25 16:46 MW [id number]) Discharge Planning Assessment Assigned Discharge MAYCOL Sibley Waitstaff Provider Dr. Elda Munoz Insurance [facility] DPOA/Assigned Sharyn, Spouse Designee Name Contact Information [phone] Advance Directives? Yes Advance Directives No on File History Provided By Patient,Significant Other,Medical Record Prior Living House Arrangements Household Members spouse Type of Drives own vehicle transporation used prior to admit Independent with ADL Yes 's Is patient alert and Yes oriented? Needs Assistance Managing Medications With DME Already Rented / Cane,Other Owned Comment APAP @ Night Patient/Family Home with Home Health Preference Discharge Plan Home with Home Health Transportation Spouse Arrangement Referrals Initiated Home Health Medicare Choice List Yes Provided Review Status In Process Please Provide Date 10/26/25 Initial DC Assessment Was Performed Next Review Type Continued Stay Review
--- NOTE | 2025-10-26 19:32 | PC.NURSE ---
Patient arrived from ED at 1640 this afternoon from ED. He is A&OX4, [place], slightly unsteady gait (per baseline) He has an NIH score of 0. He is placed on telemetry, afib on monitor. SBP elevated. MD aware. Patient denies c/o pain. He tolerates dinner well. Admission assessment completed. Continuous monitoring.
[2025-10-26] MEDS: METOPROLOL IR 50 MG TABLET PO (21:10)
[2025-10-26] MEDS: APIXABAN 5 MG TABLET PO (21:10)
--- NOTE | 2025-10-26 23:38 | PC.NURSE ---
director software quality assurance Patient requested RN to contact night hospitalist to not be disturbed for q4HR VS, RN notfied Deion of patients request as well as most recent VS and situation. approved holding VS until 0600. but continue hourly monitoring and continues cardiac telemetry. doorshaker aware.
[2025-10-27] VITALS (7 sets, daily range): BP systolic 115–166; BP diastolic 69–98; PULSE 68–88; RESP 18–22; TEMP 35.8–36.6; O2SAT 95–97
--- NOTE | 2025-10-27 09:17 | DI.CT.S_ITS ---
PROCEDURE: CT HEAD/BRAIN WO CON INDICATIONS: cva TECHNIQUE: Noncontrast 4.5 mm thick angled axial sections acquired from the foramen magnum to the vertex, with coronal and sagittal reformats. For radiation dose reduction, the following was used: automated exposure control, adjustment of mA and/or kV according to patient size. COMPARISON: [facility], CT, CT STROKE, 10/26/2025, 9:14. FINDINGS: Image quality: Diagnostic. CSF spaces: Basal cisterns are patent. No extra-axial fluid collections. The ventricles are symmetric in size and shape. Brain: No intracranial bleeds or mass effect. There is cerebral volume loss, with resultant ventricular and sulcal prominence. There are periventricular and deep white matter chronic small vessel ischemic changes. There is intracranial internal carotid artery atherosclerosis. Skull and face: Calvarium and visualized facial bones appear intact, without suspicious lesions. Sinuses: Right sphenoid sinus opacification. Visualized sinuses and mastoids are otherwise clear. IMPRESSION: No acute intracranial pathology. Dictated by: Manish Schroeder M.D. on 10/27/2025 at 10:00 Approved by: Manish Schroeder M.D. on 10/27/2025 at 10:01
[2025-10-27] MEDS: ATORVASTATIN 20 MG TABLET 80 MG PO ×2 (11:20→21:04)
[2025-10-27] MEDS: METOPROLOL IR 50 MG TABLET PO ×2 (11:29→21:04)
--- NOTE | 2025-10-27 14:02 | PM.PN.IH.1 ---
Subjective Subjective Date Patient Seen: 10/27/25 Time Patient Seen: 09:08 Interval history: Chief complaint: had a stroke per Narrative: This is an 85-year-old male with a history of paroxysmal atrial fibrillation, prostate cancer, BPH, gout, PLMD, SAY, hyperlipidemia and hypertension who presents with abrupt onset of left facial drooping and slurred speech at 8:30 a.m. today. By his ED evaluation within the next 2 hours his facial drooping had resolved and the speech was clear. He has a history of atrial fibrillation which he is currently on aspirin for. He used to be on Eliquis but that was stopped when he had rectal bleeding caused by diverticulosis. After colectomy it had not been resumed. CT brain is normal. Brain MRI is pending. 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 10/27: The patient experienced recurrent increase left facial droop and expressive aphasia at approximately 8:50 a.m.. NIHSS score = 2. Urgent follow-up head CT shows no acute stroke or bleeding. Case is reviewed in detail with Dr. Princess Hill of Medicine Telestroke who advises resuming Eliquis tomorrow after review of images and his case in detail. This is reviewed with the patient and his family. He is started on high-dose statin therapy. Exam: Alert and oriented x3. No apparent distress. No speech slurring or irregularity. Pupils are equally round and reactive to light and accommodation. Extraocular muscles are intact. Sclerae are pink and nonicteric. No lymph nodes are felt head, neck, supraclavicular area. There is no thyromegaly. JVD is less than 6 cm. No carotid bruits are heard. Heart is irregularly irregular without murmur. Lungs are clear to auscultation bilaterally. Abdomen is soft, bowel sounds positive, nontender, no organomegaly. Extremities have no ankle edema. Skin has no rash or jaundice. Cranial nerves 2-12 test intact. Motor function is 5/5 throughout. Babinski's are normal bilaterally. Hldgta-[id number] pointing is normal bilaterally. There is no tongue deviation. There is no tremor. DTRs are symmetric. Speech is fluent. IMAGING: Head CT 10/26/2025: No acute intracranial pathology. 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 This is a new finding compared to 2019 but age-indeterminate. 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 Intracranial and extracranial atherosclerosis. No severe stenosis or occlusion of the anterior circulation. Brain MRI 10/26/2025: Tiny acute /subacute white matter infarcts of the right das radiata. Echocardiogram 10/26/2025: 1) Normal left ventricular size with low normal systolic function (EF 50-55%). There are no focal wall motion abnormalities 2) Normal right ventricular size with mildly reduced function. 3) There is mild to moderate aortic regurgitation. 4) Compared to the Echo done 08/19/2024, LVEF has improved from 40-45% to 50- 55% on this study. Head CT 10/27/2025: No acute intracranial pathology. Assessment plan: Acute right das radiata cerebrovascular accident, likely small-vessel disease, active. -presenting with left facial droop and expressive aphasia, recurrent morning -CTA normal except for chronic left vertebral blockage. -resume Eliquis due to atrial fibrillation. -atorvastatin 80 mg daily Paroxysmal atrial fibrillation -stop aspirin and begin Eliquis. -continue diltiazem and metoprolol. History of GI bleed, not present on admission. Chronic. -per patient report Eliquis was previously stopped at time of lower GI bleed attributed to diverticulosis which was treated subsequently with colectomy. Hypertension, present on admission. Chronic. -continue metoprolol and diltiazem. Chronic kidney disease type 3 with GFR of 46. -creatinine 1.49. Eliquis for DVT prevention His spouse is his backup decision maker Exam Vital Signs (past 8 hours): - 10/27/25 08:00 10/27/25 11:29 Temperature 96.5 F L 97.5 F L Pulse Rate 71 78 Respiratory Rate 19 18 Blood Pressure 115/84 151/80 H Pulse Oximetry 97 97 Oxygen Flow Rate 0 Oxygen Delivery Method Room Air Oxygen Flow Rate 0 Objective Labs 10/26/25 09:10 10/26/25 09:10 [facility] Medical History A-fib Atrial fibrillation with rapid ventricular response Atrial fibrillation with RVR (Unknown) Blepharophimosis unspecified eye, unspecified lid BPH (benign prostatic hyperplasia) Colitis (~2018) Diverticulitis (~2018) Elevated PSA Elevated PSA, greater than or equal to 20 ng/ml Essential hypertension (Unknown) Excessive daytime sleepiness (~2019) Gout History of colonic diverticulitis History of orchitis History of tobacco use Hyperlipidemia 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 medical condition 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) Obstructive sleep apnea, adult (~04/22/20) Paroxysmal atrial fibrillation Periodic limb movement disorder (PLMD) Prostate cancer Sepsis Snoring Ulcerative colitis Surgical History History of colonoscopy History of tonsillectomy Hx of colectomy (09/21/24) Hx of vasectomy Family History Father Loud snoring Hypertension Mother Hypertension Hyperlipidemia Social History marital status: details: lives in [place] number of children: 2 household members: spouse lives independently: Yes caregiver/support person: No housing: house Smoking Status: Former smoker alcohol intake: former substance use type: does not use caffeine: Yes Type(s) of exercise: regular exercise frequency: decline to answer Quality VTE Deep Vein Thrombosis/Pulmonary Embolism Present on Admission: No [facility] PROFEE 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
[2025-10-28 03:00] VITALS: BP 179/86; PULSE 88; RESP 20; TEMP 36.6; O2SAT 97
[2025-10-28 08:00] VITALS: BP 163/86; PULSE 81; RESP 20; TEMP 36.3; O2SAT 97
[2025-10-28] MEDS: METOPROLOL IR 50 MG TABLET PO ×2 (08:34→20:17)
[2025-10-28] MEDS: APIXABAN 5 MG TABLET PO ×2 (08:34→20:17)
[2025-10-28] MEDS: SODIUM CHLORIDE 0.9% FLUSH 10 ML IV ×2 (08:36→20:18)
--- NOTE | 2025-10-28 09:29 | PM.PN.IH.1 ---
Subjective Subjective Date Patient Seen: 10/28/25 Time Patient Seen: 08:11 Interval history: Chief complaint: had a stroke per Narrative: This is an 85-year-old male with a history of paroxysmal atrial fibrillation, prostate cancer, BPH, gout, PLMD, SAY, hyperlipidemia and hypertension who presents with abrupt onset of left facial drooping and slurred speech at 8:30 a.m. today. By his ED evaluation within the next 2 hours his facial drooping had resolved and the speech was clear. He has a history of atrial fibrillation which he is currently on aspirin for. He used to be on Eliquis but that was stopped when he had rectal bleeding caused by diverticulosis. After colectomy it had not been resumed. CT brain is normal. Brain MRI is pending. 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 10/27: The patient experienced recurrent increase left facial droop and expressive aphasia at approximately 8:50 a.m.. NIHSS score = 2. Urgent follow-up head CT shows no acute stroke or bleeding. Case is reviewed in detail with Dr. Princess Hill of [facility] who advises resuming Eliquis tomorrow after review of images and his case in detail. This is reviewed with the patient and his family. He is started on high-dose statin therapy. 10/28: Patient reports an no neurologic events overnight. He is sitting up in bed, speaking fluently with mild dysarthric speech, and denies arm or leg weakness. The plan is to start PT and OT today. He feels his swallow is safe at this point. Exam: Alert and oriented x3. No apparent distress. No speech slurring or irregularity. Pupils are equally round and reactive to light and accommodation. Extraocular muscles are intact. Sclerae are pink and nonicteric. No lymph nodes are felt head, neck, supraclavicular area. There is no thyromegaly. JVD is less than 6 cm. No carotid bruits are heard. Heart is irregularly irregular without murmur. Lungs are clear to auscultation bilaterally. Abdomen is soft, bowel sounds positive, nontender, no organomegaly. Extremities have no ankle edema. Skin has no rash or jaundice. Cranial nerves 2-12 notable for persistent left facial droop.. Motor function is 5/5 throughout. Babinski's are normal bilaterally. [id number]-am-[id number] pointing is normal bilaterally. There is no tongue deviation. There is no tremor. DTRs are symmetric. Speech is fluent. IMAGING: Head CT 10/26/2025: No acute intracranial pathology. 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 This is a new finding compared to 2019 but age-indeterminate. 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 Intracranial and extracranial atherosclerosis. No severe stenosis or occlusion of the anterior circulation. Brain MRI 10/26/2025: Tiny acute /subacute white matter infarcts of the right das radiata. Echocardiogram 10/26/2025: 1) Normal left ventricular size with low normal systolic function (EF 50-55%). There are no focal wall motion abnormalities 2) Normal right ventricular size with mildly reduced function. 3) There is mild to moderate aortic regurgitation. 4) Compared to the Echo done 08/19/2024, LVEF has improved from 40-45% to 50- 55% on this study. Head CT 10/27/2025: No acute intracranial pathology. Assessment plan: Acute right das radiata cerebrovascular accident, likely small-vessel disease, active. -presenting with left facial droop and expressive aphasia, resolved but recurrent on the 2nd hospital morning -CTA normal except for chronic left vertebral blockage. -continue Eliquis due to atrial fibrillation, restarted on this admission. -atorvastatin 80 mg daily added on 10/28 Paroxysmal atrial fibrillation -topped and began Eliquis on 10/28 and begin Eliquis. -continue diltiazem and metoprolol. History of GI bleed, not present on admission. Chronic. -per patient report Eliquis was previously stopped at time of lower GI bleed attributed to diverticulosis which was treated subsequently with colectomy. Hypertension, present on admission. Chronic. -continue metoprolol and diltiazem. Chronic kidney disease type 3 with GFR of 46. -creatinine 1.49. Eliquis for DVT prevention His spouse is his backup decision maker Exam Vital Signs (past 8 hours): - 10/28/25 03:00 10/28/25 08:00 Temperature 98 F 97.4 F L Pulse Rate 88 81 Respiratory Rate 20 20 Blood Pressure 179/86 H 163/86 H Pulse Oximetry 97 97 Oxygen Flow Rate 0 0 Oxygen Delivery Method Room Air Oxygen Flow Rate 0 Objective Labs 10/26/25 09:10 10/26/25 09:10 [facility] Medical History A-fib Atrial fibrillation with rapid ventricular response Atrial fibrillation with RVR (Unknown) Blepharophimosis unspecified eye, unspecified lid BPH (benign prostatic hyperplasia) Colitis (~2018) Diverticulitis (~2018) Elevated PSA Elevated PSA, greater than or equal to 20 ng/ml Essential hypertension (Unknown) Excessive daytime sleepiness (~2019) Gout History of colonic diverticulitis History of orchitis History of tobacco use Hyperlipidemia 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 medical condition 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/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) Obstructive sleep apnea, adult (~04/22/20) Paroxysmal atrial fibrillation Periodic limb movement disorder (PLMD) Prostate cancer Sepsis Snoring Ulcerative colitis Surgical History History of colonoscopy History of tonsillectomy Hx of colectomy (09/21/24) Hx of vasectomy Family History Father Loud snoring Hypertension Mother Hypertension Hyperlipidemia Social History marital status: details: lives in [place] number of children: 2 household members: spouse lives independently: Yes caregiver/support person: No housing: house Smoking Status: Former smoker alcohol intake: former substance use type: does not use caffeine: Yes Type(s) of exercise: regular exercise frequency: decline to answer Assessment & Plan Time-Based Coding :: [TOTAL MINUTES] spent with patient and on the chart (including review of chart, obtaining history, exam, reviewing outside data, placing orders, documenting exam and treatment plan, and counseling patient) on [DATE]. Quality VTE Deep Vein Thrombosis/Pulmonary Embolism Present on Admission: No [facility] PROFEE Manager Post Document charge(s): No
--- NOTE | 2025-10-28 10:13 | PT.IIE ---
Current Diagnoses Cerebral infarction, unspecified (10/27/25) Surgical History (Last Reviewed 10/27/25 @ 14:10 by Wai Baker MD) History of colonoscopy History of tonsillectomy Hx of colectomy (09/21/24) Hx of vasectomy Medical History (Last Reviewed 10/27/25 @ 14:10 by Wai Baker MD) A-fib Atrial fibrillation with rapid ventricular response Atrial fibrillation with RVR (Unknown) Blepharophimosis unspecified eye, unspecified lid BPH (benign prostatic hyperplasia) Colitis (~2018) Diverticulitis (~2018) Elevated PSA Elevated PSA, greater than or equal to 20 ng/ml Essential hypertension (Unknown) Excessive daytime sleepiness (~2019) Gout History of colonic diverticulitis History of orchitis History of tobacco use Hyperlipidemia 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 medical 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) Obstructive sleep apnea, adult (~04/22/20) Paroxysmal atrial fibrillation Periodic limb movement disorder (PLMD) Prostate cancer Sepsis Snoring Ulcerative colitis Physical Therapy Inpatient Evaluation/Re-Eval M1 PT IP Prior Functional Status Start: 10/28/25 08:48 Freq: NEEDED Status: Active Protocol: Document 10/28/25 10:01 [facility] (Rec: 10/28/25 10:13 [facility] [id number]) Medical Review Prior Functional Status Medical History Yes Reviewed Diet/Fluid Thin Liquids Consistency Mobility and Gait pt uses a cane at home, walks for exercise with his outdoors around the block daily Social History Household Members spouse Living Arrangements House Number of Floors ( One Floor Floors) Number of Stairs To 0 Enter/Railing? Home Equipment Straight Cane M2 PT-IP Current Condition Start: 10/28/25 08:48 Freq: NEEDED Status: Active Protocol: Document 10/28/25 10:01 [facility] (Rec: 10/28/25 10:13 [facility] [id number]) Physical Therapy Current Condition Current Condition Evaluation Date 10/28/25 Treatment Diagnosis Brain TIA Onset Date 10/27/25 M3 PT-IP Subjective Start: 10/28/25 08:48 Freq: NEEDED Status: Active Protocol: Document 10/28/25 10:01 [facility] (Rec: 10/28/25 10:13 [facility] [id number]) Subjective Physical Therapy Visit Type Type Initial Evaluation Visit Start Time 08:55 Visit Stop Time 09:25 Physical Therapy Visit Comments Patient Comments pt is sitting up in chair eating breakfast, he notes his chief complaint is difficulty swallowing and slurred speech. Pt reports he lives in a one story house in [place] without any steps to entry or inside Patient Goals Pts goals are to return home with his Therapy Pain Assessment Pain Present Pain Present Denied Pain M4 PT-IP Mobility and Gait Start: 10/28/25 08:48 Freq: NEEDED Status: Active Protocol: Document 10/28/25 10:01 [facility] (Rec: 10/28/25 10:13 [facility] [id number]) PT-Transfer Assessment Sit to and From Stand Sit to and from Contact Guard Assistance Stand Equipment Transfer Assistive Gait Belt,Front Wheeled Walker Device Transfers Transfer Destination Chair Transfer Technique Stand Step Pivot Transfer Ability Level of Assist Contact Guard Assistance Comments Mobility Comments pt was sitting in bedside chair and after finishing breakfast he agreed to PT. He was able to transfer from sit-stand with CGA and use of fww. He ambulated with fww in room x 25 feet and returned to bedside chair following. Gait Assessment Gait Gait Assistance Contact Guard Assist Required: Able to Maintain Yes Weight Bearing Status During Gait Assistive Devices Assistive Device Gait Belt,Front Wheeled Walker Orthotic/Prosthetic No Devices or Brace: Gait Deviations General Gait Pattern Decreased Stride Length Factors Limiting Gait Function Factors Limiting Decreased Strength Gait Function Comments Gait Comments pt felt steady with fww and notes he does feel he can lose his balance at home. He uses a SPC for home I asked about falls and he denies falls. Pt ambulated with fww and CGA x 25 feet in room without LOB. He may benefit from having a fww at home for added safety with gait PT-Balance Assessment Sitting Balance and Reactions Static Sitting Good Balance Ability Dynamic Sitting Good Balance Ability Standing Balance and Reactions Static Standing Fair Balance Ability Dynamic Standing Fair Balance Ability M5 PT-IP Objective Assessments Start: 10/28/25 08:48 Freq: NEEDED Status: Active Protocol: Document 10/28/25 10:01 [facility] (Rec: 10/28/25 10:13 [facility] [id number]) Orientation Orientation/Cognition Level of Alertness Alert Orientation Name,Age,Place,Situation Comments slurred speech with left facial droop Gross Range of Motion Upper Extremity ROM Assessment Within Functional Limits Lower Extremity ROM Assessment Within Functional Limits Strength Upper Extremity Strength Assessment Within Functional Limits Lower Extremity Strength Assessment Within Functional Limits Coordination Assessment Gross Coordination Gross Coordination WNL M6 PT-IP Treatment Start: 10/28/25 08:48 Freq: NEEDED Status: Active Protocol: Document 10/28/25 10:01 [facility] (Rec: 10/28/25 10:13 [facility] [id number]) Physical Therapy Treatment Exercises Exercises Ankle Pumps M7 PT-IP Assessment and Plan Start: 10/28/25 08:48 Freq: NEEDED Status: Active Protocol: Document 10/28/25 10:01 [facility] (Rec: 10/28/25 10:13 [facility] [id number]) PT Summary Assessment and Plan Potential Rehabilitation Good Potential Status of Condition Evolving at Evaluation Summary Impairments Strength,Balance Goals Transfer Goal Independent Gait Goal Independent Gait Distance 50 ft Days to Meet Goals 10 Frequency of Treatment Frequency Of Once a Day Treatment Treatment Plan Physical Therapy Transfer Training,Gait Training Treatment Plan Other increase distance with gait next treatment Recommendations and Next Treatment Focus Weight Bearing Status Weight Bearing Full Weight Bearing Status Recommendations To Nursing Amount of Assist 1 Person Assist Needed Discharge Recommendations PT Discharge Home with Assistance Recommendations Other Discharge pt would benefit from FWW for home for added safety Recommendations with transfers and gait Transportation Needs Private Vehicle at Discharge
[2025-10-28 12:00] VITALS: BP 130/59; PULSE 59; RESP 16; TEMP 35.8; O2SAT 96
[2025-10-28] MEDS: DOCUSATE 100 MG CAPSULE PO ×2 (12:02→20:17)
--- NOTE | 2025-10-28 14:36 | PC.NURSE ---
Patient woke up from a nap (he was sleeping with his cpap on and his sitting at bedside). Patient called reporting that his fingers felt numb- upon assessment he notes his finger tips on left hand had a dull sensation when he was trying to push the buttons on his cpap machine. The sensation on the tops of his hand feels normal and he reports it feels equal with other side. No other changes noted. Message sent to Dr. Baker, continue to follow.
[2025-10-28 16:00] VITALS: BP 131/61; PULSE 62; RESP 18; TEMP 36.1; O2SAT 98
--- NOTE | 2025-10-28 16:19 | DI.CT.S_ITS ---
PROCEDURE: CT HEAD/BRAIN WO CON INDICATIONS: increased dysarthria TECHNIQUE: Noncontrast 4.5 mm thick angled axial sections acquired from the foramen magnum to the vertex, with coronal and sagittal reformats. For radiation dose reduction, the following was used: automated exposure control, adjustment of mA and/or kV according to patient size. COMPARISON: [facility], CT, CT HEAD/BRAIN WO CON, 10/27/2025, 9:40. [facility], CT, CT STROKE, 10/26/2025, 9:14. [facility], MR, MR HEAD/BRAIN WO CON, 10/26/2025, 14:09. FINDINGS: Image quality: Diagnostic. CSF spaces: Basal cisterns are patent. No extra-axial fluid collections. The ventricles are symmetric in size and shape. Brain: No intracranial bleeds or mass effect. There is cerebral volume loss, with resultant ventricular and sulcal prominence. There are periventricular and deep white matter chronic small vessel ischemic changes. There is intracranial internal carotid artery atherosclerosis. Skull and face: Calvarium and visualized facial bones appear intact, without suspicious lesions. Sinuses: Visualized sinuses and mastoids are clear. IMPRESSION: Unremarkable noncontrast head CT study for age, similar to the prior. If there is strong clinical suspicion for an interval acute stroke, please consider a brain MRI for further evaluation, as it is more sensitive (assuming that there is no contraindication to MRI). Dictated by: Shane Long M.D. on 10/28/2025 at 16:18 Approved by: Shane Long M.D. on 10/28/2025 at 16:19
[2025-10-28 20:00] VITALS: BP 139/92; PULSE 75; RESP 20; TEMP 36.1; O2SAT 97
[2025-10-28] MEDS: ATORVASTATIN 20 MG TABLET 80 MG PO (20:17)
[2025-10-29] VITALS (8 sets, daily range): BP systolic 126–184; BP diastolic 68–112; PULSE 68–86; RESP 15–20; TEMP 35.4–37.1; O2SAT 98–100
[2025-10-29] MEDS: DOCUSATE 100 MG CAPSULE PO ×2 (08:23→20:38)
[2025-10-29] MEDS: METOPROLOL IR 50 MG TABLET PO ×2 (08:23→20:39)
[2025-10-29] MEDS: SODIUM CHLORIDE 0.9% FLUSH 10 ML IV ×2 (08:24→20:39)
[2025-10-29] MEDS: APIXABAN 5 MG TABLET PO ×2 (08:24→20:38)
--- NOTE | 2025-10-29 09:45 | PT.IPTN ---
Current Diagnoses Cerebral infarction, unspecified (10/27/25) Physical Therapy Treatment Note M2 PT-IP Current Condition Start: 10/28/25 08:48 Freq: NEEDED Status: Active Protocol: Document 10/28/25 10:01 [facility] (Rec: 10/28/25 10:13 [facility] [id number]) Physical Therapy Current Condition Current Condition Evaluation Date 10/28/25 Treatment Diagnosis Brain TIA Onset Date 10/27/25 M3 PT-IP Subjective Start: 10/28/25 08:48 Freq: NEEDED Status: Active Protocol: Document 10/29/25 13:09 [facility] (Rec: 10/29/25 13:19 [facility] [id number]) Subjective Physical Therapy Visit Type Type Treatment Note Visit Start Time 09:13 Visit Stop Time 09:45 Number of SCREEDMAN Visits 0 Physical Therapy Visit Comments Patient Comments Pt is found seated in bed side chair. Patient Goals To have his speech get better. M4 PT-IP Mobility and Gait Start: 10/28/25 08:48 Freq: NEEDED Status: Active Protocol: Document 10/29/25 13:09 [facility] (Rec: 10/29/25 13:19 NW [id number]) PT-Transfer Assessment Equipment Transfer Assistive Gait Belt,Standard Walker Device Transfers Transfer Destination Chair Transfer Technique Stand Step Pivot Transfer Ability Level of Assist Contact Guard Assistance,1 Person Assistance,Use of Upper Extremities Comments Mobility Comments Good balance upon stance. Adequate power production with use of unilateral UE from transferred surface with FWW. Gait Assessment Gait Gait Assistance Contact Guard Assist Required: Distance (Feet) 180 Assistive Devices Assistive Device Gait Belt,Front Wheeled Walker Gait Deviations General Gait Pattern Decreased Feet Clearance Comments Gait Comments Ambulated with FWW at [facility] in single bout 180 ft with no notable signs of fatigue or distress. Pt has reduced L foot clearance, but no instances of tripping or catching. Pt has WFL strength when tested. PT-Balance Assessment Sitting Balance and Reactions Static Sitting Normal Balance Ability Dynamic Sitting Good Balance Ability Standing Balance and Reactions Static Standing Good Balance Ability Dynamic Standing Good Balance Ability Device Used FWW and none Balance Tests Romberg 30 sec EO and EC with minor sway Functional Assessments Other Functional Tests Pt is challenged with visual tracking into abduction Performed with the L eye upon visual assessment. M5 PT-IP Objective Assessments Start: 10/28/25 08:48 Freq: NEEDED Status: Active Protocol: Document 10/28/25 10:01 [facility] (Rec: 12/20/25 10:13 [facility] [id number]) Orientation Orientation/Cognition Level of Alertness Alert Orientation Name,Age,Place,Situation Comments slurred speech with left facial droop Gross Range of Motion Upper Extremity ROM Assessment Within Functional Limits Lower Extremity ROM Assessment Within Functional Limits Strength Upper Extremity Strength Assessment Within Functional Limits Lower Extremity Strength Assessment Within Functional Limits Coordination Assessment Gross Coordination Gross Coordination WNL M6 PT-IP Treatment Start: 10/28/25 08:48 Freq: NEEDED Status: Active Protocol: Document 10/29/25 13:09 [facility] (Rec: 10/29/25 13:19 NW [id number]) Physical Therapy Treatment Education Education Provided Safety Other Treatments Other Treatment Education on continuing to use FWW secondary to balance Performed and additional environmental safety. Education on compensation of turning to look L with functional mobility. Eye tracking exercises performed on paper with R eye covered for L to track into abduction with varying degrees of distance. Performed for 2-3 minutes M7 PT-IP Assessment and Plan Start: 10/28/25 08:48 Freq: NEEDED Status: Active Protocol: Document 10/29/25 13:09 [facility] (Rec: 10/29/25 13:19 NW [id number]) PT Summary Assessment and Plan Potential Rehabilitation Good Potential Status of Condition Evolving at Evaluation Summary Impairments Strength,Balance Assessment Summary Dustin has within normal vitals and is able to increase ambulation distance within a single bout to 180 ft with FWW at CGA with occasional cues to turn head to look L . No signs of exertion noted, decreased L foot clearance compared to R, but with strength testing appears similar. Pt appears to have largest impairments with speech and facial motor planning. Focused part of session on L lateral rectus tracking into abduction. Pt will continue to benefit from further skilled care with increased distractions with gait. Recommend outpatient services upon discharge. Goals Transfer Goal Independent Gait Goal Independent Gait Distance 50 ft Days to Meet Goals 10 Frequency of Treatment Frequency Of Once a Day Treatment Treatment Plan Physical Therapy Transfer Training,Gait Training Treatment Plan Other increase distance with gait next treatment Recommendations and Next Treatment Focus Weight Bearing Status Weight Bearing Full Weight Bearing Status Recommendations To Nursing Amount of Assist 1 Person Assist Needed Discharge Recommendations PT Discharge Home with Assistance,Outpatient PT Recommendations Other Discharge pt would benefit from FWW for home for added safety Recommendations with transfers and gait Transportation Needs Private Vehicle at Discharge - PT assist 1
[2025-10-29] MEDS: FLEETS ENEMA 1 EACH PR (10:03)
--- NOTE | 2025-10-29 10:54 | EKG_ITS ---
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
--- NOTE | 2025-10-29 11:06 | PC.NURSE ---
Pt was given an enema and then up to [facility] [place] a bm with PSYCHOLOGY TECH-was doing fine then had an apparent vagal episode with attempting to push stool out. Called to room by PSYCHOLOGY TECH, attempted to rouse Pt - Pt opened eyes briefly but was unable to remain alert. Called for assistance and transferred Pt to bed in trendelenberg position, obtained vital signs, placed Pt on 2L O2 via NC, called for STAT ekg (Afib CVR), Dr. Baker in to see Pt, Pt returned to his stable state as prior to up to commode, Pt conversive and interactive-states he feels tired-denies any new adverse symptoms. Family in to see Pt. Pt denies needs at this time and agrees to call for assistance as needed. Bed alarm on for safety.
--- NOTE | 2025-10-29 11:33 | P.PN_ITS ---
Subjective Subjective Date Patient Seen: 10/29/25 Time Patient Seen: 08:17 Interval history: Chief complaint: had a stroke per Narrative: This is an 85-year-old male with a history of paroxysmal atrial fibrillation, prostate cancer, BPH, gout, PLMD, SAY, hyperlipidemia and hypertension who presents with abrupt onset of left facial drooping and slurred speech at 8:30 a.m. today. By his ED evaluation within the next 2 hours his facial drooping had resolved and the speech was clear. He has a history of atrial fibrillation which he is currently on aspirin for. He used to be on Eliquis but that was stopped when he had rectal bleeding caused by diverticulosis. After colectomy it had not been resumed. CT brain is normal. Brain MRI is pending. 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 10/27: The patient experienced recurrent increase left facial droop and expressive aphasia at approximately 8:50 a.m.. NIHSS score = 2. Urgent follow- up head CT shows no acute stroke or bleeding. Case is reviewed in detail with Dr. Princess Hill of [facility] who advises resuming Eliquis tomorrow after review of images and his case in detail. This is reviewed with the patient and his family. He is started on high-dose statin therapy. 10/28: Patient reports an no neurologic events overnight. He is sitting up in bed, speaking fluently with mild dysarthric speech, and denies arm or leg weakness. The plan is to start PT and OT today. He feels his swallow is safe at this point. 10/29: The patient had increased slurring yesterday in the late afternoon according to his . Repeat head CT showed no acute changes. Today he was up and walking with physical therapy without problems. He was constipated and had an enema. While straining during a bowel movement he became faint and with decreased level of consciousness. He was transferred back to bed. He had normal vital signs and EKG. The event was suspected to be vasovagal. Exam: Alert and oriented x3. No apparent distress. No speech slurring or irregularity. Pupils are equally round and reactive to light and accommodation. Extraocular muscles are intact. Sclerae are pink and nonicteric. No lymph nodes are felt head, neck, supraclavicular area. Heart is irregularly irregular without murmur. Lungs are clear to auscultation bilaterally. Abdomen is soft, bowel sounds positive, nontender, no organomegaly. Extremities have no ankle edema. Skin has no rash or jaundice. Cranial nerves 2-12 notable for persistent left facial droop. Motor function is 5/5 throughout. Babinski's are normal bilaterally. [id number] pointing is normal bilaterally. There is no tongue deviation. There is no tremor. DTRs are symmetric. Speech is fluent. IMAGING: Head CT 10/26/2025: No acute intracranial pathology. 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 This is a new finding compared to 2019 but age-indeterminate. 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 Intracranial and extracranial atherosclerosis. No severe stenosis or occlusion of the anterior circulation. Brain MRI 10/26/2025: Tiny acute /subacute white matter infarcts of the right das radiata. Echocardiogram 10/26/2025: 1) Normal left ventricular size with low normal systolic function (EF 50-55%). There are no focal wall motion abnormalities 2) Normal right ventricular size with mildly reduced function. 3) There is mild to moderate aortic regurgitation. 4) Compared to the Echo done 08/19/2024, LVEF has improved from 40-45% to 50- 55% on this study. Head CT 10/27/2025: No acute intracranial pathology. Head CT 10/28/2025: Unremarkable noncontrast head CT study for age, similar to the prior. Assessment plan: Acute right das radiata cerebrovascular accident, likely small-vessel disease, active. -presenting with left facial droop and expressive aphasia, resolved but recurrent on the 2nd hospital morning -CTA normal except for chronic left vertebral blockage. -continue Eliquis due to atrial fibrillation, restarted on this admission. -atorvastatin 80 mg daily added on 10/28 -speech therapy consultation requested Paroxysmal atrial fibrillation -topped and began Eliquis on 10/28 and begin Eliquis. -continue diltiazem and metoprolol. History of GI bleed, not present on admission. Chronic. -per patient report Eliquis was previously stopped at time of lower GI bleed attributed to diverticulosis which was treated subsequently with colectomy. Hypertension, present on admission. Chronic. -continue metoprolol and diltiazem. Chronic kidney disease type 3 with GFR of 46. -creatinine 1.49. Constipation -continue bowel arrangement Vasovagal near-syncope due to straining -patient cautioned to avoid excessive straining with bowel movement Eliquis for DVT prevention His spouse is his backup decision maker Disposition: Likely discharge home on Eliquis and his usual medications tomorrow with outpatient speech therapy follow-up. Exam Vital Signs (past 8 hours): - 10/29/25 04:00 10/29/25 08:00 Temperature 97.6 F 96.6 F L Pulse Rate 74 79 Respiratory Rate 16 16 Blood Pressure 174/81 H 149/84 H Pulse Oximetry 99 98 Oxygen Flow Rate 0 0 Oxygen Delivery Method Room Air Oxygen Flow Rate 0 Objective Labs 10/26/25 09:10 10/26/25 09:10 [facility] Medical History A-fib Atrial fibrillation with rapid ventricular response Atrial fibrillation with RVR (Unknown) Blepharophimosis unspecified eye, unspecified lid BPH (benign prostatic hyperplasia) Colitis (~2018) Diverticulitis (~2018) Elevated PSA Elevated PSA, greater than or equal to 20 ng/ml Essential hypertension (Unknown) Excessive daytime sleepiness (~2019) Gout History of colonic diverticulitis History of orchitis History of tobacco use Hyperlipidemia 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 medical condition 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/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) Obstructive sleep apnea, adult (~04/22/20) Paroxysmal atrial fibrillation Periodic limb movement disorder (PLMD) Prostate cancer Sepsis Snoring Ulcerative colitis Surgical History History of colonoscopy History of tonsillectomy Hx of colectomy (09/21/24) Hx of vasectomy Family History Father Loud snoring Hypertension Mother Hypertension Hyperlipidemia Social History marital status: details: lives in [place] number of children: 2 household members: spouse lives independently: Yes caregiver/support person: No housing: house Smoking Status: Former smoker alcohol intake: former substance use type: does not use caffeine: Yes Type(s) of exercise: regular exercise frequency: decline to answer Quality VTE Deep Vein Thrombosis/Pulmonary Embolism Present on Admission: No 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
[2025-10-29] MEDS: ATORVASTATIN 20 MG TABLET 80 MG PO (20:36)
[2025-10-30 03:00] VITALS: BP 153/78; PULSE 75; RESP 18; TEMP 37.1; O2SAT 98
--- NOTE | 2025-10-30 05:32 | PM.PN.1 ---
Subjective Subjective Interval history: opened in error Exam Vital Signs (past 8 hours): - 10/29/25 23:00 10/30/25 03:00 Temperature 98.7 F 98.8 F Pulse Rate 74 75 Respiratory Rate 18 18 Blood Pressure 148/100 H 153/78 H Pulse Oximetry 98 98 Oxygen Delivery Method Room Air Oxygen Flow Rate 0 Objective Labs 10/26/25 09:10 10/26/25 09:10 [facility] Medical History A-fib Atrial fibrillation with rapid ventricular response Atrial fibrillation with RVR (Unknown) Blepharophimosis unspecified eye, unspecified lid BPH (benign prostatic hyperplasia) Colitis (~2018) Diverticulitis (~2018) Elevated PSA Elevated PSA, greater than or equal to 20 ng/ml Essential hypertension (Unknown) Excessive daytime sleepiness (~2019) Gout History of colonic diverticulitis History of orchitis History of tobacco use Hyperlipidemia 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 medical condition 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) Obstructive sleep apnea, adult (~04/22/20) Paroxysmal atrial fibrillation Periodic limb movement disorder (PLMD) Prostate cancer Sepsis Snoring Ulcerative colitis Surgical History History of colonoscopy History of tonsillectomy Hx of colectomy (09/21/24) Hx of vasectomy Family History Father Loud snoring Hypertension Mother Hypertension Hyperlipidemia Social History marital status: details: lives in [place] number of children: 2 household members: spouse lives independently: Yes caregiver/support person: No housing: house Smoking Status: Former smoker alcohol intake: former substance use type: does not use caffeine: Yes Type(s) of exercise: regular exercise frequency: decline to answer Assessment & Plan Time-Based Coding :: [TOTAL MINUTES] spent with patient and on the chart (including review of chart, obtaining history, exam, reviewing outside data, placing orders, documenting exam and treatment plan, and counseling patient) on [DATE]. Quality VTE Deep Vein Thrombosis/Pulmonary Embolism Present on Admission: No
[2025-10-30 08:00] VITALS: BP 145/79; PULSE 84; RESP 16; TEMP 36.4; O2SAT 97
[2025-10-30] MEDS: DOCUSATE 100 MG CAPSULE PO (08:28)
[2025-10-30] MEDS: APIXABAN 5 MG TABLET PO (08:28)
[2025-10-30] MEDS: SODIUM CHLORIDE 0.9% FLUSH 10 ML IV (08:28)
[2025-10-30] MEDS: METOPROLOL IR 50 MG TABLET PO (08:28)
[2025-10-30] MEDS: DOCUSATE 100 MG CAPSULE 200 MG PO (09:32)
[2025-10-30] MEDS: SENNOSIDES 8.6 MG TABLET 17.2 MG PO (09:32)
--- NOTE | 2025-10-30 10:42 | OT.IP.EVAL ---
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 medical condition 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) Obstructive sleep apnea, adult (~04/22/20) Paroxysmal atrial fibrillation Periodic limb movement disorder (PLMD) Prostate cancer Sepsis Snoring Ulcerative colitis Surgical History (Last Reviewed 10/27/25 @ 14:10 by Wai Baker MD) History of colonoscopy History of tonsillectomy Hx of colectomy (09/21/24) Hx of vasectomy Occupational Therapy Inpatient Evaluation/Re-Eval M1 OT IP Prior Functional Status Start: 10/30/25 10:17 Freq: Status: Active Protocol: Document 10/30/25 10:17 PURNIMA (Rec: 10/30/25 10:40 PURNIMA Desktop) Medical Review Prior Functional Status Medical History Yes Reviewed Diet/Fluid Thin Liquids Consistency Communication Pt able to make needs known. Pt with slurred speech. Mobility and Gait pt uses a cane at home, walks for exercise with his outdoors around the block daily Activities of Daily Pt was I with BADL, medication mgmt, driving, and amb Living and IADL's with SC Social History Household Members spouse Living Arrangements House Number of Floors ( One Floor Floors) Number of Stairs To 0 Enter/Railing? Home Environment Standard Height Toilet,Walk in Shower,Built-In Shower Seat Home Equipment Straight Cane,Hand Held Shower,Grab Bars Near Toilet, Grab Bars In Shower M2 OT-IP Current Condition Start: 10/30/25 10:17 Freq: Status: Active Protocol: Document 10/30/25 10:17 PURNIMA (Rec: 10/30/25 10:40 PURNIMA Desktop) Occupational Therapy Current Condition Current Condition Evaluation Date 10/30/25 Treatment Diagnosis CVA Diagnosis Onset Date 10/27/25 M3 OT- IP Subjective and Pain Start: 10/30/25 10:17 Freq: Status: Active Protocol: Document 10/30/25 10:17 PURNIMA (Rec: 10/30/25 10:40 UMAIRKYANNA Desktop) OT- Subjective Occupational Therapy Visit Type Type Initial Evaluation Visit Start Time 08:45 Visit Stop Time 09:16 Occupational Therapy Visit Comments Patient Comments Pt was up in chair eating breakfast on entrance of OT and agreeable to participating in OT eval. Patient/Caregiver I hope to go home today. Goals OT Pain Assessment Pain Present Pain Present Denied Pain M4 OT- IP ADL's Start: 10/30/25 10:17 Freq: Status: Active Protocol: Document 10/30/25 10:17 PURNIMA (Rec: 10/30/25 10:40 UMAIRKYANNA Desktop) OT [id number] General Evaluation Self-Feeding Ability Independent OT ADL-Grooming General Evaluation Grooming Ability Independent,Standby Assistance Areas Needing Retrieving/Set-up of Grooming Items Assistance Comments OT Grooming Comments Pt was able to perform hair grooming on setup of comb and hand hygiene with I OT ADL-Oral Care General Eval Oral Care Ability Standby Assistance Areas of Assistance Retrieving/Set-Up of Items Comments Oral Care Comments Pt performs oral hygiene on setup of of supplies OT ADL-Dressing General Eval Lower Body Dressing Minimal Assistance Ability Areas Needing Underpants/Brief Assistance Comments OT Dressing Comments Pt needs assistance to pull up and down on L side of his brief. Pt was able to lean forward and adjust his socks. OT ADL-Toileting General Evaluation Toileting Ability Minimal Assistance Devices Toileting Assistive Commode Devices Comments OT Toileting Pt attempted to have a bowel movement x2 attempts Comments during OT eval utilizing BSC. On initial attempt pt was able to manage his brief prior to sitting but required vcs to pull it up before amb and min A to pull up on L side. On second attempt, he need vcs to pull brief down and min A on L side to manage brief. Nsg notified on second attempt and they came to stay with pt in the room. OT ADL-Bathing Comments OT Bathing Comments not observed M5 OT- IP IADL's Start: 10/30/25 10:17 Freq: Status: Active Protocol: Document 10/30/25 10:17 PURNIMA (Rec: 10/30/25 10:40 [facility]-Instrumental Activities of Daily Living Deficits IADL Deficits Deficits Identified Home Safety Awareness Awareness of Need Good Awareness for Assistance at Home Ability to Problem Able to Problem Solve Solve Emergency Situations Medication Management Medication No Deficits Identified Management Money Management Money Management No Deficits Identified Meal Preparation Meal Preparation Caregiver Provides Assist Meal Preparation spouse assists Comments In Processing Instructor In Processing Instructor Caregiver Provides Assist In Processing Instructor spouse assists Comments Driving Driving Comments spouse can assist M6 OT- IP Functional Cognition Start: 10/30/25 10:17 Freq: Status: Active Protocol: Document 10/30/25 10:17 PURNIMA (Rec: 10/30/25 10:40 [facility]) Cognitive Factors Limiting Selfcare Function Cognitive Ability Level of Alertness Alert Patient Orientation Name,Age,Birthday,Month,Year,Place,Situation Attention Span Capable of Focused Attention,Capable of Sustained Ability Attention Ability to Follow Able to Follow One Step Commands,Able to Follow Multi- Commands Step Commands Memory Description No Deficits Noted,Immediate Intact Safety Awareness Underestimates Need for Assistance Problem Solving Unable to Identify Errors Ability Cognitive Comments Cognitive Assessment Pt needed vcs to be mindful in use of FWW as he would Comments leave it behind or to the side while tfing. Pt needs vc to remember to pull down or up his brief during toileting. OT- Vision and Hearing OT- Hearing Assessment OT- Hearing Hearing Impaired,Use of Hearing Aids Assessment OT- Vision Assessment Visual Acuity WFL,Glasses For Reading M7 OT- IP Mobility and Balance Start: 10/30/25 10:17 Freq: Status: Active Protocol: Document 10/30/25 10:17 PURNIMA (Rec: 10/30/25 10:40 [facility]) OT-Transfer Assessment Sit to and From Stand Sit to and from Standby Assistance Stand Transfers Transfer Ability Standby Assistance Technique Transfer Destination Bedside Commode,Chair Devices Transfer Assistive Gait Belt,Front Wheeled Walker Devices OT- Gait Assessment Gait Gait Assistance Standby Assistance Required: Distance (Feet) 15 Assistive Devices Assistive Device Gait Belt,Front Wheeled Walker Comments Gait Ability Pt forgets his FWW when amb throughout room for BADLs Comments and needs vcs for reminders. OT- Balance Assessment Sitting Balance and Reactions Static Sitting Normal Balance Ability Dynamic Sitting Good Balance Ability Standing Balance and Reactions Static Standing Good Balance Ability Dynamic Standing Good Balance Ability M8 OT- IP Objective Assessments Start: 10/30/25 10:17 Freq: Status: Active Protocol: Document 10/30/25 10:17 PURNIMA (Rec: 10/30/25 10:40 [facility]) OT Gross Range of Motion Upper Extremity Range of Motion Assessment Bilaterally Impaired ROM Impairments B shoulders ~90 deg OT Strength Upper Extremity Strength Shoulder 4- Elbow 4 Hand 4 Hand Talend Etl Developer Strength Hand Dominance Right OT- Coordination Assessment Upper Extremity Finger to Nose Test Left UE Impaired Finger Tapping Test Left UE Impaired Comments Coordination mild dysmetria noted Comments OT-Muscle Tone Assessment Muscle Tone WNL No OT Sensation Assessment Comments Summary Comments Intact Edema Edema Absent M9 OT- IP Assessment and Plan Start: 10/30/25 10:17 Freq: Status: Active Protocol: Document 10/30/25 10:17 [facility] (Rec: 10/30/25 10:40 [facility]) OT Summary Assessment and Plan Potential Rehabilitation Excellent Potential Analytic Complexity Low at Evaluation Summary OT Impairments Range of Motion,Strength,Balance,Coordination, Functional Mobility,Grooming,Dressing,Toileting,Bathing ,Toilet Transfers,Shower Transfers,Activity Tolerance Progress Towards Progressing Toward Goals Goals Assessment Summary Pt is an 85 yo M who experienced abrupt L facial droop and slurred speech, pt was brought to ED where CT was - and MRI showed an acute R das radiata infarct. Pt presents with mild dysmetria in L UE, decreased BADL, mild decreased safety awareness, decreased functional mobility, and decreased balance. Pt is appropriate for skilled OT services. Recommend outpatient therapy on dc . Goals Grooming Goal Independent Dressing Goal Independent Toileting Goal Independent Bathing Goal Independent Toilet Transfer Goal Independent Shower Transfer Goal Independent Days to Meet Goals 7 Frequency of Treatment Other frequency 5x/wk Treatment Plan OT Treatment Plan ADL Training,Functional Mobility,Neuromuscular Re- education,Therapeutic Exercises,Patient/Family Education,Discharge Planning Discharge Recommendations OT Discharge Home with Assistance,Outpatient PT Recommendations Other Discharge outpatient ST Recommendations Transportation Needs Private Vehicle at Discharge
--- NOTE | 2025-10-30 11:08 | ST.IPDYTX ---
Visit Care Team Role Provider Type Elda Lawson DO Primary Care Provider Physician Specialty: Family Practice Address: [address] [place] [address], [address], [place], [address] Email: [email or web address] Trina Potter DO Emergency Provider Physician Referring Provider Specialty: Emergency Medicine Address: [address] [place] [address], [id number] Email: Jarred Corley MD Admit Provider Physician Attending Provider Specialty: Medical Address: [address] [place] [address], [phone] Email: INSTRUCTIONAL TECHNOLOGY DIRECTOR Dysphagia Treatment INSTRUCTIONAL TECHNOLOGY DIRECTOR Dysphagia Treatment Start: 10/30/25 10:48 Freq: Status: Active Protocol: Document 10/30/25 10:49 MA (Rec: 10/30/25 11:08 MA Desktop) Dysphagia Treatment Session Time Visit Start Time 10:00 Visit Stop Time 10:30 Total Visit Minutes 30 Visit Information Visit Number 2 Setting Assessment Location Acute Care Patient Information Identification Type Name,ID Wristband Subjective Chart reviewed. RN consulted. RN reports Pt plan to Observations discharge today, however has to be seen by ST before he can leave. Upon entering Pt room, Pt sitting upright in chair with Pt present at bedside. Pt alert, oriented and agreeable to ST. Pt reports she thinks Pt had another TIA Thursday morning, d/t his speech becoming more slurred. Treatment Liquids Trialed Thin (IDDSI 0) Solids Trialed Regular (IDDSI 7) Oral Strategies Upright at 90 degrees,Alternate Liquids/Solids Treatment Activities Assessment of swallow function with PO trials of regular solids and thin liquids. Education related to safe swallowing strategies and discharge recommendations The IDDSI Framework Protocol: IDDSI.1 Assessment Patient Response to Excellent Treatment Rehab Potential Excellent Assessment of Pt presented with left facial droop, resulting in Improvement occasional left sided spillage of liquids, especially if Pt was talking and eating/drinking at the same time. Pt with weak overall oral musculature and suspected dysarthria with associated slurred speech with Pt about 90% intelligible. ST educated Pt and his on dysarthria speaking compensatory strategies, such as over articulation. For PO trials, Pt consumed anya crackers and thin water via cup. Pt independently alternated liquids/solids. For solids, Pt exhibited slightly prolonged mastication, however adequate bolus formation and control, mild oral stasis, no overt s/s of aspiration such as coughing or choking. For thin water via cup, Pt exhibited adequate sip size and rate, occasional left sided spillage, suspected delay in swallow, 1x throat clear, no s/s of aspiration such as coughing or choking. ST educated Pt and his on safe swallowing strategies and aspiration precautions, such as slow rate, small bites/sips, eating upright and staying upright for at least 30 minutes after, no straws, consistent oral care before/after meals involving brushing teeth with teeth brush and tooth paste. Pt and his verbalized understanding. ST communicated recommendation for Pt to receive outpatient speech therapy and a videofluoroscopic swallow study with Pt, his , RN and hospitalist. Recommendations Recommendations Continue Current Diet Liquids Order Thin (IDDSI 0) Diet Order Regular (IDDSI 7) Medication As Tolerated Recommendations Additional Dietary Single Sips,No Straws Needs Aspiration Precautions Recommended Upright at 90 Degrees,Alternate Liquids/Solids,Small Precautions Bites/Sips Treatment Plan Placement Outpatient Therapy Recommendation after Discharge Appropriate for Yes Continued Therapy Referrals/Other Recommended Other Referrals
--- NOTE | 2025-10-30 11:21 | PM.DS.1 ---
History of Present Illness History of Present Illness Date Patient Seen: 10/30/25 Time Patient Seen: 11:23 Chief complaint: had a stroke per Narrative: 85-year-old male with a history of capital P capital a capital F, prostate cancer, BPH, gout, SAY, PLMD, hyperlipidemia, and hypertension who presented on 10/26/2025 with a abrupt onset of left facial drooping and slurred speech. In the emergency room, the facial drooping resolved and speech was clear within 2 hours of presentation. Of note, the patient is on aspirin for the atrial fibrillation. He had previously been on Eliquis but this was stopped when he had an episode of rectal bleeding due to diverticulitis. He underwent colectomy and the Eliquis was not resumed. 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 MRI showed tiny acute/subacute white matter infarcts of the right das radiata. Discharge Providers Provider Date of admission: 10/27/25 10:43 Discharge Date: 10/30/25 Primary care physician: Elda Lawson DO Consults: 10/26/25 11:18 Consult to Speech Therapy Evaluate & Treat Comment: Physician Instructions: Evaluate and treat 10/27/25 12:28 Consult to Speech Therapy Evaluate & Treat Comment: Physician Instructions: Evaluate and treat 10/27/25 18:04 Consult to Occupational Therapy Evaluate & Treat Comment: Physician Instructions: Evaluate and treat Consult to Physical Therapy Evaluate & Treat Comment: Physician Instructions: Evaluate and Treat 10/29/25 09:58 Consult to Pharmacy Routine Comment: if new meds at discharge Discharge provider: Juju Dahl MD Summary Hospital Course Discharge Diagnosis: Acute/subacute CVA right das radiata, 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 On hospital day 1., the patient experienced recurrent increase in left facial droop with expressive aphasia. NIH stroke score at that time was 2. Follow-up head CT showed no acute stroke or bleeding. The case was reviewed with the Medicine tele stroke neurologist who advised resuming Eliquis and ensuring the patient was on high-dose statin therapy. On 10/29, the patient again had an increase in his dysarthria. Repeat head CT at that time showed no acute change. The patient also had experienced a vasovagal episode with straining to have a bowel movement. The patient is clinically stable. He does have a left facial droop and dysarthria. He is also on a dysphagia diet and speech therapy is recommending outpatient speech therapy referral and video fluoroscopic swallow study. The patient has been working with physical therapy and occupational therapy. He does have some mild weakness on the left upper extremity compared to the right upper extremity. He is stable for discharge to home with family and home health services. Status at Discharge Cognitive/behavioral status at discharge: at baseline, oriented Functional status at discharge: uses cane/walker Overall status at discharge: patient is progressing back to baseline Time Spent with Patient Time spent: Greater than 30 minutes Exam Vital Signs (past 8 hours): - 10/30/25 08:00 Temperature 97.5 F L Pulse Rate 84 Respiratory Rate 16 Blood Pressure 145/79 H Pulse Oximetry 97 Oxygen Flow Rate 0 Oxygen Delivery Method CPAP Oxygen Flow Rate 0 Narrative Exam Narrative: Alert and oriented, well-nourished, well-developed, no acute distress Irregular rhythm, regular rate, no murmurs Clear to auscultation bilaterally Warm without edema new line neuro notable for left facial droop, dysarthria, and strength 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 Otherwise strength 5/5 Pleasant and cooperative Objective ECG Impression: Atrial fibrillation at 64 beats per minute Imaging MRI - head: Radiologist's impression: Acute/subacute CVA right das radiata, head CT x2 without acute abnormalities. 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/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) Obstructive sleep apnea, adult (~04/22/20) Paroxysmal atrial fibrillation Periodic limb movement disorder (PLMD) Prostate cancer Sepsis Snoring Ulcerative colitis Surgical History History of colonoscopy History of tonsillectomy Hx of colectomy (09/21/24) Hx of vasectomy Family History Father Loud snoring Hypertension Mother Hypertension Hyperlipidemia Social History marital status: details: lives in [place] number of children: 2 household members: spouse lives independently: Yes caregiver/support person: No housing: house Smoking Status: Former smoker alcohol intake: former substance use type: does not use caffeine: Yes Type(s) of exercise: regular exercise frequency: decline to answer Discharge Plan Discharge Plan Patient Disposition: Home Health Service Provider Discharge Comment: 1) Speech therapy has recommended an outpatient swallow evaluation and outpatient speech therapy. Discharge orders & Medications Prescriptions: New atorvastatin 20 mg Tablet 80 mg PO BEDTIME Qty: 30 0RF Eliquis 5 mg Tablet 5 mg PO BID Qty: 60 0RF lactulose [Kristalose] 20 gram packet 20 g PO BID PRN (Reason: constipation) Qty: 30 0RF Continued aspirin 81 mg Capsule 81 mg PO BEDTIME metoprolol tartrate 50 mg tablet 50 mg PO BID diltiazem HCl [Cardizem CD] 180 mg capsule,extended release 24hr 180 mg PO DAILY indomethacin 50 mg capsule 50 mg PO BID PRN (Reason: gout) Rx Instructions: administer with food or milk Mag Glycinate 100 mg tablet 200 mg PO DAILY acetylcysteine [NAC] 600 mg capsule 600 mg PO DAILY multivitamin [Daily Multi-Vitamin] Tablet 1 tab PO DAILY omega-3 fatty acids [[place]-3] 1,000 mg capsule 1,000 mg PO DAILY cholecalciferol (vitamin D3) 125 mcg (5,000 unit) capsule 125 mcg PO DAILY Stephania-C with Bioflavonoids 500-200 mg tablet 2 tab PO BID activated charcoal 200 mg capsule 400 mg PO ONCE PRN (Reason: diarrhea) coQ10 (ubiquinol) [Qunol Americo CoQ10] 100 mg capsule 100 mg PO BID Adult 50 Plus Probiotic 4 billion cell capsule 4,000 mmu cells PO DAILY Rx Instructions: administer with a meal magnesium L-threonate 48 mg magnesium (667 mg) capsule 48 mg PO DAILY Discontinued Magnesium taurate See Rx Instructions .ROUTE .COMPLEX Rx Instructions: 1500MG(120MG AG); turmeric (bulk) [Curcumin] See Rx Instructions miscellaneous .COMPLEX Rx Instructions: 1750MG as directed potassium 99 mg tablet 99 mg PO Stephania-C Vitamin C 1000 mg Coated Tablets See Rx Instructions .ROUTE .COMPLEX Rx Instructions: 500MG x2 IN DIVIDED SEVERIANO; 500MG x2 IN DIVIDED DOSES APRICOT KERNALS Rx Instructions: x4 ivermectin 3 mg tablet 6 mg PO 3XW Rx Instructions: as a single dose milk thistle 150 mg capsule 150 mg PO BID Rx Instructions: give with meal/snack garlic extract 600 mg tablet 600 mg PO DAILY acetylcysteine [NAC] 600 mg capsule 600 mg PO DAILY vitamin E (dl, acetate) 180 mg (400 unit) capsule 180 mg PO DAILY turmeric root extract 500 mg capsule 500 mg PO DAILY cardioplegic no.15(induct 8:1) 100 mEq/500 mL (potassium) solution perfusion vitamin K2 100 mcg capsule 100 mcg PO DAILY quercetin 500 mg capsule 500 mg PO DAILY Chlorella algae 410 mg capsule 410 mg PO DAILY black walnut singletary 450 mg capsule 450 mg PO DAILY black seed 4.5 gram/5 mL oil 4.5 g PO DAILY curcumin-phosphatidylcholine 500 mg capsule 500 mg PO DAILY methylene blue (bulk-solid) Powder 35 ea miscellaneous DAILY Follow up/Referrals: Elda Lawson DO [Primary Care Provider, Family Practice] Other Ambulatory Orders: [place] barium swallow w speech (Routine) Timeframe: 2 Weeks Facility: [facility] - Location: Radiology Ordered By: Juju Dahl Diet/Activity/Treatments Diet: Diet as Tolerated Diet comment: Diet per speech therapy Activity: As tolerated Visit Report/Discharge Packet Stand Alone Forms: [employer], Patient Portal/API, Stroke Signs & Symptoms, Influenza Vaccine Info, Notice of Privacy Practices, Inpatient vs Outpatient, Pneumococcal Vaccine Info, Pt. Rights & Responsibilities Discharge Data Primary Care Provider: Elda Lawson VTE Deep Vein Thrombosis/Pulmonary Embolism Present on Admission: No
[2025-10-30 12:00] VITALS: BP 147/67; PULSE 68; RESP 16; TEMP 35.7; O2SAT 98
[2025-10-30] MEDS: FLEETS ENEMA 1 EACH PR (12:13)
--- NOTE | 2025-10-30 15:39 | PC.NURSE ---
Pt is dressed and ready for discharge home with Son. IV and tele have been removed. Went over d/c instructions with Pt-discussed d/c [id number] in the evening-may cause muscle aches, apixaban-blood thinner-watch for increased bleeding or bruising, and lactulose for constipation. Reviewed meds already given today and next dosage times. Reviewed stroke education, taking it slow and easy, drinking plenty of fluids to prevent constipation, speech therapy outpatient and home health, and follow up. Pt denied further questions and was ready to be discharged out (after having another bm) via w/c by FIELD NURSE CASE MANAGER to POV with Son and all belongings.
--- NOTE | 2025-10-30 16:25 | CM.DPNOTE ---
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 preference for HH- pref for [facility] . spouse cleared to take pt home today. AIRCRAFT ENGINE MECHANIC OVERHAUL sent ref to John [facility] at [facility] . f2f/order complete and sent. dc sum sent. P: dc today home with [facility] to follow for RN/PT/OT/speech. will continue to follow as needed for DCP Coordination MAYCOL Little
== END 2025-10-30 15:44 | disposition home health service (06) | DRG 66 ==
LOC: ED 10:42 → AC 10:44
PROVIDERS: Admitting Provider Family Medicine; Emergency Provider Emergency Medicine; PCP Family Medicine; Referring Provider Emergency Medicine; Visit Provider Family Medicine
DX: I63.9 Cerebral infarction, unspecified (principal); I48.0 Paroxysmal atrial fibrillation; R29.810 Facial weakness; R47.81 Slurred speech; I12.9 Hypertensive chronic kidney disease with stage 1 through stage 4 chronic kidney disease, or unspecified chronic kidney disease; R47.01 Aphasia; K59.00 Constipation, unspecified; R55 Syncope and collapse; I67.89 Other cerebrovascular disease; N18.31 Chronic kidney disease, stage 3a; G83.24 Monoplegia of upper limb affecting left nondominant side; M10.9 Gout, unspecified; R29.704 NIHSS score 4; R29.702 NIHSS score 2; Z79.82 Long term (current) use of aspirin; Z90.49 Acquired absence of other specified parts of digestive tract; Z87.19 Personal history of other diseases of the digestive system; Z87.891 Personal history of nicotine dependence
CPT/HCPCS: 36415; 70450; 70496; 70498; 70551; 80053; 80320; 81001; 82550; 82962; 84484; 85025; 85610; 85730; 92526; 92610; 93005; 97162; 97165; 97530; 99285; G0378; A9579; C8929; Q9957; Q9967

== ENCOUNTER → 2025-11-08 09:07 | Outpatient (CLI) | payer MEDICARE, SELFPAY ==
[2025-10-26 17:15] VITALS: BMI 26.3
[2025-11-08 10:05] LABS: Add Manual Diff / Slide Review NO; Hematocrit 37.3 % (41-53); Hemoglobin 12.6 g/dL (13.5-17.5); Lymphocytes Absolute Auto 1600 /uL (1100-4500); Mean Corpuscular HGB Conc 33.9 % (30-36); Mean Corpuscular Hemoglobin 30.6 PG (26-34); Mean Corpuscular Volume 90.3 fL (80-100); Platelet Count 346 X10^3/uL (150-400)
[2025-11-08 10:21] LABS: Alanine Aminotransferase 31 IU/L (<50); Albumin 4.1 g/dL (3.5-5.0); Albumin Globulin Ratio 1.4 (1.0-2.8); Alkaline Phosphatase 109 U/L (38-126); Blood Urea Nitrogen 23 mg/dL (9-20); Calcium 9.3 mg/dL (8.4-10.2); Carbon Dioxide 24 mmol/L (22-32); Chloride 103 mmol/L (98-107); Estimated Glomerular Filt Rate > 60 mL/min (>60); Globulin 2.9 g/dL (1.7-4.1); Glucose 91 mg/dL (70-99); HEMOLYSIS < 15 (0-50); Potassium 4.0 mmol/L (3.4-5.1); Sodium 139 mmol/L (137-145); Total Protein 7.0 g/dL (6.3-8.2)
[2025-11-08 10:52] LABS: TSH w/ Reflex to FT4 1.95 uIU/mL (0.47-4.68)
== END ==
PROVIDERS: PCP Family Medicine; Referring Provider Family Medicine; Visit Provider Family Medicine
DX: I63.9 Cerebral infarction, unspecified (principal); I48.0 Paroxysmal atrial fibrillation; G45.9 Transient cerebral ischemic attack, unspecified; I10 Essential (primary) hypertension; E78.5 Hyperlipidemia, unspecified; R79.89 Other specified abnormal findings of blood chemistry
CPT/HCPCS: 36415; 80053; 84443; 85025